=== PATIENT | male | born 1935 | race Caucasian/White ===

== ENCOUNTER 2017-05-26 20:44 | Emergency (ER) | payer MEDICARE, BC ==
[2017-05-26 21:53] VITALS: RESP 18
[2017-05-26 22:40] LABS: Appearance,Urine Clear (Clear); Bacteria,Urine Rare /hpf; Bilirubin,Urine Negative (Negative); Glucose,Urine (UA) 3+ (Negative); Ketones,Urine Negative (Negative); Leukocyte Esterase,Urine Trace (Negative); Nitrite,Urine Negative (Negative); Particle Count 1102; Protein,Urine 1+ (Negative); RBC,Urine >182 /hpf (0-5); Specific Gravity,Urine 1.011 (1.001-1.035); UA Billing (MACRO vs. MICRO) MICRO; Urobilinogen,Urine <2.0 mg/dL (<2.0); WBC,Urine 7 /hpf (0-5)
--- NOTE | 2017-05-26 22:53 | ED ---
General Adult HPI - General Chief complaint: Urogenital Stated complaint: Cant urinate Time Seen by Provider: 05/26/17 22:08 Source: patient Mode of arrival: ambulatory Limitations: no limitations - History of Present Illness Initial comments: Is a 82-year-old male presents emergency department after being transferred here from [facility] to complain of unable to urinate. Patient reports that he follows up with Dr. Cardoza due to hematuria and prostate issues. Patient reports that his urinary retention started at 2 PM today. Patient states that the pain became increasingly worse on the drive from her [place] here. They had multiple times to get a Haq catheter but were unable to. They sent him here to have Dr. Cardoza place a catheter. - Related Data Home Medications Medication Instructions Recorded Confirmed Acetaminophen-Codeine 300-30mg 2 tab PO Q8H PRN 01/29/16 02/05/16 [Tylenol #3] Ammonium Lactate Lotion 1 applic TOPICAL DAILY PRN 01/29/16 02/05/16 [Lac-Hydrin 12%] Aspirin [Adult Low Dose Aspirin EC] 81 mg PO DAILY 01/29/16 01/29/16 Ciclopirox Olamine Cream [Ciclodan] 1 applic TOPICAL BID 01/29/16 02/05/16 Ergocalciferol [Vitamin D2] 50,000 unit PO QMONTH 01/29/16 02/05/16 Fenofibrate [Tricor] 160 mg PO QAM 01/29/16 02/05/16 Ferrous Sulfate [Feosol] 325 mg PO DAILY 01/29/16 02/05/16 Gabapentin [Neurontin] 300 mg PO BID 01/29/16 02/05/16 Losartan Potassium 100 mg PO QAM 01/29/16 02/05/16 Multivitamin [Men's Multi-Vitamin] 1 tab PO DAILY 01/29/16 02/05/16 Mupirocin 2% Nasal Oint [Bactroban 1 applic NASAL BID 01/29/16 02/05/16 Nasal Oint] Niacinamide [Niacin] 500 mg PO QAM 01/29/16 02/05/16 Simvastatin [Zocor] 10 mg PO HS 01/29/16 02/05/16 Tamsulosin [Flomax] 0.4 mg PO DAILY 01/29/16 02/05/16 Triamcinolone 0.1% Cream [Kenalog] 1 applic TOPICAL DAILY PRN 01/29/16 02/05/16 Zolpidem [Ambien] 10 mg PO HS PRN 01/29/16 02/05/16 amLODIPine [Norvasc] 2.5 mg PO QAM 01/29/16 02/05/16 glipiZIDE [Glucotrol] 5 mg PO PC-SUPPER 01/29/16 02/05/16 glipiZIDE [Glucotrol] 10 mg PO QAM 01/29/16 02/05/16 Previous Rx's Medication Instructions Recorded Rivaroxaban [Xarelto] 10 mg PO DAILY #12 tab 02/05/16 HYDROcodone/APAP 7.5-325MG [[place] 1 tab PO Q4H PRN #60 tab 02/08/16 7.5-325] Allergies Allergy/AdvReac Type Severity Reaction Status Date / Time tape Allergy takes the Uncoded 05/26/17 21:53 skin off Review of Systems ROS Statement: Those systems with pertinent positive or pertinent negative responses have been documented in the HPI. ROS Other: All systems not noted in ROS Statement are negative. Past Medical History Past Medical History: Cancer, Diabetes Mellitus, Hyperlipidemia, Hypertension, Osteoarthritis (OA), Prostate Disorder Additional Past Medical History / Comment(s): prostate cancer, STROKE BEHIND RT EYE,GOUT,DDD,RECENTLY TX FOR UTI History of Any Multi-Drug Resistant Organisms: None Reported Past Surgical History: Joint Replacement, Orthopedic Surgery Additional Past Surgical History / Comment(s): 02-05-16 TOTAL LT KNEE REPLACMENT , RT KNEE REPLACMENT, BRIELLE CATARACTS, PROSTE-SEED IMPLANTS,COLONOSCOPY/ POLYPECTOMY(BENIGN), PRECANCEROUS SKIN LESIONS FROZEN OFF. Past Anesthesia/Blood Transfusion Reactions: Motion Sickness Past Psychological History: No Psychological Hx Reported Smoking Status: Never smoker Past Alcohol Use History: None Reported Past Drug Use History: None Reported - Past Family History Mother Family Medical History: Diabetes Mellitus Additional Family Medical History / Comment(s): HEART PROBLEMS Father Family Medical History: Diabetes Mellitus General Exam - General Exam Comments Initial Comments: Well-appearing 82-year-old male. No acute distress. Limitations: no limitations General appearance: alert, in no apparent distress Head exam: Present: atraumatic, normocephalic, normal inspection Eye exam: Present: normal appearance, PERRL, EOMI. Absent: scleral icterus, conjunctival injection, periorbital swelling ENT exam: Present: normal exam, mucous membranes moist Neck exam: Present: normal inspection. Absent: tenderness, meningismus, lymphadenopathy Respiratory exam: Present: normal lung sounds bilaterally. Absent: respiratory distress, wheezes, rales, rhonchi, stridor Cardiovascular Exam: Present: regular rate, normal rhythm, normal heart sounds. Absent: systolic murmur, diastolic murmur, rubs, gallop, clicks GI/Abdominal exam: Present: soft, normal bowel sounds. Absent: distended, tenderness, guarding, rebound, rigid exam: Present: normal inspection, circumcision, other (Upon examining the patient patient are he had a Haq catheter placed.). Absent: testicular tenderness, urethral discharge, scrotal swelling, vertical testicular lie Extremities exam: Present: normal inspection, full ROM, normal capillary refill. Absent: tenderness, pedal edema, joint swelling, calf tenderness Back exam: Present: normal inspection Neurological exam: Present: alert, oriented X3, CN II-XII intact Psychiatric exam: Present: normal affect, normal mood Skin exam: Present: warm, dry, intact, normal color. Absent: rash Course Vital Signs 05/26/17 21:49 Temperature 99.3 F Pulse Rate 116 H Respiratory 18 Rate Blood Pressure 202/91 O2 Sat by Pulse 100 Oximetry Medical Decision Making - Medical Decision Making This is an 82-year-old male presents emergency room chief complaint urinary retention. He did receive a coud catheter by the RN. Isn't successful placement. Due to multiple attempts to getting a Haq catheter he did have some blood noted in the Haq bag. Urinalysis obtained. For blood, but no significant white blood cells noted. Patient did receive a urine culture. The catheter was placed, approximately 1 L of fluid was removed. At this time I discussed that we will discharge the patient with the Haq catheter bag and a . Discussed following up with urology. Discussed to return if there is any possible clogging of clots from the Haq catheter. Patient understands treatment plan will comply. Return parameters were discussed. - Lab Data Lab Results 05/26/17 Range/Units 22:20 Urine Color Light Red Urine Appearance Clear (Clear) Urine pH 7.0 (5.0-8.0) Ur Specific [place] 1.011 (1.001-1.035) Urine Protein 1+ H (Negative) Urine Glucose (UA) 3+ H (Negative) Urine Ketones Negative (Negative) Urine Blood Large H (Negative) Urine Nitrite Negative (Negative) Urine Bilirubin Negative (Negative) Urine Urobilinogen <2.0 (<2.0) mg/dL Ur Leukocyte Esterase Trace H (Negative) Urine RBC >182 H (0-5) /hpf Urine WBC 7 H (0-5) /hpf Urine Bacteria Rare H (None) /hpf Disposition Clinical Impression: Acute urinary retention Disposition: HOME SELF-CARE Condition: Good Instructions: Urinary Retention in Men (ED) Additional Instructions: Patient advised to follow-up with primary care provider and urologist within the next week. Patient needs to keep the catheter in. Return to the emergency department if any alarming signs or symptoms occur. Referrals: Nickolas Reyes MD [Primary Care Provider] - 1-2 days Escobar Schaeffer MD [STAFF PHYSICIAN] - 1-2 days Kodi Overton MD [STAFF PHYSICIAN] - 1-2 days Time of Disposition: 22:52
[2017-05-26 23:05] VITALS: BP 159/71; PULSE 86; TEMP 98.3
== END 2017-05-26 23:14 | disposition home or self-care (01) ==
LOC: EC 20:44
DX: R33.9 Retention of urine, unspecified (principal); M10.9 Gout, unspecified; E11.9 Type 2 diabetes mellitus without complications; E78.5 Hyperlipidemia, unspecified; I10 Essential (primary) hypertension; M19.90 Unspecified osteoarthritis, unspecified site; Z85.46 Personal history of malignant neoplasm of prostate; Z91.048 Other nonmedicinal substance allergy status; Z79.82 Long term (current) use of aspirin; Z79.84 Long term (current) use of oral hypoglycemic drugs; Z79.899 Other long term (current) drug therapy
CPT/HCPCS: 51702; 81001; 87086; 99283

== ENCOUNTER 2020-05-04 07:02 | Inpatient (IN) | payer MEDICARE, BC ==
[2020-05-04] MEDS ORDERED: ACETAMINOPHEN TAB 325 MG TAB PO PRN (08:55)
[2020-05-04] MEDS ORDERED: SODIUM CHLORIDE 0.45% 1,000 ML with POTASSIUM CHLORIDE 20 MEQ IV SCH ×2 (09:00)
[2020-05-04] MEDS ORDERED: FAMOTIDINE 20 MG/2 ML VIAL IV SCH (09:00)
[2020-05-04] MEDS: amLODIPine 5 MG TAB PO SCH (09:56)
[2020-05-04] MEDS: allopurinoL 100 MG TAB PO SCH (09:56)
[2020-05-04] MEDS: TAMSULOSIN 0.4 MG CAP.ER.24H PO SCH (09:56)
[2020-05-04] MEDS: metFORMIN 500 MG TAB PO SCH ×2 (09:56→17:10)
[2020-05-04] MEDS: FUROSEMIDE 20 MG TAB PO SCH ×2 (09:56→17:10)
--- NOTE | 2020-05-04 10:03 | P.GSHP ---
History of Present Illness H&P Date: 05/04/20 Chief Complaint: Sepsis secondary to urinary tract infection The patient is an 85-year-old male transferred from [facility] emergency room this morning for evaluation of sepsis associated with a urinary tract infection. The patient is well known to me. He has a history of prostate cancer which was initially treated with brachii therapy in 2007. He relapsed in 2017 with high-grade cancer which resulted in bilateral hydronephrosis. He has been treated with androgen deprivation therapy and his renal function improved with his creatinine level in the 1.5-1.7 range the recently. He continues to have some bilateral hydronephrosis however. He developed intermittent gross hematuria which resulted in clot urinary retention 2 days ago. I performed cystoscopy with transurethral resection of necrotic-appearing prostate tissue at the [facility] on 05/01. A catheter was left following the surgery and continued drain pink to reddish urine. The patient's hemoglobin was 11.7 approximally 2 weeks ago. Last night the patient apparently got up to go to the bathroom and was too weak to stand. His took him to the [facility] emergency room where he was evaluated and noted to have a fever and a white blood count of 14,300. Hemoglobin was 9.1. Computed tomography scan of the abdomen and pelvis showed bilateral hydronephrosis. His catheter was replaced with a 24-Setswana coud catheter but no further bladder irrigation was necessary. The patient was given a dose of Zosyn and was transferred to this hospital for intravenous antibiotic therapy. At the present time the patient denies any abdominal pain. He says he's not been eating very well over the last several days. He denies any shortness of breath or chest pain. Despite being week the patient has not fallen. - Constitutional Constitutional: Reports fatigue, Reports fever - Cardiovascular Cardiovascular: Reports high blood pressure, Denies chest pain, Denies edema, Denies shortness of breath - Respiratory Respiratory: Denies cough, Denies wheezing - Gastrointestinal Gastrointestinal: Reports constipation, Denies abdominal pain - Genitourinary (Male) Genitourinary: Reports as per HPI Past Medical History Past Medical History: Cancer, Diabetes Mellitus, Hyperlipidemia, Hypertension, Osteoarthritis (OA), Prostate Disorder Additional Past Medical History / Comment(s): prostate cancer, STROKE BEHIND RT EYE,GOUT,DDD,RECENTLY TX FOR UTI History of Any Multi-Drug Resistant Organisms: None Reported Past Surgical History: Joint Replacement, Orthopedic Surgery Additional Past Surgical History / Comment(s): 02-05-16 TOTAL LT KNEE REPLACMENT, RT KNEE REPLACMENT, BRIELLE CATARACTS, PROSTE-SEED IMPLANTS,COLONOSCOPY/POLYPECTOMY(BENIGN), PRECANCEROUS SKIN LESIONS FROZEN OFF. Past Anesthesia/Blood Transfusion Reactions: Motion Sickness Past Psychological History: No Psychological Hx Reported Past Alcohol Use History: None Reported Past Drug Use History: None Reported - Past Family History Mother Family Medical History: Diabetes Mellitus Additional Family Medical History / Comment(s): HEART PROBLEMS Father Family Medical History: Diabetes Mellitus Medications and Allergies Home Medications Medication Instructions Recorded Confirmed Type Aspirin [Adult Low Dose Aspirin EC] 81 mg PO DAILY 01/29/16 09/19/17 History Ergocalciferol [Vitamin D2 50,000 unit PO Q14D 01/29/16 09/19/17 History (DRISDOL)] Ferrous Sulfate [Iron (65 MG 325 mg PO DAILY 01/29/16 09/19/17 History Elemental)] Multivitamin [Men's Multi-Vitamin] 1 tab PO DAILY 01/29/16 09/19/17 History Tamsulosin [Flomax] 0.4 mg PO DAILY 01/29/16 09/19/17 History amLODIPine [Norvasc] 5 mg PO DAILY 09/19/17 09/19/17 History Furosemide [Lasix] 40 mg PO BID #60 tab 10/01/17 Rx Sevelamer [Renvela] 1,600 mg PO TID-W/MEALS #30 tab 10/01/17 Rx Zolpidem [Ambien] 5 mg PO HS PRN #0 10/01/17 09/19/17 Rx Allergies Allergy/AdvReac Type Severity Reaction Status Date / Time tape AdvReac skin tear Uncoded 09/19/17 03:44 Surgical - Exam - General well developed, no distress, chronically ill - ENT no hearing loss - Neck no masses - Respiratory normal respiratory effort - Abdomen Abdomen: soft, non tender, no organomegaly Hernia: none - Genitourinary normal penis with no external lesions, testicles non-tender, other (Haq catheter is present and is draining blood-tinged urine with no clots.) Assessment and Plan (1) Sepsis secondary to UTI Narrative/Plan: The patient's recent fever and weakness are suggestive of sepsis from an underlying urinary tract infection. Blood and urine cultures were obtained at [facility] and the patient has been started on Zosyn which will be continued. Current Visit: Yes Status: Acute Code(s): A41.9 - SEPSIS, UNSPECIFIED ORGANISM; N39.0 - URINARY TRACT INFECTION, SITE NOT SPECIFIED SNOMED Code(s): 970894479 (2) Chronic kidney failure Current Visit: Yes Status: Acute Code(s): N18.9 - CHRONIC KIDNEY DISEASE, UNSPECIFIED SNOMED Code(s): 49858148 (3) Chronic renal failure, stage 3 (moderate) Narrative/Plan: The patient's recent creatinine is consistent with his chronic renal failure which is related to bilateral hydronephrosis. This does not appear to have changed significantly over the last few weeks. Current Visit: Yes Status: Acute Code(s): N18.3 - CHRONIC KIDNEY DISEASE, STAGE 3 (MODERATE) SNOMED Code(s): 08002395 (4) Gross hematuria Narrative/Plan: The patient's gross hematuria is related to bleeding from his underlying prostate cancer. At the present time neither repeat cystoscopy under anesthesia no her blood transfusion would appear to be necessary. His bladder will be irrigated as necessary. Current Visit: No Status: Acute Code(s): R31.0 - GROSS HEMATURIA SNOMED Code(s): 191606679
[2020-05-04 11:12] LABS: Glucose,Whole Blood 363 mg/dL (75-99)
[2020-05-04] MEDS: PIPERACILLIN-TAZOBACTAM 3.375 GM in SODIUM CHLORIDE 0.9% 100 ML IVPB SCH ×3 (11:34→23:46)
[2020-05-04] MEDS: 0.45% NACL WITH KCL 20 MEQ/L 1,000 ML IV SCH ×2 (11:34→19:28)
[2020-05-04] MEDS: INSULIN ASPART (NovoLOG) 100 UNIT/ML VIAL SQ SCH ×3 (12:44→20:17)
[2020-05-04 16:54] LABS: Calcium 8.2 mg/dL (8.4-10.2); Potassium 3.3 mmol/L (3.5-5.1)
[2020-05-04 17:08] LABS: Basophils % (A) 0 %; Eosinophils # (A) 0.3 k/uL (0-0.7); Eosinophils % (A) 3 %; HCT 25.3 % (39.0-53.0); HGB 8.3 gm/dL (13.0-17.5); Lymphocytes # (A) 1.2 k/uL (1.0-4.8); Lymphocytes % (A) 11 %; MCH 32.6 pg (25.0-35.0); MCHC 32.7 g/dL (31.0-37.0); MCV 99.7 fL (80.0-100.0); Macrocytosis Slight; Mean Platelet Volume 8.1; Monocytes % (A) 10 %; Neutrophils # (A) 7.5 k/uL (1.3-7.7); Neutrophils % (A) 74 %; Platelet Count 182 k/uL (150-450); RBC 2.54 m/uL (4.30-5.90); RDW 14.5 % (11.5-15.5); WBC 10.1 k/uL (3.8-10.6)
[2020-05-04 17:25] LABS: Glucose,Whole Blood 115 mg/dL (75-99)
[2020-05-04] MEDS ORDERED: glipiZIDE 5 MG TAB PO SCH (18:00)
[2020-05-04 20:12] LABS: Glucose,Whole Blood 233 mg/dL (75-99)
[2020-05-04] MEDS: GABAPENTIN 300 MG CAP PO SCH (20:17)
[2020-05-04] MEDS: ZOLPIDEM 10 MG TAB PO SCH (20:17)
[2020-05-05] MEDS: 0.45% NACL WITH KCL 20 MEQ/L 1,000 ML IV SCH ×3 (02:57→16:58)
[2020-05-05 07:11] LABS: Glucose,Whole Blood 109 mg/dL (75-99)
[2020-05-05] MEDS: INSULIN ASPART (NovoLOG) 100 UNIT/ML VIAL SQ SCH ×4 (07:26→20:09)
[2020-05-05] MEDS ORDERED: FAMOTIDINE 20 MG/2 ML VIAL IV SCH (09:00)
[2020-05-05] MEDS: glipiZIDE 10 MG TAB PO SCH (09:08)
[2020-05-05] MEDS: amLODIPine 5 MG TAB PO SCH (09:08)
[2020-05-05] MEDS: FUROSEMIDE 20 MG TAB PO SCH ×2 (09:08→16:43)
[2020-05-05] MEDS: metFORMIN 500 MG TAB PO SCH ×2 (09:08→16:43)
[2020-05-05] MEDS: TAMSULOSIN 0.4 MG CAP.ER.24H PO SCH (09:08)
[2020-05-05] MEDS: allopurinoL 100 MG TAB PO SCH (09:09)
[2020-05-05] MEDS: PIPERACILLIN-TAZOBACTAM 3.375 GM in SODIUM CHLORIDE 0.9% 100 ML IVPB SCH ×2 (09:09→16:43)
--- NOTE | 2020-05-05 10:02 | P.PN ---
Progress Note - Text Progress Note Date: 05/05/20 The patient is afebrile and normotensive. He was noted to have a seven beat run of V. tach last night but was not symptomatic and has had no further problems. He is tolerating a regular diet and denies any pain or shortness of breath. His urine is light pink in color. Hemoglobin was 8.3 yesterday afternoon. Lactic acid fell to normal at 1.9. I called [facility] and unfortunately no blood or urine cultures were obtained prior to starting the patient on ceftriaxone yesterday. If his hemoglobin remains stable I will probably discharge him later today on an oral antibiotic.
[2020-05-05 10:24] LABS: Calcium 7.7 mg/dL (8.4-10.2); Potassium 3.8 mmol/L (3.5-5.1)
[2020-05-05 10:33] LABS: Basophils % (A) 0 %; Eosinophils # (A) 0.4 k/uL (0-0.7); Eosinophils % (A) 5 %; HCT 25.6 % (39.0-53.0); HGB 8.3 gm/dL (13.0-17.5); Lymphocytes # (A) 0.8 k/uL (1.0-4.8); Lymphocytes % (A) 10 %; MCH 32.5 pg (25.0-35.0); MCHC 32.2 g/dL (31.0-37.0); MCV 100.9 fL (80.0-100.0); Macrocytosis Slight; Mean Platelet Volume 7.9; Monocytes # (A) 0.5 k/uL (0-1.0); Monocytes % (A) 7 %; Neutrophils # (A) 6.2 k/uL (1.3-7.7); Neutrophils % (A) 77 %; Platelet Count 175 k/uL (150-450); RBC 2.54 m/uL (4.30-5.90); RDW 14.5 % (11.5-15.5); WBC 8.1 k/uL (3.8-10.6)
[2020-05-05 12:22] LABS: Glucose,Whole Blood 209 mg/dL (75-99)
--- NOTE | 2020-05-05 12:52 | P.DS ---
Providers Date of admission: 05/04/20 08:49 Expected date of discharge: 05/05/20 Attending physician: Kodi Overton Primary care physician: Floyd Anne MD - Discharge Diagnosis(es) (1) Sepsis secondary to UTI The patient was admitted as a transfer from [facility] due to hematuria, and a fever which was presumed to be secondary to a urinary tract infection. He was started on ceftriaxone at [facility] and was continued on it. The patient remained afebrile since his admission. He had a urethral catheter which was draining blood-tinged urine however the catheter did not require irrigation and at the time of discharge urine draining from it was light pink in color. Patient's hemoglobin was 8.3 on 05/04 and again on 05/05. BUN/creatinine were improved at 24/1.26. Unfortunately neither blood nor urine cultures were obtained at [facility] prior to starting antibiotics. In view of that fact that the patient was afebrile for over 24 hours it was elected to discharge him on oral levofloxacin 250 milligrams daily for 5 days. His catheter will remain in place for another 2 days and will be removed at that time provided his urine is clear. Current Visit: Yes Status: Acute (2) Chronic kidney failure Current Visit: Yes Status: Acute (3) Chronic renal failure, stage 3 (moderate) Current Visit: Yes Status: Acute (4) Gross hematuria Current Visit: No Status: Acute Plan - Discharge Summary Discharge Rx Participant: No New Discharge Prescriptions: New Levofloxacin [Levaquin] 250 mg PO DAILY 3 Days #5 tab No Action Ergocalciferol [Vitamin D2 (DRISDOL)] 50,000 unit PO Q14D Tamsulosin [Flomax] 0.4 mg PO DAILY Multivitamin [Men's Multi-Vitamin] 1 tab PO DAILY amLODIPine [Norvasc] 5 mg PO DAILY Zolpidem [Ambien] 10 mg PO HS PRN PRN Reason: Insomnia metFORMIN HCL 500 mg PO BID Gabapentin 600 mg PO HS glipiZIDE [Glucotrol] 5 mg PO HS glipiZIDE [Glucotrol] 10 mg PO DAILY Furosemide [Lasix] 20 mg PO HS Furosemide [Lasix] 40 mg PO DAILY Famotidine [Pepcid] 20 mg PO BID Allopurinol [Zyloprim] 200 mg PO DAILY Discharge Medication List Ergocalciferol [Vitamin D2 (DRISDOL)] 50,000 unit PO Q14D 01/29/16 [History] Multivitamin [Men's Multi-Vitamin] 1 tab PO DAILY 01/29/16 [History] Tamsulosin [Flomax] 0.4 mg PO DAILY 01/29/16 [History] amLODIPine [Norvasc] 5 mg PO DAILY 09/19/17 [History] Allopurinol [Zyloprim] 200 mg PO DAILY 05/04/20 [History] Famotidine [Pepcid] 20 mg PO BID 05/04/20 [History] Furosemide [Lasix] 20 mg PO HS 05/04/20 [History] Furosemide [Lasix] 40 mg PO DAILY 05/04/20 [History] Gabapentin 600 mg PO HS 05/04/20 [History] Zolpidem [Ambien] 10 mg PO HS PRN 05/04/20 [History] glipiZIDE [Glucotrol] 5 mg PO HS 05/04/20 [History] glipiZIDE [Glucotrol] 10 mg PO DAILY 05/04/20 [History] metFORMIN HCL 500 mg PO BID 05/04/20 [History] Levofloxacin [Levaquin] 250 mg PO DAILY 3 Days #5 tab 05/05/20 [Rx] Activity/Diet/Wound Care/Special Instructions: Patient is to leave catheter in and contact Dr Overton on Wednesday. Discharge Disposition: HOME SELF-CARE
[2020-05-05 13:05] VITALS: RESP 16
[2020-05-05 17:07] LABS: Glucose,Whole Blood 168 mg/dL (75-99)
[2020-05-05 20:04] LABS: Glucose,Whole Blood 130 mg/dL (75-99)
[2020-05-05] MEDS: ZOLPIDEM 10 MG TAB PO SCH (20:06)
[2020-05-05] MEDS: GABAPENTIN 300 MG CAP PO SCH (20:06)
[2020-05-05] MEDS ORDERED: glipiZIDE 5 MG TAB PO SCH (21:00)
[2020-05-06] MEDS: PIPERACILLIN-TAZOBACTAM 3.375 GM in SODIUM CHLORIDE 0.9% 100 ML IVPB SCH ×2 (00:29→08:34)
[2020-05-06] MEDS: 0.45% NACL WITH KCL 20 MEQ/L 1,000 ML IV SCH ×2 (04:34→11:11)
[2020-05-06 07:39] LABS: Glucose,Whole Blood 108 mg/dL (75-99)
[2020-05-06 08:29] LABS: Basophils % (A) 0 %; Eosinophils # (A) 0.4 k/uL (0-0.7); Eosinophils % (A) 5 %; HCT 27.2 % (39.0-53.0); Lymphocytes # (A) 0.7 k/uL (1.0-4.8); Lymphocytes % (A) 10 %; MCHC 33.1 g/dL (31.0-37.0); MCV 99.7 fL (80.0-100.0); Macrocytosis Slight; Mean Platelet Volume 7.9; Monocytes # (A) 0.6 k/uL (0-1.0); Monocytes % (A) 8 %; Neutrophils # (A) 5.5 k/uL (1.3-7.7); Neutrophils % (A) 74 %; Platelet Count 195 k/uL (150-450); RBC 2.73 m/uL (4.30-5.90); RDW 14.5 % (11.5-15.5); WBC 7.4 k/uL (3.8-10.6)
[2020-05-06] MEDS: metFORMIN 500 MG TAB PO SCH (08:33)
[2020-05-06] MEDS: glipiZIDE 10 MG TAB PO SCH (08:33)
[2020-05-06] MEDS: allopurinoL 100 MG TAB PO SCH (08:33)
[2020-05-06] MEDS: TAMSULOSIN 0.4 MG CAP.ER.24H PO SCH (08:33)
[2020-05-06] MEDS: amLODIPine 5 MG TAB PO SCH (08:34)
[2020-05-06] MEDS: FUROSEMIDE 20 MG TAB PO SCH ×2 (08:34→16:10)
[2020-05-06] MEDS: INSULIN ASPART (NovoLOG) 100 UNIT/ML VIAL SQ SCH ×2 (08:34→12:56)
[2020-05-06] MEDS ORDERED: FAMOTIDINE 20 MG TAB PO SCH (09:00)
[2020-05-06 11:43] LABS: Glucose,Whole Blood 168 mg/dL (75-99)
[2020-05-06 11:56] VITALS: BP 132/77; PULSE 79; TEMP 97.9
[2020-05-06 17:20] LABS: Glucose,Whole Blood 139 mg/dL (75-99)
--- NOTE | 2020-05-08 09:17 | CDI ---
Documentation Clarification Form Date: 05/08/20 From: Kelsie Gil Phone: If you have a question about this query, please contact Hollie Feldman, Pyridine Operator at [phone] between 8am and 5pm. Admit Date: 05/04/20 Discharge Date: 05/06/20 Patient Name: KELLY BERMAN Visit Number: [id number] ATTENTION: The Clinical Documentation Specialists (CDI) and [facility] Coding Staff appreciate your assistance in clarifying documentation. Please respond to the clarification below the line at the bottom and electronically sign. The CDI & [facility] Coding staff will review the response and follow-up if needed. Please note: Queries are made part of the Legal Health Record. If you have any questions, please contact the author of this message via ITS. Dear Dr. Kodi Overton, A diagnosis of sepsis secondary to UTI has been documented in the H&P and DS. History/Risk Factors: prostate ca, VT, DM 2 w CKD stage 3, HTN, gross hematuira, HLD, OA Per documentation in the H&P this patient was admitted with an indwelling Haq catheter. The catheter was placed on 05/01 following cystoscopy and TURP. He presented to [facility] on 05/03 with fever and white count of 14,300. His catheter was replaced, but no further bladder irrigation was necessary. He was transferred to [place] for intravenous antibiotic therapy. Clinical Indicators: The patient's recent fever and weakness are suggestive of sepsis from an underlying urinary tract infection. Urinalysis: None available Urine culture: None done at transferring hospital prior to antibiotic starting. Lab results: Lactic acid-2.1, Lactic Ac Sepsis Rflx-Y Treatment: IV fluids, IV Zosyn In your professional opinion, can you please clarify the etiology of the UTI, if known? Haq catheter UTI not related to catheter Other condition, please specify Unable to determine The patient's presumed urinary tract infection was probably related to the Haq catheter. MTDD
== END 2020-05-06 18:35 | disposition home or self-care (01) | DRG 698 ==
LOC: 6NMEDSUR 08:49 → OBSVTOIN 08:50
PROVIDERS: ADMIT Urology; ATTEND Urology
DX: T83.511A Infection and inflammatory reaction due to indwelling urethral catheter, initial encounter (principal); A41.9 Sepsis, unspecified organism; I47.2 Ventricular tachycardia; N13.6 Pyonephrosis; C61 Malignant neoplasm of prostate; E11.22 Type 2 diabetes mellitus with diabetic chronic kidney disease; N18.3 Chronic kidney disease, stage 3 (moderate); I12.9 Hypertensive chronic kidney disease with stage 1 through stage 4 chronic kidney disease, or unspecified chronic kidney disease; R31.0 Gross hematuria; E78.5 Hyperlipidemia, unspecified; M19.90 Unspecified osteoarthritis, unspecified site; M10.9 Gout, unspecified; Z79.84 Long term (current) use of oral hypoglycemic drugs; Z79.899 Other long term (current) drug therapy; Z86.73 Personal history of transient ischemic attack (TIA), and cerebral infarction without residual deficits; Z92.3 Personal history of irradiation; Z96.652 Presence of left artificial knee joint; Z96.651 Presence of right artificial knee joint; Z98.42 Cataract extraction status, left eye; Z98.41 Cataract extraction status, right eye; Z86.010 Personal history of colon polyps; Z87.2 Personal history of diseases of the skin and subcutaneous tissue; Z98.890 Other specified postprocedural states; Z91.048 Other nonmedicinal substance allergy status; Z83.3 Family history of diabetes mellitus; Y84.6 Urinary catheterization as the cause of abnormal reaction of the patient, or of later complication, without mention of misadventure at the time of the procedure; Z82.49 Family history of ischemic heart disease and other diseases of the circulatory system
CPT/HCPCS: 80048; 83605; 85025; 93005

== ENCOUNTER 2020-05-14 01:05 | Inpatient (IN) | payer MEDICARE, BC ==
[2020-05-14] MEDS ORDERED: NALOXONE 0.4 MG/ML 1 ML VIAL IV PRN (01:08)
--- NOTE | 2020-05-14 01:08 | ED ---
Male Urogenital HPI - General Stated complaint: Urogenital Time Seen by Provider: 05/14/20 01:06 - History of Present Illness Initial comments: Anthony is an 85-year-old gentleman with a history of prostate cancer who over the past month has had frequent hematuria, initially he was admitted to the hospital or hematuria and urinary tract infection with signs of sepsis. He was treated subsequently discharged home. He then developed recurrent hematuria and had procedure with Dr. Overton in which Dr. Overton additional biopsies of his bladder and remove clot from his bladder. Patient reports he been doing well since then but today developed worsening hematuria. He was seen in an outpatient Hospital where his Haq catheter was exchanged and he was discharged home. He returned to the outpatient Hospital with recurrent hematuria and bleeding around his Haq catheter. A three-way catheter was placed and the bladder was irrigated but bleeding continued. Hemoglobin was noted to be only 8.4 decision was made to transfer him to our hospital for admission and evaluation by urology. She denies any fevers chills chest pain palpitations or shortness of breath. He reports he has felt somewhat weak and run down over the past month. - Related Data Home Medications Medication Instructions Recorded Confirmed Ergocalciferol [Vitamin D2 50,000 unit PO Q14D 01/29/16 05/04/20 (DRISDOL)] Multivitamin [Men's Multi-Vitamin] 1 tab PO DAILY 01/29/16 05/04/20 Tamsulosin [Flomax] 0.4 mg PO DAILY 01/29/16 05/04/20 amLODIPine [Norvasc] 5 mg PO DAILY 09/19/17 05/04/20 Allopurinol [Zyloprim] 200 mg PO DAILY 05/04/20 05/04/20 Famotidine [Pepcid] 20 mg PO BID 05/04/20 05/04/20 Furosemide [Lasix] 20 mg PO HS 05/04/20 05/04/20 Furosemide [Lasix] 40 mg PO DAILY 05/04/20 05/04/20 Gabapentin 600 mg PO HS 05/04/20 05/04/20 Zolpidem [Ambien] 10 mg PO HS PRN 05/04/20 05/04/20 glipiZIDE [Glucotrol] 5 mg PO HS 05/04/20 05/04/20 glipiZIDE [Glucotrol] 10 mg PO DAILY 05/04/20 05/04/20 metFORMIN HCL 500 mg PO BID 05/04/20 05/04/20 Previous Rx's Medication Instructions Recorded Levofloxacin [Levaquin] 250 mg PO DAILY 3 Days #5 tab 05/05/20 Allergies Allergy/AdvReac Type Severity Reaction Status Date / Time tape AdvReac skin tear Uncoded 09/19/17 03:44 Review of Systems ROS Statement: Those systems with pertinent positive or pertinent negative responses have been documented in the HPI. ROS Other: All systems not noted in ROS Statement are negative. Past Medical History Past Medical History: Cancer, Diabetes Mellitus, Hyperlipidemia, Hypertension, Osteoarthritis (OA), Prostate Disorder Additional Past Medical History / Comment(s): prostate cancer, STROKE BEHIND RT EYE,GOUT,DDD,RECENTLY TX FOR UTI History of Any Multi-Drug Resistant Organisms: None Reported Past Surgical History: Joint Replacement, Orthopedic Surgery Additional Past Surgical History / Comment(s): 02-05-16 TOTAL LT KNEE REPLACMENT, RT KNEE REPLACMENT, BRIELLE CATARACTS, PROSTE-SEED IMPLANTS,COLONOSCOPY/POLYPECTOMY(BENIGN), PRECANCEROUS SKIN LESIONS FROZEN OFF. Past Anesthesia/Blood Transfusion Reactions: Motion Sickness Past Psychological History: No Psychological Hx Reported Past Alcohol Use History: None Reported Past Drug Use History: None Reported - Past Family History Mother Family Medical History: Diabetes Mellitus Additional Family Medical History / Comment(s): HEART PROBLEMS Father Family Medical History: Diabetes Mellitus General Exam - General Exam Comments Initial Comments: Physical Exam GENERAL: Patient is well-developed and well-nourished. Patient is nontoxic and well-hydrated and is in no distress. HENT: Normocephalic, Atraumatic. EYES: PERRL, EOMI Conjunctival pallor PULMONARY: Unlabored respirations. CARDIOVASCULAR: RRR Warm and well perfused extremities ABDOMEN: Non-distended SKIN: No rashes or bruising Pale : Haq catheter in place, draining fruit punch colored urine NEUROLOGIC: Alert and oriented Normal speech Normal gait MUSCULOSKELETAL: Moving all extremities with no apparent injury PSYCHIATRIC: No SI/HI Course Vital Signs 05/14/20 05/14/20 01:14 02:01 Temperature 98.2 F Pulse Rate 91 77 Respiratory 18 16 Rate Blood Pressure 145/89 122/58 O2 Sat by Pulse 99 96 Oximetry Medical Decision Making - Medical Decision Making Patient care was discussed with transferring physician 85-year-old gentleman with persistent hematuria and anemia transferred here for evaluation by urology Repeat labs were obtained Single dose of [place] A was given Patient care was discussed with Dr. John of the urology group who agrees with plan for admission - Lab Data Result diagrams: 05/14/20 01:21 05/14/20 01:21 Disposition Clinical Impression: Hematuria, Anemia, Gross hematuria, Prostate cancer Disposition: ADMITTED IP TO THIS HOSP Condition: Serious Is patient prescribed a controlled substance at d/c from ED?: No
[2020-05-14 01:45] LABS: Basophils # (A) 0.1 k/uL (0-0.2); Basophils % (A) 1 %; Eosinophils # (A) 0.2 k/uL (0-0.7); Eosinophils % (A) 2 %; HCT 25.7 % (39.0-53.0); HGB 8.4 gm/dL (13.0-17.5); Lymphocytes # (A) 0.7 k/uL (1.0-4.8); Lymphocytes % (A) 7 %; MCH 32.2 pg (25.0-35.0); MCHC 32.5 g/dL (31.0-37.0); MCV 98.9 fL (80.0-100.0); Mean Platelet Volume 7.3; Monocytes # (A) 0.5 k/uL (0-1.0); Monocytes % (A) 5 %; Neutrophils # (A) 8.5 k/uL (1.3-7.7); Neutrophils % (A) 84 %; Platelet Count 358 k/uL (150-450); RDW 14.4 % (11.5-15.5)
[2020-05-14] MEDS ORDERED: TRANEXAMIC ACID 1,000 MG in SODIUM CHLORIDE 0.9% 100 ML IVPB ONE (01:45)
[2020-05-14 01:53] LABS: INR 1.1 (<1.2)
[2020-05-14 02:02] LABS: Albumin 3.1 g/dL (3.5-5.0); Calcium 8.4 mg/dL (8.4-10.2); Total Bilirubin 0.3 mg/dL (0.2-1.3); Total Protein 5.5 g/dL (6.3-8.2)
[2020-05-14 06:39] LABS: Glucose,Whole Blood 122 mg/dL (75-99)
[2020-05-14] MEDS ORDERED: ZOLPIDEM 10 MG TAB PO PRN (09:25)
[2020-05-14 11:55] LABS: Glucose,Whole Blood 230 mg/dL (75-99)
[2020-05-14] MEDS: INSULIN ASPART (NovoLOG) 100 UNIT/ML VIAL SQ SCH ×3 (12:30→21:27)
[2020-05-14] MEDS: SODIUM CHLORIDE 0.9% 1,000 ML IV SCH ×2 (12:31→22:13)
--- NOTE | 2020-05-14 12:48 | P.HPIM ---
History of Present Illness is a [id number] gentleman with a history of prostate cancer who over the past month has had frequent hematuria, initially he was admitted to the hospital or hematuria and urinary tract infection with signs of sepsis. He was treated subsequently discharged home. He then developed recurrent hematuria and had procedure with Dr. Overton in which Dr. Overton additional biopsies of his bladder and remove clot from his bladder. Patient reports he been doing well since then but yesterday developed worsening hematuria. He was seen in an outpatient Hospital where his Haq catheter was exchanged and he was discharged home. He returned to the outpatient Hospital with recurrent hematuria and bleeding around his Haq catheter. A three-way catheter was placed and the bladder was irrigated but bleeding continued. Hemoglobin was noted to be only 8.4 decision was made to transfer him to our hospital for admission and evaluation by urology. he denies any fevers chills chest pain palpitations or shortness of breath. He reports he has felt somewhat weak and run down over the past month.patient has this hematuria going on and off for about any or. 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 HEENT: No recent visual problems or hearing problems. Denied any sore throat. CARDIOVASCULAR: No chest pain, orthopnea, PND, no palpitations, no syncope. PULMONARY: No shortness of breath, no cough, no hemoptysis. GASTROINTESTINAL: No diarrhea, no nausea, no vomiting, no abdominal pain. NEUROLOGICAL: No headaches, no weakness, no numbness. HEMATOLOGICAL: Denies any bleeding or petechiae. GENITOURINARY: mentioned in HPI MUSCULOSKELETAL/RHEUMATOLOGICAL: Denies any joint pain, swelling, or any muscle pain. ENDOCRINE: Denies any polyuria or polydipsia. The rest of the 14-point review of systems is negative. Past Medical History Past Medical History: Cancer, Diabetes Mellitus, Hyperlipidemia, Hypertension, Osteoarthritis (OA), Prostate Disorder Additional Past Medical History / Comment(s): prostate cancer, STROKE BEHIND RT EYE,GOUT,DDD,RECENTLY TX FOR UTI History of Any Multi-Drug Resistant Organisms: None Reported Past Surgical History: Joint Replacement, Orthopedic Surgery Additional Past Surgical History / Comment(s): 02-05-16 TOTAL LT KNEE REPLACMENT, RT KNEE REPLACMENT, BRIELLE CATARACTS, PROSTE-SEED IMPLANTS,COLONOSC OPY/POLYPECTOMY(BENIGN), PRECANCEROUS SKIN LESIONS FROZEN OFF. Past Anesthesia/Blood Transfusion Reactions: Motion Sickness Past Psychological History: No Psychological Hx Reported Past Alcohol Use History: None Reported Past Drug Use History: None Reported - Past Family History Mother Family Medical History: Diabetes Mellitus Additional Family Medical History / Comment(s): HEART PROBLEMS Father Family Medical History: Diabetes Mellitus Medications and Allergies Home Medications Medication Instructions Recorded Confirmed Type Ergocalciferol [Vitamin D2 50,000 unit PO Q14D 01/29/16 05/14/20 History (DRISDOL)] Multivitamin [Men's Multi-Vitamin] 1 tab PO DAILY 01/29/16 05/14/20 History Tamsulosin [Flomax] 0.4 mg PO DAILY 01/29/16 05/14/20 History amLODIPine [Norvasc] 5 mg PO DAILY 09/19/17 05/14/20 History Allopurinol [Zyloprim] 200 mg PO DAILY 05/04/20 05/14/20 History Famotidine [Pepcid] 20 mg PO BID 05/04/20 05/14/20 History Furosemide [Lasix] 20 mg PO DAILY@1600 05/04/20 05/14/20 History Furosemide [Lasix] 40 mg PO DAILY 05/04/20 05/14/20 History Gabapentin 600 mg PO HS 05/04/20 05/14/20 History Zolpidem [Ambien] 10 mg PO HS PRN 05/04/20 05/14/20 History glipiZIDE [Glucotrol] 5 mg PO HS 05/04/20 05/14/20 History glipiZIDE [Glucotrol] 10 mg PO DAILY 05/04/20 05/14/20 History metFORMIN HCL 500 mg PO BID 05/04/20 05/14/20 History Allergies Allergy/AdvReac Type Severity Reaction Status Date / Time adhesive tape AdvReac skin tear Verified 05/14/20 07:24 Physical Exam Vitals: Vital Signs Temp Pulse Pulse Resp BP BP Pulse Ox 05/14/20 07:52 98.2 F 92 16 139/64 97 05/14/20 02:42 98.4 F 89 16 150/69 98 05/14/20 02:01 77 16 122/58 96 05/14/20 01:14 98.2 F 91 18 145/89 99 Intake and Output 05/13/20 05/14/20 05/14/20 22:59 06:59 14:59 Intake Total 120 Output Total 325 Balance -325 120 Intake: Oral 120 Output: Urine 325 Other: Voiding Method Indwelling Catheter Indwelling Catheter Weight 72.575 kg PHYSICAL EXAMINATION: GENERAL: The patient is alert and oriented x3, not in any acute distress. thin built HEENT: Pupils are round and equally reacting to light. EOMI. No scleral icterus. No conjunctival pallor. Normocephalic, atraumatic. No pharyngeal erythema. No thyromegaly. CARDIOVASCULAR: S1 and S2 present. No murmurs, rubs, or gallops. PULMONARY: Chest is clear to auscultation, no wheezing or crackles. ABDOMEN: Soft, nontender, nondistended, normoactive bowel sounds. No palpable organomegaly. MUSCULOSKELETAL: No joint swelling or deformity. EXTREMITIES: No cyanosis, clubbing, or pedal edema. NEUROLOGICAL: Gross neurological examination did not reveal any focal deficits. SKIN: No rashes. Results CBC & Chem 7: 05/14/20 01:21 05/14/20 01:21 Labs: Abnormal Lab Results - Last 24 Hours (Table) 05/14/20 05/14/20 05/14/20 Range/Units 01:21 01:21 06:37 RBC 2.60 L (4.30-5.90) m/uL Hgb 8.4 L (13.0-17.5) gm/dL Hct 25.7 L (39.0-53.0) % Neutrophils # 8.5 H (1.3-7.7) k/uL Lymphocytes # 0.7 L (1.0-4.8) k/uL Sodium 134 L (137-145) mmol/L BUN 28 H (9-20) mg/dL Glucose 303 H (74-99) mg/dL POC Glucose (mg/dL) 122 H (75-99) mg/dL Total Protein 5.5 L (6.3-8.2) g/dL Albumin 3.1 L (3.5-5.0) g/dL 05/14/20 Range/Units 11:53 RBC (4.30-5.90) m/uL Hgb (13.0-17.5) gm/dL Hct (39.0-53.0) % Neutrophils # (1.3-7.7) k/uL Lymphocytes # (1.0-4.8) k/uL Sodium (137-145) mmol/L BUN (9-20) mg/dL Glucose (74-99) mg/dL POC Glucose (mg/dL) 230 H (75-99) mg/dL Total Protein (6.3-8.2) g/dL Albumin (3.5-5.0) g/dL Thrombosis Risk Factor Assmnt - Choose All That Apply Any of the Below Risk Factors Present?: No Other Risk Factors: No Thrombosis Risk Factor Assessment Level: Very Low Risk Assessment and Plan Plan: -hematuria: Continue bladder irrigation possibility of radiation cystitis or bladder cancer pathology is pending. we'll obtain a urine analysis and service told patient was diagnosed with UTI at [facility] -acute renal failure: pre renal azotemia continue with IV fluids -Hypovolemic hyponatremia IV fluids as mentioned above -type 2 diabetes mellitus -Hyperlipidemia -Hypertension -History of prostate cancer
[2020-05-14 15:07] VITALS: BMI 24.3
[2020-05-14 16:35] LABS: Appearance,Urine Cloudy (Clear); Bilirubin,Urine Negative (Negative); Blood,Urine Large (Negative); Color,Urine Red; Glucose,Urine (UA) 1+ (Negative); Ketones,Urine Negative (Negative); Leukocyte Esterase,Urine Large (Negative); Nitrite,Urine Negative (Negative); PH, Urine 6.5 (5.0-8.0); Protein,Urine 2+ (Negative); RBC,Urine >182 /hpf (0-5); Specific Gravity,Urine 1.018 (1.001-1.035); Urobilinogen,Urine <2.0 mg/dL (<2.0); WBC,Urine >182 /hpf (0-5)
[2020-05-14 16:38] LABS: Glucose,Whole Blood 192 mg/dL (75-99)
--- NOTE | 2020-05-14 16:46 | P.GSCN ---
History of Present Illness Consult date: 05/14/20 Reason for Consult: Hematuria Requesting physician: Kelsi Calvin History of present illness: The freida is an 85-year-old gentleman with a history of prostate cancer initially treated with brachytherapy in 2007. His PSA level began rising in 2014 and he was treated with androgen deprivation therapy. He developed bilateral hydronephrosis, which has persisted despite improvement in his serum creatinine level. He developed gross hematuria with urinary clot retention earlier this month. He underwent cystoscopy with transurethral resection of necrotic appearing tissue, and the preliminary diagnosis is urothelial carcinoma. The tumor was predominantly located on the posterior bladder neck, and the resection was incomplete. He was subsequently hospitalized but did not require further intervention. The Haq catheter remains in place. Irrigation of the Haq catheter yielded clots earlier today, but most recently no clots were seen when the catheter was irrigated. Review of Systems - Constitutional Denies chills, Denies fever - Cardiovascular Denies chest pain - Respiratory Denies dyspnea - Gastrointestinal Denies nausea, Denies vomiting - Genitourinary Reports hematuria Past Medical History Past Medical History: Cancer, Diabetes Mellitus, Hyperlipidemia, Hypertension, Osteoarthritis (OA), Prostate Disorder Additional Past Medical History / Comment(s): prostate cancer, STROKE BEHIND RT EYE,GOUT,DDD,RECENTLY TX FOR UTI History of Any Multi-Drug Resistant Organisms: None Reported Past Surgical History: Joint Replacement, Orthopedic Surgery Additional Past Surgical History / Comment(s): 02-05-16 TOTAL LT KNEE REPLACMENT, RT KNEE REPLACMENT, BRIELLE CATARACTS, PROSTE-SEED IMPLANTS,COLONOSCOPY/P OLYPECTOMY(BENIGN), PRECANCEROUS SKIN LESIONS FROZEN OFF. Past Anesthesia/Blood Transfusion Reactions: Motion Sickness Past Psychological History: No Psychological Hx Reported Past Alcohol Use History: None Reported Past Drug Use History: None Reported - Past Family History Mother Family Medical History: Diabetes Mellitus Additional Family Medical History / Comment(s): HEART PROBLEMS Father Family Medical History: Diabetes Mellitus Medications and Allergies Home Medications Medication Instructions Recorded Confirmed Type Ergocalciferol [Vitamin D2 50,000 unit PO Q14D 01/29/16 05/14/20 History (DRISDOL)] Multivitamin [Men's Multi-Vitamin] 1 tab PO DAILY 01/29/16 05/14/20 History Tamsulosin [Flomax] 0.4 mg PO DAILY 01/29/16 05/14/20 History amLODIPine [Norvasc] 5 mg PO DAILY 09/19/17 05/14/20 History Allopurinol [Zyloprim] 200 mg PO DAILY 05/04/20 05/14/20 History Famotidine [Pepcid] 20 mg PO BID 05/04/20 05/14/20 History Furosemide [Lasix] 20 mg PO DAILY@1600 05/04/20 05/14/20 History Furosemide [Lasix] 40 mg PO DAILY 05/04/20 05/14/20 History Gabapentin 600 mg PO HS 05/04/20 05/14/20 History Zolpidem [Ambien] 10 mg PO HS PRN 05/04/20 05/14/20 History glipiZIDE [Glucotrol] 5 mg PO HS 05/04/20 05/14/20 History glipiZIDE [Glucotrol] 10 mg PO DAILY 05/04/20 05/14/20 History metFORMIN HCL 500 mg PO BID 05/04/20 05/14/20 History Allergies Allergy/AdvReac Type Severity Reaction Status Date / Time adhesive tape AdvReac skin tear Verified 05/14/20 07:24 Surgical - Exam Vital Signs Temp Pulse Resp BP Pulse Ox 98.2 F 91 18 145/89 99 05/14/20 01:14 05/14/20 01:14 05/14/20 01:14 05/14/20 01:14 05/14/20 01:14 - General well developed, well nourished, no distress - Respiratory normal respiratory effort - Abdomen Abdomen: soft, non tender, no guarding, no rigid, no rebound - Genitourinary normal penis with no external lesions - Psychiatric oriented to time, oriented to person, oriented to place, speech is normal, memory intact Results - Labs 05/14/20 01:21 05/14/20 01:21 Abnormal Lab Results - Last 24 Hours (Table) 05/14/20 05/14/20 05/14/20 Range/Units 01:21 01:21 06:37 RBC 2.60 L (4.30-5.90) m/uL Hgb 8.4 L (13.0-17.5) gm/dL Hct 25.7 L (39.0-53.0) % Neutrophils # 8.5 H (1.3-7.7) k/uL Lymphocytes # 0.7 L (1.0-4.8) k/uL Sodium 134 L (137-145) mmol/L BUN 28 H (9-20) mg/dL Glucose 303 H (74-99) mg/dL POC Glucose (mg/dL) 122 H (75-99) mg/dL Total Protein 5.5 L (6.3-8.2) g/dL Albumin 3.1 L (3.5-5.0) g/dL 05/14/20 Range/Units 11:53 RBC (4.30-5.90) m/uL Hgb (13.0-17.5) gm/dL Hct (39.0-53.0) % Neutrophils # (1.3-7.7) k/uL Lymphocytes # (1.0-4.8) k/uL Sodium (137-145) mmol/L BUN (9-20) mg/dL Glucose (74-99) mg/dL POC Glucose (mg/dL) 230 H (75-99) mg/dL Total Protein (6.3-8.2) g/dL Albumin (3.5-5.0) g/dL Diabetes panel 05/14/20 Range/Units 01:21 Sodium 134 L (137-145) mmol/L Potassium 4.0 (3.5-5.1) mmol/L Chloride 102 (98-107) mmol/L Carbon Dioxide 23 (22-30) mmol/L BUN 28 H (9-20) mg/dL Creatinine 1.13 (0.66-1.25) mg/dL Glucose 303 H (74-99) mg/dL Calcium 8.4 (8.4-10.2) mg/dL AST 22 (17-59) U/L ALT 10 (4-49) U/L Alkaline Phosphatase 102 (38-126) U/L Total Protein 5.5 L (6.3-8.2) g/dL Albumin 3.1 L (3.5-5.0) g/dL Calcium panel 05/14/20 Range/Units 01:21 Calcium 8.4 (8.4-10.2) mg/dL Albumin 3.1 L (3.5-5.0) g/dL Pituitary panel 05/14/20 Range/Units 01:21 Sodium 134 L (137-145) mmol/L Potassium 4.0 (3.5-5.1) mmol/L Chloride 102 (98-107) mmol/L Carbon Dioxide 23 (22-30) mmol/L BUN 28 H (9-20) mg/dL Creatinine 1.13 (0.66-1.25) mg/dL Glucose 303 H (74-99) mg/dL Calcium 8.4 (8.4-10.2) mg/dL Adrenal panel 05/14/20 Range/Units 01:21 Sodium 134 L (137-145) mmol/L Potassium 4.0 (3.5-5.1) mmol/L Chloride 102 (98-107) mmol/L Carbon Dioxide 23 (22-30) mmol/L BUN 28 H (9-20) mg/dL Creatinine 1.13 (0.66-1.25) mg/dL Glucose 303 H (74-99) mg/dL Calcium 8.4 (8.4-10.2) mg/dL Total Bilirubin 0.3 (0.2-1.3) mg/dL AST 22 (17-59) U/L ALT 10 (4-49) U/L Alkaline Phosphatase 102 (38-126) U/L Total Protein 5.5 L (6.3-8.2) g/dL Albumin 3.1 L (3.5-5.0) g/dL Assessment and Plan (1) Malignant neoplasm of bladder, unspecified Current Visit: Yes Status: Acute Code(s): C67.9 - MALIGNANT NEOPLASM OF BLADDER, UNSPECIFIED SNOMED Code(s): 521119393 Plan: Continue Haq catheter drainage. Irrigate Haq when necessary. Monitor hemoglobin. If the hemoglobin level drops he may require re-resection.
[2020-05-14] MEDS ORDERED: FAMOTIDINE 20 MG TAB PO SCH (21:00)
[2020-05-14 21:12] LABS: Glucose,Whole Blood 204 mg/dL (75-99)
[2020-05-14] MEDS: ZOLPIDEM 5 MG TAB PO PRN (21:26)
[2020-05-14] MEDS: glipiZIDE 5 MG TAB PO SCH (21:26)
[2020-05-14] MEDS: GABAPENTIN 300 MG CAP PO SCH (21:26)
[2020-05-15 05:25] LABS: HCT 24.8 % (39.0-53.0); HGB 7.7 gm/dL (13.0-17.5); Hypochromasia Slight; MCH 31.2 pg (25.0-35.0); MCV 100.4 fL (80.0-100.0); Macrocytosis Slight; Mean Platelet Volume 8.7; Platelet Count 341 k/uL (150-450); RBC 2.47 m/uL (4.30-5.90); RDW 14.6 % (11.5-15.5); WBC 7.6 k/uL (3.8-10.6)
[2020-05-15 05:34] LABS: Calcium 8.4 mg/dL (8.4-10.2); Potassium 3.7 mmol/L (3.5-5.1)
[2020-05-15 06:13] LABS: Glucose,Whole Blood 116 mg/dL (75-99)
[2020-05-15] MEDS: INSULIN ASPART (NovoLOG) 100 UNIT/ML VIAL SQ SCH ×4 (07:29→21:22)
[2020-05-15] MEDS: glipiZIDE 10 MG TAB PO SCH (08:28)
[2020-05-15] MEDS: FAMOTIDINE 20 MG TAB PO SCH (08:28)
[2020-05-15] MEDS: TAMSULOSIN 0.4 MG CAP.ER.24H PO SCH (08:28)
[2020-05-15] MEDS: allopurinoL 100 MG TAB PO SCH (08:28)
[2020-05-15] MEDS: amLODIPine 5 MG TAB PO SCH (08:28)
--- NOTE | 2020-05-15 09:47 | P.PN ---
Progress Note - Text Progress Note Date: 05/15/20 The patient is afebrile and normotensive. His catheter remains in place and is draining blood-tinged urine. He did not require irrigation through the night. The patient denies any abdominal pain other than irritation from the catheter. He says his bowels have been moving normally. Hemoglobin this morning is 7.7. BUN/creatinine are 16/0.98 and are significantly improved compared with his baseline levels. His pathology report from transurethral resection of the tumor at the bladder neck earlier in the month is still not finalized. The patient's catheter will be irrigated periodically to ensure that there are no retained clots in the posterior bladder. It remains unclear whether the patient will require a transfusion or repeat cystoscopy to control the bleeding. He should remain in observation yet today.
[2020-05-15 12:03] LABS: Glucose,Whole Blood 173 mg/dL (75-99)
[2020-05-15] MEDS: SODIUM CHLORIDE 0.9% 1,000 ML IV SCH (12:49)
--- NOTE | 2020-05-15 13:43 | CDI ---
Documentation Clarification Form Date: 05/15/2020 CDS: Chrissy Schaefer RN, CCDS Admit Date: 05/15/2020 Patient Name: Anthony Irwin ATTENTION: The Clinical Documentation Specialists (CDI) and [facility] Coding Staff appreciate your assistance in clarifying documentation. Please respond to the clarification below the line at the bottom and electronically sign. The CDI & [facility] Coding staff will review the response and follow-up if needed. Please note: Queries are made part of the Legal Health Record. If you have any questions, please contact the author of this message via ITS. Dr. Kelsi Calvin Anemia is documented in the ED clinical impression on 05/14/20. Please provide further specificity of anemia. History/Risk Factors: Prostate cancer, Hematuria, Diabetes mellitus, hypertension Clinical indicators: 85-year-old male with present to ED on 05/14 with complaints of frequent hematuria over the past month. He has present with recurrent hematuria procedure (prior to admission) with Dr. Overton additionally biopsies of his bladder (pathology pending), and removal of clot from his bladder and a three-way catheter placed and the bladder was irrigated but bleeding continue. He reports he has felt somewhat weak and run down over the past month with hematuria on and off per H/P. 05/14 Vital signs: 145/89 91 18 99 % RA 05/13 Hemoglobin: 8.4, Hematocrit 25.7 05/15 hemoglobin 7.7, Hematocrit 24.8 Treatment: Monitor CBC daily Monitor Haq catheter drainage. Irrigate Haq when necessary .9 NS @ 75 mls/hr Flomax 0.4 mg po daily In order to capture the severity of condition, please clarify the type of anemia and etiology if known:. Acute on chronic blood loss anemia Chronic blood loss anemia Unable to determine Other, please specify (Last Form Revision: October 2019) Acute blood loss anemia MTDD
--- NOTE | 2020-05-15 17:02 | P.PN ---
Subjective From records: is a [id number] gentleman with a history of prostate cancer who over the past month has had frequent hematuria, initially he was admitted to the hospital or hematuria and urinary tract infection with signs of sepsis. He was treated subsequently discharged home. He then developed recurrent hematuria and had procedure with Dr. Overton in which Dr. Overton additional biopsies of his bladder and remove clot from his bladder. Patient reports he been doing well since then but yesterday developed worsening hematuria. He was seen in an outpatient Hospital where his Haq catheter was exchanged and he was discharged home. He returned to the outpatient Hospital with recurrent hematuria and bleeding around his Haq catheter. A three-way catheter was placed and the bladder was irrigated but bleeding continued. Hemoglobin was noted to be only 8.4 decision was made to transfer him to our hospital for admission and evalua tion by urology. he denies any fevers chills chest pain palpitations or shortness of breath. He reports he has felt somewhat weak and run down over the past month.patient has this hematuria going on and off for about any or. 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 Patient with no chest pain or dyspnea or abdominal pain. He still has Haq catheter with blood in urine which is the reason he came to the hospital. Patient has history of prostate cancer about 6 years ago, treated at that time with radiotherapy with Dr. Tavares. He was having hematuria for about a year slowly progressive. Last 2 weeks his More urgent and he underwent cystoscopy with Dr. Overton with no evidence of cancer as per patient, transurethral biopsies is still pending. Neurology team on the case and following patient closely. Haq catheter irrigation was done. Vitals are stable. Hemoglobin is down to 7.7, we'll keep monitoring. Estimated to the patient the risks of blood transfusion and he agrees to get blood transfuse once it is indicated by medical team stated he had blood transfusion befor . Objective - Vital Signs Vital signs: Vital Signs Temp 98.2 F 05/15/20 14:40 Pulse 80 05/15/20 14:40 Resp 16 05/15/20 14:40 BP 135/61 05/15/20 14:40 Pulse Ox 98 05/15/20 14:40 Intake & Output 05/14/20 05/15/20 05/15/20 18:59 06:59 18:59 Intake Total 540 950 240 Output Total 102 300 1039 Balance 40 100 -1160 Weight 72.575 kg Intake: Intake, IV Titration 950 Amount Sodium Chloride 0.9% 1, 900 000 ml @ 75 mls/hr IV . [id number] [facility] Rx#:[id number] [id number] 1 gm In 50 Sodium Chloride 0.9% 50 ml @ 100 mls/hr IVPB Q24H [facility] Rx#:[id number] Oral 540 240 Output: Urine 341 358 [id number] Other: Voiding Method Indwelling Catheter Indwelling Catheter Indwelling Catheter - Exam -GENERAL: The patient is alert and oriented x3, not in any acute distress. Pale, generally weak HEENT: Pupils are round and equally reacting to light. EOMI. No scleral icterus. No conjunctival pallor. Normocephalic, atraumatic. No pharyngeal erythema. No thyromegaly. CARDIOVASCULAR: S1 and S2 present. No murmurs, rubs, or gallops. PULMONARY: Chest is clear to auscultation, no wheezing or crackles. ABDOMEN: Soft, nontender, nondistended, normoactive bowel sounds. No palpable organomegaly. Haq catheter is in place MUSCULOSKELETAL: No joint swelling or deformity. EXTREMITIES: No cyanosis, clubbing, or pedal edema. NEUROLOGICAL: Gross neurological examination did not reveal any focal deficits. SKIN: No rashes. no petechiae. - Labs CBC & Chem 7: 05/15/20 05:13 05/15/20 05:13 Labs: Abnormal Lab Results - Last 24 Hours (Table) 05/14/20 05/14/20 05/14/20 Range/Units 16:08 16:36 21:11 RBC (4.30-5.90) m/uL Hgb (13.0-17.5) gm/dL Hct (39.0-53.0) % MCV (80.0-100.0) fL Chloride (98-107) mmol/L POC Glucose (mg/dL) 192 H 204 H (75-99) mg/dL Urine Protein 2+ H (Negative) Urine Glucose (UA) 1+ H (Negative) Urine Blood Large H (Negative) Ur Leukocyte Esterase Large H (Negative) Urine RBC >182 H (0-5) /hpf Urine WBC >182 H (0-5) /hpf Urine WBC Clumps Occasional H (None) /hpf 05/15/20 05/15/20 05/15/20 Range/Units 05:13 05:13 06:11 RBC 2.47 L (4.30-5.90) m/uL Hgb 7.7 L (13.0-17.5) gm/dL Hct 24.8 L (39.0-53.0) % MCV 100.4 H (80.0-100.0) fL Chloride 111 H (98-107) mmol/L POC Glucose (mg/dL) 116 H (75-99) mg/dL Urine Protein (Negative) Urine Glucose (UA) (Negative) Urine Blood (Negative) Ur Leukocyte Esterase (Negative) Urine RBC (0-5) /hpf Urine WBC (0-5) /hpf Urine WBC Clumps (None) /hpf 05/15/20 Range/Units 11:59 RBC (4.30-5.90) m/uL Hgb (13.0-17.5) gm/dL Hct (39.0-53.0) % MCV (80.0-100.0) fL Chloride (98-107) mmol/L POC Glucose (mg/dL) 173 H (75-99) mg/dL Urine Protein (Negative) Urine Glucose (UA) (Negative) Urine Blood (Negative) Ur Leukocyte Esterase (Negative) Urine RBC (0-5) /hpf Urine WBC (0-5) /hpf Urine WBC Clumps (None) /hpf Microbiology - Last 24 Hours (Table) 05/14/20 16:08 Urine Culture - Preliminary Urine,Voided Assessment and Plan Assessment: -hematuria: Continue bladder irrigation, possibility of radiation cystitis or bladder cancer pathology is pending. Neurology following the case. -Acute blood loss anemia, keep monitoring hemoglobin and transfuse if his hemoglobin is less than 7 - acute renal failure: pre renal azotemia continue with IV fluids -Hypovolemic hyponatremia IV fluids as mentioned above -type 2 diabetes mellitus -Hyperlipidemia -Hypertension -History of prostate cancer DVT prophylaxis: Not heparin in view of significant hematuria GI prophylaxis: Pepcid Prognosis is guarded, Discuss with social work nurse/rehabilitation case coordinator, patient is qualified for palliative consult as an outpatient
[2020-05-15 17:05] LABS: Glucose,Whole Blood 325 mg/dL (75-99)
[2020-05-15 17:38] LABS: HCT 27.9 % (39.0-53.0); HGB 8.9 gm/dL (13.0-17.5); Hypochromasia Slight; MCH 32.5 pg (25.0-35.0); MCHC 31.9 g/dL (31.0-37.0); MCV 101.9 fL (80.0-100.0); Macrocytosis Slight; Mean Platelet Volume 6.9; Platelet Count 417 k/uL (150-450); RBC 2.74 m/uL (4.30-5.90); RDW 14.7 % (11.5-15.5); WBC 7.7 k/uL (3.8-10.6)
[2020-05-15] MEDS ORDERED: SODIUM CHLORIDE 0.9% IRRIGATIO 3,000 ML IRRIGATION ONE (17:42)
[2020-05-15 20:21] LABS: Glucose,Whole Blood 235 mg/dL (75-99)
[2020-05-15] MEDS: ZOLPIDEM 5 MG TAB PO PRN (21:23)
[2020-05-15] MEDS: GABAPENTIN 300 MG CAP PO SCH (21:23)
[2020-05-15] MEDS: glipiZIDE 5 MG TAB PO SCH (21:23)
[2020-05-16 06:12] LABS: Basophils # (A) 0.1 k/uL (0-0.2); Basophils % (A) 1 %; Eosinophils # (A) 0.4 k/uL (0-0.7); Eosinophils % (A) 5 %; HCT 25.1 % (39.0-53.0); HGB 7.9 gm/dL (13.0-17.5); Hypochromasia Moderate; Lymphocytes # (A) 1.2 k/uL (1.0-4.8); Lymphocytes % (A) 13 %; MCH 32.6 pg (25.0-35.0); MCHC 31.7 g/dL (31.0-37.0); Macrocytosis Slight; Mean Platelet Volume 7.2; Monocytes # (A) 0.9 k/uL (0-1.0); Monocytes % (A) 9 %; Neutrophils # (A) 6.6 k/uL (1.3-7.7); Neutrophils % (A) 70 %; Platelet Count 382 k/uL (150-450); RBC 2.43 m/uL (4.30-5.90); RDW 14.7 % (11.5-15.5); WBC 9.3 k/uL (3.8-10.6)
[2020-05-16 06:42] LABS: Glucose,Whole Blood 115 mg/dL (75-99)
[2020-05-16] MEDS: SODIUM CHLORIDE 0.9% 1,000 ML IV SCH ×2 (06:59→11:47)
[2020-05-16] MEDS: INSULIN ASPART (NovoLOG) 100 UNIT/ML VIAL SQ SCH ×4 (07:45→21:39)
[2020-05-16] MEDS: SODIUM CHLORIDE 0.9% IRRIGATIO 3,000 ML IRRIGATION PRN (07:53)
[2020-05-16] MEDS: FAMOTIDINE 20 MG TAB PO SCH (08:03)
[2020-05-16] MEDS: TAMSULOSIN 0.4 MG CAP.ER.24H PO SCH (08:03)
[2020-05-16] MEDS: allopurinoL 100 MG TAB PO SCH (08:03)
[2020-05-16] MEDS: amLODIPine 5 MG TAB PO SCH (08:03)
[2020-05-16] MEDS: glipiZIDE 10 MG TAB PO SCH (08:03)
[2020-05-16 09:18] LABS: African American GFR (CKD) 79.7 (60.0-200.0); Anion Gap 5.4 mmol/L (4.00-12.00); Calcium 8.1 mg/dL (8.7-10.3); Carbon Dioxide 24.6 mmol/L (21.6-31.8); Non-African American GFR(CKD) 68.8 (60.0-200.0); Potassium 3.8 mmol/L (3.5-5.5)
[2020-05-16 11:39] LABS: Glucose,Whole Blood 148 mg/dL (75-99)
--- NOTE | 2020-05-16 12:19 | P.PN ---
Subjective From records: is a [id number] gentleman with a history of prostate cancer who over the past month has had frequent hematuria, initially he was admitted to the hospital or hematuria and urinary tract infection with signs of sepsis. He was treated subsequently discharged home. He then developed recurrent hematuria and had procedure with Dr. Overton in which Dr. Overton additional biopsies of his bladder and remove clot from his bladder. Patient reports he been doing well since then but yesterday developed worsening hematuria. He was seen in an outpatient Hospital where his Haq catheter was exchanged and he was discharged home. He returned to the outpatient Hospital with recurrent hematuria and bleeding around his Haq catheter. A three-way catheter was placed and the bladder was irrigated but bleeding continued. Hemoglobin was noted to be only 8.4 decision was made to transfer him to our hospital for admission and evalua tion by urology. he denies any fevers chills chest pain palpitations or shortness of breath. He reports he has felt somewhat weak and run down over the past month.patient has this hematuria going on and off for about any or. 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 Patient with no chest pain or dyspnea or abdominal pain. He still has Haq catheter with blood in urine which is the reason he came to the hospital. Patient has history of prostate cancer about 6 years ago, treated at that time with radiotherapy with Dr. Tavares. He was having hematuria for about a year slowly progressive. Last 2 weeks his More urgent and he underwent cystoscopy with Dr. Overton with no evidence of cancer as per patient, transurethral biopsies is still pending. Neurology team on the case and following patient closely. Haq catheter irrigation was done. Vitals are stable. Hemoglobin is down to 7.7, we'll keep monitoring. Estimated to the patient the risks of blood transfusion and he agrees to get blood transfuse once it is indicated by medical team stated he had blood transfusion befor . 05/16/2020 Patient is awake and alert, his Haq catheter is in place and he has pink color urine. Hemoglobin 8.9, came down to 7.9 Urology team on the case and patient may need cystoscopy if hematuria persists Objective - Vital Signs Vital signs: Vital Signs Temp 98.4 F 05/16/20 06:48 Pulse 83 05/16/20 06:48 Resp 16 05/16/20 06:48 BP 139/71 05/16/20 06:48 Pulse Ox 96 05/16/20 06:48 Intake & Output 05/15/20 05/16/20 05/16/20 18:59 06:59 18:59 Intake Total 240 600 Output Total 1400 4000 2300 Balance -1160 -3400 -2300 Intake: Intake, IV Titration 600 Amount Sodium Chloride 0.9% 1, 600 000 ml @ 75 mls/hr IV . [id number] [facility] Rx#:[id number] Oral 240 Output: Urine 1400 4000 2300 Coude 1300 Other: Voiding Method Indwelling Catheter Indwelling Catheter Indwelling Catheter - Exam -GENERAL: The patient is alert and oriented x3, not in any acute distress. Pale, generally weak HEENT: Pupils are round and equally reacting to light. EOMI. No scleral icterus. No conjunctival pallor. Normocephalic, atraumatic. No pharyngeal erythema. No thyromegaly. CARDIOVASCULAR: S1 and S2 present. No murmurs, rubs, or gallops. PULMONARY: Chest is clear to auscultation, no wheezing or crackles. ABDOMEN: Soft, nontender, nondistended, normoactive bowel sounds. No palpable organomegaly. Haq catheter is in place MUSCULOSKELETAL: No joint swelling or deformity. EXTREMITIES: No cyanosis, clubbing, or pedal edema. NEUROLOGICAL: Gross neurological examination did not reveal any focal deficits. SKIN: No rashes. no petechiae. - Labs CBC & Chem 7: 05/16/20 05:33 05/16/20 05:33 Labs: Abnormal Lab Results - Last 24 Hours (Table) 05/15/20 05/15/20 05/15/20 Range/Units 17:04 17:25 20:20 RBC 2.74 L (4.30-5.90) m/uL Hgb 8.9 L (13.0-17.5) gm/dL Hct 27.9 L (39.0-53.0) % MCV 101.9 H (80.0-100.0) fL Chloride (96-109) mmol/L POC Glucose (mg/dL) 325 H 235 H (75-99) mg/dL Calcium (8.7-10.3) mg/dL 05/16/20 05/16/20 05/16/20 Range/Units 05:33 05:33 06:41 RBC 2.43 L (4.30-5.90) m/uL Hgb 7.9 L (13.0-17.5) gm/dL Hct 25.1 L (39.0-53.0) % MCV 103.0 H (80.0-100.0) fL Chloride 111 H (96-109) mmol/L POC Glucose (mg/dL) 115 H (75-99) mg/dL Calcium 8.1 L (8.7-10.3) mg/dL 05/16/20 Range/Units 11:37 RBC (4.30-5.90) m/uL Hgb (13.0-17.5) gm/dL Hct (39.0-53.0) % MCV (80.0-100.0) fL Chloride (96-109) mmol/L POC Glucose (mg/dL) 148 H (75-99) mg/dL Calcium (8.7-10.3) mg/dL Microbiology - Last 24 Hours (Table) 05/14/20 16:08 Urine Culture - Final Urine,Voided Assessment and Plan Assessment: -hematuria: Continue bladder irrigation, possibility of radiation cystitis or bladder cancer pathology is pending. Neurology following the case. -Acute blood loss anemia, keep monitoring hemoglobin and transfuse if his hemoglobin is less than 7 - acute renal failure: pre renal azotemia continue with IV fluids -Hypovolemic hyponatremia IV fluids as mentioned above -type 2 diabetes mellitus -Hyperlipidemia -Hypertension -History of prostate cancer DVT prophylaxis: Not heparin in view of significant hematuria GI prophylaxis: Pepcid Prognosis is guarded, Discuss with long term care social worker/heel caser, patient is qualified for palliative c onsult as an outpatient
--- NOTE | 2020-05-16 12:54 | P.PN ---
Progress Note - Text Progress Note Date: 05/16/20 The final pathology report shows that the patient has Fredi 10 prostate cancer, with no evidence of bladder cancer. He was transfused yesterday. He is comfortable this morning. Continuous bladder irrigation ran overnight, and he developed no clots. With the irrigant running slowly, the urine is essentially clear. The hemoglobin level dropped from 8.9 yesterday to 7.9 this morning. Continuous bladder irrigation will be discontinued, and he will continue to be monitored. If the bleeding persists, options include repeat resection or transfer to a tertiary care center for a prostate embolization.
--- NOTE | 2020-05-16 12:58 | CDI ---
Documentation Clarification Form Date: 05/16/2020 12:37:24 PM From: Chrissy Schaefer RN, CCDS Admit Date: 05/15/2020 08:58:00 AM Patient Name: Anthony Irwin Visit Number: [id number] Discharge Date: ATTENTION: The Clinical Documentation Specialists (CDI) and [facility] Coding Staff appreciate your assistance in clarifying documentation. Please respond to the clarification below the line at the bottom and electronically sign. The CDI & [facility] Coding staff will review the response and follow-up if needed. Please note: Queries are made part of the Legal Health Record. If you have any questions, please contact the author of this message via ITS. Dr. Montiel E Sheet Past medical history has documented the patient had recent treatment for UTI, he has a Haq catheter on arrival to ED on 05/14. Please render your professional opinion on what we are currently treating. History/Risk Factors: Prostate Ca, Diabetes Mellitus, Hypertension, UTI, Sepsis, Cystoscopy with TUR of necrotic appearing tissue Clinical Indicators: 85-year-old male present to ED on 05/14 with persistent hematuria and bleeding around his Haq catheter. 05/14 Vital Signs: 145/89 91 18 98.2 99 % RA 05/14 Labs: WBC:10.0, HGB 8.4, HCT 25.7, 05/14UA: Large blood, Ur leukocyte Esterase- Large, Ur wbc >182 05/14 Urine Culture-final: No Growth after 18 hours Treatment Rocephin 1 gm ivpb q 24 hrs .9 NS @ 75 mls/hr .9 NS bladder irrigation q1 prn Please document the condition that these clinical indicators signify, whether Present on Admission, and cause if known: UTI POA secondary to Haq catheter UTI ruled out Other, please specify Unable to determine ](Last Revision: May 2017) UTI felt less likely with negative urine culture MTDD
[2020-05-16 16:41] LABS: Glucose,Whole Blood 348 mg/dL (75-99)
[2020-05-16 20:26] LABS: Glucose,Whole Blood 197 mg/dL (75-99)
[2020-05-16] MEDS: glipiZIDE 5 MG TAB PO SCH (20:29)
[2020-05-16] MEDS: ZOLPIDEM 5 MG TAB PO PRN (20:29)
[2020-05-16] MEDS: GABAPENTIN 300 MG CAP PO SCH (20:29)
[2020-05-17] MEDS: SODIUM CHLORIDE 0.9% 1,000 ML IV SCH (05:17)
[2020-05-17 06:41] LABS: Glucose,Whole Blood 117 mg/dL (75-99)
[2020-05-17 07:06] LABS: Basophils # (A) 0.1 k/uL (0-0.2); Basophils % (A) 1 %; Eosinophils # (A) 0.4 k/uL (0-0.7); Eosinophils % (A) 4 %; HCT 23.9 % (39.0-53.0); HGB 7.9 gm/dL (13.0-17.5); Hypochromasia Slight; Lymphocytes # (A) 0.9 k/uL (1.0-4.8); Lymphocytes % (A) 10 %; MCH 32.8 pg (25.0-35.0); MCHC 32.9 g/dL (31.0-37.0); MCV 99.5 fL (80.0-100.0); Macrocytosis Slight; Mean Platelet Volume 6.9; Monocytes % (A) 10 %; Neutrophils # (A) 7.5 k/uL (1.3-7.7); Neutrophils % (A) 75 %; Platelet Count 384 k/uL (150-450); RDW 14.9 % (11.5-15.5); WBC 9.9 k/uL (3.8-10.6)
[2020-05-17] MEDS: INSULIN ASPART (NovoLOG) 100 UNIT/ML VIAL SQ SCH ×4 (07:30→20:45)
[2020-05-17] MEDS: glipiZIDE 10 MG TAB PO SCH (08:39)
[2020-05-17] MEDS: TAMSULOSIN 0.4 MG CAP.ER.24H PO SCH (08:50)
[2020-05-17] MEDS: amLODIPine 5 MG TAB PO SCH (08:51)
[2020-05-17] MEDS: allopurinoL 100 MG TAB PO SCH (08:51)
[2020-05-17] MEDS: FAMOTIDINE 20 MG TAB PO SCH ×2 (08:52→20:46)
[2020-05-17 11:27] LABS: Glucose,Whole Blood 157 mg/dL (75-99)
[2020-05-17 16:46] LABS: Glucose,Whole Blood 282 mg/dL (75-99)
--- NOTE | 2020-05-17 17:47 | P.PN ---
Progress Note - Text Progress Note Date: 05/17/20 The patient was seen earlier today. His urine was essentially clear. His hemoglobin level this morning was stable at 7.9. It was decided that he would be discharged home, but the catheter was then irrigated and some clots were removed from the bladder. It was thus decided to observe him overnight. It is my hope that his hemoglobin remained stable and that he can be discharged home tomorrow with the Haq catheter.
[2020-05-17] MEDS: SODIUM CHLORIDE 0.9% IRRIGATIO 3,000 ML IRRIGATION PRN ×2 (18:07→22:40)
[2020-05-17] MEDS: glipiZIDE 5 MG TAB PO SCH (20:46)
[2020-05-17] MEDS: GABAPENTIN 300 MG CAP PO SCH (20:46)
[2020-05-17 20:49] LABS: Glucose,Whole Blood 141 mg/dL (75-99)
[2020-05-17] MEDS: ZOLPIDEM 5 MG TAB PO PRN (21:24)
--- NOTE | 2020-05-17 22:43 | P.PN ---
Subjective From records: is a [id number] gentleman with a history of prostate cancer who over the past month has had frequent hematuria, initially he was admitted to the hospital or hematuria and urinary tract infection with signs of sepsis. He was treated subsequently discharged home. He then developed recurrent hematuria and had procedure with Dr. Overton in which Dr. Overton additional biopsies of his bladder and remove clot from his bladder. Patient reports he been doing well since then but yesterday developed worsening hematuria. He was seen in an outpatient Hospital where his Haq catheter was exchanged and he was discharged home. He returned to the outpatient Hospital with recurrent hematuria and bleeding around his Haq catheter. A three-way catheter was placed and the bladder was irrigated but bleeding continued. Hemoglobin was noted to be only 8.4 decision was made to transfer him to our hospital for admission and evalua tion by urology. he denies any fevers chills chest pain palpitations or shortness of breath. He reports he has felt somewhat weak and run down over the past month.patient has this hematuria going on and off for about any or. 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 Patient with no chest pain or dyspnea or abdominal pain. He still has Haq catheter with blood in urine which is the reason he came to the hospital. Patient has history of prostate cancer about 6 years ago, treated at that time with radiotherapy with Dr. Tavares. He was having hematuria for about a year slowly progressive. Last 2 weeks his More urgent and he underwent cystoscopy with Dr. Overton with no evidence of cancer as per patient, transurethral biopsies is still pending. Neurology team on the case and following patient closely. Haq catheter irrigation was done. Vitals are stable. Hemoglobin is down to 7.7, we'll keep monitoring. Estimated to the patient the risks of blood transfusion and he agrees to get blood transfuse once it is indicated by medical team stated he had blood transfusion befor . 05/16/2020 Patient is awake and alert, his Haq catheter is in place and he has pink color urine. Hemoglobin 8.9, came down to 7.9 Urology team on the case and patient may need cystoscopy if hematuria persists 05/17/2020 Patient hematuria is improving as per evaluation by urologist no need to transfer the patient to report Hospital and he can be discharged however he wants some clots in his bladder during irrigation and neurology team recommended to keep monitor the patient for now. Patient hemoglobin is stable at 7.9 Objective - Vital Signs Vital signs: Vital Signs Temp 97.6 F 05/17/20 19:05 Pulse 80 05/17/20 19:05 Resp 20 05/17/20 19:05 BP 136/69 05/17/20 19:05 Pulse Ox 96 05/17/20 19:05 Intake & Output 05/17/20 05/17/20 05/18/20 06:59 18:59 06:59 Intake Total 175 1030 200 Output Total 1100 820 500 Balance -925 210 -300 Intake: Intake, IV Titration 175 450 Amount Sodium Chloride 0.9% 1, 175 450 000 ml @ 50 mls/hr IV . Q20H [facility] Rx#:[id number] Oral 0 580 200 Output: Urine 1100 500 500 Coude 500 Other 320 Other: Voiding Method Indwelling Catheter Indwelling Catheter - Exam -GENERAL: The patient is alert and oriented x3, not in any acute distress. Pale, generally weak HEENT: Pupils are round and equally reacting to light. EOMI. No scleral icterus. No conjunctival pallor. Normocephalic, atraumatic. No pharyngeal erythema. No thyromegaly. CARDIOVASCULAR: S1 and S2 present. No murmurs, rubs, or gallops. PULMONARY: Chest is clear to auscultation, no wheezing or crackles. ABDOMEN: Soft, nontender, nondistended, normoactive bowel sounds. No palpable organomegaly. Haq catheter is in place MUSCULOSKELETAL: No joint swelling or deformity. EXTREMITIES: No cyanosis, clubbing, or pedal edema. NEUROLOGICAL: Gross neurological examination did not reveal any focal deficits. SKIN: No rashes. no petechiae. - Labs CBC & Chem 7: 05/17/20 06:27 05/16/20 05:33 Labs: Abnormal Lab Results - Last 24 Hours (Table) 05/17/20 05/17/20 05/17/20 Range/Units 06:27 06:40 11:26 RBC 2.40 L (4.30-5.90) m/uL Hgb 7.9 L (13.0-17.5) gm/dL Hct 23.9 L (39.0-53.0) % Lymphocytes # 0.9 L (1.0-4.8) k/uL POC Glucose (mg/dL) 117 H 157 H (75-99) mg/dL 05/17/20 05/17/20 Range/Units 16:44 20:32 RBC (4.30-5.90) m/uL Hgb (13.0-17.5) gm/dL Hct (39.0-53.0) % Lymphocytes # (1.0-4.8) k/uL POC Glucose (mg/dL) 282 H 141 H (75-99) mg/dL Assessment and Plan Assessment: -hematuria: Continue bladder irrigation, possibility of radiation cystitis or bladder cancer pathology is pending. Neurology following the case. -Acute blood loss anemia, keep monitoring hemoglobin and transfuse if his hemoglobin is less than 7 - acute renal failure: pre renal azotemia continue with IV fluids -Hypovolemic hyponatremia IV fluids as mentioned above -type 2 diabetes mellitus -Hyperlipidemia -Hypertension -History of prostate cancer DVT prophylaxis: Not heparin in view of significant hematuria GI prophylaxis: Pepcid Prognosis is guarded, Discuss with professor of social work/assistant case manager, patient is qualified for palliative consult as an outpatient
[2020-05-18] MEDS: SODIUM CHLORIDE 0.9% IRRIGATIO 3,000 ML IRRIGATION PRN ×4 (00:39→21:46)
[2020-05-18] MEDS: SODIUM CHLORIDE 0.9% 1,000 ML IV SCH (00:42)
[2020-05-18 06:54] LABS: Glucose,Whole Blood 124 mg/dL (75-99)
[2020-05-18 06:58] LABS: Basophils % (A) 0 %; Eosinophils # (A) 0.4 k/uL (0-0.7); Eosinophils % (A) 4 %; HCT 24.4 % (39.0-53.0); Hypochromasia Slight; Lymphocytes % (A) 11 %; MCH 32.7 pg (25.0-35.0); MCHC 32.9 g/dL (31.0-37.0); MCV 99.6 fL (80.0-100.0); Macrocytosis Slight; Mean Platelet Volume 7.2; Monocytes # (A) 0.9 k/uL (0-1.0); Monocytes % (A) 9 %; Neutrophils # (A) 6.6 k/uL (1.3-7.7); Neutrophils % (A) 74 %; Platelet Count 363 k/uL (150-450); RBC 2.45 m/uL (4.30-5.90); RDW 14.9 % (11.5-15.5)
[2020-05-18] MEDS: INSULIN ASPART (NovoLOG) 100 UNIT/ML VIAL SQ SCH ×4 (07:07→20:40)
[2020-05-18] MEDS: allopurinoL 100 MG TAB PO SCH (08:53)
[2020-05-18] MEDS: amLODIPine 5 MG TAB PO SCH (08:53)
[2020-05-18] MEDS: FAMOTIDINE 20 MG TAB PO SCH ×2 (08:53→20:40)
[2020-05-18] MEDS: TAMSULOSIN 0.4 MG CAP.ER.24H PO SCH (08:53)
[2020-05-18] MEDS: glipiZIDE 10 MG TAB PO SCH (08:54)
--- NOTE | 2020-05-18 09:25 | P.PN ---
Subjective From records: is a [id number] gentleman with a history of prostate cancer who over the past month has had frequent hematuria, initially he was admitted to the hospital or hematuria and urinary tract infection with signs of sepsis. He was treated subsequently discharged home. He then developed recurrent hematuria and had procedure with Dr. Overton in which Dr. Overton additional biopsies of his bladder and remove clot from his bladder. Patient reports he been doing well since then but yesterday developed worsening hematuria. He was seen in an outpatient Hospital where his Haq catheter was exchanged and he was discharged home. He returned to the outpatient Hospital with recurrent hematuria and bleeding around his Haq catheter. A three-way catheter was placed and the bladder was irrigated but bleeding continued. Hemoglobin was noted to be only 8.4 decision was made to transfer him to our hospital for admission and evalua tion by urology. he denies any fevers chills chest pain palpitations or shortness of breath. He reports he has felt somewhat weak and run down over the past month.patient has this hematuria going on and off for about any or. 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 Patient with no chest pain or dyspnea or abdominal pain. He still has Haq catheter with blood in urine which is the reason he came to the hospital. Patient has history of prostate cancer about 6 years ago, treated at that time with radiotherapy with Dr. Tavares. He was having hematuria for about a year slowly progressive. Last 2 weeks his More urgent and he underwent cystoscopy with Dr. Overton with no evidence of cancer as per patient, transurethral biopsies is still pending. Neurology team on the case and following patient closely. Haq catheter irrigation was done. Vitals are stable. Hemoglobin is down to 7.7, we'll keep monitoring. Estimated to the patient the risks of blood transfusion and he agrees to get blood transfuse once it is indicated by medical team stated he had blood transfusion befor . 05/16/2020 Patient is awake and alert, his Haq catheter is in place and he has pink color urine. Hemoglobin 8.9, came down to 7.9 Urology team on the case and patient may need cystoscopy if hematuria persists 05/17/2020 Patient hematuria is improving as per evaluation by urologist no need to transfer the patient to report Hospital and he can be discharged however he wants some clots in his bladder during irrigation and neurology team recommended to keep monitor the patient for now. Patient hemoglobin is stable at 7.9 05/18/2020 Patient is clinically awake with no new symptoms. His Haq catheter still needs irrigation frequently because of getting clots blockage. We will keep the patient in the hospital for 2 days to make sure his bladder is functioning well and Haq catheter is draining well. Hemoglobin stable at 8.0. urology input is appreciated Objective - Vital Signs Vital signs: Vital Signs Temp 98.8 F 05/18/20 07:00 Pulse 75 05/18/20 07:00 Resp 17 05/18/20 07:00 BP 133/66 05/18/20 07:00 Pulse Ox 96 05/18/20 07:00 Intake & Output 05/17/20 05/18/20 05/18/20 18:59 06:59 18:59 Intake Total 1030 300 Output Total 820 9750 2500 Balance 210 -9450 -2500 Intake: Intake, IV Titration 450 Amount Sodium Chloride 0.9% 1, 450 000 ml @ 50 mls/hr IV . Q20H [facility] Rx#:[id number] Oral 580 300 Output: Urine 500 9750 2500 Coude 500 2500 Other 320 Other: Voiding Method Indwelling Catheter Indwelling Catheter Indwelling Catheter - Exam -GENERAL: The patient is alert and oriented x3, not in any acute distress. Pale, generally weak HEENT: Pupils are round and equally reacting to light. EOMI. No scleral icterus. No conjunctival pallor. Normocephalic, atraumatic. No pharyngeal erythema. No thyromegaly. CARDIOVASCULAR: S1 and S2 present. No murmurs, rubs, or gallops. PULMONARY: Chest is clear to auscultation, no wheezing or crackles. ABDOMEN: Soft, nontender, nondistended, normoactive bowel sounds. No palpable organomegaly. Haq catheter is in place MUSCULOSKELETAL: No joint swelling or deformity. EXTREMITIES: No cyanosis, clubbing, or pedal edema. NEUROLOGICAL: Gross neurological examination did not reveal any focal deficits. SKIN: No rashes. no petechiae. - Labs CBC & Chem 7: 05/18/20 06:18 05/16/20 05:33 Labs: Abnormal Lab Results - Last 24 Hours (Table) 05/17/20 05/17/20 05/17/20 Range/Units 11:26 16:44 20:32 RBC (4.30-5.90) m/uL Hgb (13.0-17.5) gm/dL Hct (39.0-53.0) % POC Glucose (mg/dL) 157 H 282 H 141 H (75-99) mg/dL 05/18/20 05/18/20 Range/Units 06:18 06:52 RBC 2.45 L (4.30-5.90) m/uL Hgb 8.0 L (13.0-17.5) gm/dL Hct 24.4 L (39.0-53.0) % POC Glucose (mg/dL) 124 H (75-99) mg/dL Assessment and Plan Assessment: -hematuria: Continue bladder irrigation, possibility of radiation cystitis or bladder cancer pathology is pending. Neurology following the case. -Acute blood loss anemia, keep monitoring hemoglobin and transfuse if his hemoglobin is less than 7 - acute renal failure: pre renal azotemia continue with IV fluids -Hypovolemic hyponatremia IV fluids as mentioned above -type 2 diabetes mellitus -Hyperlipidemia -Hypertension -History of prostate cancer DVT prophylaxis: Not heparin in view of significant hematuria GI prophylaxis: Pepcid Prognosis is guarded, Discuss with manager social services/correctional counselor/case manager, patient is qualified for palliative consult as an outpatient
--- NOTE | 2020-05-18 10:19 | P.PN ---
Progress Note - Text Progress Note Date: 05/18/20 The patient is comfortable. Continuous bladder irrigation is running slowly. Urine output is essentially clear. I manually irrigated the Haq catheter, removing only one very small clot from the bladder. His hemoglobin level has been stable for the past 48 hours. In view of this, I believe it would be reasonable for him to be discharged home with the Haq catheter, and follow up with Dr. Overton in the upcoming week.
[2020-05-18 11:30] LABS: Glucose,Whole Blood 250 mg/dL (75-99)
[2020-05-18 16:34] LABS: Glucose,Whole Blood 225 mg/dL (75-99)
[2020-05-18 20:28] LABS: Glucose,Whole Blood 289 mg/dL (75-99)
[2020-05-18] MEDS: GABAPENTIN 300 MG CAP PO SCH (20:40)
[2020-05-18] MEDS: glipiZIDE 5 MG TAB PO SCH (20:40)
[2020-05-18] MEDS: ZOLPIDEM 5 MG TAB PO PRN (20:40)
[2020-05-19 01:21] VITALS: TEMP 99.2
[2020-05-19 06:47] LABS: Basophils % (A) 0 %; Eosinophils # (A) 0.3 k/uL (0-0.7); Eosinophils % (A) 5 %; HCT 22.8 % (39.0-53.0); HGB 7.6 gm/dL (13.0-17.5); Hypochromasia Slight; Lymphocytes # (A) 0.9 k/uL (1.0-4.8); Lymphocytes % (A) 13 %; MCH 33.6 pg (25.0-35.0); MCHC 33.4 g/dL (31.0-37.0); MCV 100.5 fL (80.0-100.0); Macrocytosis Slight; Mean Platelet Volume 7.2; Monocytes # (A) 0.7 k/uL (0-1.0); Monocytes % (A) 10 %; Neutrophils # (A) 4.9 k/uL (1.3-7.7); Neutrophils % (A) 70 %; Platelet Count 347 k/uL (150-450); RBC 2.27 m/uL (4.30-5.90); RDW 14.9 % (11.5-15.5); WBC 7.1 k/uL (3.8-10.6)
[2020-05-19 07:25] LABS: Glucose,Whole Blood 140 mg/dL (75-99)
[2020-05-19] MEDS: TAMSULOSIN 0.4 MG CAP.ER.24H PO SCH (08:19)
[2020-05-19] MEDS: FAMOTIDINE 20 MG TAB PO SCH (08:19)
[2020-05-19] MEDS: glipiZIDE 10 MG TAB PO SCH (08:20)
[2020-05-19] MEDS: amLODIPine 5 MG TAB PO SCH (08:20)
[2020-05-19] MEDS: allopurinoL 100 MG TAB PO SCH (08:20)
[2020-05-19] MEDS: INSULIN ASPART (NovoLOG) 100 UNIT/ML VIAL SQ SCH (08:20)
[2020-05-19] MEDS ORDERED: FERROUS SULFATE 325 MG TAB PO SCH (08:30)
[2020-05-19 09:46] VITALS: BP 123/63; PULSE 97; RESP 18
--- NOTE | 2020-05-19 10:19 | P.PN ---
Progress Note - Text Progress Note Date: 05/19/20 The patient is comfortable this morning. He has stable vital signs. The Haq catheter is draining clear yellow urine. The hemoglobin level dropped slightly to 7.6. He is being discharged home today. We discussed removal of the Haq catheter today, but he wishes to keep it in place for the time being. He was instructed to contact Dr. Overton by phone on 05/21/2020 to arrange follow-up. In the meantime, he was encouraged to avoid strenuous activity, and to drink plenty of fluids.
[2020-05-19 11:47] LABS: Glucose,Whole Blood 271 mg/dL (75-99)
[2020-05-19 20:00] LABS: Hemoglobin A1C 6.4 % (4.0-6.0)
--- NOTE | 2020-05-19 23:07 | P.DS ---
Providers Date of admission: 05/15/20 08:58 Attending physician: Pushpa Flores Consults: 05/14/20 01:09 Consult Physician Urgent Consulting Provider: Kodi Overton Consult Reason/Comments: established patient, indwelling mcfarland, hematuria Do you want consulting provider notified?: Yes Primary care physician: Floyd Anne MD Hospital Course: Diagnoses: -hematuria: Secondary to prostate cancer per pathology report. Urology followed the patient closely. -Acute blood loss anemia, status post blood transfusion -acute renal failure: Back to normal -type 2 diabetes mellitus -Hyperlipidemia -Hypertension -History of prostate cancer Discuss with executive secretary social welfare/case work aide, patient is qualified for palliative consult as an outpatient Hospital course: is a [id number] gentleman with a history of prostate cancer who over the past month has had frequent hematuria, initially he was admitted to the hospital or hematuria and urinary tract infection, He was treated subsequently discharged home. He then developed recurrent hematuria and had procedure with Dr. Overton in which Dr. Overton did biopsies of his bladder which came back later on positive for prostate cancer with no urinary bladder cancer. Patient admitted this time with hematuria, Mcfarland catheter was in place. Urologist follow the case closely. Patient needed bladder irrigation several times. Eventually patient hematuria improved. Hemoglobin remained stable over several days at 7.9-8.0 with a slightly dropped upon discharge at 7.6. Vitals stable. Patient has no new symptoms. Patient agrees to go home today. He states he will call and follow-up with Dr. Overton within one week. Also confirmed to me by his . Mrs. Serna at [phone] and I discussed the case of her with her and she told me she will make sure he will call and make appointment with Dr. Overton within one week. Patient will be discharged on Mcfarland catheter. The above plan discussed with urologist and he agrees with it. Also urologist cleared the patient for discharge to home today. Patient will be discharged on iron pills increased from 1 tablet daily to twice a day. Problems and management plan were discussed with the patient and he verbalized understanding and acceptance Patient was found stable and can be discharged home however he needs follow-up as an outpatient. Patient was instructed to follow up with PCP Dr. Anne within one week and patient agrees. Also patient was instructed to follow up with his urologist Dr. Overton in one week and he and his agree to call and make appointment within 1 week. Discuss with executive secretary social welfare/case work aide, patient is qualified for palliative consult as an outpatient , Patient informed and he agrees Gen: patient is a AAOx3, no distress CVS: S1-S2, RRR, no murmur Lungs: B/L CTA, no wheezing Abdomen: soft, no distention, no tenderness, positive bowel sounds Extremity: no leg edema or induration Time spent more than 35 minutes Patient Condition at Discharge: Serious Plan - Discharge Summary Discharge Rx Participant: No New Discharge Prescriptions: New Ferrous Sulfate [Iron (65 MG Elemental)] 325 mg PO BID-W/MEALS #60 tab Continue Ergocalciferol [Vitamin D2 (DRISDOL)] 50,000 unit PO Q14D Tamsulosin [Flomax] 0.4 mg PO DAILY Multivitamin [Men's Multi-Vitamin] 1 tab PO DAILY amLODIPine [Norvasc] 5 mg PO DAILY Zolpidem [Ambien] 10 mg PO HS PRN PRN Reason: Insomnia metFORMIN HCL 500 mg PO BID Gabapentin 600 mg PO HS glipiZIDE [Glucotrol] 5 mg PO HS glipiZIDE [Glucotrol] 10 mg PO DAILY Furosemide [Lasix] 20 mg PO DAILY@1600 Famotidine [Pepcid] 20 mg PO BID Allopurinol [Zyloprim] 200 mg PO DAILY Discontinued Furosemide [Lasix] 40 mg PO DAILY Discharge Medication List Ergocalciferol [Vitamin D2 (DRISDOL)] 50,000 unit PO Q14D 01/29/16 [History] Multivitamin [Men's Multi-Vitamin] 1 tab PO DAILY 01/29/16 [History] Tamsulosin [Flomax] 0.4 mg PO DAILY 01/29/16 [History] amLODIPine [Norvasc] 5 mg PO DAILY 09/19/17 [History] Allopurinol [Zyloprim] 200 mg PO DAILY 05/04/20 [History] Famotidine [Pepcid] 20 mg PO BID 05/04/20 [History] Furosemide [Lasix] 20 mg PO DAILY@1600 05/04/20 [History] Gabapentin 600 mg PO HS 05/04/20 [History] Zolpidem [Ambien] 10 mg PO HS PRN 05/04/20 [History] glipiZIDE [Glucotrol] 5 mg PO HS 05/04/20 [History] glipiZIDE [Glucotrol] 10 mg PO DAILY 05/04/20 [History] metFORMIN HCL 500 mg PO BID 05/04/20 [History] Ferrous Sulfate [Iron (65 MG Elemental)] 325 mg PO BID-W/MEALS #60 tab 05/19/20 [Rx] Follow up Appointment(s)/Referral(s): Floyd Anne MD [Primary Care Provider] - 1-2 days [facility] [NON-STAFF] - 1-2 Days [facility], [NON-STAFF] - (Palliative Care ) Kodi Overton MD [STAFF PHYSICIAN] - 1 Week [facility] [NON-STAFF] - As Needed (Can be contacted regarding a toilet seat riser) Patient Instructions/Handouts: Mcfarland Catheter Placement and Care (DC), Mcfarland Catheter Placement and Care (GEN) Activity/Diet/Wound Care/Special Instructions: heart healthy diet activity is limited till you see your doctor Discharge Disposition: HOME WITH HOME HEALTH SERVICES
== END 2020-05-19 11:54 | disposition home health service (06) | DRG 723 ==
LOC: EC 01:05 → 1SOBS 01:09 → OBSVTOIN 05-15 08:58 → 4SSUR 05-15 18:29
PROVIDERS: ADMIT Hospitalist; ATTEND Hospitalist
DX: C61 Malignant neoplasm of prostate (principal); D62 Acute posthemorrhagic anemia; E87.1 Hypo-osmolality and hyponatremia; N02.9 Recurrent and persistent hematuria with unspecified morphologic changes; N17.9 Acute kidney failure, unspecified; E86.1 Hypovolemia; E11.9 Type 2 diabetes mellitus without complications; E78.5 Hyperlipidemia, unspecified; I10 Essential (primary) hypertension; Z92.3 Personal history of irradiation; Z79.84 Long term (current) use of oral hypoglycemic drugs; Z79.899 Other long term (current) drug therapy; Z83.3 Family history of diabetes mellitus; Z82.49 Family history of ischemic heart disease and other diseases of the circulatory system; Z86.73 Personal history of transient ischemic attack (TIA), and cerebral infarction without residual deficits; Z86.010 Personal history of colon polyps; Z98.42 Cataract extraction status, left eye; Z98.41 Cataract extraction status, right eye; Z96.653 Presence of artificial knee joint, bilateral; M10.9 Gout, unspecified
CPT/HCPCS: 80048; 80053; 81001; 83036; 84145; 85025; 85027; 85610; 85730; 86850; 86900; 86901; 87086; 99284

== ENCOUNTER 2020-09-07 12:04 | Inpatient (IN) | payer MEDICARE, BC ==
[2020-09-07] MEDS ORDERED: SODIUM CHLORIDE 0.9% 1,000 ML IV STA (12:37)
--- NOTE | 2020-09-07 12:39 | ED ---
Weakness HPI - General Chief complaint: Weakness Stated complaint: not eating, nausea, SOB Time Seen by Provider: 09/07/20 12:25 Source: patient, family, RN notes reviewed Mode of arrival: ambulatory Limitations: no limitations - History of Present Illness Initial comments: This is a 85-year-old male with a history of prostate cancer who currently is on experimental drug which he has one side effect of nausea who presents today with complaints of generalized weakness some hematuria decreased oral intake with respective food and fluids. Some blood in his urine. He denies any overt fevers chills or sweats he does have some shortness of breath he states. Some suprapubic discomfort. He's been having dry heaves since yesterday. No other complaints or modifying factors MD Complaint: generalized weakness - Related Data Home Medications Medication Instructions Recorded Confirmed Ergocalciferol [Vitamin D2 50,000 unit PO Q14D 01/29/16 09/07/20 (DRISDOL)] Multivitamin [Men's Multi-Vitamin] 1 tab PO DAILY 01/29/16 09/07/20 Tamsulosin [Flomax] 0.4 mg PO DAILY 01/29/16 09/07/20 amLODIPine [Norvasc] 5 mg PO DAILY 09/19/17 09/07/20 Allopurinol [Zyloprim] 200 mg PO DAILY 05/04/20 09/07/20 Famotidine [Pepcid] 20 mg PO BID 05/04/20 09/07/20 Furosemide [Lasix] 40 mg PO DAILY 05/04/20 09/07/20 Gabapentin 900 mg PO HS PRN 05/04/20 09/07/20 Zolpidem [Ambien] 10 mg PO HS PRN 05/04/20 09/07/20 glipiZIDE [Glucotrol] 5 mg PO HS 05/04/20 09/07/20 glipiZIDE [Glucotrol] 10 mg PO DAILY 05/04/20 09/07/20 metFORMIN HCL 500 mg PO BID 05/04/20 09/07/20 Ascorbic Acid [Vitamin C] 1,000 mg PO BID 09/07/20 09/07/20 Enzalutamide [Xtandi] 160 mg PO DAILY 09/07/20 09/07/20 Furosemide [Lasix] 20 mg PO HS 09/07/20 09/07/20 Lactulose 15 - 30 ml PO DAILY 09/07/20 09/07/20 Previous Rx's Medication Instructions Recorded Ferrous Sulfate [Iron (65 MG 325 mg PO BID-W/MEALS #60 tab 05/19/20 Elemental)] Allergies Allergy/AdvReac Type Severity Reaction Status Date / Time adhesive tape AdvReac skin tear Verified 09/07/20 14:48 Review of Systems ROS Statement: Those systems with pertinent positive or pertinent negative responses have been documented in the HPI. ROS Other: All systems not noted in ROS Statement are negative. Past Medical History Past Medical History: Cancer, Diabetes Mellitus, Hyperlipidemia, Hypertension, Osteoarthritis (OA), Prostate Disorder Additional Past Medical History / Comment(s): prostate cancer, STROKE BEHIND RT EYE,GOUT,DDD,RECENTLY TX FOR UTI History of Any Multi-Drug Resistant Organisms: None Reported Past Surgical History: Joint Replacement, Orthopedic Surgery Additional Past Surgical History / Comment(s): 02-05-16 TOTAL LT KNEE REPLACMENT, RT KNEE REPLACMENT, BRIELLE CATARACTS, PROSTE-SEED IMPLANTS,COLONOSCOPY/POLYPECTOMY(BENIGN), PRECANCEROUS SKIN LESIONS FROZEN OFF. Past Anesthesia/Blood Transfusion Reactions: Motion Sickness Past Psychological History: No Psychological Hx Reported Smoking Status: Never smoker Past Alcohol Use History: None Reported Past Drug Use History: None Reported - Past Family History Mother Family Medical History: Diabetes Mellitus Additional Family Medical History / Comment(s): HEART PROBLEMS Father Family Medical History: Diabetes Mellitus General Exam - General Exam Comments Initial Comments: This is a well-developed sec appearing male who is awake alert oriented 3 Limitations: no limitations General appearance: alert, in no apparent distress Head exam: Present: atraumatic, normocephalic, normal inspection Eye exam: Present: normal appearance, PERRL, EOMI. Absent: scleral icterus, conjunctival injection, periorbital swelling ENT exam: Present: mucous membranes dry Neck exam: Present: normal inspection. Absent: tenderness, meningismus, lymphadenopathy Respiratory exam: Present: normal lung sounds bilaterally. Absent: respiratory distress, wheezes, rales, rhonchi, stridor Cardiovascular Exam: Present: regular rate, normal rhythm, normal heart sounds. Absent: systolic murmur, diastolic murmur, rubs, gallop, clicks GI/Abdominal exam: Present: soft, normal bowel sounds. Absent: distended, guarding, rebound, rigid Rectal exam: Present: deferred (suprapubic discomfort to palpation) Extremities exam: Present: normal inspection, full ROM, normal capillary refill. Absent: tenderness, pedal edema, joint swelling, calf tenderness Back exam: Present: normal inspection Neurological exam: Present: alert, oriented X3, CN II-XII intact Psychiatric exam: Present: normal affect, normal mood Skin exam: Present: warm, dry, intact, normal color. Absent: rash Course Vital Signs 09/07/20 09/07/20 09/07/20 12:09 13:14 14:00 Temperature 98.4 F Pulse Rate 58 L 86 Respiratory 20 18 18 Rate Blood Pressure 155/82 169/84 O2 Sat by Pulse 100 100 Oximetry 09/07/20 15:00 Temperature Pulse Rate 8 L Respiratory 18 Rate Blood Pressure 157/84 O2 Sat by Pulse 100 Oximetry Medical Decision Making - Medical Decision Making The patient still nauseated he does not feel any better after IV fluids. He will be admitted the case discussed with Dr. Lopez. - Lab Data Result diagrams: 09/07/20 12:48 09/07/20 12:48 Lab Results 09/07/20 09/07/20 09/07/20 Range/Units 12:48 12:48 12:48 WBC 6.0 (3.8-10.6) k/uL RBC 4.01 L (4.30-5.90) m/uL Hgb 13.5 (13.0-17.5) gm/dL Hct 39.3 (39.0-53.0) % MCV 97.9 (80.0-100.0) fL MCH 33.6 (25.0-35.0) pg MCHC 34.3 (31.0-37.0) g/dL RDW 16.1 H (11.5-15.5) % Plt Count 262 (150-450) k/uL MPV 7.2 Neutrophils % 72 % Lymphocytes % 14 % Monocytes % 9 % Eosinophils % 1 % Basophils % 1 % Neutrophils # 4.3 (1.3-7.7) k/uL Lymphocytes # 0.8 L (1.0-4.8) k/uL Monocytes # 0.6 (0-1.0) k/uL Eosinophils # 0.1 (0-0.7) k/uL Basophils # 0.1 (0-0.2) k/uL Anisocytosis Slight Sodium 135 L (137-145) mmol/L Potassium 4.0 (3.5-5.1) mmol/L Chloride 102 (98-107) mmol/L Carbon Dioxide 21 L (22-30) mmol/L Anion Gap 12 mmol/L BUN 21 H (9-20) mg/dL Creatinine 0.89 (0.66-1.25) mg/dL Est GFR (CKD-EPI)AfAm >90 (>60 ml/min/1.73 sqM) Est GFR (CKD-EPI)NonAf 79 (>60 ml/min/1.73 sqM) Glucose 264 H (74-99) mg/dL Plasma Lactic Acid [place] (0.7-2.0) mmol/L Calcium 9.8 (8.4-10.2) mg/dL Magnesium 1.7 (1.6-2.3) mg/dL Total Bilirubin 1.6 H (0.2-1.3) mg/dL AST 25 (17-59) U/L ALT 14 (4-49) U/L Alkaline Phosphatase 104 (38-126) U/L Creatine Kinase 27 L (55-170) U/L Total Protein 7.4 (6.3-8.2) g/dL Albumin 4.3 (3.5-5.0) g/dL Lipase 82 (23-300) U/L Urine Color Yellow Urine Appearance Cloudy (Clear) Urine pH 7.5 (5.0-8.0) Ur Specific [place] 1.011 (1.001-1.035) Urine Protein 1+ H (Negative) Urine Glucose (UA) 3+ H (Negative) Urine Ketones 1+ H (Negative) Urine Blood Large H (Negative) Urine Nitrite Negative (Negative) Urine Bilirubin Negative (Negative) Urine Urobilinogen <2.0 (<2.0) mg/dL Ur Leukocyte Esterase Moderate H (Negative) Urine RBC >182 H (0-5) /hpf Urine WBC 88 H (0-5) /hpf Urine Mucus Rare H (None) /hpf 09/07/20 Range/Units 12:48 WBC (3.8-10.6) k/uL RBC (4.30-5.90) m/uL Hgb (13.0-17.5) gm/dL Hct (39.0-53.0) % MCV (80.0-100.0) fL MCH (25.0-35.0) pg MCHC (31.0-37.0) g/dL RDW (11.5-15.5) % Plt Count (150-450) k/uL MPV Neutrophils % % Lymphocytes % % Monocytes % % Eosinophils % % Basophils % % Neutrophils # (1.3-7.7) k/uL Lymphocytes # (1.0-4.8) k/uL Monocytes # (0-1.0) k/uL Eosinophils # (0-0.7) k/uL Basophils # (0-0.2) k/uL Anisocytosis Sodium (137-145) mmol/L Potassium (3.5-5.1) mmol/L Chloride (98-107) mmol/L Carbon Dioxide (22-30) mmol/L Anion Gap mmol/L BUN (9-20) mg/dL Creatinine (0.66-1.25) mg/dL Est GFR (CKD-EPI)AfAm (>60 ml/min/1.73 sqM) Est GFR (CKD-EPI)NonAf (>60 ml/min/1.73 sqM) Glucose (74-99) mg/dL Plasma Lactic Acid [place] 2.0 (0.7-2.0) mmol/L Calcium (8.4-10.2) mg/dL Magnesium (1.6-2.3) mg/dL Total Bilirubin (0.2-1.3) mg/dL AST (17-59) U/L ALT (4-49) U/L Alkaline Phosphatase (38-126) U/L Creatine Kinase (55-170) U/L Total Protein (6.3-8.2) g/dL Albumin (3.5-5.0) g/dL Lipase (23-300) U/L Urine Color Urine Appearance (Clear) Urine pH (5.0-8.0) Ur Specific [place] (1.001-1.035) Urine Protein (Negative) Urine Glucose (UA) (Negative) Urine Ketones (Negative) Urine Blood (Negative) Urine Nitrite (Negative) Urine Bilirubin (Negative) Urine Urobilinogen (<2.0) mg/dL Ur Leukocyte Esterase (Negative) Urine RBC (0-5) /hpf Urine WBC (0-5) /hpf Urine Mucus (None) /hpf - EKG Data -: EKG Interpreted by Me EKG Comments: Sinus rhythm frequent PVCs. Rate 82. Interval 162 QRS 90 QT since QTC 46/474 left anterior fascicular block - Radiology Data Radiology results: report reviewed (Imaging reviewed no definite acute findings.), image reviewed Disposition Clinical Impression: Intractable nausea and vomiting, Dehydration, Prostate cancer, Hematuria Disposition: ADMITTED IP TO THIS HOSP Condition: Fair Referrals: Floyd Anne MD [Primary Care Provider] - 1-2 days
[2020-09-07] MEDS: SODIUM CHLORIDE 0.9% 1,000 ML IV STA (12:45)
[2020-09-07 12:58] LABS: Anisocytosis Slight; Basophils # (A) 0.1 k/uL (0-0.2); Basophils % (A) 1 %; Eosinophils # (A) 0.1 k/uL (0-0.7); Eosinophils % (A) 1 %; HCT 39.3 % (39.0-53.0); HGB 13.5 gm/dL (13.0-17.5); Lymphocytes # (A) 0.8 k/uL (1.0-4.8); Lymphocytes % (A) 14 %; MCH 33.6 pg (25.0-35.0); MCHC 34.3 g/dL (31.0-37.0); MCV 97.9 fL (80.0-100.0); Mean Platelet Volume 7.2; Monocytes # (A) 0.6 k/uL (0-1.0); Monocytes % (A) 9 %; Neutrophils # (A) 4.3 k/uL (1.3-7.7); Neutrophils % (A) 72 %; Platelet Count 262 k/uL (150-450); RBC 4.01 m/uL (4.30-5.90); RDW 16.1 % (11.5-15.5)
--- NOTE | 2020-09-07 13:11 | XR ---
KUB HISTORY: Lower abdominal pain and hematuria Frontal KUB submitted on 2 images There are prostate seeds in place. There is a button superimposed over the right superior pubic ramus . Patient is rotated. Degenerative disc changes are present in the visualized spine. There are dense atherosclerotic vascular calcifications. There is a spinal curvature. No evident bowel obstruction or pneumoperitoneum. Lung bases are clear. There is overlying cardiac leads. impression: Postprocedural changes. Degenerative disc disease and spinal curvature. Additional findin gs above.
--- NOTE | 2020-09-07 13:12 | XR ---
EXAMINATION TYPE: XR chest 2V DATE OF EXAM: 09/07/2020 COMPARISON: Prior chest x-ray 09/23/2017 HISTORY: Lower abdominal pain, hematuria TECHNIQUE: Frontal and lateral views of the chest are obtained. FINDINGS: A shunt is rotated. There is no focal air space opacity, pleural effusion, or pneumothorax seen. The cardiac silhouette size is within normal limits. There are dense coronary artery, aortic a therosclerotic calcifications wasn't. There are overlying leads. The osseous structures are intact. IMPRESSION: No acute cardiopulmonary process.
[2020-09-07 13:14] LABS: ALT 14 U/L (4-49); AST 25 U/L (17-59); African American GFR (CKD) >90 (>60 ml/min/1.73 sqM); Albumin 4.3 g/dL (3.5-5.0); Alkaline Phosphatase 104 U/L (38-126); Anion Gap 12 mmol/L; Blood Urea Nitrogen 21 mg/dL (9-20); Calcium 9.8 mg/dL (8.4-10.2); Carbon Dioxide 21 mmol/L (22-30); Chloride 102 mmol/L (98-107); Creatine Kinase 27 U/L (55-170); Glucose 264 mg/dL (74-99); Lipase 82 U/L (23-300); Magnesium 1.7 mg/dL (1.6-2.3); Non-African American GFR(CKD) 79 (>60 ml/min/1.73 sqM); Sodium 135 mmol/L (137-145); Total Bilirubin 1.6 mg/dL (0.2-1.3); Total Protein 7.4 g/dL (6.3-8.2)
[2020-09-07 14:20] LABS: Appearance,Urine Cloudy (Clear); Bilirubin,Urine Negative (Negative); Blood,Urine Large (Negative); Color,Urine Yellow; Glucose,Urine (UA) 3+ (Negative); Ketones,Urine 1+ (Negative); Leukocyte Esterase,Urine Moderate (Negative); Mucus,Urine Rare /hpf; Nitrite,Urine Negative (Negative); PH, Urine 7.5 (5.0-8.0); Protein,Urine 1+ (Negative); RBC,Urine >182 /hpf (0-5); Specific Gravity,Urine 1.011 (1.001-1.035); Urobilinogen,Urine <2.0 mg/dL (<2.0); WBC,Urine 88 /hpf (0-5)
[2020-09-07] MEDS ORDERED: ONDANSETRON 4 MG/2 ML VIAL IVP STA (15:41)
[2020-09-07] MEDS ORDERED: ACETAMINOPHEN TAB 325 MG TAB PO PRN (15:47)
[2020-09-07] MEDS ORDERED: NALOXONE 0.4 MG/ML 1 ML VIAL IV PRN (15:47)
[2020-09-07] MEDS ORDERED: ZOLPIDEM 10 MG TAB PO PRN (15:49)
[2020-09-07] MEDS ORDERED: GABAPENTIN 300 MG CAP PO PRN (15:49)
--- NOTE | 2020-09-07 15:51 | ED ---
Medical Decision Making - Lab Data Result diagrams: 09/07/20 12:48 09/07/20 12:48 Lab Results 09/07/20 09/07/20 09/07/20 Range/Units 12:48 12:48 12:48 WBC 6.0 (3.8-10.6) k/uL RBC 4.01 L (4.30-5.90) m/uL Hgb 13.5 (13.0-17.5) gm/dL Hct 39.3 (39.0-53.0) % MCV 97.9 (80.0-100.0) fL MCH 33.6 (25.0-35.0) pg MCHC 34.3 (31.0-37.0) g/dL RDW 16.1 H (11.5-15.5) % Plt Count 262 (150-450) k/uL MPV 7.2 Neutrophils % 72 % Lymphocytes % 14 % Monocytes % 9 % Eosinophils % 1 % Basophils % 1 % Neutrophils # 4.3 (1.3-7.7) k/uL Lymphocytes # 0.8 L (1.0-4.8) k/uL Monocytes # 0.6 (0-1.0) k/uL Eosinophils # 0.1 (0-0.7) k/uL Basophils # 0.1 (0-0.2) k/uL Anisocytosis Slight Sodium 135 L (137-145) mmol/L Potassium 4.0 (3.5-5.1) mmol/L Chloride 102 (98-107) mmol/L Carbon Dioxide 21 L (22-30) mmol/L Anion Gap 12 mmol/L BUN 21 H (9-20) mg/dL Creatinine 0.89 (0.66-1.25) mg/dL Est GFR (CKD-EPI)AfAm >90 (>60 ml/min/1.73 sqM) Est GFR (CKD-EPI)NonAf 79 (>60 ml/min/1.73 sqM) Glucose 264 H (74-99) mg/dL Plasma Lactic Acid [place] (0.7-2.0) mmol/L Calcium 9.8 (8.4-10.2) mg/dL Magnesium 1.7 (1.6-2.3) mg/dL Total Bilirubin 1.6 H (0.2-1.3) mg/dL AST 25 (17-59) U/L ALT 14 (4-49) U/L Alkaline Phosphatase 104 (38-126) U/L Creatine Kinase 27 L (55-170) U/L Total Protein 7.4 (6.3-8.2) g/dL Albumin 4.3 (3.5-5.0) g/dL Lipase 82 (23-300) U/L Urine Color Yellow Urine Appearance Cloudy (Clear) Urine pH 7.5 (5.0-8.0) Ur Specific [place] 1.011 (1.001-1.035) Urine Protein 1+ H (Negative) Urine Glucose (UA) 3+ H (Negative) Urine Ketones 1+ H (Negative) Urine Blood Large H (Negative) Urine Nitrite Negative (Negative) Urine Bilirubin Negative (Negative) Urine Urobilinogen <2.0 (<2.0) mg/dL Ur Leukocyte Esterase Moderate H (Negative) Urine RBC >182 H (0-5) /hpf Urine WBC 88 H (0-5) /hpf Urine Mucus Rare H (None) /hpf 09/07/20 Range/Units 12:48 WBC (3.8-10.6) k/uL RBC (4.30-5.90) m/uL Hgb (13.0-17.5) gm/dL Hct (39.0-53.0) % MCV (80.0-100.0) fL MCH (25.0-35.0) pg MCHC (31.0-37.0) g/dL RDW (11.5-15.5) % Plt Count (150-450) k/uL MPV Neutrophils % % Lymphocytes % % Monocytes % % Eosinophils % % Basophils % % Neutrophils # (1.3-7.7) k/uL Lymphocytes # (1.0-4.8) k/uL Monocytes # (0-1.0) k/uL Eosinophils # (0-0.7) k/uL Basophils # (0-0.2) k/uL Anisocytosis Sodium (137-145) mmol/L Potassium (3.5-5.1) mmol/L Chloride (98-107) mmol/L Carbon Dioxide (22-30) mmol/L Anion Gap mmol/L BUN (9-20) mg/dL Creatinine (0.66-1.25) mg/dL Est GFR (CKD-EPI)AfAm (>60 ml/min/1.73 sqM) Est GFR (CKD-EPI)NonAf (>60 ml/min/1.73 sqM) Glucose (74-99) mg/dL Plasma Lactic Acid [place] 2.0 (0.7-2.0) mmol/L Calcium (8.4-10.2) mg/dL Magnesium (1.6-2.3) mg/dL Total Bilirubin (0.2-1.3) mg/dL AST (17-59) U/L ALT (4-49) U/L Alkaline Phosphatase (38-126) U/L Creatine Kinase (55-170) U/L Total Protein (6.3-8.2) g/dL Albumin (3.5-5.0) g/dL Lipase (23-300) U/L Urine Color Urine Appearance (Clear) Urine pH (5.0-8.0) Ur Specific [place] (1.001-1.035) Urine Protein (Negative) Urine Glucose (UA) (Negative) Urine Ketones (Negative) Urine Blood (Negative) Urine Nitrite (Negative) Urine Bilirubin (Negative) Urine Urobilinogen (<2.0) mg/dL Ur Leukocyte Esterase (Negative) Urine RBC (0-5) /hpf Urine WBC (0-5) /hpf Urine Mucus (None) /hpf Disposition Clinical Impression: Intractable nausea and vomiting, Dehydration, Prostate cancer, Hematuria, Failure to thrive Disposition: ADMITTED IP TO THIS [facility] Condition: Fair Referrals: Floyd Anne MD [Primary Care Provider] - 1-2 days
[2020-09-07 17:28] LABS: Glucose,Whole Blood 184 mg/dL (75-99)
[2020-09-07] MEDS: INSULIN ASPART (NovoLOG) 100 UNIT/ML VIAL SQ SCH ×2 (17:52→22:11)
[2020-09-07] MEDS: FERROUS SULFATE 325 MG TAB PO SCH (17:52)
[2020-09-07] MEDS: ONDANSETRON 4 MG/2 ML VIAL IVP PRN (17:55)
[2020-09-07] MEDS: ASCORBIC ACID 500 MG TAB PO SCH (21:50)
[2020-09-07] MEDS: metFORMIN 500 MG TAB PO SCH (21:50)
[2020-09-07] MEDS: FUROSEMIDE 20 MG TAB PO SCH (21:50)
[2020-09-07] MEDS: ZOLPIDEM 5 MG TAB PO PRN (21:51)
[2020-09-07] MEDS: FAMOTIDINE 20 MG TAB PO SCH (21:51)
[2020-09-07 22:06] LABS: Glucose,Whole Blood 171 mg/dL (75-99)
[2020-09-07] MEDS: glipiZIDE 5 MG TAB PO SCH (22:18)
[2020-09-08] MEDS: ONDANSETRON 4 MG/2 ML VIAL IVP PRN ×2 (00:20→09:00)
[2020-09-08] MEDS: SODIUM CHLORIDE 0.9% 1,000 ML IV STA (01:00)
[2020-09-08 07:42] LABS: Glucose,Whole Blood 165 mg/dL (75-99)
[2020-09-08] MEDS: INSULIN ASPART (NovoLOG) 100 UNIT/ML VIAL SQ SCH ×4 (08:49→21:12)
[2020-09-08] MEDS: FUROSEMIDE 40 MG TAB PO SCH (08:50)
[2020-09-08] MEDS: metFORMIN 500 MG TAB PO SCH ×2 (08:50→21:07)
[2020-09-08] MEDS: TAMSULOSIN 0.4 MG CAP.ER.24H PO SCH (08:50)
[2020-09-08] MEDS: amLODIPine 5 MG TAB PO SCH (08:50)
[2020-09-08] MEDS: FERROUS SULFATE 325 MG TAB PO SCH ×2 (08:52→16:18)
[2020-09-08] MEDS: MULTIVITAMINS, THERA 1 EACH TAB PO SCH (08:52)
[2020-09-08] MEDS: LACTULOSE 20 GM/30 ML CUP PO SCH (08:52)
[2020-09-08] MEDS: FAMOTIDINE 20 MG TAB PO SCH ×2 (08:52→21:06)
[2020-09-08] MEDS: allopurinoL 100 MG TAB PO SCH (08:52)
[2020-09-08] MEDS: glipiZIDE 10 MG TAB PO SCH (08:52)
[2020-09-08] MEDS: ASCORBIC ACID 500 MG TAB PO SCH ×2 (08:52→21:06)
[2020-09-08] MEDS ORDERED: ERGOCALCIFEROL 50,000 UNIT CAP PO SCH (09:00)
[2020-09-08] MEDS: NON FORMULARY DRUG (Enzalutamide [Xtandi] 40 MG Capsule) PO SCH (09:17)
[2020-09-08 11:46] LABS: Glucose,Whole Blood 157 mg/dL (75-99)
[2020-09-08] MEDS ORDERED: METOCLOPRAMIDE 5 MG/ML 2 ML VIAL IVP PRN (12:33)
[2020-09-08] MEDS: SODIUM CHLORIDE 0.9% 1,000 ML IV SCH (13:44)
[2020-09-08] MEDS: ONDANSETRON 4 MG/2 ML VIAL IVP SCH (16:18)
[2020-09-08 16:49] LABS: Glucose,Whole Blood 132 mg/dL (75-99)
[2020-09-08 20:50] LABS: Glucose,Whole Blood 226 mg/dL (75-99)
[2020-09-08] MEDS: FUROSEMIDE 20 MG TAB PO SCH (21:06)
[2020-09-08] MEDS: glipiZIDE 5 MG TAB PO SCH (21:07)
[2020-09-08] MEDS: ZOLPIDEM 5 MG TAB PO PRN (21:12)
--- NOTE | 2020-09-08 22:45 | P.HPIM ---
History of Present Illness H&P Date: 09/08/20 Chief Complaint: Intractable nausea and vomiting. Patient is a 85-year-old male with a known history of metastatic prostate cancer, hypertension, diabetes type 2 [id number]-udpqhrrbx, osteoarthritis and other medical problems including failure to thrive was admitted to hospital due to intractable nausea vomiting and not tolerating oral diet very well. Patient denied any chest pain or shortness of breath. Laboratory test showed BUN 21 creatinine 0.89 sodium 135 potassium 4.0 and magnesium 1.7 urinalysis showed cloudy with 3+ glucose, 1+ ketones and moderate leukocyte esterase. Elevated RBCs and WBCs. KUB x-ray showed postprocedural changes. Degenerative disc disease and spinal curvature. Chest x-ray showed no acute cardiopulmonary process EKG showed sinus rhythm with frequent PVCs. Review of Systems Complete review of systems could not be obtained from the patient except as per HPI. Past Medical History Past Medical History: Cancer, Diabetes Mellitus, Hyperlipidemia, Hypertension, Osteoarthritis (OA), Prostate Disorder Additional Past Medical History / Comment(s): prostate cancer, STROKE BEHIND RT EYE,GOUT,DDD,RECENTLY TX FOR UTI History of Any Multi-Drug Resistant Organisms: None Reported Past Surgical History: Joint Replacement, Orthopedic Surgery Additional Past Surgical History / Comment(s): 02-05-16 TOTAL LT KNEE REPLACMENT, RT KNEE REPLACMENT, BRIELLE CATARACTS, PROSTE-SEED IMPLAN TS,COLONOSCOPY/POLYPECTOMY(BENIGN), PRECANCEROUS SKIN LESIONS FROZEN OFF. Past Anesthesia/Blood Transfusion Reactions: Motion Sickness Past Psychological History: No Psychological Hx Reported Smoking Status: Never smoker Past Alcohol Use History: None Reported Past Drug Use History: None Reported - Past Family History Mother Family Medical History: Diabetes Mellitus Additional Family Medical History / Comment(s): HEART PROBLEMS Father Family Medical History: Diabetes Mellitus Medications and Allergies Home Medications Medication Instructions Recorded Confirmed Type Ergocalciferol [Vitamin D2 50,000 unit PO Q14D 01/29/16 09/07/20 History (DRISDOL)] Multivitamin [Men's Multi-Vitamin] 1 tab PO DAILY 01/29/16 09/07/20 History Tamsulosin [Flomax] 0.4 mg PO DAILY 01/29/16 09/07/20 History amLODIPine [Norvasc] 5 mg PO DAILY 09/19/17 09/07/20 History Allopurinol [Zyloprim] 200 mg PO DAILY 05/04/20 09/07/20 History Famotidine [Pepcid] 20 mg PO BID 05/04/20 09/07/20 History Furosemide [Lasix] 40 mg PO DAILY 05/04/20 09/07/20 History Gabapentin 900 mg PO HS PRN 05/04/20 09/07/20 History Zolpidem [Ambien] 10 mg PO HS PRN 05/04/20 09/07/20 History glipiZIDE [Glucotrol] 5 mg PO HS 05/04/20 09/07/20 History glipiZIDE [Glucotrol] 10 mg PO DAILY 05/04/20 09/07/20 History metFORMIN HCL 500 mg PO BID 05/04/20 09/07/20 History Ferrous Sulfate [Iron (65 MG 325 mg PO BID-W/MEALS #60 tab 05/19/20 09/07/20 Rx Elemental)] Ascorbic Acid [Vitamin C] 1,000 mg PO BID 09/07/20 09/07/20 History Enzalutamide [Xtandi] 160 mg PO DAILY 09/07/20 09/07/20 History Furosemide [Lasix] 20 mg PO HS 09/07/20 09/07/20 History Lactulose 15 - 30 ml PO DAILY 09/07/20 09/07/20 History Allergies Allergy/AdvReac Type Severity Reaction Status Date / Time adhesive tape AdvReac skin tear Verified 09/07/20 14:48 Physical Exam Vitals: Vital Signs Temp Pulse Pulse Resp BP BP BP 09/08/20 14:00 98.3 F 84 18 166/72 09/08/20 08:00 97.3 F L 80 16 151/70 09/08/20 01:20 98.6 F 93 16 155/70 09/07/20 20:30 98.2 F 88 20 180/84 09/07/20 17:43 97.7 F 72 18 171/73 09/07/20 16:35 98.4 F 18 L 18 155/83 09/07/20 16:00 18 L 18 155/83 Pulse Ox 09/08/20 14:00 99 09/08/20 08:00 99 09/08/20 01:20 96 09/07/20 20:30 97 09/07/20 17:43 99 09/07/20 16:35 100 09/07/20 16:00 100 Intake and Output 09/08/20 09/08/20 09/08/20 06:59 14:59 22:59 Intake Total 770 150 Output Total 1000 450 Balance -230 -300 Intake: Intake, IV Titration 770 Amount Sodium Chloride 0.9% 1, 650 000 ml @ 130 mls/hr IV . Q7H42M STA Rx#:[id number] Sodium Chloride 0.9% 1, 120 000 ml @ 20 mls/hr IV . Q24H STA Rx#:[id number] Oral 150 Output: Urine 1000 450 PHYSICAL EXAMINATION: Patient is lying in the bed comfortably, no acute distress, awake alert and oriented.Lethargic and weak.. HEENT: Normocephalic. Neck is supple. Pupils reactive. Nostrils clear. Oral cavity is moist. Ears reveal no drainage. Neck reveals no JVD, carotid bruits, or thyromegaly. CHEST EXAMINATION: Trachea is central. Symmetrical expansion. Lung castano clear to auscultation and percussion. CARDIAC: Normal S1, S2 with no gallops. No murmurs ABDOMEN: Soft. Bowel sounds normal. No organomegaly. No abdominal bruits. Extremities: reveal no edema. No clubbing or cyanosis Neurologically awake, alert, oriented x2-3 with well-coordinated movements. No focal deficits noted Skin: No rash or skin lesions. Psychiatric: Coperative. Nonsuicidal Musculoskeletal: No joint swelling or deformity. Normal range of motion. Results CBC & Chem 7: 09/07/20 12:48 09/07/20 12:48 Labs: Abnormal Lab Results - Last 24 Hours (Table) 09/07/20 09/07/20 09/08/20 Range/Units 17:26 21:54 07:41 POC Glucose (mg/dL) 184 H 171 H 165 H (75-99) mg/dL 09/08/20 Range/Units 11:44 POC Glucose (mg/dL) 157 H (75-99) mg/dL Microbiology - Last 24 Hours (Table) 09/07/20 12:48 Urine Culture - Preliminary Urine,Voided Thrombosis Risk Factor Assmnt - DVT/VTE Prophylaxis DVT/VTE Prophylaxis: Pharmacologic Prophylaxis ordered - Choose All That Apply Each Risk Factor Represents 3 Points: Age 75 years or older Thrombosis Risk Factor Assessment Total Risk Factor Score: 3 Thrombosis Risk Factor Assessment Level: Moderate Risk Assessment and Plan Assessment: Intractable nausea vomiting and decreased oral intake. Metastatic prostate cancer currently on e experimental l treatment. Dehydration volume depletion Diabetes type 2 ygb-zxjxnit-zrtbcvvak Possible urinary tract infection Hypertension Hyperlipidemia DVT prophylaxis heparin subcu Plan: Patient will be continued on IV hydration and Lasix dose will be reduced. Replace electrolytes. Continue with Zofran and had metoclopramide as needed. Current home medications and pain management. Follow-up closely. Prognosis guarded at this time. Further recommendations based on clinical course.
[2020-09-09] MEDS: ONDANSETRON 4 MG/2 ML VIAL IVP SCH ×3 (00:01→17:56)
[2020-09-09] MEDS: SODIUM CHLORIDE 0.9% 1,000 ML IV SCH ×2 (03:31→17:56)
[2020-09-09 06:48] LABS: Anisocytosis Slight; Basophils % (A) 1 %; Eosinophils # (A) 0.2 k/uL (0-0.7); Eosinophils % (A) 3 %; HCT 34.9 % (39.0-53.0); HGB 11.6 gm/dL (13.0-17.5); Lymphocytes # (A) 0.8 k/uL (1.0-4.8); Lymphocytes % (A) 14 %; MCH 33.4 pg (25.0-35.0); MCHC 33.2 g/dL (31.0-37.0); MCV 100.6 fL (80.0-100.0); Macrocytosis Slight; Mean Platelet Volume 8.2; Monocytes # (A) 0.5 k/uL (0-1.0); Monocytes % (A) 9 %; Neutrophils # (A) 3.9 k/uL (1.3-7.7); Neutrophils % (A) 70 %; Platelet Count 262 k/uL (150-450); RBC 3.47 m/uL (4.30-5.90); RDW 16.7 % (11.5-15.5); WBC 5.5 k/uL (3.8-10.6)
[2020-09-09 07:12] LABS: Glucose,Whole Blood 142 mg/dL (75-99)
[2020-09-09] MEDS: FAMOTIDINE 20 MG TAB PO SCH ×2 (08:38→20:58)
[2020-09-09] MEDS: MULTIVITAMINS, THERA 1 EACH TAB PO SCH ×2 (08:38→08:39)
[2020-09-09] MEDS: LACTULOSE 20 GM/30 ML CUP PO SCH (08:38)
[2020-09-09] MEDS: TAMSULOSIN 0.4 MG CAP.ER.24H PO SCH (08:39)
[2020-09-09] MEDS: ASCORBIC ACID 500 MG TAB PO SCH ×2 (08:39→20:59)
[2020-09-09] MEDS: metFORMIN 500 MG TAB PO SCH ×2 (08:39→20:58)
[2020-09-09] MEDS: glipiZIDE 10 MG TAB PO SCH (08:39)
[2020-09-09] MEDS: amLODIPine 5 MG TAB PO SCH (08:39)
[2020-09-09] MEDS: FERROUS SULFATE 325 MG TAB PO SCH ×2 (08:40→17:56)
[2020-09-09] MEDS: allopurinoL 100 MG TAB PO SCH (08:40)
[2020-09-09] MEDS: FUROSEMIDE 40 MG TAB PO SCH (08:41)
[2020-09-09] MEDS: INSULIN ASPART (NovoLOG) 100 UNIT/ML VIAL SQ SCH ×4 (08:45→20:59)
[2020-09-09] MEDS: NON FORMULARY DRUG (Enzalutamide [Xtandi] 40 MG Capsule) PO SCH (08:51)
[2020-09-09 09:29] LABS: African American GFR (CKD) 71.1 (60.0-200.0); BUN/Creat Ratio 24.55 Ratio (12.00-20.00); Calcium 8.8 mg/dL (8.7-10.3); Non-African American GFR(CKD) 61.3 (60.0-200.0); Potassium 3.2 mmol/L (3.5-5.5)
[2020-09-09] MEDS ORDERED: POTASSIUM CHLORIDE ER 20 MEQ TAB.ER PO STA (13:12)
[2020-09-09 16:38] LABS: Glucose,Whole Blood 101 mg/dL (75-99)
[2020-09-09 20:00] LABS: Glucose,Whole Blood 198 mg/dL (75-99)
[2020-09-09 20:00] LABS: Glucose,Whole Blood 247 mg/dL (75-99)
[2020-09-09] MEDS: glipiZIDE 5 MG TAB PO SCH (20:58)
[2020-09-09] MEDS: ZOLPIDEM 5 MG TAB PO PRN (20:58)
[2020-09-10] MEDS: ONDANSETRON 4 MG/2 ML VIAL IVP SCH ×3 (00:05→17:26)
[2020-09-10] MEDS: SODIUM CHLORIDE 0.9% 1,000 ML IV SCH ×2 (05:23→17:27)
[2020-09-10 06:55] LABS: Glucose,Whole Blood 120 mg/dL (75-99)
[2020-09-10] MEDS: LACTULOSE 20 GM/30 ML CUP PO SCH (07:51)
[2020-09-10] MEDS: TAMSULOSIN 0.4 MG CAP.ER.24H PO SCH (07:53)
[2020-09-10] MEDS: amLODIPine 5 MG TAB PO SCH (07:53)
[2020-09-10] MEDS: FUROSEMIDE 40 MG TAB PO SCH (07:53)
[2020-09-10] MEDS: FAMOTIDINE 20 MG TAB PO SCH ×2 (07:53→20:35)
[2020-09-10] MEDS: glipiZIDE 10 MG TAB PO SCH (07:53)
[2020-09-10] MEDS: MULTIVITAMINS, THERA 1 EACH TAB PO SCH (07:54)
[2020-09-10] MEDS: metFORMIN 500 MG TAB PO SCH ×2 (07:54→20:35)
[2020-09-10] MEDS: allopurinoL 100 MG TAB PO SCH (07:54)
[2020-09-10] MEDS: ASCORBIC ACID 500 MG TAB PO SCH ×2 (07:54→20:34)
[2020-09-10] MEDS: FERROUS SULFATE 325 MG TAB PO SCH ×2 (07:55→17:27)
[2020-09-10] MEDS: INSULIN ASPART (NovoLOG) 100 UNIT/ML VIAL SQ SCH ×4 (07:56→20:34)
[2020-09-10] MEDS: NON FORMULARY DRUG (Enzalutamide [Xtandi] 40 MG Capsule) PO SCH (08:03)
[2020-09-10 11:56] LABS: Glucose,Whole Blood 271 mg/dL (75-99)
--- NOTE | 2020-09-10 15:26 | P.PN ---
Subjective Progress Note Date: 09/09/20 Principal diagnosis: Intractable nausea vomiting and unable to tolerate oral diet. Patient is a 85-year-old male with a known history of metastatic prostate cancer, hypertension, diabetes type 2 sbr-itdfsck-umsdptvub, osteoarthritis and other medical problems including failure to thrive was admitted to hospital due to intractable nausea vomiting and not tolerating oral diet very well. Patient denied any chest pain or shortness of breath. Patient says that she was tired on new chemotherapeutic pill for his metastatic prostate cancer about a week ago. Patient says that he started having the symptoms since he was initiated on this medication. Laboratory test showed BUN 21 creatinine 0.89 sodium 135 potassium 4.0 and magnesium 1.7 urinalysis showed cloudy with 3+ glucose, 1+ ketones and moderate leukocyte esterase. Elevated RBCs and WBCs. KUB x-ray showed postprocedural changes. Degenerative disc disease and spinal curvature. Chest x-ray showed no acute cardiopulmonary process EKG showed sinus rhythm with frequent PVCs. 09/09/2019 Patient is currently sitting in the chair. Awake alert and oriented and still feels very weak. Complains of nausea. No episodes of vomiting. Patient was started on diet. No complaints of chest pain or shortness of breath. No fever no chills.. No headache or dizziness or lightheadedness. Laboratory data showed hemoglobin 11.6 and potassium 3.2 which will be replaced. Current medications reviewed. Objective - Vital Signs Vital signs: Vital Signs Temp 97.9 F 09/09/20 07:35 Pulse 60 09/09/20 08:00 Resp 15 09/09/20 08:00 BP 153/73 09/09/20 07:35 Pulse Ox 99 09/09/20 07:35 Intake & Output 09/08/20 09/09/20 09/09/20 18:59 06:59 18:59 Intake Total 586 236 Output Total 725 300 Balance -139 -64 Intake: Oral 386 236 Other 200 Output: Urine 725 300 Other: Voiding Method Urinal Urinal # Voids 1 1 - Exam PHYSICAL EXAMINATION: Patient is lying in the bed comfortably, no acute distress, awake alert and oriented. Weak and tired.. HEENT: Normocephalic. Neck is supple. Pupils reactive. Nostrils clear. Oral cavity is moist. Ears reveal no drainage. Neck reveals no JVD, carotid bruits, or thyromegaly. CHEST EXAMINATION: Trachea is central. Symmetrical expansion. Lung castano clear to auscultation and percussion. CARDIAC: Normal S1, S2 with no gallops. No murmurs ABDOMEN: Soft. Bowel sounds normal. No organomegaly. No abdominal bruits. Extremities: reveal no edema. No clubbing or cyanosis Neurologically awake, alert, oriented x3 with well-coordinated movements. No focal deficits noted Skin: No rash or skin lesions. Psychiatric: Coperative. Nonsuicidal Musculoskeletal: No joint swelling or deformity. Normal range of motion. - Labs CBC & Chem 7: 09/09/20 06:26 09/09/20 06:26 Labs: Abnormal Lab Results - Last 24 Hours (Table) 09/08/20 09/08/20 09/09/20 Range/Units 16:47 20:48 06:26 RBC 3.47 L (4.30-5.90) m/uL Hgb 11.6 L (13.0-17.5) gm/dL Hct 34.9 L (39.0-53.0) % MCV 100.6 H (80.0-100.0) fL RDW 16.7 H (11.5-15.5) % Lymphocytes # 0.8 L (1.0-4.8) k/uL Potassium (3.5-5.5) mmol/L BUN/Creatinine Ratio (12.00-20.00) Ratio Glucose (70-110) mg/dL POC Glucose (mg/dL) 132 H 226 H (75-99) mg/dL 09/09/20 09/09/20 Range/Units 06:26 07:10 RBC (4.30-5.90) m/uL Hgb (13.0-17.5) gm/dL Hct (39.0-53.0) % MCV (80.0-100.0) fL RDW (11.5-15.5) % Lymphocytes # (1.0-4.8) k/uL Potassium 3.2 L (3.5-5.5) mmol/L BUN/Creatinine Ratio 24.55 H (12.00-20.00) Ratio Glucose 141 H (70-110) mg/dL POC Glucose (mg/dL) 142 H (75-99) mg/dL Microbiology - Last 24 Hours (Table) 09/07/20 12:48 Urine Culture - Final Urine,Voided 09/07/20 13:02 Blood Culture - Preliminary Blood No Growth after 24 hours Assessment and Plan Assessment: Intractable nausea vomiting and decreased oral intake. Likely due to recent initiation of new chemotherapeutic medication. Metastatic prostate cancer currently on e experimental l treatment. Dehydration volume depletion Diabetes type 2 okf-hfzollz-jqxattvhv Possible urinary tract infection Hypertension Hyperlipidemia DVT prophylaxis heparin subcu Plan: Patient will be continued on IV hydration and Lasix dose will be discontinued. Replace electrolytes. Continue with Zofran and had metoclopramide as needed. Current home medications and pain management. Follow-up closely. Prognosis guarded at this time. PT OT consult. Further recommendations based on clinical course. Time with Patient: Greater than 30
[2020-09-10 16:55] LABS: Glucose,Whole Blood 87 mg/dL (75-99)
[2020-09-10 20:24] LABS: Glucose,Whole Blood 255 mg/dL (75-99)
[2020-09-10] MEDS: ZOLPIDEM 5 MG TAB PO PRN (20:48)
[2020-09-10] MEDS: glipiZIDE 5 MG TAB PO SCH (20:48)
[2020-09-11] MEDS: ONDANSETRON 4 MG/2 ML VIAL IVP SCH ×2 (00:10→08:37)
[2020-09-11 07:11] LABS: Anisocytosis Slight; Basophils % (A) 1 %; Eosinophils # (A) 0.4 k/uL (0-0.7); Eosinophils % (A) 6 %; HCT 31.8 % (39.0-53.0); HGB 10.9 gm/dL (13.0-17.5); Lymphocytes % (A) 15 %; MCH 34.5 pg (25.0-35.0); MCHC 34.2 g/dL (31.0-37.0); MCV 100.7 fL (80.0-100.0); Macrocytosis Slight; Mean Platelet Volume 7.9; Monocytes # (A) 0.5 k/uL (0-1.0); Monocytes % (A) 8 %; Neutrophils # (A) 4.4 k/uL (1.3-7.7); Neutrophils % (A) 68 %; Platelet Count 234 k/uL (150-450); RBC 3.16 m/uL (4.30-5.90); RDW 16.1 % (11.5-15.5); WBC 6.4 k/uL (3.8-10.6)
[2020-09-11 07:57] LABS: Glucose,Whole Blood 151 mg/dL (75-99)
[2020-09-11] MEDS: MULTIVITAMINS, THERA 1 EACH TAB PO SCH (08:34)
[2020-09-11] MEDS: glipiZIDE 10 MG TAB PO SCH (08:34)
[2020-09-11] MEDS: FUROSEMIDE 40 MG TAB PO SCH (08:34)
[2020-09-11] MEDS: amLODIPine 5 MG TAB PO SCH (08:35)
[2020-09-11] MEDS: allopurinoL 100 MG TAB PO SCH (08:35)
[2020-09-11] MEDS: ASCORBIC ACID 500 MG TAB PO SCH (08:35)
[2020-09-11] MEDS: metFORMIN 500 MG TAB PO SCH (08:35)
[2020-09-11] MEDS: FERROUS SULFATE 325 MG TAB PO SCH (08:35)
[2020-09-11] MEDS: FAMOTIDINE 20 MG TAB PO SCH (08:36)
[2020-09-11] MEDS: LACTULOSE 20 GM/30 ML CUP PO SCH (08:36)
[2020-09-11] MEDS: INSULIN ASPART (NovoLOG) 100 UNIT/ML VIAL SQ SCH ×2 (08:37→12:40)
[2020-09-11] MEDS: TAMSULOSIN 0.4 MG CAP.ER.24H PO SCH (08:37)
[2020-09-11] MEDS: NON FORMULARY DRUG (Enzalutamide [Xtandi] 40 MG Capsule) PO SCH (08:37)
[2020-09-11] MEDS: SODIUM CHLORIDE 0.9% 1,000 ML IV SCH (10:41)
[2020-09-11 11:38] LABS: Glucose,Whole Blood 203 mg/dL (75-99)
[2020-09-11 12:19] VITALS: BP 168/68; PULSE 76; RESP 16; TEMP 97.6
[2020-09-11 12:30] LABS: African American GFR (CKD) 71.1 (60.0-200.0); Anion Gap 10.3 mmol/L (4.00-12.00); BUN/Creat Ratio 28.18 Ratio (12.00-20.00); Calcium 8.6 mg/dL (8.7-10.3); Carbon Dioxide 22.7 mmol/L (21.6-31.8); Non-African American GFR(CKD) 61.3 (60.0-200.0); Potassium 3.8 mmol/L (3.5-5.5)
--- NOTE | 2020-09-11 13:33 | P.PN ---
Subjective Progress Note Date: 09/10/20 Principal diagnosis: Intractable nausea vomiting and unable to tolerate oral diet. Patient is a 85-year-old male with a known history of metastatic prostate cancer, hypertension, diabetes type 2 jpv-fngzidv-kxcdhiifr, osteoarthritis and other medical problems including failure to thrive was admitted to hospital due to intractable nausea vomiting and not tolerating oral diet very well. Patient denied any chest pain or shortness of breath. Patient says that she was tired on new chemotherapeutic pill for his metastatic prostate cancer about a week ago. Patient says that he started having the symptoms since he was initiated on this medication. Laboratory test showed BUN 21 creatinine 0.89 sodium 135 potassium 4.0 and magnesium 1.7 urinalysis showed cloudy with 3+ glucose, 1+ ketones and moderate leukocyte esterase. Elevated RBCs and WBCs. KUB x-ray showed postprocedural changes. Degenerative disc disease and spinal curvature. Chest x-ray showed no acute cardiopulmonary process EKG showed sinus rhythm with frequent PVCs. 09/09/2019 Patient is currently sitting in the chair. Awake alert and oriented and still feels very weak. Complains of nausea. No episodes of vomiting. Patient was started on diet. No complaints of chest pain or shortness of breath. No fever no chills.. No headache or dizziness or lightheadedness. Laboratory data showed hemoglobin 11.6 and potassium 3.2 which will be replaced. 09/10/2020 Patient is currently resting in the bed comfortably. Able to tolerate oral diet better today. No complaints of chest pain or shortness of breath. Pain is controlled. Still having nausea but no source of vomiting. No fever no chills. No commerce from production. Patient does not want to be discharged to rehab. Will discussed with his with possible discharge home with family support. Patient will need follow with his urologist regarding metastatic prostate cancer treatment. Current medications reviewed. Objective - Vital Signs Vital signs: Vital Signs Temp 98.3 F 09/10/20 14:00 Pulse 75 09/10/20 14:00 Resp 18 09/10/20 14:00 BP 128/71 09/10/20 14:00 Pulse Ox 97 09/10/20 14:00 Intake & Output 09/09/20 09/10/20 09/10/20 18:59 06:59 18:59 Intake Total 1036 Output Total 300 300 100 Balance 736 -300 -100 Intake: Oral 1036 Output: Urine 300 300 100 Other: Voiding Method Urinal Urinal Urinal # Voids 2 1 - Exam PHYSICAL EXAMINATION: Patient is lying in the bed comfortably, no acute distress, awake alert and oriented. Weak and tired.. HEENT: Normocephalic. Neck is supple. Pupils reactive. Nostrils clear. Oral cavity is moist. Ears reveal no drainage. Neck reveals no JVD, carotid bruits, or thyromegaly. CHEST EXAMINATION: Trachea is central. Symmetrical expansion. Lung castano clear to auscultation and percussion. CARDIAC: Normal S1, S2 with no gallops. No murmurs ABDOMEN: Soft. Bowel sounds normal. No organomegaly. No abdominal bruits. Extremities: reveal no edema. No clubbing or cyanosis Neurologically awake, alert, oriented x3 with well-coordinated movements. No focal deficits noted Skin: No rash or skin lesions. Psychiatric: Coperative. Nonsuicidal Musculoskeletal: No joint swelling or deformity. Normal range of motion. - Labs CBC & Chem 7: 09/11/20 06:51 09/11/20 06:51 Labs: Abnormal Lab Results - Last 24 Hours (Table) 09/09/20 09/09/20 09/09/20 Range/Units 11:42 16:34 19:59 POC Glucose (mg/dL) 198 H 101 H 247 H (75-99) mg/dL 09/10/20 09/10/20 Range/Units 06:53 11:55 POC Glucose (mg/dL) 120 H 271 H (75-99) mg/dL Microbiology - Last 24 Hours (Table) 09/07/20 13:02 Blood Culture - Preliminary Blood No Growth after 72 hours Assessment and Plan Assessment: Intractable nausea vomiting and decreased oral intake. Likely due to recent initiation of new chemotherapeutic medication. Metastatic prostate cancer currently on e experimental l treatment. Dehydration volume depletion Diabetes type 2 iow-nvlzknu-lplxivjyb Possible urinary tract infection Hypertension Hyperlipidemia DVT prophylaxis heparin subcu Plan: Patient will be continued on IV hydration and Lasix dose will be discontinued. Replaced electrolytes. Continue with Zofran and had metoclopramide as needed. Current home medications and pain management. Follow-up closely. Prognosis guarded at this time. PT OT is following. Advance diet as tolerated. Further recommendations based on clinical course. Time with Patient: Greater than 30
--- NOTE | 2020-09-11 16:09 | P.DS ---
Providers Date of admission: 09/10/20 18:24 Expected date of discharge: 09/11/20 Attending physician: Yeny Lopez Primary care physician: Floyd Anne MD Hospital Course: Final diagnosis Intractable nausea vomiting and decreased oral intake. Likely due to recent initiation of new chemotherapeutic medication. Metastatic prostate cancer currently on experimental treatment. Dehydration volume depletion Diabetes type 2 kqz-myyzpmx-myfulaehm Possible urinary tract infection Hypertension Hyperlipidemia DVT prophylaxis Discharge disposition Patient is being discharged in a stable condition with guarded prognosis to home. Patient will follow-up with Dr. Anne in the outpatient setting upon discharge. Patient is to continue with oral antibiotics in the form of Ceftin 500 mg twice daily for the next 3 days to complete the course. Patient will also follow-up with urology outpatient as scheduled. Total time taken is greater than 35 minutes. Hospital course This is a 85-year-old male who was recently admitted with intractable nausea and vomiting and unable to tolerate diet and was being closely monitored. Patient follows closely with urology in the outpatient setting and was started on a recent chemotherapeutic pill for metastatic prostate cancer and then started having worsening nausea and inability to tolerate foods. Per patient sits most of the day and is not up and being active at all. Patient was initiated on IV antibiotics in the form of ceftriaxone and will continue with oral Ceftin 500 mg twice daily to complete a course. Patient continues to be weak although is refusing rehab that was recommended by PT/OT therapy. Patient is agreeable to home care and discuss this with and she will discuss with primary care provider along with urology about the possibility of rehab in the home. Potassium was replaced during hospitalization and is improved. Patient continues to need encouragement with meals and a prescription was provided for Reglan as needed as he continues to have nausea. Patient instructed to take medication with food. Currently no reports of chest pain, shortness of breath, or palpitations. Patient is afebrile. No reports of vomiting and patient is tolerating diet. Patient will be discharged home today. Patient will have home care in the outpatient setting. Prognosis is guarded On exam vital signs are stable. Temp is 97.6F, pulse is 76, respirations are 16, blood pressure is 168/68, oxygen saturation is 98% on room air. Cardio S1, S2 are muffled. Respiratory system shows diminished breath sounds at the bases with no wheezing or rhonchi noted. Abdomen is soft and nontender. Nervous system shows diffuse weakness. Please refer to medication reconciliation sheet for a list of medications. Patient Condition at Discharge: Fair Plan - Discharge Summary Discharge Rx Participant: No New Discharge Prescriptions: New Cefuroxime Axetil [Ceftin] 500 mg PO BID 3 Days #6 tab Metoclopramide [Reglan] 5 mg PO TID PRN #30 tab PRN Reason: Nausea Continue Ergocalciferol [Vitamin D2 (DRISDOL)] 50,000 unit PO Q14D Tamsulosin [Flomax] 0.4 mg PO DAILY Multivitamin [Men's Multi-Vitamin] 1 tab PO DAILY amLODIPine [Norvasc] 5 mg PO DAILY Zolpidem [Ambien] 10 mg PO HS PRN PRN Reason: Insomnia metFORMIN HCL 500 mg PO BID Gabapentin 900 mg PO HS PRN PRN Reason: Spasms glipiZIDE [Glucotrol] 5 mg PO HS glipiZIDE [Glucotrol] 10 mg PO DAILY Furosemide [Lasix] 40 mg PO DAILY Famotidine [Pepcid] 20 mg PO BID Allopurinol [Zyloprim] 200 mg PO DAILY Ferrous Sulfate [Iron (65 MG Elemental)] 325 mg PO BID-W/MEALS #60 tab Ascorbic Acid [Vitamin C] 1,000 mg PO BID Furosemide [Lasix] 20 mg PO HS Lactulose 15 - 30 ml PO DAILY Enzalutamide [Xtandi] 160 mg PO DAILY Discharge Medication List Ergocalciferol [Vitamin D2 (DRISDOL)] 50,000 unit PO Q14D 01/29/16 [History] Multivitamin [Men's Multi-Vitamin] 1 tab PO DAILY 01/29/16 [History] Tamsulosin [Flomax] 0.4 mg PO DAILY 01/29/16 [History] amLODIPine [Norvasc] 5 mg PO DAILY 09/19/17 [History] Allopurinol [Zyloprim] 200 mg PO DAILY 05/04/20 [History] Famotidine [Pepcid] 20 mg PO BID 05/04/20 [History] Furosemide [Lasix] 40 mg PO DAILY 05/04/20 [History] Gabapentin 900 mg PO HS PRN 05/04/20 [History] Zolpidem [Ambien] 10 mg PO HS PRN 05/04/20 [History] glipiZIDE [Glucotrol] 5 mg PO HS 05/04/20 [History] glipiZIDE [Glucotrol] 10 mg PO DAILY 05/04/20 [History] metFORMIN HCL 500 mg PO BID 05/04/20 [History] Ferrous Sulfate [Iron (65 MG Elemental)] 325 mg PO BID-W/MEALS #60 tab 05/19/20 [Rx] Ascorbic Acid [Vitamin C] 1,000 mg PO BID 09/07/20 [History] Enzalutamide [Xtandi] 160 mg PO DAILY 09/07/20 [History] Furosemide [Lasix] 20 mg PO HS 09/07/20 [History] Lactulose 15 - 30 ml PO DAILY 09/07/20 [History] Cefuroxime Axetil [Ceftin] 500 mg PO BID 3 Days #6 tab 09/11/20 [Rx] Metoclopramide [Reglan] 5 mg PO TID PRN #30 tab 09/11/20 [Rx] Follow up Appointment(s)/Referral(s): Floyd Anne MD [Primary Care Provider] - 1-2 days (The office will call you with appointment time and date.) [facility] [NON-STAFF] - 1-2 Days Patient Instructions/Handouts: Cefuroxime (By mouth), Metoclopramide (By mouth), Acute Nausea and Vomiting (DC) Activity/Diet/Wound Care/Special Instructions: Activity Limited until follow-up Follow-up with primary care provider upon discharge Follow-up with urology as previously scheduled next month Continue with antibiotics for the next 3 days to complete the course Continue with Reglan as needed for nausea Take medications with food Continue with home care and discuss possibility of rehab in the home after urology follow-up Discharge Disposition: HOME WITH HOME HEALTH SERVICES
[2020-09-22] MEDS ORDERED: ERGOCALCIFEROL 1,250 MCG (50,000 IU) CAPSULE PO SCH (09:00)
== END 2020-09-11 15:46 | disposition home health service (06) | DRG 392 ==
LOC: EC 12:04 → 5NMEDONC 15:55 → OBSVTOIN 09-10 18:24
PROVIDERS: ADMIT Internal Medicine; ATTEND Internal Medicine
DX: R11.2 Nausea with vomiting, unspecified (principal); N39.0 Urinary tract infection, site not specified; C61 Malignant neoplasm of prostate; E78.5 Hyperlipidemia, unspecified; E11.9 Type 2 diabetes mellitus without complications; E86.0 Dehydration; I10 Essential (primary) hypertension; R62.7 Adult failure to thrive; T45.1X5A Adverse effect of antineoplastic and immunosuppressive drugs, initial encounter; Z79.84 Long term (current) use of oral hypoglycemic drugs; Z79.899 Other long term (current) drug therapy; Z83.3 Family history of diabetes mellitus; Z85.46 Personal history of malignant neoplasm of prostate; Z86.73 Personal history of transient ischemic attack (TIA), and cerebral infarction without residual deficits
CPT/HCPCS: 36415; 71046; 74018; 80048; 80053; 81001; 82550; 83605; 83690; 83735; 85025; 87040; 87086; 93005; 96361; 96374; 99285

== ENCOUNTER 2020-11-26 12:26 | Emergency (ER) | payer MEDICARE, BC ==
[2020-11-26 13:16] VITALS: BP 139/74; PULSE 91; RESP 20; TEMP 98
[2020-11-26 16:03] LABS: Amorphous Sediment,Urine Rare /hpf; Appearance,Urine Turbid (Clear); Bilirubin,Urine Negative (Negative); Blood,Urine Large (Negative); Color,Urine Red; Glucose,Urine (UA) Negative (Negative); Ketones,Urine Negative (Negative); Leukocyte Esterase,Urine Large (Negative); Nitrite,Urine Negative (Negative); Protein,Urine 2+ (Negative); RBC,Urine >182 /hpf (0-5); Specific Gravity,Urine 1.009 (1.001-1.035); Urobilinogen,Urine <2.0 mg/dL (<2.0); WBC,Urine >182 /hpf (0-5)
--- NOTE | 2020-11-26 16:41 | ED ---
Male Urogenital HPI - General Chief complaint: Urogenital Stated complaint: blood in urine/cancer patient Time Seen by Provider: 11/26/20 16:26 Source: patient, family Mode of arrival: wheelchair Limitations: no limitations - History of Present Illness Initial comments: Is an 85-year-old male with a history of prostate cancer presents emergency department for hematuria. The patient states it started a couple of days ago and gradually worsened. He states that today he was having difficulty with urination and passing clots so he called his urologist who advised him to come emergency department. Prior to my evaluation the patient had been seen in triage and a Haq catheter was placed. The patient did have grossly bloody urine. Urinalysis was showing blood. I asked the patient about any dysuria, abdominal pain, flank pain. The patient states that he did not have any new symptoms however does have frequent right-sided flank pain that is intermittent in nature but states it is not any worse. No fevers or chills. Patient denies any lightheadedness. No blood thinners. The patient was anxious to leave the emergency department upon my evaluation. Apparently this happens to him frequently has is very knowledgeable unable to flush the catheter home. - Related Data Home Medications Medication Instructions Recorded Confirmed Ergocalciferol [Vitamin D2 50,000 unit PO Q14D 01/29/16 09/07/20 (DRISDOL)] Multivitamin [Men's Multi-Vitamin] 1 tab PO DAILY 01/29/16 09/07/20 Tamsulosin [Flomax] 0.4 mg PO DAILY 01/29/16 09/07/20 amLODIPine [Norvasc] 5 mg PO DAILY 09/19/17 09/07/20 Allopurinol [Zyloprim] 200 mg PO DAILY 05/04/20 09/07/20 Famotidine [Pepcid] 20 mg PO BID 05/04/20 09/07/20 Furosemide [Lasix] 40 mg PO DAILY 05/04/20 09/07/20 Gabapentin 900 mg PO HS PRN 05/04/20 09/07/20 Zolpidem [Ambien] 10 mg PO HS PRN 05/04/20 09/07/20 glipiZIDE [Glucotrol] 5 mg PO HS 05/04/20 09/07/20 glipiZIDE [Glucotrol] 10 mg PO DAILY 05/04/20 09/07/20 metFORMIN HCL 500 mg PO BID 05/04/20 09/07/20 Ascorbic Acid [Vitamin C] 1,000 mg PO BID 09/07/20 09/07/20 Enzalutamide [Xtandi] 160 mg PO DAILY 09/07/20 09/07/20 Furosemide [Lasix] 20 mg PO HS 09/07/20 09/07/20 Lactulose 15 - 30 ml PO DAILY 09/07/20 09/07/20 Previous Rx's Medication Instructions Recorded Ferrous Sulfate [Iron (65 MG 325 mg PO BID-W/MEALS #60 tab 05/19/20 Elemental)] Cefuroxime Axetil [Ceftin] 500 mg PO BID 3 Days #6 tab 09/11/20 Metoclopramide [Reglan] 5 mg PO TID PRN #30 tab 09/11/20 Allergies Allergy/AdvReac Type Severity Reaction Status Date / Time adhesive tape AdvReac skin tear Verified 11/26/20 13:16 Review of Systems ROS Statement: Those systems with pertinent positive or pertinent negative responses have been documented in the HPI. ROS Other: All systems not noted in ROS Statement are negative. Past Medical History Past Medical History: Cancer, Diabetes Mellitus, Hyperlipidemia, Hypertension, Osteoarthritis (OA), Prostate Disorder Additional Past Medical History / Comment(s): prostate cancer, STROKE BEHIND RT EYE,GOUT,DDD,RECENTLY TX FOR UTI History of Any Multi-Drug Resistant Organisms: None Reported Past Surgical History: Joint Replacement, Orthopedic Surgery Additional Past Surgical History / Comment(s): 02-05-16 TOTAL LT KNEE REPLACMENT, RT KNEE REPLACMENT, BRIELLE CATARACTS, PROSTE-SEED IMPLANTS,COLONOSCOPY/POLYPECTOMY(BENIGN), PRECANCEROUS SKIN LESIONS FROZEN OFF. Past Anesthesia/Blood Transfusion Reactions: Motion Sickness Past Psychological History: No Psychological Hx Reported Smoking Status: Never smoker Past Alcohol Use History: None Reported Past Drug Use History: None Reported - Past Family History Mother Family Medical History: Diabetes Mellitus Additional Family Medical History / Comment(s): HEART PROBLEMS Father Family Medical History: Diabetes Mellitus General Exam - General Exam Comments Initial Comments: Constitutional: Awake alert Appears comfortable Head: Normocephalic atraumatic Eyes: no conjunctival injection No scleral icterus EOMI Neck: No JVD Supple Heart: Regular rate rhythm normal S1-S2 no murmurs Lungs: Clear to auscultation bilaterally No wheezing No rales Abdomen: Soft nondistended nontender Extremities: Non edematous DP pulses intact Radial pulses intact Neuro: A&Ox3 No focal neurologic deficits Psych: Appropriate mood and affect Limitations: no limitations Course Vital Signs 11/26/20 13:13 Temperature 98.0 F Pulse Rate 91 Respiratory 20 Rate Blood Pressure 139/74 O2 Sat by Pulse 100 Oximetry Medical Decision Making - Medical Decision Making Is an 85-year-old male who presented for hematuria. Patient had no other symptoms. Stated that he felt improved after Haq catheter was placed. The nurse's able to flush and irrigate the catheter so that no further clots were passing. She states that the patient did have some persistent amount of bleeding however the patient stated that he would prefer to go home and have his continue to flush the catheter. Told to return if any worsening or changing symptoms including lightheadedness, dizziness, fever, chills. Otherwise follow-up closely with his urologist. All questions answered. - Lab Data Lab Results 11/26/20 Range/Units 15:19 Urine Color Red Urine Appearance Turbid (Clear) Urine pH 6.0 (5.0-8.0) Ur Specific [place] 1.009 (1.001-1.035) Urine Protein 2+ H (Negative) Urine Glucose (UA) Negative (Negative) Urine Ketones Negative (Negative) Urine Blood Large H (Negative) Urine Nitrite Negative (Negative) Urine Bilirubin Negative (Negative) Urine Urobilinogen <2.0 (<2.0) mg/dL Ur Leukocyte Esterase Large H (Negative) Urine RBC >182 H (0-5) /hpf Urine WBC >182 H (0-5) /hpf Amorphous Sediment Rare H (None) /hpf Disposition Clinical Impression: Hematuria, Urinary retention Disposition: HOME SELF-CARE Condition: Stable Instructions (If sedation given, give patient instructions): Hematuria (ED) Is patient prescribed a controlled substance at d/c from ED?: No Referrals: Floyd Anne MD [Primary Care Provider] - 1-2 days
== END 2020-11-26 17:44 | disposition home or self-care (01) ==
LOC: EC 12:26
DX: R33.9 Retention of urine, unspecified (principal); R31.9 Hematuria, unspecified; C61 Malignant neoplasm of prostate; I10 Essential (primary) hypertension; E11.9 Type 2 diabetes mellitus without complications; M10.9 Gout, unspecified; Z79.84 Long term (current) use of oral hypoglycemic drugs; Z79.899 Other long term (current) drug therapy; Z91.048 Other nonmedicinal substance allergy status; Z96.653 Presence of artificial knee joint, bilateral
CPT/HCPCS: 51702; 81001; 87086; 99283

== ENCOUNTER 2021-04-22 15:47 | Inpatient (IN) | payer MEDICARE, BC ==
[2021-04-22] MEDS ORDERED: RX INFO: IV CONTRAST WAS GIVEN 1 EACH MISC MISCELLANE PRN (16:41)
[2021-04-22 17:11] LABS: Anisocytosis Slight; Basophils # (A) 0.1 k/uL (0-0.2); Basophils % (A) 1 %; Eosinophils # (A) 0.4 k/uL (0-0.7); Eosinophils % (A) 6 %; HCT 27.3 % (39.0-53.0); HGB 9.2 gm/dL (13.0-17.5); Lymphocytes # (A) 0.9 k/uL (1.0-4.8); Lymphocytes % (A) 16 %; MCHC 33.8 g/dL (31.0-37.0); MCV 103.3 fL (80.0-100.0); Macrocytosis Moderate; Monocytes # (A) 0.4 k/uL (0-1.0); Monocytes % (A) 7 %; Neutrophils # (A) 3.9 k/uL (1.3-7.7); Neutrophils % (A) 67 %; Platelet Count 459 k/uL (150-450); RBC 2.64 m/uL (4.30-5.90); RDW 18.4 % (11.5-15.5); WBC 5.9 k/uL (3.8-10.6)
[2021-04-22 17:13] LABS: ALT 12 U/L (4-49); AST 30 U/L (17-59); African American GFR (CKD) >90 (>60 ml/min/1.73 sqM); Alkaline Phosphatase 137 U/L (38-126); Anion Gap 10 mmol/L; Blood Urea Nitrogen 21 mg/dL (9-20); Calcium 8.7 mg/dL (8.4-10.2); Carbon Dioxide 18 mmol/L (22-30); Chloride 108 mmol/L (98-107); Glucose 64 mg/dL (74-99); Non-African American GFR(CKD) 88 (>60 ml/min/1.73 sqM); Potassium 4.5 mmol/L (3.5-5.1); Sodium 136 mmol/L (137-145); Total Bilirubin 0.3 mg/dL (0.2-1.3); Total Protein 5.6 g/dL (6.3-8.2)
[2021-04-22] MEDS ORDERED: NALOXONE 0.4 MG/ML 1 ML VIAL IV PRN (17:37)
--- NOTE | 2021-04-22 17:37 | ED ---
Male Urogenital HPI - General Chief complaint: Urogenital Stated complaint: Blood in Urine Time Seen by Provider: 04/22/21 15:55 Source: patient, EMS Mode of arrival: EMS Limitations: no limitations - History of Present Illness Initial comments: 86-year-old male past medical history of diabetes, hypertension, prostate cancer presents emergency room and is transferred from [facility]. Patient is a history of prostate cancer treated with radiation beads. He is currently under the care of Dr. Abernathy. She woke this morning and had a sign ificant amount of hematuria all over the bathroom per his . This has happened to the patient before. was told by his previous urologist that due to his history of radiation prostatitis at the patient will occasionally have bleeding. He is not on any blood thinners. They did make contact with Dr. abernathy this morning and he was instructed to go into the hospital. At [facility] laboratory studies were performed. They did place a 3-way catheter in place the patient on continuous bladder irrigation. They recommended admission with urology consultation and recommended that the patient be transferred to our facility. The patient does arrive as a transfer with the continued bladder irrigation running. His requests that we obtain a CT of the patient's chest. She states that he follows with Tameka Story who has requested a CT of his chest which is pending for April 30. She is requesting that we do a today. There was some concern that the patient has fluid on his chest. He denies any complaints of shortness of breath or chest pain. The patient denies any abdominal pain, fevers or chills. No nausea or vomiting. No alleviating, precipitating or modifying factors - Related Data Home Medications Medication Instructions Recorded Confirmed Ergocalciferol [Vitamin D2 1,250 mcg PO Q14D 01/29/16 04/26/21 (DRISDOL)] Tamsulosin [Flomax] 0.4 mg PO DAILY 01/29/16 04/26/21 amLODIPine [Norvasc] 5 mg PO DAILY 09/19/17 04/26/21 Allopurinol [Zyloprim] 100 mg PO BID 05/04/20 04/26/21 Famotidine [Pepcid] 20 mg PO BID 05/04/20 04/26/21 Gabapentin 900 mg PO HS 05/04/20 04/26/21 Zolpidem [Ambien] 10 mg PO HS 05/04/20 04/26/21 metFORMIN HCL 500 mg PO DAILY 05/04/20 04/26/21 Ascorbic Acid [Vitamin C] 1,000 mg PO DAILY 09/07/20 04/26/21 Enzalutamide [Xtandi] 160 mg PO DAILY@1400 04/22/21 04/26/21 Ferrous Sulfate [Iron (65 MG 325 mg PO DAILY 04/22/21 04/26/21 Elemental)] Losartan [Cozaar] 50 mg PO DAILY 04/22/21 04/26/21 Multivitamins, Thera [Multivitamin 1 tab PO DAILY 04/22/21 04/26/21 (formulary)] Mupirocin 2% Oint [Bactroban 2% 1 applic TOPICAL BID PRN 04/22/21 04/26/21 Oint] Triamcinolone 0.1% Cream [Kenalog 1 applic TOPICAL BID PRN 04/22/21 04/26/21 0.1% Cream] metFORMIN HCL [Glucophage] 1,000 mg PO HS 04/22/21 04/26/21 Previous Rx's Medication Instructions Recorded glipiZIDE [Glucotrol] 5 mg PO DAILY #0 04/25/21 Allergies Allergy/AdvReac Type Severity Reaction Status Date / Time adhesive tape AdvReac skin tear Verified 04/26/21 07:46 Review of Systems ROS Statement: Those systems with pertinent positive or pertinent negative responses have been documented in the HPI. ROS Other: All systems not noted in ROS Statement are negative. Past Medical History Past Medical History: Cancer, Diabetes Mellitus, Hyperlipidemia, Hypertension, Osteoarthritis (OA), Prostate Disorder Additional Past Medical History / Comment(s): prostate cancer, STROKE BEHIND RT EYE,GOUT,DDD,RECENTLY TX FOR UTI History of Any Multi-Drug Resistant Organisms: None Reported Past Surgical History: Joint Replacement, Orthopedic Surgery Additional Past Surgical History / Comment(s): 02-05-16 TOTAL LT KNEE REPLACMENT, RT KNEE REPLACMENT, BRIELLE CATARACTS, PROSTE-SEED IMPLANTS,COLONOSCOPY/POLYPECTOMY(BENIGN), PRECANCEROUS SKIN LESIONS FROZEN OFF. Past Anesthesia/Blood Transfusion Reactions: Motion Sickness Past Psychological History: No Psychological Hx Reported Smoking Status: Never smoker Past Alcohol Use History: None Reported Past Drug Use History: None Reported - Past Family History Mother Family Medical History: Diabetes Mellitus Additional Family Medical History / Comment(s): HEART PROBLEMS Father Family Medical History: Diabetes Mellitus General Exam Limitations: no limitations General appearance: alert, in no apparent distress Head exam: Present: atraumatic, normocephalic, normal inspection Eye exam: Present: normal appearance, PERRL, EOMI. Absent: scleral icterus, conjunctival injection, periorbital swelling ENT exam: Present: normal exam, mucous membranes moist Neck exam: Present: normal inspection. Absent: tenderness, meningismus, lymphadenopathy Respiratory exam: Present: normal lung sounds bilaterally. Absent: respiratory distress, wheezes, rales, rhonchi, stridor Cardiovascular Exam: Present: regular rate, normal rhythm, normal heart sounds. Absent: systolic murmur, diastolic murmur, rubs, gallop, clicks GI/Abdominal exam: Present: soft, normal bowel sounds. Absent: distended, tenderness, guarding, rebound, rigid exam: Present: other (3 way [place] in place, actively draining) Extremities exam: Present: normal inspection, full ROM, normal capillary refill. Absent: tenderness, pedal edema, joint swelling, calf tenderness Back exam: Present: normal inspection Neurological exam: Present: alert, oriented X3, CN II-XII intact Psychiatric exam: Present: normal affect, normal mood Skin exam: Present: warm, dry, intact, normal color. Absent: rash Course Vital Signs 04/22/21 15:50 Temperature 98.2 F Pulse Rate 90 Respiratory 17 Rate Blood Pressure 132/90 O2 Sat by Pulse 97 Oximetry Medical Decision Making - Medical Decision Making Upon arrival the patient is placed into room 10. A thorough history and physic al exam was performed. I did review the patient's packet from [facility]. Hemoglobin was found to be 9.2 there. I did continue the patient on continuous bladder irrigation. I called and spoke with Claribel who recommended a CT of the chest with contrast. I repeated laboratory studies. Hemoglobin stable at 9.2. Glucose is 64 and therefore the patient is given something to eat. CT of the patient's chest was performed which demonstrates destruction of left fifth and eighth ribs with soft tissue masses which could relate to metastatic disease. These results are discussed with the patient. The patient is admitted to Dr. Robbins who accepts admission. I did call and speak with Dr. Abernathy who agrees to the current treatment plan. I will place oncology on consult. Patient remained in stable condition awaiting a bed on the floor - Lab Data Result diagrams: 04/25/21 06:25 04/25/21 06:25 Lab Results 04/22/21 04/22/21 Range/Units 16:51 16:51 WBC 5.9 (3.8-10.6) k/uL RBC 2.64 L (4.30-5.90) m/uL Hgb 9.2 L (13.0-17.5) gm/dL Hct 27.3 L (39.0-53.0) % MCV 103.3 H (80.0-100.0) fL MCH 35.0 (25.0-35.0) pg MCHC 33.8 (31.0-37.0) g/dL RDW 18.4 H (11.5-15.5) % Plt Count 459 H (150-450) k/uL MPV 7.0 Neutrophils % 67 % Lymphocytes % 16 % Monocytes % 7 % Eosinophils % 6 % Basophils % 1 % Neutrophils # 3.9 (1.3-7.7) k/uL Lymphocytes # 0.9 L (1.0-4.8) k/uL Monocytes # 0.4 (0-1.0) k/uL Eosinophils # 0.4 (0-0.7) k/uL Basophils # 0.1 (0-0.2) k/uL Anisocytosis Slight Macrocytosis Moderate Sodium 136 L (137-145) mmol/L Potassium 4.5 (3.5-5.1) mmol/L Chloride 108 H (98-107) mmol/L Carbon Dioxide 18 L (22-30) mmol/L Anion Gap 10 mmol/L BUN 21 H (9-20) mg/dL Creatinine 0.67 (0.66-1.25) mg/dL Est GFR (CKD-EPI)AfAm >90 (>60 ml/min/1.73 sqM) Est GFR (CKD-EPI)NonAf 88 (>60 ml/min/1.73 sqM) Glucose 64 L (74-99) mg/dL Calcium 8.7 (8.4-10.2) mg/dL Total Bilirubin 0.3 (0.2-1.3) mg/dL AST 30 (17-59) U/L ALT 12 (4-49) U/L Alkaline Phosphatase 137 H (38-126) U/L Total Protein 5.6 L (6.3-8.2) g/dL Albumin 3.0 L (3.5-5.0) g/dL Disposition Clinical Impression: Hematuria, Prostate cancer Disposition: ADMITTED IP TO THIS HOSP Is patient prescribed a controlled substance at d/c from ED?: No Decision to Admit Reason: Admit from EC Decision Date: 04/22/21 Decision Time: 17:36
[2021-04-22] MEDS ORDERED: SODIUM CHLORIDE 0.9% IRRIGATIO 3,000 ML IRRIGATION ONE (18:12)
--- NOTE | 2021-04-22 18:35 | CT ---
EXAMINATION TYPE: CT chest w con DATE OF EXAM: 04/22/2021 COMPARISON: None HISTORY: lung mass, prostate CA, hematuria CT DLP: 380.3 mGycm Automated exposure control for dose reduction was used. CONTRAST: Performed with IV Contrast, patient injected with 100 mL of Isovue 300. There is left pleural effusion. There is left lower lobe airspace infiltrate and atelectasis. There i s rounded 6.5 cm mass involving the left lateral rib with rib destruction. Mass has mostly soft tissu e density. This involves the left lateral eighth rib. There is a similar smaller mass lesion involvin g the left fifth rib measuring 3 cm. There is a rib fracture. There is narrowing of the shoulder join t space was used with spur formation. Sternum is intact. The manubrium is intact. Clavicles appear intact. Thoracic vertebra have mild dext roscoliosis. There is no compression fracture. There is spurring anteriorly in the mid thoracic spine . Thoracic aorta is atheromatous. 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 There are calcified gallstones. Visualized kidneys show bilateral hydronephrosis and hydroureter. The liver and spleen appear intact. There is no evidence of pancreatic mass. IMPRESSION: There are fractures of the left fifth and eighth ribs with soft tissue masses that could relate to me tastatic disease. Bilateral hydronephrosis. Cholelithiasis. Pleural effusions more on the left side with left lower lob e infiltrate and atelectasis. Thoracic aortic aneurysm. Left eighth rib lesion is new compared to CT scan of September 20, 2017.
[2021-04-22] MEDS ORDERED: TRIAMCINOLONE 0.1% CREAM 80 GM TUBE TOPICAL PRN (20:18)
[2021-04-22] MEDS ORDERED: MUPIROCIN 2% OINT 22 GM TUBE TOPICAL PRN (20:18)
[2021-04-22] MEDS ORDERED: glipiZIDE 5 MG TAB PO SCH (21:00)
--- NOTE | 2021-04-22 22:28 | P.HPIM ---
History of Present Illness H&P Date: 04/22/21 Chief Complaint: Hematuria History of presenting complaint: This is a pleasant 86-year-old patient with follows with Dr. Floyd Anne. Chronic stable medical conditions include diabetes, hypertension, hyperlipidemia, osteoarthritis, gout. Patient was first diagnosed with prostate cancer about 8-10 years ago. And radiation seeds. Planted by Dr Degroot Patient did well. Patient would have intermittent bleeding every 3-4 months and about a year ago Dr. Overton from urology did scrape the bladder. Patient for last 1 week is having increasing amount of blood clots patient today. No dizziness no lightheadedness. Patient been having weight loss. Patient sometimes get diarrhea based on his diet. Appetite has not been good. Patient's was supposed of the computed tomography scan of the chest as an outpatient based on some x- ray findings and this was done in the ER today. Patient did have a fall 2 months ago and decided not to come to the ER. Patient's is present at the bedside to help with the history. There is no fever no chills. Patient does bruise easily. Not any blood tenderness. Review of systems: GEN.: Retired EYES: None HEENT: Hard of hearing NECK: None RESPIRATORY: None CARDIOVASCULAR: None GASTROINTESTINAL: Intermittent diarrhea GENITOURINARY: As above MUSCULOSKELETAL: Joint pains LYMPHATICS: None HEMATOLOGICAL: None PSYCHIATRY: None NEUROLOGICAL: None Past medical history to include: Diabetes mellitus, hypertension, hyperlipidemia, osteoarthritis, prostate cancer, stroke and the right eye, gout Social history: . No history of smoking or alcohol. Retired Family history: Of diabetes, heart problems Physical examination: VITAL SIGNS: 98.1, 89, 18, 146/65, 97% room air GENERAL: BMI 22.8, laying in bed, awake, tired. EYES: Pupils equal. Conjunctiva palel. HEENT: External appearance of nose and ears normal, oral cavity grossly normal. NECK: JVD not raised; masses not palpable. HEART: First and second heart sounds are normal; no edema. LUNGS: Respiratory rate normal; clear to auscultation. ABDOMEN: Soft, nontender, liver spleen not palpable, no masses palpable. Haq catheter placed in the ER. PSYCH: Alert and oriented x3; mood and affect normal. MUSCULAR skeletal: Evidence of OA multiple joints NEUROLOGICAL: Cranial nerves grossly intact; no facial asymmetry, power and sensation grossly intact. LYMPHATICS: No lymph nodes palpable in the axilla and neck INVESTIGATIONS, reviewed in the clinical context: WBC 5.9 hemoglobin 9.2 platelets 459 potassium 4.5 creatinine -0.67 albumin 3 Computed tomography scan of the chest with contrast: Left pleural effusion. Left lower lobe infiltrate and atelectasis. Rounded 6.5 cm mass involving the left lateral drip with rib destruction. Similar smaller mass lesion involving the left fifth rib injury and 3 cm. With a fracture. 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 Calcified gallstones. Bilateral hydronephrosis and hydroureter. Assessment and plan: -Acute on chronic recurrent hematuria in a patient with known history of prostate cancer. Patient had radiation seeds placed in a 10 years ago. Also had bladder scraping done about a year ago. Now presenting with an acute severe episode. Haq catheter was placed in the ER. Continues bladder washing has been ordered. Urology consulted -Acute blood loss anemia from hematuria Follow H&H -Bilateral hydronephrosis and hydroureter likely chronic from prostate cancer Urology consulted -Fracture of the left fifth and eighth rib with soft tissue mass at that could relate to metastatic disease. -Suspected metastatic disease in the lung. Normally the prostate cancer does not go to the lung. This could be an additional malignancy. Consultation to pulmonary with a view to biopsy. Rather superficial has interventional radiology, could do the biopsy. -Diabetes mellitus type 2 on oral hypoglycemic We'll hold off the morning dose of Glucophage. 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 Cutback on oral hypoglycemic. Follow Accu-Cheks. Patient be made nothing by mouth after midnight for interventional radiology to the lung biopsy. Care was discussed with the patient and at the bedside. Questions answered. Continuous irrigation to the bladder. Urology consulted. Pulmonary consulted. Given the complexity and severity of patient's condition expect the patient to be in the hospital at least for 2 overnights Past Medical History Past Medical History: Cancer, Diabetes Mellitus, Hyperlipidemia, Hypertension, Osteoarthritis (OA), Prostate Disorder Additional Past Medical History / Comment(s): prostate cancer, STROKE BEHIND RT EYE,GOUT,DDD,RECENTLY TX FOR UTI History of Any Multi-Drug Resistant Organisms: None Reported Past Surgical History: Joint Replacement, Orthopedic Surgery Additional Past Surgical History / Comment(s): 02-05-16 TOTAL LT KNEE REPLACMENT, RT KNEE REPLACMENT, BRIELLE CATARACTS, PROSTE-SEED IMPLANTS,COLONOSCOPY/POLYPECT LULA(BENIGN), PRECANCEROUS SKIN LESIONS FROZEN OFF. Past Anesthesia/Blood Transfusion Reactions: Motion Sickness Past Psychological History: No Psychological Hx Reported Smoking Status: Never smoker Past Alcohol Use History: None Reported Past Drug Use History: None Reported - Past Family History Mother Family Medical History: Diabetes Mellitus Additional Family Medical History / Comment(s): HEART PROBLEMS Father Family Medical History: Diabetes Mellitus Medications and Allergies Home Medications Medication Instructions Recorded Confirmed Type Ergocalciferol [Vitamin D2 1,250 mcg PO Q14D 01/29/16 04/22/21 History (DRISDOL)] Tamsulosin [Flomax] 0.4 mg PO DAILY 01/29/16 04/22/21 History amLODIPine [Norvasc] 5 mg PO DAILY 09/19/17 04/22/21 History Allopurinol [Zyloprim] 100 mg PO BID 05/04/20 04/22/21 History Famotidine [Pepcid] 20 mg PO BID 05/04/20 04/22/21 History Gabapentin 900 mg PO HS 05/04/20 04/22/21 History Zolpidem [Ambien] 10 mg PO HS 05/04/20 04/22/21 History glipiZIDE [Glucotrol] 5 mg PO HS 05/04/20 04/22/21 History glipiZIDE [Glucotrol] 10 mg PO DAILY 05/04/20 04/22/21 History metFORMIN HCL 500 mg PO DAILY 05/04/20 04/22/21 History Ascorbic Acid [Vitamin C] 1,000 mg PO DAILY 09/07/20 04/22/21 History Amoxicillin 2,000 mg PO ONCE PRN 04/22/21 04/22/21 History Enzalutamide [Xtandi] 160 mg PO DAILY@1400 04/22/21 04/22/21 History Ferrous Sulfate [Iron (65 MG 325 mg PO DAILY 04/22/21 04/22/21 History Elemental)] Losartan [Cozaar] 50 mg PO DAILY 04/22/21 04/22/21 History Multivitamins, Thera [Multivitamin 1 tab PO DAILY 04/22/21 04/22/21 History (formulary)] Mupirocin 2% Oint [Bactroban 2% 1 applic TOPICAL BID PRN 04/22/21 04/22/21 H istory Oint] Triamcinolone 0.1% Cream [Kenalog 1 applic TOPICAL BID PRN 04/22/21 04/22/21 His tory 0.1% Cream] metFORMIN HCL [Glucophage] 1,000 mg PO HS 04/22/21 04/22/21 History Allergies Allergy/AdvReac Type Severity Reaction Status Date / Time adhesive tape AdvReac skin tear Verified 04/22/21 18:08 Physical Exam Vitals: Vital Signs Temp Pulse Pulse Resp BP BP Pulse Ox 04/22/21 20:00 98.1 F 89 18 146/65 97 04/22/21 15:50 98.2 F 90 17 132/90 97 Intake and Output 04/22/21 04/22/21 04/22/21 06:59 14:59 22:59 Output Total 1400 Balance -1400 Output: Urine 1400 Coude 1400 Other: Voiding Method Indwelling Catheter Weight 68.039 kg Results CBC & Chem 7: 04/22/21 16:51 04/22/21 16:51 Labs: Abnormal Lab Results - Last 24 Hours (Table) 04/22/21 04/22/21 Range/Units 16:51 16:51 RBC 2.64 L (4.30-5.90) m/uL Hgb 9.2 L (13.0-17.5) gm/dL Hct 27.3 L (39.0-53.0) % MCV 103.3 H (80.0-100.0) fL RDW 18.4 H (11.5-15.5) % Plt Count 459 H (150-450) k/uL Lymphocytes # 0.9 L (1.0-4.8) k/uL Sodium 136 L (137-145) mmol/L Chloride 108 H (98-107) mmol/L Carbon Dioxide 18 L (22-30) mmol/L BUN 21 H (9-20) mg/dL Glucose 64 L (74-99) mg/dL Alkaline Phosphatase 137 H (38-126) U/L Total Protein 5.6 L (6.3-8.2) g/dL Albumin 3.0 L (3.5-5.0) g/dL
[2021-04-22 23:47] LABS: Glucose,Whole Blood 162 mg/dL (75-99)
[2021-04-23] MEDS ORDERED: SODIUM CHLORIDE 0.9% IRRIGATIO 3,000 ML IRRIGATION ONE
[2021-04-23] MEDS: GABAPENTIN 300 MG CAP PO SCH ×2 (01:08→21:06)
[2021-04-23] MEDS: metFORMIN 500 MG TAB PO SCH ×2 (01:09→21:07)
[2021-04-23] MEDS: FAMOTIDINE 20 MG TAB PO SCH ×3 (01:09→21:07)
[2021-04-23] MEDS: ZOLPIDEM 5 MG TAB PO SCH ×2 (01:09→21:07)
[2021-04-23] MEDS: allopurinoL 100 MG TAB PO SCH ×3 (01:09→21:06)
[2021-04-23] MEDS: SODIUM CHLORIDE 0.9% IRRIGATIO 3,000 ML IRRIGATION SCH ×2 (05:39→18:37)
[2021-04-23 07:52] LABS: Glucose,Whole Blood 117 mg/dL (75-99)
[2021-04-23] MEDS: MULTIVITAMINS, THERA 1 EACH TAB PO SCH (08:28)
[2021-04-23] MEDS: INSULIN ASPART (NovoLOG) 100 UNIT/ML VIAL SQ SCH ×4 (08:28→21:17)
[2021-04-23] MEDS: amLODIPine 5 MG TAB PO SCH (08:29)
[2021-04-23] MEDS: ASCORBIC ACID 500 MG TAB PO SCH (08:29)
[2021-04-23] MEDS: FERROUS SULFATE 325 MG TAB PO SCH (08:29)
[2021-04-23] MEDS: TAMSULOSIN 0.4 MG CAP.ER.24H PO SCH (08:29)
[2021-04-23] MEDS: LOSARTAN 50 MG TAB PO SCH (08:30)
[2021-04-23] MEDS: glipiZIDE 10 MG TAB PO SCH ×2 (08:30→08:46)
--- NOTE | 2021-04-23 08:55 | P.GSCN ---
History of Present Illness Consult date: 04/23/21 Reason for Consult: Gross hematuria Requesting physician: Jose Daniel Robbins History of present illness: The freida is an 86-year-old white male with a history of prostate cancer initially treated with brachytherapy in 2007. His PSA level began rising in 2014 and he is being treated with androgen deprivation therapy and Xtandi. He developed bilateral hydronephrosis, which has persisted despite improvement in his serum creatinine level. He developed gross hematuria with urinary clot retention in 2019. He underwent cystoscopy with transurethral resection of necrotic appearing tissue. The tumor was predominantly located on the posterior bladder neck, and the resection was incomplete. He was subsequently [facility] but did not require further intervention. He was transferred to [facility] yesterday from [facility] for management of recurrent gross hematuria with clots. His most recent PSA level was 0.1. Review of Systems - Constitutional Denies chills, Denies fever - Genitourinary Reports as per HPI Past Medical History Past Medical History: Cancer, Diabetes Mellitus, Hyperlipidemia, Hypertension, Osteoarthritis (OA), Prostate Disorder Additional Past Medical History / Comment(s): prostate cancer, STROKE BEHIND RT EYE,GOUT,DDD,RECENTLY TX FOR UTI History of Any Multi-Drug Resistant Organisms: None Reported Past Surgical History: Joint Replacement, Orthopedic Surgery Additional Past Surgical History / Comment(s): 02-05-16 TOTAL LT KNEE REPLACMENT, RT KNEE REPLACMENT, BRIELLE CATARACTS, PROSTE-SEED IMPLANTS,COLONOSCOPY/POLYPECTOMY(BENIGN), PRECANCEROUS SKIN LESIONS FROZEN OFF. Past Anesthesia/Blood Transfusion Reactions: Motion Sickness Past Psychological History: No Psychological Hx Reported Smoking Status: Never smoker Past Alcohol Use History: None Reported Past Drug Use History: None Reported - Past Family History Mother Family Medical History: Diabetes Mellitus Additional Family Medical History / Comment(s): HEART PROBLEMS Father Family Medical History: Diabetes Mellitus Medications and Allergies Home Medications Medication Instructions Recorded Confirmed Type Ergocalciferol [Vitamin D2 1,250 mcg PO Q14D 01/29/16 04/22/21 History (DRISDOL)] Tamsulosin [Flomax] 0.4 mg PO DAILY 01/29/16 04/22/21 History amLODIPine [Norvasc] 5 mg PO DAILY 09/19/17 04/22/21 History Allopurinol [Zyloprim] 100 mg PO BID 05/04/20 04/22/21 History Famotidine [Pepcid] 20 mg PO BID 05/04/20 04/22/21 History Gabapentin 900 mg PO HS 05/04/20 04/22/21 History Zolpidem [Ambien] 10 mg PO HS 05/04/20 04/22/21 History glipiZIDE [Glucotrol] 5 mg PO HS 05/04/20 04/22/21 History glipiZIDE [Glucotrol] 10 mg PO DAILY 05/04/20 04/22/21 History metFORMIN HCL 500 mg PO DAILY 05/04/20 04/22/21 History Ascorbic Acid [Vitamin C] 1,000 mg PO DAILY 09/07/20 04/22/21 History Amoxicillin 2,000 mg PO ONCE PRN 04/22/21 04/22/21 History Enzalutamide [Xtandi] 160 mg PO DAILY@1400 04/22/21 04/22/21 History Ferrous Sulfate [Iron (65 MG 325 mg PO DAILY 04/22/21 04/22/21 History Elemental)] Losartan [Cozaar] 50 mg PO DAILY 04/22/21 04/22/21 History Multivitamins, Thera [Multivitamin 1 tab PO DAILY 04/22/21 04/22/21 History (formulary)] Mupirocin 2% Oint [Bactroban 2% 1 applic TOPICAL BID PRN 04/22/21 04/22/21 History Oint] Triamcinolone 0.1% Cream [Kenalog 1 applic TOPICAL BID PRN 04/22/21 04/22/21 History 0.1% Cream] metFORMIN HCL [Glucophage] 1,000 mg PO HS 04/22/21 04/22/21 History Allergies Allergy/AdvReac Type Severity Reaction Status Date / Time adhesive tape AdvReac skin tear Verified 04/22/21 18:08 Surgical - Exam Vital Signs Temp Pulse Resp BP Pulse Ox 98.2 F 90 17 132/90 97 04/22/21 15:50 04/22/21 15:50 04/22/21 15:50 04/22/21 15:50 04/22/21 15:50 - General well developed, well nourished, no distress - Respiratory normal respiratory effort - Abdomen Abdomen: soft, non tender, no guarding, no rigid, no rebound - Genitourinary normal penis with no external lesions, testicles non-tender - Psychiatric oriented to time, oriented to person, oriented to place, speech is normal, memory intact Results - Labs 04/22/21 16:51 04/22/21 16:51 Abnormal Lab Results - Last 24 Hours (Table) 04/22/21 04/22/21 04/22/21 Range/Units 16:51 16:51 23:46 RBC 2.64 L (4.30-5.90) m/uL Hgb 9.2 L (13.0-17.5) gm/dL Hct 27.3 L (39.0-53.0) % MCV 103.3 H (80.0-100.0) fL RDW 18.4 H (11.5-15.5) % Plt Count 459 H (150-450) k/uL Lymphocytes # 0.9 L (1.0-4.8) k/uL Sodium 136 L (137-145) mmol/L Chloride 108 H (98-107) mmol/L Carbon Dioxide 18 L (22-30) mmol/L BUN 21 H (9-20) mg/dL Glucose 64 L (74-99) mg/dL POC Glucose (mg/dL) 162 H (75-99) mg/dL Alkaline Phosphatase 137 H (38-126) U/L Total Protein 5.6 L (6.3-8.2) g/dL Albumin 3.0 L (3.5-5.0) g/dL Diabetes panel 04/22/21 Range/Units 16:51 Sodium 136 L (137-145) mmol/L Potassium 4.5 (3.5-5.1) mmol/L Chloride 108 H (98-107) mmol/L Carbon Dioxide 18 L (22-30) mmol/L BUN 21 H (9-20) mg/dL Creatinine 0.67 (0.66-1.25) mg/dL Glucose 64 L (74-99) mg/dL Calcium 8.7 (8.4-10.2) mg/dL AST 30 (17-59) U/L ALT 12 (4-49) U/L Alkaline Phosphatase 137 H (38-126) U/L Total Protein 5.6 L (6.3-8.2) g/dL Albumin 3.0 L (3.5-5.0) g/dL Calcium panel 04/22/21 Range/Units 16:51 Calcium 8.7 (8.4-10.2) mg/dL Albumin 3.0 L (3.5-5.0) g/dL Pituitary panel 04/22/21 Range/Units 16:51 Sodium 136 L (137-145) mmol/L Potassium 4.5 (3.5-5.1) mmol/L Chloride 108 H (98-107) mmol/L Carbon Dioxide 18 L (22-30) mmol/L BUN 21 H (9-20) mg/dL Creatinine 0.67 (0.66-1.25) mg/dL Glucose 64 L (74-99) mg/dL Calcium 8.7 (8.4-10.2) mg/dL Adrenal panel 04/22/21 Range/Units 16:51 Sodium 136 L (137-145) mmol/L Potassium 4.5 (3.5-5.1) mmol/L Chloride 108 H (98-107) mmol/L Carbon Dioxide 18 L (22-30) mmol/L BUN 21 H (9-20) mg/dL Creatinine 0.67 (0.66-1.25) mg/dL Glucose 64 L (74-99) mg/dL Calcium 8.7 (8.4-10.2) mg/dL Total Bilirubin 0.3 (0.2-1.3) mg/dL AST 30 (17-59) U/L ALT 12 (4-49) U/L Alkaline Phosphatase 137 H (38-126) U/L Total Protein 5.6 L (6.3-8.2) g/dL Albumin 3.0 L (3.5-5.0) g/dL Assessment and Plan (1) Prostate cancer Current Visit: Yes Status: Acute Code(s): C61 - MALIGNANT NEOPLASM OF PROSTATE SNOMED Code(s): 028843445 (2) Gross hematuria Current Visit: No Status: Acute Code(s): R31.0 - GROSS HEMATURIA SNOMED Code(s): 497594515 Plan: The patient currently has a 3-way Haq catheter, and continuous bladder irrigation is running. The return is pink tinged with the irrigant running slowly, and no clots are seen. Continuous bladder irrigation will be continued, with the hope that the bleeding will resolve without the need for surgical intervention.
[2021-04-23] MEDS ORDERED: metFORMIN 500 MG TAB PO SCH (09:00)
[2021-04-23 09:10] LABS: Basophils # (A) 0.07 X 10*3/uL (0.00-0.10); Basophils % (A) 0.7 %; Eosinophils # (A) 0.47 X 10*3/uL (0.04-0.35); Eosinophils % (A) 4.5 %; HCT 25.1 % (39.6-50.0); HGB 8.3 g/dL (13.0-17.0); Lymphocytes % (A) 9.5 %; MCH 34.6 pg (27.0-32.0); MCHC 33.1 g/dL (32.0-37.0); MCV 104.6 fL (80.0-97.0); Monocytes # (A) 1.06 X 10*3/uL (0.20-1.00); Neutrophils # (A) 7.68 X 10*3/uL (1.80-7.70); Neutrophils % (A) 72.7 %; Platelet Count 309 X 10*3/uL (140-440); RDW 16.4 % (11.5-14.5); WBC 10.55 X 10*3/uL (4.50-10.00)
[2021-04-23 09:18] LABS: Prothrombin Time 10.3 sec (9.0-12.0)
[2021-04-23 10:40] LABS: African American GFR (CKD) 94.4 (60.0-200.0); BUN/Creat Ratio 23.75 Ratio (12.00-20.00); Calcium 8.4 mg/dL (8.7-10.3); Non-African American GFR(CKD) 81.5 (60.0-200.0); Potassium 4.1 mmol/L (3.5-5.5)
[2021-04-23 12:14] LABS: Glucose,Whole Blood 84 mg/dL (75-99)
[2021-04-23] MEDS ORDERED: NON FORMULARY DRUG (Enzalutamide [Xtandi] 40 MG Tablet) PO SCH (14:00)
--- NOTE | 2021-04-23 15:18 | P.CONS ---
History of Present Illness - Reason for Consult Consult date: 04/23/21 Prostate cancer, metastatic disease Requesting physician: Jose Daniel Robbins - Chief Complaint hematuria - History of Present Illness Mr. Monroe is a very pleasant 86-year-old male patient who has a history of prostate cancer, treated with injectable androgen deprivation therapy and oral anti-androgen depravation medication by Urology for prostate cancer. Patient has a long history of hematuria, he has had cystoscopy with Urology in the past and removal of necrotic tissue, no pathology available in this medical record. He was transferred here from [facility] where he presented with severe hematuria. On imaging he was found to have a soft tissue lesion in the left chest invading several ribs. Patient is denying any chest pain, he is no history of smoking, he is positive for weight loss of about 50 pounds in just a few months. Patient lives with his , he is not currently driving. He is noticed a decrease in his ability to manage his own ADLs and the last week, he is real tired. He denies any other history of malignancy. No current nausea or vomiting but, has no appetite. No chest pain, palpitations, indigestion, heartburn, acute changes in bowel habits. He is currently on bladder irrigation. Review of Systems 10 point review of systems is negative except as stated in HPI Past Medical History Past Medical History: Cancer, Diabetes Mellitus, Hyperlipidemia, Hypertension, Osteoarthritis (OA), Prostate Disorder Additional Past Medical History / Comment(s): prostate cancer, STROKE BEHIND RT EYE,GOUT,DDD,RECENTLY TX FOR UTI History of Any Multi-Drug Resistant Organisms: None Reported Past Surgical History: Joint Replacement, Orthopedic Surgery Additional Past Surgical History / Comment(s): 02-05-16 TOTAL LT KNEE REPLACMENT, RT KNEE REPLACMENT, BRIELLE CATARACTS, PROSTE-SEED IMPLANTS,COLONOSCOPY/POLYPECTOMY(BENIGN), PRECANCEROUS SKIN LESIONS FROZEN OFF. Past Anesthesia/Blood Transfusion Reactions: Motion Sickness Past Psychological History: No Psychological Hx Reported Smoking Status: Never smoker Past Alcohol Use History: None Reported Past Drug Use History: None Reported - Past Family History Mother Family Medical History: Diabetes Mellitus Additional Family Medical History / Comment(s): HEART PROBLEMS Father Family Medical History: Diabetes Mellitus Medications and Allergies Home Medications Medication Instructions Recorded Confirmed Type Ergocalciferol [Vitamin D2 1,250 mcg PO Q14D 01/29/16 04/22/21 History (DRISDOL)] Tamsulosin [Flomax] 0.4 mg PO DAILY 01/29/16 04/22/21 History amLODIPine [Norvasc] 5 mg PO DAILY 09/19/17 04/22/21 History Allopurinol [Zyloprim] 100 mg PO BID 05/04/20 04/22/21 History Famotidine [Pepcid] 20 mg PO BID 05/04/20 04/22/21 History Gabapentin 900 mg PO HS 05/04/20 04/22/21 History Zolpidem [Ambien] 10 mg PO HS 05/04/20 04/22/21 History glipiZIDE [Glucotrol] 5 mg PO HS 05/04/20 04/22/21 History glipiZIDE [Glucotrol] 10 mg PO DAILY 05/04/20 04/22/21 History metFORMIN HCL 500 mg PO DAILY 05/04/20 04/22/21 History Ascorbic Acid [Vitamin C] 1,000 mg PO DAILY 09/07/20 04/22/21 History Amoxicillin 2,000 mg PO ONCE PRN 04/22/21 04/22/21 History Enzalutamide [Xtandi] 160 mg PO DAILY@1400 04/22/21 04/22/21 History Ferrous Sulfate [Iron (65 MG 325 mg PO DAILY 04/22/21 04/22/21 History Elemental)] Losartan [Cozaar] 50 mg PO DAILY 04/22/21 04/22/21 History Multivitamins, Thera [Multivitamin 1 tab PO DAILY 04/22/21 04/22/21 History (formulary)] Mupirocin 2% Oint [Bactroban 2% 1 applic TOPICAL BID PRN 04/22/21 04/22/21 History Oint] Triamcinolone 0.1% Cream [Kenalog 1 applic TOPICAL BID PRN 04/22/21 04/22/21 History 0.1% Cream] metFORMIN HCL [Glucophage] 1,000 mg PO HS 04/22/21 04/22/21 History Allergies Allergy/AdvReac Type Severity Reaction Status Date / Time adhesive tape AdvReac skin tear Verified 04/22/21 18:08 Physical Exam Vitals: Vital Signs Temp Pulse Pulse Resp BP BP Pulse Ox 04/23/21 08:35 98.1 F 76 18 151/83 97 04/23/21 02:00 98.1 F 92 16 124/81 97 04/22/21 20:00 98.1 F 89 18 146/65 97 04/22/21 15:50 98.2 F 90 17 132/90 97 Intake and Output 04/22/21 04/23/21 04/23/21 22:59 06:59 14:59 Output Total 1400 3275 1895 Balance -1400 -3275 -1895 Output: Urine 1400 3275 1895 Coude 1400 3275 Other: Voiding Method Indwelling Catheter Weight 68.039 kg - Constitutional General appearance: average body habitus, cooperative, no acute distress - EENT Eyes: anicteric sclerae, EOMI ENT: hearing grossly normal, normal oropharynx - Neck Neck: no lymphadenopathy - Respiratory With palpation of the left chest wall no deformity is found, no pain Respiratory: bilateral: CTA - Cardiovascular Rhythm: regular Heart sounds: normal: S1, S2 Abnormal Heart Sounds: no systolic murmur, no diastolic murmur, no rub, no S3 Gallop, no S4 Gallop, no click, no other leg Peripheral Edema: bilateral: None - Gastrointestinal General gastrointestinal: no absent bowel sounds, no decreased bowel sounds, no distended, no hepatomegaly, no hyperactive bowel sounds, normal bowel sounds, no organomegaly, no rigid, no scaphoid, soft, no splenomegaly, no tenderness, no umbilical hernia, no ventral hernia - Integumentary Integumentary: pale - Neurologic Neurologic: CNII-XII intact - Musculoskeletal Musculoskeletal: generalized weakness, strength equal bilaterally - Psychiatric Psychiatric: A&O x's 3, appropriate affect, intact judgment & insight Results CBC & Chem 7: 04/23/21 04:39 04/23/21 04:39 Labs: Abnormal Lab Results - Last 24 Hours (Table) 04/22/21 04/22/21 04/22/21 Range/Units 16:51 16:51 23:46 WBC (4.50-10.00) X 10*3/uL RBC 2.64 L (4.30-5.90) m/uL Hgb 9.2 L (13.0-17.5) gm/dL Hct 27.3 L (39.0-53.0) % MCV 103.3 H (80.0-100.0) fL MCH (27.0-32.0) pg RDW 18.4 H (11.5-15.5) % Plt Count 459 H (150-450) k/uL Immature Gran # (0.00-0.04) X 10*3/uL Lymphocytes # 0.9 L (1.0-4.8) k/uL Monocytes # (0.20-1.00) X 10*3/uL Eosinophils # (0.04-0.35) X 10*3/uL Sodium 136 L (137-145) mmol/L Chloride 108 H (98-107) mmol/L Carbon Dioxide 18 L (22-30) mmol/L BUN 21 H (9-20) mg/dL BUN/Creatinine Ratio (12.00-20.00) Ratio Glucose 64 L (74-99) mg/dL POC Glucose (mg/dL) 162 H (75-99) mg/dL Calcium (8.7-10.3) mg/dL Alkaline Phosphatase 137 H (38-126) U/L Total Protein 5.6 L (6.3-8.2) g/dL Albumin 3.0 L (3.5-5.0) g/dL 04/23/21 04/23/21 04/23/21 Range/Units 04:39 04:39 07:50 WBC 10.55 H (4.50-10.00) X 10*3/uL RBC 2.40 L (4.30-5.90) m/uL Hgb 8.3 L (13.0-17.5) gm/dL Hct 25.1 L (39.0-53.0) % MCV 104.6 H (80.0-100.0) fL MCH 34.6 H (27.0-32.0) pg RDW 16.4 H (11.5-15.5) % Plt Count (150-450) k/uL Immature Gran # 0.27 H (0.00-0.04) X 10*3/uL Lymphocytes # (1.0-4.8) k/uL Monocytes # 1.06 H (0.20-1.00) X 10*3/uL Eosinophils # 0.47 H (0.04-0.35) X 10*3/uL Sodium (137-145) mmol/L Chloride (98-107) mmol/L Carbon Dioxide 20.0 L (22-30) mmol/L BUN (9-20) mg/dL BUN/Creatinine Ratio 23.75 H (12.00-20.00) Ratio Glucose (74-99) mg/dL POC Glucose (mg/dL) 117 H (75-99) mg/dL Calcium 8.4 L (8.7-10.3) mg/dL Alkaline Phosphatase (38-126) U/L Total Protein (6.3-8.2) g/dL Albumin (3.5-5.0) g/dL CT scan - chest: report reviewed Assessment and Plan (1) Hematuria Narrative/Plan: Managed by Urology Current Visit: Yes Status: Acute Priority: High Code(s): R31.9 - HEMATURIA, UNSPECIFIED SNOMED Code(s): 49977266 (2) Prostate cancer Narrative/Plan: Managed by Urology. Patient is on treatment Current Visit: Yes Status: Chronic Priority: High Code(s): C61 - MALIGNANT NEOPLASM OF PROSTATE SNOMED Code(s): 649499288 Plan: Soft tissue rib lesion: I was contacted by cinder block maker in regards to this biopsy. I believe the cases is going to be reviewed by Pulmonary. Interventional Radiology is available to do biopsy of soft tissue mass that appears to be arising from bone if needed. Pending biopsy results Doctor attests: I performed a history and physical examination of this patient, developed impression and plan of care. Discussed with dictator. I agree with dictators note, documented as a scribe.
--- NOTE | 2021-04-23 16:54 | US ---
EXAMINATION TYPE: US biopsy soft tissue/muscle DATE OF EXAM: 04/23/2021 HISTORY: Left rib lytic mass. FINDINGS: Maximal barrier technique was utilized. Hand hygiene achieved with soap and water and alco hol-based hand rub. The skin overlying a suitable path to the patient's mass in the left eighth rib w as localized with ultrasound and the overlying skin prepped and draped. Ultrasound was utilized with sterile technique. Lidocaine was used for local anesthesia. A skin maria luisa was made with a scalpel. An 18-gauge needle was advanced under direct ultrasound guidance and core specimen obtained of the ma ss. 2 passes were made. Specimen submitted in formalin to Pathology. Following the procedure, hemos tasis achieved and the patient is discharged in stable condition without complication. IMPRESSION:STATUS POST ULTRASOUND GUIDED CORE BIOPSY OF left eighth rib MASS, PATHOLOGY IS PENDING. THIS PROCEDURE IS PERFORMED BY THE UNDERSIGNED.
[2021-04-23 17:07] LABS: Glucose,Whole Blood 101 mg/dL (75-99)
--- NOTE | 2021-04-23 17:38 | P.PN ---
Progress Note - Text Progress Note Date: 04/23/21 Chief Complaint: Hematuria History of presenting complaint: This is a pleasant 86-year-old patient with follows with Dr. Floyd Anne. Chronic stable medical conditions include diabetes, hypertension, hyperlipidemia, osteoarthritis, gout. Patient was first diagnosed with prostate cancer about 8-10 years ago. And radiation seeds. Planted by Dr Degroot Patient did well. Patient would have intermittent bleeding every 3-4 months and about a year ago Dr. Overton from urology did scrape the bladder. Patient for last 1 week is having increasing amount of blood clots patient today. No dizziness no lightheadedness. Patient been having weight loss. Patient sometimes get diarrhea based on his diet. Appetite has not been good. Patient's was supposed of the computed tomography scan of the chest as an outpatient based on some x- ray findings and this was done in the ER today. Patient did have a fall 2 months ago and decided not to come to the ER. Patient's is present at the bedside to help with the history. There is no fever no chills. Patient does br uise easily. Not any blood tenderness. 04/23/2021: at the bedside. Patient's had continuous bladder irrigation. Urine is significantly tender. Earlier Dr. Najera from radiology and communicat ed that patient lesions should to be primarily around the rib. Dr. Dc Ortega from pulmonary is currently not rounding. Discussed with him. He'll follow the patient as outpatient. Patient later this afternoon is supposed to go down for biopsy. Discussed with the . Review of systems: Was done for constitutional, cardiovascular, GI, pulmonary. relevant finding as above Active Medications Allopurinol (Allopurinol 100 Mg Tab) 100 mg PO BID [facility] Last Admin: 04/23/21 08:29 Dose: 100 mg Documented by: Amlodipine Besylate (Amlodipine 5 Mg Tab) 5 mg PO DAILY [facility] Last Admin: 04/23/21 08:29 Dose: 5 mg Documented by: Ascorbic Acid (Ascorbic Acid 500 Mg Tab) 1,000 mg PO DAILY [facility] Last Admin: 04/23/21 08:29 Dose: 1,000 mg Documented by: Famotidine (Famotidine 20 Mg Tab) 20 mg PO BID [facility] Last Admin: 04/23/21 08:29 Dose: 20 mg Documented by: Ferrous Sulfate (Ferrous Sulfate 325 Mg Tab) 325 mg PO DAILY [facility] Last Admin: 04/23/21 08:29 Dose: 325 mg Documented by: Gabapentin (Gabapentin 300 Mg Cap) 900 mg PO HS [facility] Last Admin: 04/23/21 01:08 Dose: 900 mg Documented by: Glipizide (Glipizide 10 Mg Tab) 10 mg PO DAILY [facility] Last Admin: 04/23/21 08:46 Dose: 10 mg Documented by: Sodium Chloride (Saline 0.9% Irrigation) 3,000 mls @ 375 mls/hr IRRIGATION Q8HR [facility] Last Admin: 04/23/21 05:39 Dose: 375 mls/hr Documented by: Insulin Aspart (Insulin Aspart (Novolog) 100 Unit/Ml Vial) 0 unit SQ ACHS [facility]; Protocol Last Admin: 04/23/21 17:23 Dose: Not Given Documented by: Losartan Potassium (Losartan 50 Mg Tab) 50 mg PO DAILY [facility] Last Admin: 04/23/21 08:30 Dose: 50 mg Documented by: Metformin HCl (Metformin 500 Mg Tab) 1,000 mg PO [facility] Last Admin: 04/23/21 01:09 Dose: 1,000 mg Documented by: Miscellaneous Information (Rx Info: Iv Contrast Was Given 1 Each Misc) 1 each MISCELLANE DAILY PRN PRN Reason: Per Protocol Stop: 04/24/21 16:42 Multivitamins (Multivitamins, Thera 1 Each Tab) 1 each PO DAILY [facility] Last Admin: 04/23/21 08:28 Dose: 1 each Documented by: Mupirocin (Mupirocin 2% Oint 22 Gm Tube) 1 applic TOPICAL BID PRN; Protocol PRN Reason: ULCERS Naloxone HCl (Naloxone 0.4 Mg/Ml 1 Ml Vial) 0.2 mg IV Q2M PRN PRN Reason: Opioid Reversal Non-Formulary Medication (Enzalutamide [Xtandi]) 160 mg PO DAILY@1400 [facility] Last Admin: 04/23/21 17:21 Dose: Not Given Documented by: Tamsulosin HCl (Tamsulosin 0.4 Mg Cap.Er.24h) 0.4 mg PO DAILY [facility] Last Admin: 04/23/21 08:29 Dose: 0.4 mg Documented by: Triamcinolone Acetonide (Triamcinolone 0.1% Cream 80 Gm Tube) 1 applic TOPICAL BID PRN; Protocol PRN Reason: Rash Zolpidem Tartrate (Zolpidem 5 Mg Tab) 5 mg PO HS [facility] Last Admin: 04/23/21 01:09 Dose: 5 mg Documented by: Past medical history to include: Diabetes mellitus, hypertension, hyperlipidemia, osteoarthritis, prostate cancer, stroke and the right eye, gout Social history: . No history of smoking or alcohol. Retired Family history: Of diabetes, heart problems Physical examination: VITAL SIGNS: 98.1, 76, 18, 151/83, 97% room air GENERAL: laying in bed, awake, tired. EYES: Pupils equal. Conjunctiva pale. NECK: JVD not raised; masses not palpable. HEART: First and second heart sounds are normal; no edema. LUNGS: Respiratory rate normal; clear to auscultation. ABDOMEN: Soft, nontender, liver spleen not palpable, no masses palpable. Haq catheter placed in the ER. PSYCH: Alert and oriented x3; mood and affect normal. MUSCULAR skeletal: Evidence of OA multiple joints INVESTIGATIONS, reviewed in the clinical context: April 23: White count 10.5 hemoglobin 8.3 potassium 4.1 creatinine 0.8 WBC 5.9 hemoglobin 9.2 platelets 459 potassium 4.5 creatinine -0.67 albumin 3 Computed tomography scan of the chest with contrast: Left pleural effusion. Left lower lobe infiltrate and atelectasis. Rounded 6.5 cm mass involving the left lateral drip with rib destruction. Similar smaller mass lesion involving the left fifth rib injury and 3 cm. With a fracture. 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 Calcified gallstones. Bilateral hydronephrosis and hydroureter. Assessment and plan: -Acute on chronic recurrent hematuria in a patient with known history of prostate cancer. Patient had radiation seeds placed in a 10 years ago. Also had bladder scraping done about a year ago. Now presenting with an acute severe episode. Haq catheter was placed in the ER. Continues bladder irrigation. Urine is clearing up. -Acute blood loss anemia from hematuria Follow H&H -Bilateral hydronephrosis and hydroureter likely chronic from prostate cancer Urology consulted -Fracture of the left fifth and eighth rib with soft tissue mass at that could relate to metastatic disease. -Suspected metastatic disease in the lung. Normally the prostate cancer does not go to the lung. This could be an additional malignancy. Consultation to pulmonary with a view to biopsy. Rather superficial has interventional radiology, could do the biopsy. -Diabetes mellitus type 2 on oral hypoglycemic We'll hold off the morning dose of Glucophage. Follow Accu-Cheks -Peripheral neuropathy Neurontin 900 mg daily at bedtime -Essential hypertension Cozaar 50 mg daily -Chronic insomnia from medical conditions Ambien 5 mg daily at bedtime Patient be going down for a biopsy later today. Continue continuous bladder irrigation. Patient may resume his diet after the biopsy. Other medications to continue.
[2021-04-23 21:18] LABS: Glucose,Whole Blood 313 mg/dL (75-99)
[2021-04-23 21:18] LABS: Glucose,Whole Blood 274 mg/dL (75-99)
[2021-04-24] MEDS: SODIUM CHLORIDE 0.9% IRRIGATIO 3,000 ML IRRIGATION SCH ×3 (00:15→21:13)
[2021-04-24 06:25] LABS: Anisocytosis Slight; Basophils # (A) 0.1 k/uL (0-0.2); Basophils % (A) 1 %; Eosinophils # (A) 0.4 k/uL (0-0.7); Eosinophils % (A) 4 %; Hypochromasia Slight; Lymphocytes # (A) 1.1 k/uL (1.0-4.8); Lymphocytes % (A) 11 %; MCH 33.2 pg (25.0-35.0); MCV 103.8 fL (80.0-100.0); Macrocytosis Moderate; Mean Platelet Volume 7.4; Monocytes # (A) 0.8 k/uL (0-1.0); Monocytes % (A) 8 %; Neutrophils # (A) 7.7 k/uL (1.3-7.7); Neutrophils % (A) 76 %; Platelet Count 389 k/uL (150-450); RDW 17.8 % (11.5-15.5)
[2021-04-24 07:34] LABS: Glucose,Whole Blood 131 mg/dL (75-99)
[2021-04-24] MEDS: INSULIN ASPART (NovoLOG) 100 UNIT/ML VIAL SQ SCH ×4 (08:30→21:04)
[2021-04-24] MEDS: glipiZIDE 10 MG TAB PO SCH (08:54)
[2021-04-24] MEDS: ASCORBIC ACID 500 MG TAB PO SCH (08:54)
[2021-04-24] MEDS: TAMSULOSIN 0.4 MG CAP.ER.24H PO SCH (08:54)
[2021-04-24] MEDS: allopurinoL 100 MG TAB PO SCH ×2 (08:54→21:14)
[2021-04-24] MEDS: FERROUS SULFATE 325 MG TAB PO SCH (08:54)
[2021-04-24] MEDS: MULTIVITAMINS, THERA 1 EACH TAB PO SCH (08:55)
[2021-04-24] MEDS: FAMOTIDINE 20 MG TAB PO SCH ×2 (08:55→21:14)
[2021-04-24] MEDS: amLODIPine 5 MG TAB PO SCH (08:55)
[2021-04-24] MEDS: LOSARTAN 50 MG TAB PO SCH (08:55)
--- NOTE | 2021-04-24 10:31 | P.PN ---
Progress Note - Text Progress Note Date: 04/24/21 The patient denies pain. He required manual irrigation of the Haq catheter to remove clots overnight. The urine is now essentially clear with continuous bladder irrigation running slowly. The hemoglobin level is stable at 9.0. I do not intend to make any changes in his management at this time.
[2021-04-24 11:54] LABS: Glucose,Whole Blood 91 mg/dL (75-99)
--- NOTE | 2021-04-24 13:12 | P.PN ---
Subjective Progress Note Date: 04/24/21 Principal diagnosis: hematuria In f/u pt at bedside. She states he fell a few mo ago and was bruised on the whole left side, pt was never seen by a Doctor, she had concerns he had broken ribs. I explained that the way the left ribs look on imaging it is more like a mass that is eting away at the ribs vs a rib fracture. Pt tolerated the biopsy, no bleeding, cough, SOB or pain. His hematuria is significantly improved. No c/o today. Objective - Vital Signs Vital signs: Vital Signs Temp 97.9 F 04/24/21 08:19 Pulse 67 04/24/21 08:19 Resp 18 04/24/21 08:19 BP 126/71 04/24/21 08:19 Pulse Ox 99 04/24/21 08:19 Intake & Output 04/23/21 04/24/21 04/24/21 18:59 06:59 18:59 Intake Total 3000 Output Total 2795 3525 3020 Balance -2795 -525 -3020 Intake: Oral 3000 Output: Urine 2795 3525 3020 Other: Voiding Method Indwelling Catheter Indwelling Catheter Indwelling Catheter - Constitutional General appearance: Present: average body habitus, cooperative, no acute distress - EENT Eyes: Present: anicteric sclerae, EOMI ENT: Present: hearing grossly normal - Respiratory Respiratory: bilateral: CTA - Cardiovascular Rhythm: regular Heart sounds: normal: S1, S2 Abnormal Heart Sounds: Absent: systolic murmur, diastolic murmur, rub, S3 Gallop, S4 Gallop, click, other - Peripheral edema leg Peripheral Edema: bilateral: None - Gastrointestinal General gastrointestinal: Present: normal bowel sounds, soft - Integumentary Integumentary: Present: pale - Neurologic Neurologic: Present: CNII-XII intact - Musculoskeletal Musculoskeletal Comment(s): There is a palpable deformity left lateral rib cage, around ribs 7-8, not painful to touch Musculoskeletal: Present: generalized weakness, strength equal bilaterally - Psychiatric Psychiatric: Present: A&O x's 3, appropriate affect, intact judgment & insight - Labs CBC & Chem 7: 04/24/21 05:13 04/23/21 04:39 Labs: Abnormal Lab Results - Last 24 Hours (Table) 04/23/21 04/23/21 04/23/21 Range/Units 17:06 21:08 21:10 RBC (4.30-5.90) m/uL Hgb (13.0-17.5) gm/dL Hct (39.0-53.0) % MCV (80.0-100.0) fL RDW (11.5-15.5) % POC Glucose (mg/dL) 101 H 313 H 274 H (75-99) mg/dL 04/24/21 04/24/21 Range/Units 05:13 07:33 RBC 2.70 L (4.30-5.90) m/uL Hgb 9.0 L (13.0-17.5) gm/dL Hct 28.0 L (39.0-53.0) % MCV 103.8 H (80.0-100.0) fL RDW 17.8 H (11.5-15.5) % POC Glucose (mg/dL) 131 H (75-99) mg/dL Assessment and Plan (1) Hematuria Narrative/Plan: Managed by Urology, much improved today Current Visit: Yes Status: Acute Priority: High Code(s): R31.9 - HEMAT URIA, UNSPECIFIED SNOMED Code(s): 13996286 (2) Prostate cancer Narrative/Plan: Managed by Urology. Patient is on treatment currently Current Visit: Yes Status: Chronic Priority: High Code(s): C61 - MALIGNANT NEOPLASM OF PROSTATE SNOMED Code(s): 339347512 Plan: Soft tissue rib lesion: IR completed soft tissue biopsy, path pending. Pt ok from Hem/Onc for DC once cleared by Attending and other Consulting MDs. Will await biopsy results and then schedule a follow up appt with Medical Oncology. Iron studies for anemia. Will f/u on results and plan for appropriate supplementation outpt
[2021-04-24] MEDS: XTANDI 40 MG PO SCH (14:44)
[2021-04-24 17:37] LABS: Glucose,Whole Blood 112 mg/dL (75-99)
--- NOTE | 2021-04-24 17:44 | P.PN ---
Progress Note - Text Progress Note Date: 04/24/21 Chief Complaint: Hematuria History of presenting complaint: This is a pleasant 86-year-old patient with follows with Dr. Floyd Anne. Chronic stable medical conditions include diabetes, hypertension, hyperlipidemia, osteoarthritis, gout. Patient was first diagnosed with prostate cancer about 8-10 years ago. And radiation seeds. Planted by Dr Degroot Patient did well. Patient would have intermittent bleeding every 3-4 months and about a year ago Dr. Overton from urology did scrape the bladder. Patient for last 1 week is having increasing amount of blood clots patient today. No dizziness no lightheadedness. Patient been having weight loss. Patient sometimes get diarrhea based on his diet. Appetite has not been good. Patient's was supposed of the computed tomography scan of the chest as an outpatient based on some x- ray findings and this was done in the ER today. Patient did have a fall 2 months ago and decided not to come to the ER. Patient's is present at the bedside to help with the history. There is no fever no chills. Patient does br uise easily. Not any blood tenderness. 04/23/2021: at the bedside. Patient's had continuous bladder irrigation. Urine is significantly tender. Earlier Dr. Najera from radiology and communicat ed that patient lesions should to be primarily around the rib. Dr. Dc Ortega from pulmonary is currently not rounding. Discussed with him. He'll follow the patient as outpatient. Patient later this afternoon is supposed to go down for biopsy. Discussed with the . 04/24/2021: Patient is urine is cleared up this morning. Does some blood) remote last night. Patient had a biopsy done yesterday. No pain. Oral intake fair. is at the bedside. Communicated with Dr. goddard. Hold off another 24 hours to make sure does not more hematuria. Per oncology team patient may be follow-up as outpatient. Discussed with the right that the results will take some time to come back. Review of systems: Was done for constitutional, cardiovascular, GI, pulmonary. relevant finding as above Active Medications Allopurinol (Allopurinol 100 Mg Tab) 100 mg PO BID [facility] Last Admin: 04/24/21 08:54 Dose: 100 mg Documented by: Amlodipine Besylate (Amlodipine 5 Mg Tab) 5 mg PO DAILY [facility] Last Admin: 04/24/21 08:55 Dose: 5 mg Documented by: Ascorbic Acid (Ascorbic Acid 500 Mg Tab) 1,000 mg PO DAILY [facility] Last Admin: 04/24/21 08:54 Dose: 1,000 mg Documented by: Famotidine (Famotidine 20 Mg Tab) 20 mg PO BID [facility] Last Admin: 04/24/21 08:55 Dose: 20 mg Documented by: Ferrous Sulfate (Ferrous Sulfate 325 Mg Tab) 325 mg PO DAILY [facility] Last Admin: 04/24/21 08:54 Dose: 325 mg Documented by: Gabapentin (Gabapentin 300 Mg Cap) 900 mg PO [facility] Last Admin: 04/23/21 21:06 Dose: 900 mg Documented by: Glipizide (Glipizide 10 Mg Tab) 10 mg PO DAILY [facility] Last Admin: 04/24/21 08:54 Dose: 10 mg Documented by: Sodium Chloride (Saline 0.9% Irrigation) 3,000 mls @ 375 mls/hr IRRIGATION Q8HR [facility] Last Admin: 04/24/21 10:00 Dose: 375 mls/hr Documented by: Insulin Aspart (Insulin Aspart (Novolog) 100 Unit/Ml Vial) 0 unit SQ ACHS [facility]; Protocol Last Admin: 04/24/21 12:34 Dose: Not Given Documented by: Losartan Potassium (Losartan 50 Mg Tab) 50 mg PO DAILY [facility] Last Admin: 04/24/21 08:55 Dose: 50 mg Documented by: Metformin HCl (Metformin 500 Mg Tab) 1,000 mg PO [facility] Last Admin: 04/23/21 21:07 Dose: 1,000 mg Documented by: Multivitamins (Multivitamins, Thera 1 Each Tab) 1 each PO DAILY [facility] Last Admin: 04/24/21 08:55 Dose: 1 each Documented by: Mupirocin (Mupirocin 2% Oint 22 Gm Tube) 1 applic TOPICAL BID PRN; Protocol PRN Reason: ULCERS Naloxone HCl (Naloxone 0.4 Mg/Ml 1 Ml Vial) 0.2 mg IV Q2M PRN PRN Reason: Opioid Reversal Xtandi (Enzalutamide () 40 Mg Tablet) 160 mg PO DAILY@1400 [facility] Last Admin: 04/24/21 14:44 Dose: 160 mg Documented by: Tamsulosin HCl (Tamsulosin 0.4 Mg Cap.Er.24h) 0.4 mg PO DAILY [facility] Last Admin: 04/24/21 08:54 Dose: 0.4 mg Documented by: Triamcinolone Acetonide (Triamcinolone 0.1% Cream 80 Gm Tube) 1 applic TOPICAL BID PRN; Protocol PRN Reason: Rash Zolpidem Tartrate (Zolpidem 5 Mg Tab) 5 mg PO HS [facility] Last Admin: 04/23/21 21:07 Dose: 5 mg Documented by: Past medical history to include: Diabetes mellitus, hypertension, hyperlipidemia, osteoarthritis, prostate cancer, stroke and the right eye, gout Social history: . No history of smoking or alcohol. Retired Family history: Of diabetes, heart problems Physical examination: VITAL SIGNS: 97.9, 67, 18, 126/71, 99% room air GENERAL: laying in bed, awake, comfortable EYES: Pupils equal. Conjunctiva pale. NECK: JVD not raised; masses not palpable. HEART: First and second heart sounds are normal; no edema. LUNGS: Respiratory rate normal; clear to auscultation. ABDOMEN: Soft, nontender, liver spleen not palpable, no masses palpable. Haq catheter -urine much clear PSYCH: Alert and oriented x3; mood and affect normal. MUSCULAR skeletal: Evidence of OA multiple joints INVESTIGATIONS, reviewed in the clinical context: April 24: Hemoglobin 9 April 23: White count 10.5 hemoglobin 8.3 potassium 4.1 creatinine 0.8 WBC 5.9 hemoglobin 9.2 platelets 459 potassium 4.5 creatinine -0.67 albumin 3 Computed tomography scan of the chest with contrast: Left pleural effusion. Left lower lobe infiltrate and atelectasis. Rounded 6.5 cm mass involving the left lateral drip with rib destruction. Similar smaller mass lesion involving the left fifth rib injury and 3 cm. With a fracture. 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 Calcified gallstones. Bilateral hydronephrosis and hydrour eter. Assessment and plan: -Acute on chronic recurrent hematuria in a patient with known history of prostate cancer. Patient had radiation seeds placed in a 10 years ago. Also had bladder scraping done about a year ago. Now presenting with an acute severe episode. Haq catheter was placed in the ER. Continues bladder irrigation. Urine much improved -Acute blood loss anemia from hematuria . Hemoglobin 9 Follow H&H -Bilateral hydronephrosis and hydroureter likely chronic from prostate cancer Urology consulted -Fracture of the left fifth and eighth rib with soft tissue mass at that could relate to metastatic disease. Rib biopsy done. Follow-up with oncology outpatient pending results -Suspected metastatic disease in the lung. Normally the prostate cancer does not go to the lung. This could be an additional malignancy. Consultation to pulmonary with a view to biopsy. Rather superficial has interventional radiology, could do the biopsy. -Diabetes mellitus type 2 on oral hypoglycemic We'll hold off the morning dose of Glucophage. Follow Accu-Cheks -Peripheral neuropathy Neurontin 900 mg daily at bedtime -Essential hypertension Cozaar 50 mg daily -Chronic insomnia from medical conditions Ambien 5 mg daily at bedtime Continue with Haq catheter. Continue irrigation. Repeat hemoglobin in the morning. Discussed with hematology, urology, and the . Questions answered. Repeat H&H. Total time spent today about 40 minutes with over 20 minutes of communication.
[2021-04-24 20:53] LABS: Glucose,Whole Blood 98 mg/dL (75-99)
[2021-04-24] MEDS: GABAPENTIN 300 MG CAP PO SCH (21:14)
[2021-04-24] MEDS: metFORMIN 500 MG TAB PO SCH (21:14)
[2021-04-24] MEDS: ZOLPIDEM 5 MG TAB PO SCH (21:14)
[2021-04-25] MEDS: SODIUM CHLORIDE 0.9% IRRIGATIO 3,000 ML IRRIGATION SCH ×2 (02:03→14:27)
[2021-04-25 05:51] VITALS: TEMP 97.5
[2021-04-25 07:12] LABS: African American GFR (CKD) 90 (>60 ml/min/1.73 sqM); Anion Gap 6 mmol/L; Blood Urea Nitrogen 19 mg/dL (9-20); Calcium 8.7 mg/dL (8.4-10.2); Carbon Dioxide 24 mmol/L (22-30); Chloride 106 mmol/L (98-107); Glucose 111 mg/dL (74-99); Non-African American GFR(CKD) 78 (>60 ml/min/1.73 sqM); Potassium 4.3 mmol/L (3.5-5.1); Sodium 136 mmol/L (137-145)
[2021-04-25 07:28] LABS: Glucose,Whole Blood 125 mg/dL (75-99)
[2021-04-25] MEDS: INSULIN ASPART (NovoLOG) 100 UNIT/ML VIAL SQ SCH ×2 (08:09→12:48)
--- NOTE | 2021-04-25 08:09 | P.PN ---
Progress Note - Text Progress Note Date: 04/25/21 The Haq catheter is draining clear yellow urine, with no sign of hematuria. I have stopped the continuous bladder irrigation, and the patient may be discharged home today with the Haq catheter. The catheters to be removed on April 28, either by the patient's or in our office. All of this was discussed in detail with the patient.
[2021-04-25] MEDS: ASCORBIC ACID 500 MG TAB PO SCH (08:11)
[2021-04-25] MEDS: MULTIVITAMINS, THERA 1 EACH TAB PO SCH (08:11)
[2021-04-25] MEDS: allopurinoL 100 MG TAB PO SCH (08:12)
[2021-04-25] MEDS: glipiZIDE 10 MG TAB PO SCH (08:12)
[2021-04-25] MEDS: TAMSULOSIN 0.4 MG CAP.ER.24H PO SCH (08:12)
[2021-04-25] MEDS: FAMOTIDINE 20 MG TAB PO SCH (08:12)
[2021-04-25] MEDS: LOSARTAN 50 MG TAB PO SCH (08:12)
[2021-04-25] MEDS: amLODIPine 5 MG TAB PO SCH (08:12)
[2021-04-25] MEDS: FERROUS SULFATE 325 MG TAB PO SCH (08:12)
[2021-04-25 09:38] LABS: Basophils # (A) 0.04 X 10*3/uL (0.00-0.10); Basophils % (A) 0.5 %; Eosinophils # (A) 0.57 X 10*3/uL (0.04-0.35); Eosinophils % (A) 7.5 %; HGB 7.9 g/dL (13.0-17.0); Lymphocytes % (A) 13.1 %; MCH 34.1 pg (27.0-32.0); MCHC 32.9 g/dL (32.0-37.0); MCV 103.4 fL (80.0-97.0); Mean Platelet Volume 9.8 fL (9.5-12.2); Monocytes # (A) 0.98 X 10*3/uL (0.20-1.00); Monocytes % (A) 12.8 %; Neutrophils # (A) 4.75 X 10*3/uL (1.80-7.70); Platelet Count 330 X 10*3/uL (140-440); RBC 2.32 X 10*6/uL (4.40-5.60); RDW 16.6 % (11.5-14.5); WBC 7.65 X 10*3/uL (4.50-10.00)
[2021-04-25 10:26] VITALS: BP 153/73; PULSE 71; RESP 15
[2021-04-25 12:14] LABS: Glucose,Whole Blood 130 mg/dL (75-99)
[2021-04-25] MEDS: XTANDI 40 MG PO SCH (14:13)
--- NOTE | 2021-04-25 18:16 | P.DS ---
Providers Date of admission: 04/22/21 22:28 Expected date of discharge: 04/25/21 Attending physician: Jose Daniel Robbins Consults: 04/22/21 17:37 Consult Physician Urgent Consulting Provider: Fredy John Consult Reason/Comments: acute hematuria, hx prostate cancer Do you want consulting provider notified?: Yes 04/22/21 19:07 Consult Physician Urgent Consulting Provider: Michael Catherine Consult Reason/Comments: prostate cancer with possible metastatic disease Do you want consulting provider notified?: Yes Primary care physician: Floyd Anne MD Hospital Course: Chief Complaint: Hematuria History of presenting complaint: This is a pleasant 86-year-old patient with follows with Dr. Floyd Anne. Chronic stable medical conditions include diabetes, hypertension, hyperlipidemia, osteoarthritis, gout. Patient was first diagnosed with prostate cancer about 8-10 years ago. And radiation seeds. Planted by Dr Degroot Patient did well. Patient would have intermittent bleeding every 3-4 months and about a year ago Dr. Overton from urology did scrape the bladder. Patient for last 1 week is having increasing amount of blood clots patient today. No dizziness no lightheadedness. Patient been having weight loss. Patient sometimes get diarrhea based on his diet. Appetite has not been good. Patient's was supposed of the computed tomography scan of the chest as an outpatient based on some x- ray findings and this was done in the ER today. Patient did have a fall 2 months ago and decided not to come to the ER. Patient's is present at the bedside to help with the history. There is no fever no chills. Patient does bruise easily. Not any blood tenderness. 04/23/2021: at the bedside. Patient's had continuous bladder irrigation. Urine is significantly tender. Earlier Dr. Najera from radiology and communicated that patient lesions should to be primarily around the rib. Dr. Dc Ortega from pulmonary is currently not rounding. Discussed with him. He'll follow the patient as outpatient. Patient later this afternoon is supposed to go down for biopsy. Discussed with the . 04/24/2021: Patient is urine is cleared up this morning. Does some blood) remote last night. Patient had a biopsy done yesterday. No pain. Oral intake fair. is at the bedside. Communicated with Dr. john. Hold off another 24 hours to make sure does not more hematuria. Per oncology team patient may be follow-up as outpatient. Discussed with the right that the results will take some time to come back. 04/25/2021. Continuous education discontinued by urology. Patient will be discharged home with the Haq catheter. We'll follow-up in urology in the office in April 28. Hemoglobin stable. Care was discussed with the patient and . Biopsy results will be followed by oncology. Patient also follow-up with Dr. Ortega from pulmonary as outpatient. Biopsy results: Adenocarcinoma Consultation: Dr. Catherine from oncology Dr. john from urology Interventional radiology for rebiopsy Past medical history to include: Diabetes mellitus, hypertension, hyperlipidemia, osteoarthritis, prostate cancer, stroke and the right eye, gout Social history: . No history of smoking or alcohol. Retired Family history: Of diabetes, heart problems Physical examination: VITAL SIGNS: 7.5, 71, 15, 153.73, 97% room air GENERAL: laying in bed, awake, comfortable EYES: Pupils equal. Conjunctiva pale. NECK: JVD not raised; masses not palpable. HEART: First and second heart sounds are normal; no edema. LUNGS: Respiratory rate normal; clear to auscultation. ABDOMEN: Soft, nontender, liver spleen not palpable, no masses palpable. Haq catheter -urine much clear PSYCH: Alert and oriented x3; mood and affect normal. MUSCULAR skeletal: Evidence of OA multiple joints INVESTIGATIONS, reviewed in the clinical context: April 25: Hemoglobin 7.9 History of biopsy results: Adenocarcinoma April 24: Hemoglobin 9 April 23: White count 10.5 hemoglobin 8.3 potassium 4.1 creatinine 0.8 WBC 5.9 hemoglobin 9.2 platelets 459 potassium 4.5 creatinine -0.67 albumin 3 Computed tomography scan of the chest with contrast: Left pleural effusion. Left lower lobe infiltrate and atelectasis. Rounded 6.5 cm mass involving the left lateral drip with rib destruction. Similar smaller mass lesion involving the left fifth rib injury and 3 cm. With a fracture. 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 Calcified gallstones. Bilateral hydronephrosis and hydroureter. Assessment and plan: -Acute on chronic recurrent hematuria in a patient with known history of prostate cancer. Patient had radiation seeds placed in a 10 years ago. Also had bladder scraping done about a year ago. Now presenting with an acute severe episode. Haq catheter was placed in the ER. Continues bladder irrigation. Urine much improved. DC home with Haq -Acute blood loss anemia from hematuria . Hemoglobin 9 Follow H&H -Bilateral hydronephrosis and hydroureter likely chronic from prostate cancer Urology consulted -Fracture of the left fifth and eighth rib with soft tissue mass at that could relate to metastatic disease. Rib biopsy done. Follow-up with oncology outpatient with biopsy showing adenocarcinoma -Suspected metastatic disease in the lung. Normally the prostate cancer does not go to the lung. This could be an additional malignancy. Consultation to pulmonary with a view to biopsy. Rather superficial has interventional radiology, could do the biopsy. -Diabetes mellitus type 2 on oral hypoglycemic Continue home dose of metformin. Cutback Glucotrol to 5 mg daily -Peripheral neuropathy Neurontin 900 mg daily at bedtime -Essential hypertension Cozaar 50 mg daily -Chronic insomnia from medical conditions Ambien 10 mg daily at bedtime Disposition: Home Plan - Discharge Summary Discharge Rx Participant: No New Discharge Prescriptions: Continue Ergocalciferol [Vitamin D2 (DRISDOL)] 1,250 mcg PO Q14D Tamsulosin [Flomax] 0.4 mg PO DAILY amLODIPine [Norvasc] 5 mg PO DAILY Zolpidem [Ambien] 10 mg PO HS metFORMIN HCL 500 mg PO DAILY Gabapentin 900 mg PO HS Famotidine [Pepcid] 20 mg PO BID Allopurinol [Zyloprim] 100 mg PO BID Ascorbic Acid [Vitamin C] 1,000 mg PO DAILY Losartan [Cozaar] 50 mg PO DAILY Multivitamins, Thera [Multivitamin (formulary)] 1 tab PO DAILY Enzalutamide [Xtandi] 160 mg PO DAILY@1400 metFORMIN HCL [Glucophage] 1,000 mg PO HS Ferrous Sulfate [Iron (65 MG Elemental)] 325 mg PO DAILY Mupirocin 2% Oint [Bactroban 2% Oint] 1 applic TOPICAL BID PRN PRN Reason: ULCERS Triamcinolone 0.1% Cream [Kenalog 0.1% Cream] 1 applic TOPICAL BID PRN PRN Reason: Rash Changed glipiZIDE [Glucotrol] 5 mg PO DAILY #0 Discontinued glipiZIDE [Glucotrol] 5 mg PO HS Amoxicillin 2,000 mg PO ONCE PRN PRN Reason: DENTAL APPT. Discharge Medication List Ergocalciferol [Vitamin D2 (DRISDOL)] 1,250 mcg PO Q14D 01/29/16 [History] Tamsulosin [Flomax] 0.4 mg PO DAILY 01/29/16 [History] amLODIPine [Norvasc] 5 mg PO DAILY 09/19/17 [History] Allopurinol [Zyloprim] 100 mg PO BID 05/04/20 [History] Famotidine [Pepcid] 20 mg PO BID 05/04/20 [History] Gabapentin 900 mg PO HS 05/04/20 [History] Zolpidem [Ambien] 10 mg PO HS 05/04/20 [History] metFORMIN HCL 500 mg PO DAILY 05/04/20 [History] Ascorbic Acid [Vitamin C] 1,000 mg PO DAILY 09/07/20 [History] Enzalutamide [Xtandi] 160 mg PO DAILY@1400 04/22/21 [History] Ferrous Sulfate [Iron (65 MG Elemental)] 325 mg PO DAILY 04/22/21 [History] Losartan [Cozaar] 50 mg PO DAILY 04/22/21 [History] Multivitamins, Thera [Multivitamin (formulary)] 1 tab PO DAILY 04/22/21 [History] Mupirocin 2% Oint [Bactroban 2% Oint] 1 applic TOPICAL BID PRN 04/22/21 [History] Triamcinolone 0.1% Cream [Kenalog 0.1% Cream] 1 applic TOPICAL BID PRN 04/22/21 [History] metFORMIN HCL [Glucophage] 1,000 mg PO HS 04/22/21 [History] glipiZIDE [Glucotrol] 5 mg PO DAILY #0 04/25/21 [Rx] Follow up Appointment(s)/Referral(s): Michael Catherine MD [STAFF PHYSICIAN] - 3 Weeks (ofc will contact pt for f/u appt) Floyd Anne MD [Primary Care Provider] - 1-2 days Dc Ortega MD [STAFF PHYSICIAN] - 1 Week Patient Instructions/Handouts: Haq Catheter Placement and Care (GEN) Activity/Diet/Wound Care/Special Instructions: Discharge home with Haq catheter. Instruct patient's to remove catheter in April 28, or follow-up with Dr. Abernathy for Haq catheter removal. PET scan being scheduled by Oncology. Will contact pt with appt date and time. F/U with Medical Oncology after scan, path-ofc will contact pt with appt date and time. no new prescriptions daily am accuchek Discharge Disposition: HOME SELF-CARE
[2021-04-25 19:04] LABS: Ferritin 80.5 ng/mL (22.0-322.0)
[2021-04-25 20:31] LABS: % Iron Saturation 9.38 (15.00-50.00)
== END 2021-04-25 16:08 | disposition home or self-care (01) | DRG 674 ==
LOC: EC 15:47 → 6NMEDSUR 17:37 → OBSVTOIN 22:28
PROVIDERS: ADMIT Hospitalist; ATTEND Hospitalist
PROC: 0PB13ZX Excision of 1 to 2 Ribs, Percutaneous Approach, Diagnostic (ICD-10-PCS; principal; 2021-04-23)
DX: N02.9 Recurrent and persistent hematuria with unspecified morphologic changes (principal); D62 Acute posthemorrhagic anemia; C78.00 Secondary malignant neoplasm of unspecified lung; C79.51 Secondary malignant neoplasm of bone; C61 Malignant neoplasm of prostate; N13.30 Unspecified hydronephrosis; E11.9 Type 2 diabetes mellitus without complications; E78.5 Hyperlipidemia, unspecified; F51.04 Psychophysiologic insomnia; G62.9 Polyneuropathy, unspecified; I10 Essential (primary) hypertension; M10.9 Gout, unspecified; M19.90 Unspecified osteoarthritis, unspecified site; Z79.84 Long term (current) use of oral hypoglycemic drugs; Z79.899 Other long term (current) drug therapy; Z83.3 Family history of diabetes mellitus; Z85.46 Personal history of malignant neoplasm of prostate; Z86.73 Personal history of transient ischemic attack (TIA), and cerebral infarction without residual deficits; Z92.3 Personal history of irradiation; H26.9 Unspecified cataract; L98.9 Disorder of the skin and subcutaneous tissue, unspecified
CPT/HCPCS: 20206; 36415; 71260; 76942; 80048; 80053; 82607; 82728; 82747; 83540; 83550; 83921; 85025; 85610; 88305; 88341; 88342; 99285

== ENCOUNTER 2021-04-26 02:47 | Inpatient (IN) | payer MEDICARE, BC ==
[2021-04-26 07:37] LABS: Anisocytosis Slight; HCT 27.8 % (39.0-53.0); HGB 9.5 gm/dL (13.0-17.5); MCH 35.8 pg (25.0-35.0); MCV 105.3 fL (80.0-100.0); Macrocytosis Marked; Platelet Count 448 k/uL (150-450); RBC 2.64 m/uL (4.30-5.90); RDW 18.7 % (11.5-15.5); WBC 7.7 k/uL (3.8-10.6)
[2021-04-26 07:38] LABS: Glucose,Whole Blood 179 mg/dL (75-99)
[2021-04-26] MEDS: amLODIPine 5 MG TAB PO SCH (07:42)
[2021-04-26] MEDS: TAMSULOSIN 0.4 MG CAP.ER.24H PO SCH (07:42)
[2021-04-26] MEDS: FERROUS SULFATE 325 MG TAB PO SCH (07:42)
[2021-04-26] MEDS: LOSARTAN 50 MG TAB PO SCH (07:42)
--- NOTE | 2021-04-26 08:35 | P.GSCN ---
History of Present Illness Consult date: 04/26/21 Reason for Consult: Urinary clot retention Requesting physician: Kelsi Calvin History of present illness: The freida is an 86-year-old white male with a history of prostate cancer initially treated with brachytherapy in 2007. His PSA level began rising in 2014 and he is being treated with androgen deprivation therapy and Xtandi. He developed bilateral hydronephrosis, which has persisted despite improvement in his serum creatinine level. He developed gross hematuria with urinary clot retention in 2019. He underwent cystoscopy with transurethral resection of necrotic appearing tissue. The tumor was predominantly located on the posterior bladder neck, and the resection was incomplete. He was subsequently hospitalized but did not require further intervention. He was recently hospitalized with recurrent gross hematuria with clots. He was managed with continuous bladder irrigation, and his urine was clear yesterday morning. He was discharged home with a Haq catheter, but the catheter became occluded with clots and he presented to [facility]. He was transferred to [facility] for further management. The catheter is currently in place, draining blood-tinged urine. His most recent PSA level was 0.1. 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 Review of Systems - Constitutional Denies chills, Denies fever - Genitourinary Reports as per HPI Past Medical History Past Medical History: Cancer, Diabetes Mellitus, Hyperlipidemia, Hypertension, Osteoarthritis (OA), Prostate Disorder Additional Past Medical History / Comment(s): prostate cancer, STROKE BEHIND RT EYE,GOUT,DDD,RECENTLY TX FOR UTI History of Any Multi-Drug Resistant Organisms: None Reported Past Surgical History: Joint Replacement, Orthopedic Surgery Additional Past Surgical History / Comment(s): 02-05-16 TOTAL LT KNEE REPLACMENT, RT KNEE REPLACMENT, BRIELLE CATARACTS, PROSTE-SEED IMPLANTS,COLONOSCOPY/POLYPECTOMY(BENIGN), PRECANCEROUS SKIN LESIONS FROZEN OFF. Past Anesthesia/Blood Transfusion Reactions: Motion Sickness Past Psychological History: No Psychological Hx Reported Smoking Status: Never smoker Past Alcohol Use History: None Reported Past Drug Use History: None Reported - Past Family History Mother Family Medical History: Diabetes Mellitus Additional Family Medical History / Comment(s): HEART PROBLEMS Father Family Medical History: Diabetes Mellitus Medications and Allergies Home Medications Medication Instructions Recorded Confirmed Type Ergocalciferol [Vitamin D2 1,250 mcg PO Q14D 01/29/16 04/26/21 History (DRISDOL)] Tamsulosin [Flomax] 0.4 mg PO DAILY 01/29/16 04/26/21 History amLODIPine [Norvasc] 5 mg PO DAILY 09/19/17 04/26/21 History Allopurinol [Zyloprim] 100 mg PO BID 05/04/20 04/26/21 History Famotidine [Pepcid] 20 mg PO BID 05/04/20 04/26/21 History Gabapentin 900 mg PO HS 05/04/20 04/26/21 History Zolpidem [Ambien] 10 mg PO HS 05/04/20 04/26/21 History metFORMIN HCL 500 mg PO DAILY 05/04/20 04/26/21 History Ascorbic Acid [Vitamin C] 1,000 mg PO DAILY 09/07/20 04/26/21 History Enzalutamide [Xtandi] 160 mg PO DAILY@1400 04/22/21 04/26/21 History Ferrous Sulfate [Iron (65 MG 325 mg PO DAILY 04/22/21 04/26/21 History Elemental)] Losartan [Cozaar] 50 mg PO DAILY 04/22/21 04/26/21 History Multivitamins, Thera [Multivitamin 1 tab PO DAILY 04/22/21 04/26/21 History (formulary)] Mupirocin 2% Oint [Bactroban 2% 1 applic TOPICAL BID PRN 04/22/21 04/26/21 History Oint] Triamcinolone 0.1% Cream [Kenalog 1 applic TOPICAL BID PRN 04/22/21 04/26/21 History 0.1% Cream] metFORMIN HCL [Glucophage] 1,000 mg PO HS 04/22/21 04/26/21 History glipiZIDE [Glucotrol] 5 mg PO DAILY #0 04/25/21 04/26/21 Rx Allergies Allergy/AdvReac Type Severity Reaction Status Date / Time adhesive tape AdvReac skin tear Verified 04/26/21 07:46 Surgical - Exam Vital Signs Temp Pulse Resp BP Pulse Ox 97.8 F 109 H 20 170/88 98 04/26/21 04:05 04/26/21 04:05 04/26/21 04:05 04/26/21 04:05 04/26/21 04:05 - General well developed, well nourished, no distress - Respiratory normal respiratory effort - Abdomen Abdomen: soft, non tender, no guarding, no rigid, no rebound - Genitourinary normal penis with no external lesions, testicles non-tender - Psychiatric oriented to time, oriented to person, oriented to place, speech is normal, memory intact Results - Labs Abnormal Lab Results - Last 24 Hours (Table) 04/26/21 Range/Units 07:31 POC Glucose (mg/dL) 179 H (75-99) mg/dL Assessment and Plan (1) Gross hematuria Current Visit: No Status: Acute Code(s): R31.0 - GROSS HEMATURIA SNOMED Code(s): 666202757 Plan: Continuous bladder irrigation will be resumed. The patient will be nothing by mouth after midnight in the event that cystoscopy with fulguration of bleeders is felt to be necessary tomorrow.
[2021-04-26] MEDS: SODIUM CHLORIDE 0.9% IRRIG 3,000 ML BAG IRRIGATION SCH ×2 (09:36→19:42)
[2021-04-26 10:16] LABS: Eosinophils # (M) 0.46 k/uL (0-0.7); Lymphocytes # (M) 0.92 k/uL (1.0-4.8); Metamyelocytes # (M) 0.08 k/uL (0); Metamyelocytes % 1 %; Monocytes # (M) 0.62 k/uL (0-1.0); Myelocytes # (M) 0.08 k/uL (0); Myelocytes % 1 %; Neutrophils % (M) 74 %; Nucleated Red Blood Cells 0 /100 WBC (0-0); Total Cells Counted 200
[2021-04-26 11:52] LABS: Glucose,Whole Blood 172 mg/dL (75-99)
[2021-04-26 17:13] LABS: Glucose,Whole Blood 164 mg/dL (75-99)
[2021-04-26] MEDS: INSULIN ASPART (NovoLOG) 100 UNIT/ML VIAL SQ SCH ×2 (17:34→20:55)
[2021-04-26] MEDS: glipiZIDE 5 MG TAB PO SCH (17:34)
[2021-04-26 18:39] LABS: ALT 11 U/L (4-49); AST 23 U/L (17-59); African American GFR (CKD) >90 (>60 ml/min/1.73 sqM); Albumin 3.1 g/dL (3.5-5.0); Albumin/Globulin Ratio 1.1; Alkaline Phosphatase 179 U/L (38-126); Anion Gap 7 mmol/L; Blood Urea Nitrogen 17 mg/dL (9-20); Calcium 8.7 mg/dL (8.4-10.2); Carbon Dioxide 23 mmol/L (22-30); Chloride 104 mmol/L (98-107); Globulin 2.7 g/dL; Glucose 184 mg/dL (74-99); Non-African American GFR(CKD) 83 (>60 ml/min/1.73 sqM); Potassium 4.1 mmol/L (3.5-5.1); Sodium 134 mmol/L (137-145); Total Bilirubin 0.4 mg/dL (0.2-1.3); Total Protein 5.8 g/dL (6.3-8.2)
--- NOTE | 2021-04-26 19:13 | HP ---
HISTORY AND PHYSICAL DATE OF SERVICE: 04/26/2021. CHIEF COMPLAINTS: Hematuria. HISTORY OF PRESENT ILLNESS: 86-year-old gentleman with a past medical history of multiple medical problems including diabetes, hypertension, hyperlipidemia, history of DJD, history of prostate disorder, being followed by Dr. Floyd Anne in the outpatient setting was recently admitted with acute on chronic recurrent hematuria. The patient has history of prostate cancer. The patient was discharged, but subsequently patient had hematuria. The patient was evaluated in [facility] and the patient was subsequently referred to [facility] and was admitted for further evaluation and treatment. Neurology has seen the patient and the patient has received bladder irrigation. Hematuria is persisting. Urology is planning further evaluation including cystoscopy. There is no history of fever, rigors. The patient is confused, unable to give a coherent history. Most of the history is taken from my discussion with staff and review of chart. PAST MEDICAL HISTORY: Diabetes, hypertension, DJD, history of prostate cancer. MEDICATIONS: Home medications are metformin, glipizide, Norvasc, Kenalog, Flomax, multivitamin, losartan, gabapentin, vitamin D2, vitamin C and Zyloprim. ALLERGIES: ADHESIVE TAPE. FAMILY HISTORY: History of diabetes mellitus and heart problems in the family. SOCIAL HISTORY: No history of smoking. No history of alcohol intake. REVIEW OF SYSTEMS: Could not be taken. PHYSICAL EXAMINATION: Patient is conscious, confused. Pulse 78, blood pressure 150/57, respirations 16, temperature 97.4, pulse ox 97% on room air. HEENT: Conjunctivae normal. NECK: No JVD. CARDIOVASCULAR: S1, S2 muffled. RESPIRATORY: Breath sounds diminished in the bases. A few scattered rhonchi. No crackles. ABDOMEN: Soft, nontender. No mass palpable. Indwelling Haq catheter. LEGS are no edema. No swelling. NERVOUS SYSTEM: Diffusely weak. SKIN: No ulcer, no rashes and no bleeding. JOINTS: No active deforming arthropathy. LABS: WBC 7.2, hemoglobin 10.5, glucose 179. ASSESSMENT: 1. Hematuria, for evaluation. 2. History of recent acute on chronic recurrent hematuria. 3. History of prostate cancer. 4. Acute blood loss anemia. 5. History of recent bilateral hydronephrosis and hydroureter. 6. Diabetes type 2. 7. Hypertension. 8. Hyperlipidemia. 9. History of degenerative joint disease. 10.History of stroke. 11.History of gout. 12.History of degenerative joint disease. RECOMMENDATIONS AND DISCUSSION: This 86-year-old gentleman who presented with multiple complex medical issues, we will monitor the patient closely. Continue the current medications, symptomatic treatment. Hold antiplatelet agents. Otherwise closely with Urology. Home medication will be continued and reconciled. Prognosis guarded. Further recommendations to follow. MMODL / IJN: [id number] /
[2021-04-26 20:40] LABS: Glucose,Whole Blood 116 mg/dL (75-99)
[2021-04-26] MEDS: GABAPENTIN 300 MG CAP PO SCH (20:54)
[2021-04-26] MEDS: metFORMIN 500 MG TAB PO SCH (20:54)
[2021-04-26] MEDS: allopurinoL 100 MG TAB PO SCH (20:54)
[2021-04-26] MEDS: FAMOTIDINE 20 MG TAB PO SCH (20:54)
[2021-04-26] MEDS ORDERED: ZOLPIDEM 10 MG TAB PO SCH (21:00)
[2021-04-26] MEDS: ZOLPIDEM 5 MG TAB PO SCH (21:15)
[2021-04-27 06:30] LABS: Anisocytosis Slight; Basophils % (A) 1 %; Eosinophils # (A) 0.6 k/uL (0-0.7); Eosinophils % (A) 9 %; HCT 26.1 % (39.0-53.0); HGB 8.7 gm/dL (13.0-17.5); Lymphocytes # (A) 0.9 k/uL (1.0-4.8); Lymphocytes % (A) 14 %; MCH 34.9 pg (25.0-35.0); MCHC 33.4 g/dL (31.0-37.0); MCV 104.3 fL (80.0-100.0); Macrocytosis Moderate; Mean Platelet Volume 7.3; Monocytes # (A) 0.5 k/uL (0-1.0); Monocytes % (A) 7 %; Neutrophils # (A) 4.6 k/uL (1.3-7.7); Neutrophils % (A) 67 %; Platelet Count 426 k/uL (150-450); RDW 18.5 % (11.5-15.5); WBC 6.8 k/uL (3.8-10.6)
[2021-04-27] MEDS: metFORMIN 500 MG TAB PO SCH ×2 (07:01→20:31)
[2021-04-27] MEDS: INSULIN ASPART (NovoLOG) 100 UNIT/ML VIAL SQ SCH ×4 (07:01→20:39)
[2021-04-27] MEDS: SODIUM CHLORIDE 0.9% IRRIG 3,000 ML BAG IRRIGATION SCH (07:01)
[2021-04-27] MEDS: glipiZIDE 5 MG TAB PO SCH (07:02)
[2021-04-27 07:26] LABS: Glucose,Whole Blood 138 mg/dL (75-99)
[2021-04-27] MEDS: allopurinoL 100 MG TAB PO SCH ×2 (08:22→20:24)
[2021-04-27] MEDS: ASCORBIC ACID 500 MG TAB PO SCH (08:22)
[2021-04-27] MEDS: TAMSULOSIN 0.4 MG CAP.ER.24H PO SCH (08:23)
[2021-04-27] MEDS: FAMOTIDINE 20 MG TAB PO SCH ×2 (08:23→20:23)
[2021-04-27] MEDS: LOSARTAN 50 MG TAB PO SCH (08:23)
[2021-04-27] MEDS: MULTIVITAMINS, THERA 1 EACH TAB PO SCH (08:23)
[2021-04-27] MEDS: amLODIPine 5 MG TAB PO SCH (08:23)
[2021-04-27] MEDS: FERROUS SULFATE 325 MG TAB PO SCH (08:23)
[2021-04-27 09:42] LABS: African American GFR (CKD) 94.4 (60.0-200.0); Albumin 3.4 g/dL (3.80-4.90); Albumin/Globulin Ratio 1.89 (1.60-3.17); Calcium 8.7 mg/dL (8.7-10.3); Globulin 1.8 g/dL (1.6-3.3); Non-African American GFR(CKD) 81.5 (60.0-200.0); Potassium 4.2 mmol/L (3.5-5.5); Total Bilirubin 0.5 mg/dL (0.3-1.2); Total Protein 5.2 g/dL (6.2-8.2)
--- NOTE | 2021-04-27 10:56 | P.PN ---
Progress Note - Text Progress Note Date: 04/27/21 Continuous bladder irrigation has been running. The rate was reduced overnight and clots formed, requiring manual irrigation. Continuous bladder irrigation is currently running slowly, with clear return. The hemoglobin level today was 8.7, down from 9.5 yesterday. I am not recommending cystoscopy at this time, given the clear return, but the hemoglobin level will be checked tomorrow and it may be necessary to do so in the next 1-2 days.
[2021-04-27 11:43] LABS: Glucose,Whole Blood 164 mg/dL (75-99)
[2021-04-27 17:57] LABS: Glucose,Whole Blood 166 mg/dL (75-99)
[2021-04-27] MEDS: GABAPENTIN 300 MG CAP PO SCH (20:24)
[2021-04-27] MEDS: ZOLPIDEM 5 MG TAB PO SCH (20:26)
[2021-04-27 20:40] LABS: Glucose,Whole Blood 157 mg/dL (75-99)
[2021-04-28] MEDS: SODIUM CHLORIDE 0.9% IRRIG 3,000 ML BAG IRRIGATION SCH ×3 (03:34→22:06)
[2021-04-28 06:11] LABS: Anisocytosis Slight; Basophils % (A) 1 %; Eosinophils # (A) 0.5 k/uL (0-0.7); Eosinophils % (A) 7 %; HCT 25.7 % (39.0-53.0); HGB 8.4 gm/dL (13.0-17.5); Lymphocytes # (A) 0.9 k/uL (1.0-4.8); Lymphocytes % (A) 13 %; MCH 34.3 pg (25.0-35.0); MCHC 32.6 g/dL (31.0-37.0); Macrocytosis Moderate; Mean Platelet Volume 7.5; Monocytes # (A) 0.7 k/uL (0-1.0); Monocytes % (A) 10 %; Neutrophils # (A) 4.6 k/uL (1.3-7.7); Neutrophils % (A) 66 %; Platelet Count 385 k/uL (150-450); RBC 2.44 m/uL (4.30-5.90); RDW 18.7 % (11.5-15.5)
[2021-04-28 07:22] LABS: Glucose,Whole Blood 146 mg/dL (75-99)
[2021-04-28] MEDS: metFORMIN 500 MG TAB PO SCH ×2 (07:26→20:19)
[2021-04-28] MEDS: INSULIN ASPART (NovoLOG) 100 UNIT/ML VIAL SQ SCH ×4 (07:26→21:35)
[2021-04-28] MEDS ORDERED: fentaNYL (PF) 50 MCG/ML 2 ML AMP ONE (08:43)
[2021-04-28] MEDS ORDERED: LACTATED RINGERS 1,000 ML IV ONE ×3 (08:43→11:30)
[2021-04-28] MEDS ORDERED: ONDANSETRON 4 MG/2 ML VIAL ONE (08:43)
[2021-04-28] MEDS ORDERED: PROPOFOL 10 MG/ML 20 ML VIAL IV ONE (08:43)
[2021-04-28] MEDS ORDERED: PHENYLEPHRINE-0.9% NACL SYG 1,000 MCG/10 ML SYRINGE ONE (08:43)
[2021-04-28] MEDS ORDERED: LIDOCAINE 1% INJ 10MG/ML (20 ML MDV) ONE (08:43)
[2021-04-28 12:03] LABS: Glucose,Whole Blood 133 mg/dL (75-99)
[2021-04-28] MEDS: MULTIVITAMINS, THERA 1 EACH TAB PO SCH (13:11)
[2021-04-28] MEDS: glipiZIDE 5 MG TAB PO SCH (13:11)
[2021-04-28] MEDS: TAMSULOSIN 0.4 MG CAP.ER.24H PO SCH (13:11)
[2021-04-28] MEDS: FERROUS SULFATE 325 MG TAB PO SCH (13:11)
[2021-04-28] MEDS: ASCORBIC ACID 500 MG TAB PO SCH (13:11)
[2021-04-28] MEDS: FAMOTIDINE 20 MG TAB PO SCH ×2 (13:11→20:19)
[2021-04-28] MEDS: allopurinoL 100 MG TAB PO SCH ×2 (13:11→20:19)
[2021-04-28] MEDS: LOSARTAN 50 MG TAB PO SCH (13:11)
[2021-04-28] MEDS: amLODIPine 5 MG TAB PO SCH (13:11)
[2021-04-28 17:38] LABS: Glucose,Whole Blood 134 mg/dL (75-99)
[2021-04-28] MEDS: ACETAMINOPHEN TAB 325 MG TAB PO PRN (19:30)
[2021-04-28] MEDS: GABAPENTIN 300 MG CAP PO SCH (20:19)
[2021-04-28] MEDS: ZOLPIDEM 5 MG TAB PO SCH (20:19)
[2021-04-28 21:28] LABS: Glucose,Whole Blood 153 mg/dL (75-99)
--- NOTE | 2021-04-28 22:30 | P.PN ---
Subjective Progress Note Date: 04/27/21 Patient is a 85-year-old male with a known history of hypertension, diabetes type 2, hyperlipidemia, degenerative joint disease, history of prostate disorder r and is being followed by Dr. Floyd Anne in the outpatient setting was admitted to the hospital due to acute on chronic recurrent tumor hematuria. Patient does have history of prostate cancer. Patient was recently discharged and subsequently patient had hematuria and he was evaluated evaluated hospital and was referred to [address] [place] [address] for evaluation by urology. 04/27/2021 Patient is still having blood-tinged urine. No complaints of pain. Urology is planning for cystoscopy. Laboratory data showed WBC 6.8 hemoglobin 8.7 and platelets 426. Continued on bladder irrigation. Discussed with the patient and his at bedside in detail. Current medications reviewed.. Objective - Vital Signs Vital signs: Vital Signs Temp 97.9 F 04/27/21 13:00 Pulse 73 04/27/21 13:00 Resp 16 04/27/21 13:00 BP 120/52 04/27/21 13:00 Pulse Ox 98 04/27/21 13:00 Intake & Output 04/26/21 04/27/21 04/27/21 18:59 06:59 18:59 Intake Total 100 Output Total 7825 8200 8150 Balance -7825 -8100 -8150 Intake: Oral 100 Output: Urine 7825 8200 8150 Other: Voiding Method Indwelling Catheter Indwelling Catheter Indwelling Catheter - Exam PHYSICAL EXAMINATION: Patient is lying in the bed comfortably, no acute distress, awake alert and oriented.. HEENT: Normocephalic. Neck is supple. Pupils reactive. Nostrils clear. Oral cavity is moist. Neck reveals no JVD, carotid bruits, or thyromegaly. CHEST EXAMINATION: Trachea is central. Symmetrical expansion. Lung castano clear to auscultation and percussion. CARDIAC: Normal S1, S2 with no gallops. No murmurs ABDOMEN: Soft. Bowel sounds normal. No organomegaly. No abdominal bruits. Extremities: reveal no edema. No clubbing or cyanosis Neurologically awake, alert, oriented x3 with well-coordinated movements. No focal deficits noted Skin: No rash or skin lesions. Psychiatric: Coperative. Nonsuicidal Musculoskeletal: No joint swelling or deformity. Normal range of motion. - Labs CBC & Chem 7: 04/28/21 05:40 04/27/21 05:50 Labs: Abnormal Lab Results - Last 24 Hours (Table) 04/26/21 04/26/21 04/27/21 Range/Units 18:07 20:34 05:50 RBC 2.50 L (4.30-5.90) m/uL Hgb 8.7 L (13.0-17.5) gm/dL Hct 26.1 L (39.0-53.0) % MCV 104.3 H (80.0-100.0) fL RDW 18.5 H (11.5-15.5) % Lymphocytes # 0.9 L (1.0-4.8) k/uL Sodium 134 L (137-145) mmol/L Glucose 184 H (74-99) mg/dL POC Glucose (mg/dL) 116 H (75-99) mg/dL Alkaline Phosphatase 179 H (38-126) U/L Total Protein 5.8 L (6.3-8.2) g/dL Albumin 3.1 L (3.5-5.0) g/dL 04/27/21 04/27/21 04/27/21 Range/Units 05:50 07:21 11:32 RBC (4.30-5.90) m/uL Hgb (13.0-17.5) gm/dL Hct (39.0-53.0) % MCV (80.0-100.0) fL RDW (11.5-15.5) % Lymphocytes # (1.0-4.8) k/uL Sodium (137-145) mmol/L Glucose (74-99) mg/dL POC Glucose (mg/dL) 138 H 164 H (75-99) mg/dL Alkaline Phosphatase 174 H (38-126) U/L Total Protein 5.2 L (6.3-8.2) g/dL Albumin 3.40 L (3.5-5.0) g/dL 04/27/21 Range/Units 17:55 RBC (4.30-5.90) m/uL Hgb (13.0-17.5) gm/dL Hct (39.0-53.0) % MCV (80.0-100.0) fL RDW (11.5-15.5) % Lymphocytes # (1.0-4.8) k/uL Sodium (137-145) mmol/L Glucose (74-99) mg/dL POC Glucose (mg/dL) 166 H (75-99) mg/dL Alkaline Phosphatase (38-126) U/L Total Protein (6.3-8.2) g/dL Albumin (3.5-5.0) g/dL Assessment and Plan Assessment: Recurrent hematuria. Recent admission with hematuria History of prostate cancer Acute blood loss anemia Bilateral hydronephrosis and hydroureter patient history Hypertension Hyperlipidemia Diabetes type 2 Degenerative joint disease History of CVA Gout DVT prophylaxis SCDs Plan: Patient will require evaluation. Monitor H&H and transfuse as needed. Continue pain management. Continue with insulin sliding scale and better blood sugar control. Continue to follow closely. Urology on board planning for cystoscopy tomorrow..
--- NOTE | 2021-04-28 22:38 | P.PN ---
Subjective Progress Note Date: 04/28/21 Patient is a 85-year-old male with a known history of hypertension, diabetes type 2, hyperlipidemia, degenerative joint disease, history of prostate disorder r and is being followed by Dr. Floyd Anne in the outpatient setting was admitted to the hospital due to acute on chronic recurrent tumor hematuria. Patient does have history of prostate cancer. Patient was recently discharged and subsequently patient had hematuria and he was evaluated evaluated hospital and was referred to [address] [place] [address] for evaluation by urology. 04/27/2021 Patient is still having blood-tinged urine. No complaints of pain. Urology is planning for cystoscopy. Laboratory data showed WBC 6.8 hemoglobin 8.7 and platelets 426. Continued on bladder irrigation. Discussed with the patient and his at bedside in detail. 04/28/2021 Patient is currently lying in the bed comfortably. Status post cystoscopy, evacuation of clot and transurethral resection of prostate. Currently urine is lightly tinged and hematuria is improving. Denies any complaints of pain. Patient is tolerating oral diet. Urology is on board.Hemoglobin is stable. Current medications reviewed.. Objective - Vital Signs Vital signs: Vital Signs Temp 97.7 F 04/28/21 13:02 Pulse 68 04/28/21 13:02 Resp 18 04/28/21 13:02 BP 186/80 04/28/21 13:02 Pulse Ox 98 04/28/21 13:02 Intake & Output 04/28/21 04/28/21 04/29/21 06:59 18:59 06:59 Intake Total 540 1480 Output Total 5900 8150 Balance -1919 -6736 Intake: IV 1000 Oral 540 480 Output: Urine 5900 8100 3-way Urethral 5400 Estimated Blood Loss 50 Other: Voiding Method Indwelling Catheter Indwelling Catheter - Exam PHYSICAL EXAMINATION: Patient is lying in the bed comfortably, no acute distress, awake alert and oriented.. HEENT: Normocephalic. Neck is supple. Pupils reactive. Nostrils clear. Oral cavity is moist. Neck reveals no JVD, carotid bruits, or thyromegaly. CHEST EXAMINATION: Trachea is central. Symmetrical expansion. Lung castano clear to auscultation and percussion. CARDIAC: Normal S1, S2 with no gallops. No murmurs ABDOMEN: Soft. Bowel sounds normal. No organomegaly. No abdominal bruits. Extremities: reveal no edema. No clubbing or cyanosis Neurologically awake, alert, oriented x3 with well-coordinated movements. No focal deficits noted Skin: No rash or skin lesions. Psychiatric: Coperative. Nonsuicidal Musculoskeletal: No joint swelling or deformity. Normal range of motion. - Labs CBC & Chem 7: 04/28/21 05:40 04/27/21 05:50 Labs: Abnormal Lab Results - Last 24 Hours (Table) 04/28/21 04/28/21 04/28/21 Range/Units 05:40 07:20 12:01 RBC 2.44 L (4.30-5.90) m/uL Hgb 8.4 L (13.0-17.5) gm/dL Hct 25.7 L (39.0-53.0) % MCV 105.0 H (80.0-100.0) fL RDW 18.7 H (11.5-15.5) % Lymphocytes # 0.9 L (1.0-4.8) k/uL POC Glucose (mg/dL) 146 H 133 H (75-99) mg/dL 04/28/21 04/28/21 Range/Units 17:33 21:23 RBC (4.30-5.90) m/uL Hgb (13.0-17.5) gm/dL Hct (39.0-53.0) % MCV (80.0-100.0) fL RDW (11.5-15.5) % Lymphocytes # (1.0-4.8) k/uL POC Glucose (mg/dL) 134 H 153 H (75-99) mg/dL Assessment and Plan Assessment: Recurrent hematuria. Recent admission with hematuria History of prostate cancer Acute blood loss anemia Bilateral hydronephrosis and hydroureter patient history Hypertension Hyperlipidemia Diabetes type 2 Degenerative joint disease History of CVA Gout DVT prophylaxis SCDs Plan: Patient will require evaluation. Monitor H&H and transfuse as needed. Continue pain management. Continue with insulin sliding scale and better blood sugar control. Continue to follow closely. Patient is status post cystoscopy, clot evacuation and TURP...
[2021-04-29 06:47] LABS: Anisocytosis Slight; Basophils % (A) 0 %; Eosinophils # (A) 0.2 k/uL (0-0.7); Eosinophils % (A) 2 %; HCT 26.8 % (39.0-53.0); HGB 8.8 gm/dL (13.0-17.5); Lymphocytes # (A) 0.6 k/uL (1.0-4.8); Lymphocytes % (A) 5 %; MCH 34.9 pg (25.0-35.0); MCHC 32.8 g/dL (31.0-37.0); MCV 106.2 fL (80.0-100.0); Macrocytosis Marked; Mean Platelet Volume 7.6; Monocytes # (A) 0.9 k/uL (0-1.0); Monocytes % (A) 8 %; Neutrophils # (A) 10.1 k/uL (1.3-7.7); Neutrophils % (A) 84 %; Platelet Count 409 k/uL (150-450); RBC 2.53 m/uL (4.30-5.90); RDW 18.5 % (11.5-15.5); WBC 12.1 k/uL (3.8-10.6)
[2021-04-29 07:10] LABS: Glucose,Whole Blood 187 mg/dL (75-99)
[2021-04-29] MEDS: TAMSULOSIN 0.4 MG CAP.ER.24H PO SCH (08:35)
[2021-04-29] MEDS: allopurinoL 100 MG TAB PO SCH ×2 (08:36→20:20)
[2021-04-29] MEDS: INSULIN ASPART (NovoLOG) 100 UNIT/ML VIAL SQ SCH ×4 (08:36→20:21)
[2021-04-29] MEDS: ACETAMINOPHEN TAB 325 MG TAB PO PRN ×2 (08:36→20:21)
[2021-04-29] MEDS: MULTIVITAMINS, THERA 1 EACH TAB PO SCH (08:36)
[2021-04-29] MEDS: metFORMIN 500 MG TAB PO SCH ×2 (08:36→20:20)
[2021-04-29] MEDS: ASCORBIC ACID 500 MG TAB PO SCH (08:36)
[2021-04-29] MEDS: FERROUS SULFATE 325 MG TAB PO SCH (08:36)
[2021-04-29] MEDS: LOSARTAN 50 MG TAB PO SCH (08:36)
[2021-04-29] MEDS: amLODIPine 5 MG TAB PO SCH (08:36)
[2021-04-29] MEDS: FAMOTIDINE 20 MG TAB PO SCH (08:36)
[2021-04-29] MEDS: glipiZIDE 5 MG TAB PO SCH (08:37)
[2021-04-29 11:50] LABS: African American GFR (CKD) 38.9 (60.0-200.0); Anion Gap 11.7 mmol/L (4.00-12.00); BUN/Creat Ratio 20.56 Ratio (12.00-20.00); Calcium 8.3 mg/dL (8.7-10.3); Carbon Dioxide 20.3 mmol/L (21.6-31.8); Non-African American GFR(CKD) 33.6 (60.0-200.0); Potassium 5.5 mmol/L (3.5-5.5)
[2021-04-29 12:12] LABS: Glucose,Whole Blood 120 mg/dL (75-99)
--- NOTE | 2021-04-29 16:19 | P.PN ---
Subjective Progress Note Date: 04/29/21 No acute overnight events, underwent a TURP and clot evacuation by Dr. John yesterday. Urine is clear on CBI Objective - Vital Signs Vital signs: Vital Signs Temp 98.4 F 04/29/21 11:24 Pulse 83 04/29/21 11:24 Resp 18 04/29/21 11:24 BP 116/66 04/29/21 11:24 Pulse Ox 96 04/29/21 11:24 Intake & Output 04/28/21 04/29/21 04/29/21 18:59 06:59 18:59 Intake Total 1480 100 Output Total 8150 1800 1750 Balance -5070 -1700 -1750 Intake: IV 1000 Oral 480 100 Output: Urine 8100 1800 1750 Estimated Blood Loss 50 Other: Voiding Method Indwelling Catheter Indwelling Catheter Indwelling Catheter - Constitutional General appearance: Present: no acute distress - Gastrointestinal General gastrointestinal: Present: soft. Absent: distended, tenderness - Genitourinary Genitourinary Comment(s): Urine is clear on CBI - Psychiatric Psychiatric: Present: A&O x's 3 - Labs CBC & Chem 7: 04/29/21 06:20 04/29/21 06:20 Labs: Abnormal Lab Results - Last 24 Hours (Table) 04/28/21 04/28/21 04/29/21 Range/Units 17:33 21:23 06:20 WBC 12.1 H (3.8-10.6) k/uL RBC 2.53 L (4.30-5.90) m/uL Hgb 8.8 L (13.0-17.5) gm/dL Hct 26.8 L (39.0-53.0) % MCV 106.2 H (80.0-100.0) fL RDW 18.5 H (11.5-15.5) % Neutrophils # 10.1 H (1.3-7.7) k/uL Lymphocytes # 0.6 L (1.0-4.8) k/uL Macrocytosis Marked A Sodium (135-145) mmol/L Carbon Dioxide (21.6-31.8) mmol/L BUN (9.0-27.0) mg/dL Creatinine (0.6-1.5) mg/dL Est GFR (CKD-EPI)AfAm (60.0-200.0) Est GFR (CKD-EPI)NonAf (60.0-200.0) BUN/Creatinine Ratio (12.00-20.00) Ratio Glucose (70-110) mg/dL POC Glucose (mg/dL) 134 H 153 H (75-99) mg/dL Calcium (8.7-10.3) mg/dL 04/29/21 04/29/21 04/29/21 Range/Units 06:20 07:08 12:01 WBC (3.8-10.6) k/uL RBC (4.30-5.90) m/uL Hgb (13.0-17.5) gm/dL Hct (39.0-53.0) % MCV (80.0-100.0) fL RDW (11.5-15.5) % Neutrophils # (1.3-7.7) k/uL Lymphocytes # (1.0-4.8) k/uL Macrocytosis Sodium 134 L (135-145) mmol/L Carbon Dioxide 20.3 L (21.6-31.8) mmol/L BUN 37.0 H (9.0-27.0) mg/dL Creatinine 1.8 H (0.6-1.5) mg/dL Est GFR (CKD-EPI)AfAm 38.9 L (60.0-200.0) Est GFR (CKD-EPI)NonAf 33.6 L (60.0-200.0) BUN/Creatinine Ratio 20.56 H (12.00-20.00) Ratio Glucose 137 H (70-110) mg/dL POC Glucose (mg/dL) 187 H 120 H (75-99) mg/dL Calcium 8.3 L (8.7-10.3) mg/dL Assessment and Plan Assessment: Continue to trend down the CBI, with the goal of discontinuing the CBI today if urine remains clear. If urine remains clear off CBI and he can be discharged home tomorrow
[2021-04-29 17:00] LABS: Glucose,Whole Blood 230 mg/dL (75-99)
[2021-04-29 20:04] LABS: Glucose,Whole Blood 160 mg/dL (75-99)
[2021-04-29] MEDS: ZOLPIDEM 5 MG TAB PO SCH (20:21)
[2021-04-29] MEDS: GABAPENTIN 300 MG CAP PO SCH (20:21)
--- NOTE | 2021-04-29 21:09 | P.PN ---
Progress Note - Text Progress Note Date: 04/29/21 Chief Complaint: Hematuria History of presenting complaint: This is a pleasant 86-year-old patient with follows with Dr. Floyd Anne. Chronic stable medical conditions include diabetes, hypertension, hyperlipidemia, osteoarthritis, gout. Patient was first diagnosed with prostate cancer about 8-10 years ago. And radiation seeds. Planted by Dr Degroot Patient did well. Patient would have intermittent bleeding every 3-4 months and about a year ago Dr. Overton from urology did scrape the bladder. Patient was admitted to the hospital from April 22 through April 25: With significant hematuria. Continuous bladder irrigation was carried out. Hematuria stopped. Patient seen by Dr. goddard. 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 Patient yet again as presented with hematuria. Continuous bladder irrigation has been started. April 28: Cystoscopy was done and prostate cancer has infiltrated into the bladder. Some scraping was carried out 04/29/2021: Having bladder irrigation. Some improvement. Hematuria still present. Tired. Being followed by urology. Oncology consulted. Care was discussed with the patient and . Active Medications Acetaminophen (Acetaminophen Tab 325 Mg Tab) 650 mg PO Q4HR PRN PRN Reason: Fever and/ or Pain Last Admin: 04/29/21 20:21 Dose: 650 mg Documented by: Allopurinol (Allopurinol 100 Mg Tab) 100 mg PO BID [facility] Last Admin: 04/29/21 20:20 Dose: 100 mg Documented by: Amlodipine Besylate (Amlodipine 5 Mg Tab) 5 mg PO DAILY [facility] Last Admin: 04/29/21 08:36 Dose: 5 mg Documented by: Ascorbic Acid (Ascorbic Acid 500 Mg Tab) 1,000 mg PO DAILY [facility] Last Admin: 04/29/21 08:36 Dose: 1,000 mg Documented by: Ergocalciferol (Ergocalciferol 1,250 Mcg (50,000 Iu) Capsule) 1,250 mcg PO Q14D [facility] Famotidine (Famotidine 20 Mg Tab) 20 mg PO DAILY [facility] Ferrous Sulfate (Ferrous Sulfate 325 Mg Tab) 325 mg PO DAILY [facility] Last Admin: 04/29/21 08:36 Dose: 325 mg Documented by: Gabapentin (Gabapentin 300 Mg Cap) 900 mg PO HS [facility] Last Admin: 04/29/21 20:21 Dose: 900 mg Documented by: Glipizide (Glipizide 5 Mg Tab) 5 mg PO DAILY [facility] Last Admin: 04/29/21 08:37 Dose: 5 mg Documented by: Insulin Aspart (Insulin Aspart (Novolog) 100 Unit/Ml Vial) 0 unit SQ [facility]; Protocol Last Admin: 04/29/21 20:21 Dose: 1 unit Documented by: Losartan Potassium (Losartan 50 Mg Tab) 50 mg PO DAILY [facility] Last Admin: 04/29/21 08:36 Dose: 50 mg Documented by: Metformin HCl (Metformin 500 Mg Tab) 500 mg PO AC-BRKFST [facility] Last Admin: 04/29/21 08:36 Dose: 500 mg Documented by: Metformin HCl (Metformin 500 Mg Tab) 1,000 mg PO [facility] Last Admin: 04/29/21 20:20 Dose: 1,000 mg Documented by: Multivitamins (Multivitamins, Thera 1 Each Tab) 1 each PO DAILY [facility] Last Admin: 04/29/21 08:36 Dose: 1 each Documented by: Patient's Own Enzalutamide [Xtandi ] 40 Mg Tablet 160 mg PO DAILY@1400 [facility] Last Admin: 04/29/21 14:27 Dose: 160 mg Documented by: Sodium Chloride (Sodium Chloride 0.9% Irrig 3,000 Ml Bag) 3,000 ml IRRIGATION CONTINUOUS [facility] Last Admin: 04/28/21 22:06 Dose: 3,000 ml Documented by: Tamsulosin HCl (Tamsulosin 0.4 Mg Cap.Er.24h) 0.4 mg PO DAILY [facility] Last Admin: 04/29/21 08:35 Dose: 0.4 mg Documented by: Zolpidem Tartrate (Zolpidem 5 Mg Tab) 10 mg PO [facility] Last Admin: 04/29/21 20:21 Dose: 10 mg Documented by: Past medical history to include: Diabetes mellitus, hypertension, hyperlipidemia, osteoarthritis, prostate cancer, stroke and the right eye, gout Social history: . No history of smoking or alcohol. Retired Family history: Of diabetes, heart problems Physical examination: VITAL SIGNS: 98.4, 83, 18, 116/66, 96% room air GENERAL: laying in bed, awake, comfortable EYES: Pupils equal. Conjunctiva pale. NECK: JVD not raised; masses not palpable. HEART: First and second heart sounds are normal; no edema. LUNGS: Respiratory rate normal; clear to auscultation. ABDOMEN: Soft, nontender, liver spleen not palpable, no masses palpable. Haq catheter -somewhat bloody urine PSYCH: Alert and oriented x3; mood and affect normal. MUSCULAR skeletal: Evidence of OA multiple joints INVESTIGATIONS, reviewed in the clinical context: 04/29/2021: White count 12.1 hemoglobin 8.8 platelets 409 potassium 5.5 BUN 37 creatinine 1.8 Previous testing Rib biopsy results: Adenocarcinoma Computed tomography scan of the chest with contrast: Left pleural effusion. Left lower lobe infiltrate and atelectasis. Rounded 6.5 cm mass involving the left lateral drip with rib destruction. Similar smaller mass lesion involving the left fifth rib injury and 3 cm. With a fracture. 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 Calcified gallstones. Bilateral hydronephrosis and hydroureter. Assessment and plan: -Acute on chronic recurrent hematuria in a patient with known history of p rostate cancer. Patient had radiation seeds placed in a 10 years ago. Also had bladder scraping done about a year ago. Biopsy has shown adenocarcinoma. Now presenting with an acute severe episode. Continues bladder irrigation. April 28: Cystoscopy was done with some scraping of the bladder tumor. -Acute blood loss anemia from hematuria: Slow to respond . Hemoglobin 8.8 Follow H&H -Acute kidney injury, obstructive uropathy. Creatinine is bumped up from 0.8- 1.8: Diagnosis DC Cozaar. IV fluids -Bilateral hydronephrosis and hydroureter likely chronic from prostate cancer Follow with urology -Fracture of the left fifth and eighth rib with soft tissue mass, with biopsy positive for adenocarcinoma, metastatic Follow-up with oncology -Diabetes mellitus type 2 on oral hypoglycemic DC metformin. Glucotrol 5 mg daily -Peripheral neuropathy Neurontin 900 mg daily at bedtime -Essential hypertension Hold Cozaar because the renal function. -Chronic insomnia from medical conditions Ambien 5mg daily at bedtime Follow-up with urology. Continuous bladder irrigation. Follow H&H. Start IV fluids. Repeat BMP. Oncology consulted. Care was discussed with the patient and . Prognosis guarded.
[2021-04-29] MEDS: SODIUM CHLORIDE 0.9% 1,000 ML IV SCH (21:15)
--- NOTE | 2021-04-29 21:23 | P.OP ---
Date of Procedure: 04/28/21 Preoperative Diagnosis: Prostate cancer, urinary clot retention Postoperative Diagnosis: Same Procedure(s) Performed: Cystoscopy, evacuation of clot, transurethral resection of prostate (TURP) Anesthesia: PATI Surgeon: Fredy Jhon Estimated Blood Loss (ml): 50 IV fluids (ml): 850 Pathology: other (Resected tissue from posterior bladder wall and prostatic urethra.) Condition: stable Disposition: PACU Indications for Procedure: The patilexy is an 86-year-old white male with a history of prostate cancer initially treated with brachytherapy in 2007. His PSA level began rising in 2014 and he is being treated with androgen deprivation therapy and Xtandi. He developed bilateral hydronephrosis, which has persisted despite improvement in his serum creatinine level. He developed gross hematuria with urinary clot retention in 2019. He underwent cystoscopy with transurethral resection of necrotic appearing tissue. The tumor was predominantly located on the posterior bladder neck, and the resection was incomplete. He was subsequently hospitalized but did not require further intervention. He was recently hospitalized with recurrent gross hematuria with clots. He has been managed with continuous bladder irrigation, but the hematuria has persisted. He thus comes for cystoscopy, evacuation of clot, and fulguration/resection. Operative Findings: Nodular prostatic tissue extending to the vesical neck and trigone. Description of Procedure: The patient was taken in the operating room and placed in the dorsolithotomy position. The external genitalia was prepped and draped sterilely. The 30 lens was used to introduce the 22-Marshallese Stortz cystoscopic sheath through the urethra and into the bladder under direct vision. The anterior urethra appeared normal. The prostatic urethra was nodular, particularly proximally. Upon entering the bladder, multiple clots were encountered. The Shipu evacuator was used to remove these from the bladder. Cystoscopy then revealed nodularity of the trigone, extending to the posterior bladder wall. This appeared to be the source of hematuria. The ureteral orifices were not seen. No tumors or foreign bodies were seen elsewhere in the bladder. The 25-Marshallese ACMI resectoscope sheath was introduced into the bladder under direct vision. The bladder was inspected. Using the bipolar cutting loop, the nodular tissue within the proximal prostatic urethra was resected. Nodular and friable tissue within the trigone and posterior bladder wall was then resected, with the goal of achieving a smooth surface which could be cauterized. This was largely accomplished. The resection was incomplete. The Shipu evacuator was used to remove the resected tissue from the bladder. This tissue was saved and sent for pathologic examination. The resectoscope was removed, and a 22 Marshallese, 3-Way Haq catheter was placed. The return was essentially clear. Continuous bladder irrigation was started using 0.9 normal saline. The patient tolerated the procedure well was taken to the recovery room in stable condition.
[2021-04-30] MEDS: SODIUM CHLORIDE 0.9% 1,000 ML IV SCH ×2 (06:15→15:06)
[2021-04-30 06:54] LABS: Glucose,Whole Blood 130 mg/dL (75-99)
[2021-04-30] MEDS: INSULIN ASPART (NovoLOG) 100 UNIT/ML VIAL SQ SCH ×4 (06:57→20:03)
[2021-04-30 07:48] LABS: African American GFR (CKD) 31 (>60 ml/min/1.73 sqM); Anion Gap 7 mmol/L; Blood Urea Nitrogen 47 mg/dL (9-20); Calcium 8.4 mg/dL (8.4-10.2); Carbon Dioxide 20 mmol/L (22-30); Chloride 106 mmol/L (98-107); Glucose 118 mg/dL (74-99); Non-African American GFR(CKD) 27 (>60 ml/min/1.73 sqM); Potassium 5.4 mmol/L (3.5-5.1); Sodium 133 mmol/L (137-145)
[2021-04-30] MEDS: LOSARTAN 50 MG TAB PO SCH (08:35)
[2021-04-30] MEDS: amLODIPine 5 MG TAB PO SCH (08:35)
[2021-04-30] MEDS: ASCORBIC ACID 500 MG TAB PO SCH (08:35)
[2021-04-30] MEDS: MULTIVITAMINS, THERA 1 EACH TAB PO SCH (08:35)
[2021-04-30] MEDS: FAMOTIDINE 20 MG TAB PO SCH (08:35)
[2021-04-30] MEDS: FERROUS SULFATE 325 MG TAB PO SCH (08:35)
[2021-04-30] MEDS: allopurinoL 100 MG TAB PO SCH ×2 (08:35→20:03)
[2021-04-30] MEDS: TAMSULOSIN 0.4 MG CAP.ER.24H PO SCH (08:35)
[2021-04-30] MEDS: glipiZIDE 5 MG TAB PO SCH ×2 (08:35→22:29)
[2021-04-30 12:05] LABS: Glucose,Whole Blood 380 mg/dL (75-99)
[2021-04-30 16:55] LABS: Glucose,Whole Blood 300 mg/dL (75-99)
--- NOTE | 2021-04-30 17:21 | P.CONS ---
History of Present Illness - Reason for Consult Consult date: 04/29/21 History of Prostate Cancer, New Rib Lesion - History of Present Illness Mr. Monroe is a very pleasant 86-year-old male patient who has a history of prostate cancer, treated with injectable androgen deprivation therapy and oral anti-androgen depravation medication by Urology for prostate cancer. Patient has a long history of hematuria, he has had cystoscopy with Urology in the past and removal of necrotic tissue, no pathology available in this medical record. He was recently hospitalized a few weeks ago after initially being seen and transferred from [facility] where he presented with severe rosana turia. On imaging he was found to have a soft tissue lesion in the left chest invading several ribs. During that hospital stay he underwent right eith rib biopsy which resulted positive for metastatic prostate cancer. We have asked for further molecular testing on this specimen as patients performance will limit treatment options, chemotherapy risks likely too great. We have also consulted radiation oncology for palliative radiation. Review of Systems All systems: negative Constitutional: Reports as per HPI Past Medical History Past Medical History: Cancer, Diabetes Mellitus, Hyperlipidemia, Hypertension, Osteoarthritis (OA), Prostate Disorder Additional Past Medical History / Comment(s): prostate cancer, STROKE BEHIND RT EYE,GOUT,DDD,RECENTLY TX FOR UTI History of Any Multi-Drug Resistant Organisms: None Reported Past Surgical History: Joint Replacement, Orthopedic Surgery Additional Past Surgical History / Comment(s): 02-05-16 TOTAL LT KNEE REPLACMENT, RT KNEE REPLACMENT, BRIELLE CATARACTS, PROSTE-SEED IMPLANTS,COLONOSCOPY/POLYPECTOMY(BENIGN), PRECANCEROUS SKIN LESIONS FROZEN OFF. Past Anesthesia/Blood Transfusion Reactions: Motion Sickness Past Psychological History: No Psychological Hx Reported Smoking Status: Never smoker Past Alcohol Use History: None Reported Past Drug Use History: None Reported - Past Family History Mother Family Medical History: Diabetes Mellitus Additional Family Medical History / Comment(s): HEART PROBLEMS Father Family Medical History: Diabetes Mellitus Medications and Allergies Home Medications Medication Instructions Recorded Confirmed Type Ergocalciferol [Vitamin D2 1,250 mcg PO Q14D 01/29/16 04/26/21 History (DRISDOL)] Tamsulosin [Flomax] 0.4 mg PO DAILY 01/29/16 04/26/21 History amLODIPine [Norvasc] 5 mg PO DAILY 09/19/17 04/26/21 History Allopurinol [Zyloprim] 100 mg PO BID 05/04/20 04/26/21 History Famotidine [Pepcid] 20 mg PO BID 05/04/20 04/26/21 History Gabapentin 900 mg PO HS 05/04/20 04/26/21 History Zolpidem [Ambien] 10 mg PO HS 05/04/20 04/26/21 History metFORMIN HCL 500 mg PO DAILY 05/04/20 04/26/21 History Ascorbic Acid [Vitamin C] 1,000 mg PO DAILY 09/07/20 04/26/21 History Enzalutamide [Xtandi] 160 mg PO DAILY@1400 04/22/21 04/26/21 History Ferrous Sulfate [Iron (65 MG 325 mg PO DAILY 04/22/21 04/26/21 History Elemental)] Losartan [Cozaar] 50 mg PO DAILY 04/22/21 04/26/21 History Multivitamins, Thera [Multivitamin 1 tab PO DAILY 04/22/21 04/26/21 History (formulary)] Mupirocin 2% Oint [Bactroban 2% 1 applic TOPICAL BID PRN 04/22/21 04/26/21 History Oint] Triamcinolone 0.1% Cream [Kenalog 1 applic TOPICAL BID PRN 04/22/21 04/26/21 History 0.1% Cream] metFORMIN HCL [Glucophage] 1,000 mg PO HS 04/22/21 04/26/21 History glipiZIDE [Glucotrol] 5 mg PO DAILY #0 04/25/21 04/26/21 Rx Allergies Allergy/AdvReac Type Severity Reaction Status Date / Time adhesive tape AdvReac skin tear Verified 04/26/21 07:46 Physical Exam Vitals: Vital Signs Temp Pulse Resp BP Pulse Ox 04/29/21 20:20 97.5 F L 89 18 135/60 95 04/29/21 11:24 98.4 F 83 18 116/66 96 04/29/21 10:52 85 04/29/21 07:02 97.3 F L 85 22 130/65 97 04/29/21 04:17 97.5 F L 101 H 16 148/79 97 04/28/21 20:35 97.6 F 73 20 147/67 93 L Intake and Output 09/03/1204/29/21 04/29/21 06:59 14:59 22:59 Output Total 1800 1750 450 Balance -1800 -1750 -450 Output: Urine 1800 1750 450 Other: Voiding Method Indwelling Catheter - Constitutional General appearance: average body habitus, cooperative, no acute distress - EENT Eyes: anicteric sclerae, EOMI ENT: hearing grossly normal, normal oropharynx - Neck Neck: no lymphadenopathy - Respiratory With palpation of the left chest wall no deformity is found, no pain Respiratory: bilateral: CTA - Cardiovascular Rhythm: regular Heart sounds: normal: S1, S2 Abnormal Heart Sounds: no systolic murmur, no diastolic murmur, no rub, no S3 Gallop, no S4 Gallop, no click, no other leg Peripheral Edema: bilateral: None - Gastrointestinal General gastrointestinal: no absent bowel sounds, no decreased bowel sounds, no distended, no hepatomegaly, no hyperactive bowel sounds, normal bowel sounds, no organomegaly, no rigid, no scaphoid, soft, no splenomegaly, no tenderness, no umbilical hernia, no ventral hernia - Integumentary Integumentary: pale - Neurologic Neurologic: CNII-XII intact - Musculoskeletal Musculoskeletal: generalized weakness, strength equal bilaterally - Psychiatric Psychiatric: A&O x's 3, appropriate affect, intact judgment & insight Results CBC & Chem 7: 04/29/21 06:20 04/30/21 07:00 Labs: Abnormal Lab Results - Last 24 Hours (Table) 04/28/21 04/29/21 04/29/21 Range/Units 21:23 06:20 06:20 WBC 12.1 H (3.8-10.6) k/uL RBC 2.53 L (4.30-5.90) m/uL Hgb 8.8 L (13.0-17.5) gm/dL Hct 26.8 L (39.0-53.0) % MCV 106.2 H (80.0-100.0) fL RDW 18.5 H (11.5-15.5) % Neutrophils # 10.1 H (1.3-7.7) k/uL Lymphocytes # 0.6 L (1.0-4.8) k/uL Macrocytosis Marked A Sodium 134 L (135-145) mmol/L Carbon Dioxide 20.3 L (21.6-31.8) mmol/L BUN 37.0 H (9.0-27.0) mg/dL Creatinine 1.8 H (0.6-1.5) mg/dL Est GFR (CKD-EPI)AfAm 38.9 L (60.0-200.0) Est GFR (CKD-EPI)NonAf 33.6 L (60.0-200.0) BUN/Creatinine Ratio 20.56 H (12.00-20.00) Ratio Glucose 137 H (70-110) mg/dL POC Glucose (mg/dL) 153 H (75-99) mg/dL Calcium 8.3 L (8.7-10.3) mg/dL 04/29/21 04/29/21 04/29/21 Range/Units 07:08 12:01 16:56 WBC (3.8-10.6) k/uL RBC (4.30-5.90) m/uL Hgb (13.0-17.5) gm/dL Hct (39.0-53.0) % MCV (80.0-100.0) fL RDW (11.5-15.5) % Neutrophils # (1.3-7.7) k/uL Lymphocytes # (1.0-4.8) k/uL Macrocytosis Sodium (135-145) mmol/L Carbon Dioxide (21.6-31.8) mmol/L BUN (9.0-27.0) mg/dL Creatinine (0.6-1.5) mg/dL Est GFR (CKD-EPI)AfAm (60.0-200.0) Est GFR (CKD-EPI)NonAf (60.0-200.0) BUN/Creatinine Ratio (12.00-20.00) Ratio Glucose (70-110) mg/dL POC Glucose (mg/dL) 187 H 120 H 230 H (75-99) mg/dL Calcium (8.7-10.3) mg/dL 04/29/21 Range/Units 20:03 WBC (3.8-10.6) k/uL RBC (4.30-5.90) m/uL Hgb (13.0-17.5) gm/dL Hct (39.0-53.0) % MCV (80.0-100.0) fL RDW (11.5-15.5) % Neutrophils # (1.3-7.7) k/uL Lymphocytes # (1.0-4.8) k/uL Macrocytosis Sodium (135-145) mmol/L Carbon Dioxide (21.6-31.8) mmol/L BUN (9.0-27.0) mg/dL Creatinine (0.6-1.5) mg/dL Est GFR (CKD-EPI)AfAm (60.0-200.0) Est GFR (CKD-EPI)NonAf (60.0-200.0) BUN/Creatinine Ratio (12.00-20.00) Ratio Glucose (70-110) mg/dL POC Glucose (mg/dL) 160 H (75-99) mg/dL Calcium (8.7-10.3) mg/dL Assessment and Plan Plan: CT scan - chest: report reviewed Assessment and Plan (1) Hematuria Narrative/Plan: Managed by Urology Current Visit: Yes Status: Acute Priority: High Code(s): R31.9 - HEMATURIA, UNSPECIFIED SNOMED Code(s): 84778561 (2) Prostate cancer Narrative/Plan: Managed by Urology. Patient is on treatment Current Visit: Yes Status: Chronic Priority: High Code(s): C61 - MALIGNANT NEOPLASM OF PROSTATE SNOMED Code(s): 441240476 Plan: Soft tissue rib lesion: Right eith rib Positive for metastatic prostate cancer - Order sent to Our office for further testing NGS, not likely candidate for chemotherapy - Radiation oncology consulted regarding palliative radiation to rib.
[2021-04-30 19:48] LABS: Glucose,Whole Blood 206 mg/dL (75-99)
[2021-04-30] MEDS: ZOLPIDEM 5 MG TAB PO SCH (20:03)
[2021-04-30] MEDS: GABAPENTIN 300 MG CAP PO SCH (20:03)
[2021-04-30] MEDS ORDERED: SODIUM POLYSTYRENE SULFONATE 15 GM/60 ML BOTTLE PO STA (21:09)
--- NOTE | 2021-04-30 21:11 | P.PN ---
Progress Note - Text Progress Note Date: 04/30/21 Chief Complaint: Hematuria History of presenting complaint: This is a pleasant 86-year-old patient with follows with Dr. Floyd Anne. Chronic stable medical conditions include diabetes, hypertension, hyperlipidemia, osteoarthritis, gout. Patient was first diagnosed with prostate cancer about 8-10 years ago. And radiation seeds. Planted by Dr Degroot Patient did well. Patient would have intermittent bleeding every 3-4 months and about a year ago Dr. Overton from urology did scrape the bladder. Patient was admitted to the hospital from April 22 through April 25: With significant hematuria. Continuous bladder irrigation was carried out. Hematuria stopped. Patient seen by Dr. goddard. 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 Patient yet again as presented with hematuria. Continuous bladder irrigation has been started. April 28: Cystoscopy was done and prostate cancer has infiltrated into the bladder. Some scraping was carried out 04/29/2021: Having bladder irrigation. Some improvement. Hematuria still present. Tired. Being followed by urology. Oncology consulted. Care was discussed with the patient and . 04/30/2021: Urine has been clearing up. Continuous bladder irrigation is being scheduled back. Patient was seen by oncology. Not for systemic chemotherapy. They're considering palliative radiation. Patient does not have any pain. Oral intake about 50% Review of systems: Was done for constitutional, cardiovascular, GI, pulmonary. relevant finding as above Active Medications Acetaminophen (Acetaminophen Tab 325 Mg Tab) 650 mg PO Q4HR PRN PRN Reason: Fever and/ or Pain Last Admin: 04/29/21 20:21 Dose: 650 mg Documented by: Allopurinol (Allopurinol 100 Mg Tab) 100 mg PO BID [facility] Last Admin: 04/30/21 20:03 Dose: 100 mg Documented by: Amlodipine Besylate (Amlodipine 5 Mg Tab) 5 mg PO DAILY [facility] Last Admin: 04/30/21 08:35 Dose: 5 mg Documented by: Ascorbic Acid (Ascorbic Acid 500 Mg Tab) 1,000 mg PO DAILY [facility] Last Admin: 04/30/21 08:35 Dose: 1,000 mg Documented by: Ergocalciferol (Ergocalciferol 1,250 Mcg (50,000 Iu) Capsule) 1,250 mcg PO Q14D [facility] Famotidine (Famotidine 20 Mg Tab) 20 mg PO DAILY [facility] Last Admin: 04/30/21 08:35 Dose: 20 mg Documented by: Ferrous Sulfate (Ferrous Sulfate 325 Mg Tab) 325 mg PO DAILY [facility] Last Admin: 04/30/21 08:35 Dose: 325 mg Documented by: Gabapentin (Gabapentin 300 Mg Cap) 900 mg PO HS [facility] Last Admin: 04/30/21 20:03 Dose: 900 mg Documented by: Glipizide (Glipizide 5 Mg Tab) 5 mg PO DAILY [facility] Last Admin: 04/30/21 08:35 Dose: 5 mg Documented by: Sodium Chloride (Saline 0.9%) 1,000 mls @ 100 mls/hr IV .Q10H [facility] Last Admin: 04/30/21 15:06 Dose: 100 mls/hr Documented by: Insulin Aspart (Insulin Aspart (Novolog) 100 Unit/Ml Vial) 0 unit SQ ACHS [facility]; Protocol Last Admin: 04/30/21 20:03 Dose: 3 unit Documented by: Losartan Potassium (Losartan 50 Mg Tab) 50 mg PO DAILY [facility] Last Admin: 04/30/21 08:35 Dose: 50 mg Documented by: Multivitamins (Multivitamins, Thera 1 Each Tab) 1 each PO DAILY [facility] Last Admin: 04/30/21 08:35 Dose: 1 each Documented by: Patient's Own Enzalutamide [Xtandi ] 40 Mg Tablet 160 mg PO DAILY@1400 [facility] Last Admin: 04/30/21 15:04 Dose: 160 mg Documented by: Sodium Chloride (Sodium Chloride 0.9% Irrig 3,000 Ml Bag) 3,000 ml IRRIGATION CONTINUOUS [facility] Last Admin: 04/28/21 22:06 Dose: 3,000 ml Documented by: Tamsulosin HCl (Tamsulosin 0.4 Mg Cap.Er.24h) 0.4 mg PO DAILY [facility] Last Admin: 04/30/21 08:35 Dose: 0.4 mg Documented by: Zolpidem Tartrate (Zolpidem 5 Mg Tab) 5 mg PO HS [facility] Last Admin: 04/30/21 20:03 Dose: 5 mg Documented by: Past medical history to include: Diabetes mellitus, hypertension, hyperlipidemia, osteoarthritis, prostate cancer, stroke and the right eye, gout Social history: . No history of smoking or alcohol. Retired Family history: Of diabetes, heart problems Physical examination: VITAL SIGNS: 99.2, 58, 18, 118/54, 94% room air GENERAL: laying in bed, awake, comfortable EYES: Pupils equal. Conjunctiva pale. NECK: JVD not raised; masses not palpable. HEART: First and second heart sounds are normal; no edema. LUNGS: Respiratory rate normal; clear to auscultation. ABDOMEN: Soft, nontender, liver spleen not palpable, no masses palpable. Haq catheter -less bloody urine PSYCH: Alert and oriented x3; mood and affect normal. MUSCULAR skeletal: Evidence of OA multiple joints INVESTIGATIONS, reviewed in the clinical context: 04/30/2021: Potassium 5.4 BUN 47 creatinine 2.19 04/29/2021: White count 12.1 hemoglobin 8.8 platelets 409 potassium 5.5 BUN 37 creatinine 1.8 Previous testing Rib biopsy results: Adenocarcinoma Computed tomography scan of the chest with contrast: Left pleural effusion. Left lower lobe infiltrate and atelectasis. Rounded 6.5 cm mass involving the left lateral drip with rib destruction. Similar smaller mass lesion involving the left fifth rib injury and 3 cm. With a fracture. 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 Calcified gallstones. Bilateral hydronephrosis and hydroureter. Assessment and plan: -Acute on chronic recurrent hematuria in a patient with known history of prostate cancer. Patient had radiation seeds placed in a 10 years ago. Also had bladder scraping done about a year ago. Biopsy has shown adenocarcinoma. Now presenting with an acute severe episode. Continues bladder irrigation. April 28: TURP was done by Dr. Chapman with some scraping of the bladder tumor. -Acute blood loss anemia from hematuria: Slow to respond . Hemoglobin 8.8 Follow H&H -Acute kidney injury, obstructive uropathy. Creatinine is bumped up from 0.8- 1.8: Diagnosis DC Cozaar. IV fluids -Bilateral hydronephrosis and hydroureter likely chronic from prostate cancer Follow with urology -Fracture of the left fifth and eighth rib with soft tissue mass, with biopsy positive for adenocarcinoma, metastatic Follow-up with oncology -Diabetes mellitus type 2 on oral hypoglycemic DC metformin. Glucotrol 5 mg daily -Peripheral neuropathy Neurontin 900 mg daily at bedtime -Essential hypertension Stop Cozaar because the renal function. -Hyperkalemia from renal failure and Cozaar Cozaar discontinued. Kayexalate -Chronic insomnia from medical conditions Ambien 5mg daily at bedtime Changed to renal diet. Add sodium bicarbonate. We'll discuss if any benefit from radiation treatment given the patient has no symptoms. Follow labs. Kayexalate 30 g.
--- NOTE | 2021-04-30 21:46 | P.PN ---
Progress Note - Text Progress Note Date: 04/30/21 Urine blood tinged of CBI, hgb remain stable. Abdomen is soft non-tender. Creat 2.19, from 1.8. his baseline is 0.8. He has hx of chronic bilateral hydronephrosis, the ureteral orfices could not be visulaized during his TURP. -CBI can remain off, keep mcfarland in place -recommend to continue IVF and bladder decompression with mcfarland catheter for his KARINA, repeat BMP in am. If no improvement in creat with that then he might require nephrostomy tube placement.
[2021-04-30] MEDS: SODIUM BICARBONATE TAB 650 MG TAB PO SCH (22:29)
[2021-05-01] MEDS: SODIUM CHLORIDE 0.9% 1,000 ML IV SCH ×2 (01:59→14:58)
[2021-05-01 06:10] LABS: Anisocytosis Slight; Basophils % (A) 0 %; Eosinophils # (A) 0.1 k/uL (0-0.7); Eosinophils % (A) 1 %; HCT 22.7 % (39.0-53.0); HGB 7.7 gm/dL (13.0-17.5); Lymphocytes # (A) 0.7 k/uL (1.0-4.8); Lymphocytes % (A) 6 %; MCH 35.7 pg (25.0-35.0); MCHC 33.7 g/dL (31.0-37.0); MCV 105.9 fL (80.0-100.0); Macrocytosis Moderate; Mean Platelet Volume 8.5; Monocytes # (A) 1.3 k/uL (0-1.0); Monocytes % (A) 11 %; Neutrophils # (A) 9.2 k/uL (1.3-7.7); Neutrophils % (A) 80 %; Platelet Count 315 k/uL (150-450); RBC 2.14 m/uL (4.30-5.90); RDW 17.6 % (11.5-15.5); WBC 11.5 k/uL (3.8-10.6)
[2021-05-01 06:19] LABS: African American GFR (CKD) 46 (>60 ml/min/1.73 sqM); Anion Gap 6 mmol/L; Blood Urea Nitrogen 45 mg/dL (9-20); Calcium 8.4 mg/dL (8.4-10.2); Carbon Dioxide 22 mmol/L (22-30); Chloride 109 mmol/L (98-107); Glucose 71 mg/dL (74-99); Non-African American GFR(CKD) 40 (>60 ml/min/1.73 sqM); Potassium 4.4 mmol/L (3.5-5.1); Sodium 137 mmol/L (137-145)
[2021-05-01 07:19] LABS: Glucose,Whole Blood 97 mg/dL (75-99)
--- NOTE | 2021-05-01 08:01 | P.PN ---
Subjective Progress Note Date: 05/01/21 86 yo male with known metastatic prostate ca on lhrh and xtandi. HAs bilateral hydro and prostate bleeding. He underwent a surgical procedure to control the bleeding by Dr John. The patients ureteral orifices were obscured by the prostate cancer. His cr has elevated to 2.1[0.8] WHethere he will need n ephrostomy tubes will be decided based on kidney function progression be it up or down. Objective - Vital Signs Vital signs: Vital Signs Temp 99.0 F 05/01/21 04:37 Pulse 93 05/01/21 04:37 Resp 18 05/01/21 04:37 BP 113/68 05/01/21 04:37 Pulse Ox 93 L 05/01/21 04:37 Intake & Output 04/30/21 05/01/21 05/01/21 18:59 06:59 18:59 Intake Total 1200 Output Total 700 500 Balance 500 -500 Intake: Intake, IV Titration 1200 Amount Sodium Chloride 0.9% 1, 1200 000 ml @ 100 mls/hr IV . Q10H [facility] Rx#:[id number] Output: Urine 700 500 Other: Voiding Method Indwelling Catheter Indwelling Catheter - Labs CBC & Chem 7: 05/01/21 05:45 05/01/21 05:45 Labs: Abnormal Lab Results - Last 24 Hours (Table) 04/30/21 04/30/21 04/30/21 Range/Units 12:02 16:52 19:47 WBC (3.8-10.6) k/uL RBC (4.30-5.90) m/uL Hgb (13.0-17.5) gm/dL Hct (39.0-53.0) % MCV (80.0-100.0) fL MCH (25.0-35.0) pg RDW (11.5-15.5) % Neutrophils # (1.3-7.7) k/uL Lymphocytes # (1.0-4.8) k/uL Monocytes # (0-1.0) k/uL Chloride (98-107) mmol/L BUN (9-20) mg/dL Creatinine (0.66-1.25) mg/dL Glucose (74-99) mg/dL POC Glucose (mg/dL) 380 H 300 H 206 H (75-99) mg/dL 05/01/21 05/01/21 Range/Units 05:45 05:45 WBC 11.5 H (3.8-10.6) k/uL RBC 2.14 L (4.30-5.90) m/uL Hgb 7.7 L (13.0-17.5) gm/dL Hct 22.7 L (39.0-53.0) % MCV 105.9 H (80.0-100.0) fL MCH 35.7 H (25.0-35.0) pg RDW 17.6 H (11.5-15.5) % Neutrophils # 9.2 H (1.3-7.7) k/uL Lymphocytes # 0.7 L (1.0-4.8) k/uL Monocytes # 1.3 H (0-1.0) k/uL Chloride 109 H (98-107) mmol/L BUN 45 H (9-20) mg/dL Creatinine 1.57 H (0.66-1.25) mg/dL Glucose 71 L (74-99) mg/dL POC Glucose (mg/dL) (75-99) mg/dL
[2021-05-01] MEDS: SODIUM BICARBONATE TAB 650 MG TAB PO SCH ×3 (08:30→21:11)
[2021-05-01] MEDS: glipiZIDE 5 MG TAB PO SCH ×2 (08:30→21:14)
[2021-05-01] MEDS: MULTIVITAMINS, THERA 1 EACH TAB PO SCH (08:30)
[2021-05-01] MEDS: TAMSULOSIN 0.4 MG CAP.ER.24H PO SCH (08:30)
[2021-05-01] MEDS: FERROUS SULFATE 325 MG TAB PO SCH (08:30)
[2021-05-01] MEDS: amLODIPine 5 MG TAB PO SCH (08:30)
[2021-05-01] MEDS: FAMOTIDINE 20 MG TAB PO SCH (08:30)
[2021-05-01] MEDS: ASCORBIC ACID 500 MG TAB PO SCH (08:31)
[2021-05-01] MEDS: allopurinoL 100 MG TAB PO SCH ×2 (08:31→21:11)
[2021-05-01] MEDS: INSULIN ASPART (NovoLOG) 100 UNIT/ML VIAL SQ SCH ×5 (08:31→21:14)
[2021-05-01] MEDS: SODIUM CHLORIDE 0.9% IRRIG 3,000 ML BAG IRRIGATION SCH (08:33)
[2021-05-01] MEDS: ACETAMINOPHEN TAB 325 MG TAB PO PRN (11:57)
[2021-05-01 13:39] LABS: Glucose,Whole Blood 332 mg/dL (75-99)
--- NOTE | 2021-05-01 13:40 | P.CONS ---
History of Present Illness - Reason for Consult Consult date: 05/01/21 - Chief Complaint pain and weakness - History of Present Illness Mr Irwin is an 86 years old gentleman with a history of prostate cancer, the patient was admitted to the hospital for urinary tract infection with obstructive bilateral hydronephrosis due to the mass of the prostate, the patie nt had intermittent hematuria. CT of the chest abdomen and pelvis revealed 6.5 cm mass involving the left lateral ribs with rib destruction, the mass is a soft tissue involving the left lateral eighth rib, there is a smaller mass involving the left fifth rib measuring 3 cm with the rib fracture. The patient underwent fine-needle biopsy of the mass from of the left rib , pathology came back metastatic adenocarcinoma from his primary prostate cancer. The patient complaining of pain in the left side of his posterior chest wall, this pain is manageable with medication at this time . Review of Systems Constitutional: Reports as per HPI Ears, nose, mouth and throat: Reports as per HPI Cardiovascular: Reports as per HPI Respiratory: Reports as per HPI Gastrointestinal: Reports as per HPI Genitourinary: Reports as per HPI Musculoskeletal: Reports as per HPI Integumentary: Reports as per HPI Neurological: Reports as per HPI Psychiatric: Reports as per HPI Endocrine: Reports as per HPI Hematologic/Lymphatic: Reports as per HPI Allergic/Immunologic: Reports as per HPI Past Medical History Past Medical History: Cancer, Diabetes Mellitus, Hyperlipidemia, Hypertension, Osteoarthritis (OA), Prostate Disorder Additional Past Medical History / Comment(s): prostate cancer, STROKE BEHIND RT EYE,GOUT,DDD,RECENTLY TX FOR UTI History of Any Multi-Drug Resistant Organisms: None Reported Past Surgical History: Joint Replacement, Orthopedic Surgery Additional Past Surgical History / Comment(s): 02-05-16 TOTAL LT KNEE REPLACMENT, RT KNEE REPLACMENT, BRIELLE CATARACTS, PROSTE-SEED IMPLANTS,COLONOSCOPY/POLYP ECTOMY(BENIGN), PRECANCEROUS SKIN LESIONS FROZEN OFF. Past Anesthesia/Blood Transfusion Reactions: Motion Sickness Past Psychological History: No Psychological Hx Reported Smoking Status: Never smoker Past Alcohol Use History: None Reported Past Drug Use History: None Reported - Past Family History Mother Family Medical History: Diabetes Mellitus Additional Family Medical History / Comment(s): HEART PROBLEMS Father Family Medical History: Diabetes Mellitus Medications and Allergies Home Medications Medication Instructions Recorded Confirmed Type Ergocalciferol [Vitamin D2 1,250 mcg PO Q14D 01/29/16 04/26/21 History (DRISDOL)] Tamsulosin [Flomax] 0.4 mg PO DAILY 01/29/16 04/26/21 History amLODIPine [Norvasc] 5 mg PO DAILY 09/19/17 04/26/21 History Allopurinol [Zyloprim] 100 mg PO BID 05/04/20 04/26/21 History Famotidine [Pepcid] 20 mg PO BID 05/04/20 04/26/21 History Gabapentin 900 mg PO HS 05/04/20 04/26/21 History Ascorbic Acid [Vitamin C] 1,000 mg PO DAILY 09/07/20 04/26/21 History Enzalutamide [Xtandi] 160 mg PO DAILY@1400 04/22/21 04/26/21 History Ferrous Sulfate [Iron (65 MG 325 mg PO DAILY 04/22/21 04/26/21 History Elemental)] Multivitamins, Thera [Multivitamin 1 tab PO DAILY 04/22/21 04/26/21 History (formulary)] Mupirocin 2% Oint [Bactroban 2% 1 applic TOPICAL BID PRN 04/22/21 04/26/21 History Oint] Triamcinolone 0.1% Cream [Kenalog 1 applic TOPICAL BID PRN 04/22/21 04/26/21 History 0.1% Cream] Sodium Bicarbonate Tab 650 mg PO TID #90 tab 05/01/21 Rx Zolpidem [Ambien] 5 mg PO HS #0 05/01/21 04/26/21 Rx glipiZIDE [Glucotrol] 5 mg PO BID #0 05/01/21 04/26/21 Rx Allergies Allergy/AdvReac Type Severity Reaction Status Date / Time adhesive tape AdvReac skin tear Verified 04/26/21 07:46 Physical Exam Vitals: Vital Signs Temp Pulse Resp BP Pulse Ox 05/01/21 13:00 114 H 125/78 05/01/21 04:37 99.0 F 93 18 113/68 93 L 04/30/21 20:15 99.2 F 58 L 18 118/54 94 L 04/30/21 19:50 18 04/30/21 18:01 122 H 18 136/79 94 L Intake and Output 04/30/21 05/01/21 05/01/21 22:59 06:59 14:59 Intake Total 1200 Output Total 700 500 60 Balance 500 -500 -60 Intake: Intake, IV Titration 1200 Amount Sodium Chloride 0.9% 1, 1200 000 ml @ 100 mls/hr IV . Q10H [facility] Rx#:[id number] Output: Urine 700 500 60 3-way Urethral 60 Other: Voiding Method Indwelling Catheter Indwelling Catheter - Constitutional General appearance: no acute distress - EENT Eyes: PERRLA Ears: bilateral: normal - Neck Neck: normal ROM - Respiratory Respiratory: bilateral: diminished - Cardiovascular Rhythm: regular - Gastrointestinal General gastrointestinal: normal bowel sounds - Integumentary Integumentary: normal turgor - Neurologic Neurologic: CNII-XII intact - Musculoskeletal Musculoskeletal: generalized weakness - Psychiatric Psychiatric: A&O x's 3 Results CBC & Chem 7: 05/01/21 05:45 05/01/21 05:45 Labs: Abnormal Lab Results - Last 24 Hours (Table) 04/30/21 04/30/21 05/01/21 Range/Units 16:52 19:47 05:45 WBC 11.5 H (3.8-10.6) k/uL RBC 2.14 L (4.30-5.90) m/uL Hgb 7.7 L (13.0-17.5) gm/dL Hct 22.7 L (39.0-53.0) % MCV 105.9 H (80.0-100.0) fL MCH 35.7 H (25.0-35.0) pg RDW 17.6 H (11.5-15.5) % Neutrophils # 9.2 H (1.3-7.7) k/uL Lymphocytes # 0.7 L (1.0-4.8) k/uL Monocytes # 1.3 H (0-1.0) k/uL Chloride (98-107) mmol/L BUN (9-20) mg/dL Creatinine (0.66-1.25) mg/dL Glucose (74-99) mg/dL POC Glucose (mg/dL) 300 H 206 H (75-99) mg/dL 05/01/21 Range/Units 05:45 WBC (3.8-10.6) k/uL RBC (4.30-5.90) m/uL Hgb (13.0-17.5) gm/dL Hct (39.0-53.0) % MCV (80.0-100.0) fL MCH (25.0-35.0) pg RDW (11.5-15.5) % Neutrophils # (1.3-7.7) k/uL Lymphocytes # (1.0-4.8) k/uL Monocytes # (0-1.0) k/uL Chloride 109 H (98-107) mmol/L BUN 45 H (9-20) mg/dL Creatinine 1.57 H (0.66-1.25) mg/dL Glucose 71 L (74-99) mg/dL POC Glucose (mg/dL) (75-99) mg/dL Assessment and Plan Assessment: Metastatic prostate cancer presented with 2 soft tissue masses involving the left lateral eighth and fifth rib with rib destruction causing pain. (1) Bone metastasis Current Visit: Yes Status: Acute Code(s): C79.51 - SECONDARY MALIGNANT NEOPLASM OF BONE SNOMED Code(s): 26270728 (2) Anemia Current Visit: No Status: Acute Code(s): D64.9 - ANEMIA, UNSPECIFIED SNOMED Code(s): 264629617 (3) Hematuria Current Visit: No Status: Acute Priority: High Code(s): R31.9 - HEMATURIA, UNSPECIFIED SNOMED Code(s): 54277164 (4) Prostate cancer Current Visit: No Status: Chronic Priority: High Code(s): C61 - MALIGNANT NEOPLASM OF PROSTATE SNOMED Code(s): 419865829 Plan: Images reviewed and discussed with the patient , he will be a candidate for palliative external beam radiation therapy to the left posterior lateral ribs , I talked to the patient about the rational ,the technique, and the potential acute and late side effects, the patient agreed with the treatment, we are planning to do simulation today to start the treatments tomorrow for 10 t reatments. Time with Patient: Greater than 30
[2021-05-01 17:40] LABS: Glucose,Whole Blood 236 mg/dL (75-99)
[2021-05-01] MEDS: METOPROLOL TARTRATE 50 MG TAB PO SCH (19:29)
[2021-05-01 20:23] LABS: Glucose,Whole Blood 328 mg/dL (75-99)
[2021-05-01] MEDS: ZOLPIDEM 5 MG TAB PO SCH (21:11)
[2021-05-01] MEDS: GABAPENTIN 300 MG CAP PO SCH (21:11)
--- NOTE | 2021-05-01 23:53 | P.PN ---
Progress Note - Text Progress Note Date: 05/01/21 Chief Complaint: Hematuria History of presenting complaint: This is a pleasant 86-year-old patient with follows with Dr. Floyd Anne. Chronic stable medical conditions include diabetes, hypertension, hyperlipidemia, osteoarthritis, gout. Patient was first diagnosed with prostate cancer about 8-10 years ago. And radiation seeds. Planted by Dr Degroot Patient did well. Patient would have intermittent bleeding every 3-4 months and about a year ago Dr. Overton from urology did scrape the bladder. Patient was admitted to the hospital from April 22 through April 25: With significant hematuria. Continuous bladder irrigation was carried out. Hematuria stopped. Patient seen by Dr. goddard. 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 Patient yet again as presented with hematuria. Continuous bladder irrigation has been started. April 28: Cystoscopy was done and prostate cancer has infiltrated into the bladder. Some scraping was carried out 04/29/2021: Having bladder irrigation. Some improvement. Hematuria still present. Tired. Being followed by urology. Oncology consulted. Care was discussed with the patient and . 04/30/2021: Urine has been clearing up. Continuous bladder irrigation is being scheduled back. Patient was seen by oncology. Not for systemic chemotherapy. They're considering palliative radiation. Patient does not have any pain. Oral intake about 50% 05/01/2021: Urine still got some blood in the same. Couple of blood clots were removed by the nurse only this morning. No chest pain. I spoke at length with Dr. pickens from urology. Possibility of diverting urostomy/nephrostomy was dis cussed. He will address this with the family. Patient was seen by radiation oncology and Dr. Catherine. Decision has been made to proceed with radiation treatment. Because of patient's weakness needing assistance patient will go to the rehab with first treatment done tomorrow. Patient's was informed. Discussed with Dr. Catherine case packer Dr. pickens. Review of systems: Was done for constitutional, cardiovascular, GI, pulmonary. relevant finding as above Active Medications Acetaminophen (Acetaminophen Tab 325 Mg Tab) 650 mg PO Q4HR PRN PRN Reason: Fever and/ or Pain Last Admin: 05/01/21 11:57 Dose: 650 mg Documented by: Allopurinol (Allopurinol 100 Mg Tab) 100 mg PO BID [facility] Last Admin: 05/01/21 21:11 Dose: 100 mg Documented by: Amlodipine Besylate (Amlodipine 5 Mg Tab) 5 mg PO DAILY [facility] Last Admin: 05/01/21 08:30 Dose: 5 mg Documented by: Ascorbic Acid (Ascorbic Acid 500 Mg Tab) 1,000 mg PO DAILY [facility] Last Admin: 05/01/21 08:31 Dose: 1,000 mg Documented by: Ergocalciferol (Ergocalciferol 1,250 Mcg (50,000 Iu) Capsule) 1,250 mcg PO Q14D [facility] Famotidine (Famotidine 20 Mg Tab) 20 mg PO DAILY [facility] Last Admin: 05/01/21 08:30 Dose: 20 mg Documented by: Ferrous Sulfate (Ferrous Sulfate 325 Mg Tab) 325 mg PO DAILY [facility] Last Admin: 05/01/21 08:30 Dose: 325 mg Documented by: Gabapentin (Gabapentin 300 Mg Cap) 900 mg PO HS [facility] Last Admin: 05/01/21 21:11 Dose: 900 mg Documented by: Glipizide (Glipizide 5 Mg Tab) 5 mg PO BID [facility] Last Admin: 05/01/21 21:14 Dose: 5 mg Documented by: Insulin Aspart (Insulin Aspart (Novolog) 100 Unit/Ml Vial) 0 unit SQ [facility]; Protocol Last Admin: 05/01/21 21:14 Dose: 6 unit Documented by: Metoprolol Tartrate (Metoprolol Tartrate 50 Mg Tab) 50 mg PO TID [facility] Last Admin: 05/01/21 19:29 Dose: 50 mg Documented by: Multivitamins (Multivitamins, Thera 1 Each Tab) 1 each PO DAILY [facility] Last Admin: 05/01/21 08:30 Dose: 1 each Documented by: Patient's Own Enzalutamide [Xtandi ] 40 Mg Tablet 160 mg PO DAILY@1400 [facility] Last Admin: 05/01/21 14:32 Dose: 160 mg Documented by: Sodium Bicarbonate (Sodium Bicarbonate Tab 650 Mg Tab) 650 mg PO TID [facility] Last Admin: 05/01/21 21:11 Dose: 650 mg Documented by: Sodium Chloride (Sodium Chloride 0.9% Irrig 3,000 Ml Bag) 3,000 ml IRRIGATION CONTINUOUS [facility] Last Admin: 05/01/21 08:33 Dose: Not Given Documented by: Tamsulosin HCl (Tamsulosin 0.4 Mg Cap.Er.24h) 0.4 mg PO DAILY [facility] Last Admin: 05/01/21 08:30 Dose: 0.4 mg Documented by: Zolpidem Tartrate (Zolpidem 5 Mg Tab) 5 mg PO HS [facility] Last Admin: 05/01/21 21:11 Dose: 5 mg Documented by: Past medical history to include: Diabetes mellitus, hypertension, hyperlipidemia, osteoarthritis, prostate cancer, stroke and the right eye, gout Social history: . No history of smoking or alcohol. Retired Family history: Of diabetes, heart problems Physical examination: VITAL SIGNS: 99, 93, 18, 130/68, 93% room air GENERAL: laying in bed, awake, comfortable EYES: Pupils equal. Conjunctiva pale. NECK: JVD not raised; masses not palpable. HEART: First and second heart sounds are normal; no edema. LUNGS: Respiratory rate normal; clear to auscultation. ABDOMEN: Soft, nontender, liver spleen not palpable, no masses palpable. Haq catheter -less bloody urine PSYCH: Alert and oriented x3; mood and affect normal. MUSCULAR skeletal: Evidence of OA multiple joints INVESTIGATIONS, reviewed in the clinical context: 05/01/2051: White count 11.5 hemoglobin 7.7 platelets 315 potassium 4.4 BUN 45 crit 1.57 04/30/2021: Potassium 5.4 BUN 47 creatinine 2.19 04/29/2021: White count 12.1 hemoglobin 8.8 platelets 409 potassium 5.5 BUN 37 creatinine 1.8 Previous testing Rib biopsy results: Adenocarcinoma Computed tomography scan of the chest with contrast: Left pleural effusion. Left lower lobe infiltrate and atelectasis. Rounded 6.5 cm mass involving the left lateral drip with rib destruction. Similar smaller mass lesion involving the left fifth rib injury and 3 cm. With a fracture. 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 Calcified gallstones. Bilateral hydronephrosis and hydroureter. Assessment and plan: -Acute on chronic recurrent hematuria in a patient with known history of prostate cancer. Patient had radiation seeds placed in a 10 years ago. Also had bladder scraping done about a year ago. Biopsy has shown adenocarcinoma. Now presenting with an acute severe episode. Continues bladder irrigation. April 28: TURP was done by Dr. Chapman with some scraping of the bladder tumor. Patient to be discharged with a Haq. Possibility of nephrostomy/diverting urostomy down the road. -Acute blood loss anemia from hematuria: Slow to respond . Hemoglobin 7.7 Follow H&H -Acute kidney injury, obstructive uropathy. Creatinine is bumped up from 0.8- 1.8: DC Cozaar. IV fluids. Creatinine 1.57 -Bilateral hydronephrosis and hydroureter likely chronic from prostate cancer Follow with urology -Fracture of the left fifth and eighth rib with soft tissue mass, with biopsy positive for adenocarcinoma, metastatic For radiation treatment 10 days with radiation oncology. -Diabetes mellitus type 2 on oral hypoglycemic DC metformin. Glucotrol 5 mg daily -Peripheral neuropathy Neurontin 900 mg daily at bedtime -Essential hypertension Stop Cozaar because the renal function. -Hyperkalemia from renal failure and Cozaar: Bed to Cozaar discontinued. Kayexalate given -Chronic insomnia from medical conditions Ambien 5mg daily at bedtime Plan this patient to get radiation tomorrow morning. There go to the [facility]. Keep Haq catheter in. Discussions were made with oncology, Dr. pickens, case packer. Total time spent today about 50 minutes with over 25 minutes of discussion
[2021-05-02] MEDS: METOPROLOL TARTRATE 50 MG TAB PO SCH ×4 (00:15→20:56)
[2021-05-02 07:48] LABS: Glucose,Whole Blood 135 mg/dL (75-99)
[2021-05-02] MEDS: FAMOTIDINE 20 MG TAB PO SCH (08:53)
[2021-05-02] MEDS: MULTIVITAMINS, THERA 1 EACH TAB PO SCH (08:53)
[2021-05-02] MEDS: glipiZIDE 5 MG TAB PO SCH ×2 (08:53→20:55)
[2021-05-02] MEDS: amLODIPine 5 MG TAB PO SCH (08:53)
[2021-05-02] MEDS: FERROUS SULFATE 325 MG TAB PO SCH (08:53)
[2021-05-02] MEDS: TAMSULOSIN 0.4 MG CAP.ER.24H PO SCH (08:53)
[2021-05-02] MEDS: INSULIN ASPART (NovoLOG) 100 UNIT/ML VIAL SQ SCH ×4 (08:54→20:56)
[2021-05-02] MEDS: SODIUM BICARBONATE TAB 650 MG TAB PO SCH ×3 (08:54→20:56)
[2021-05-02] MEDS: SODIUM CHLORIDE 0.9% IRRIG 3,000 ML BAG IRRIGATION SCH (08:54)
[2021-05-02] MEDS: allopurinoL 100 MG TAB PO SCH ×2 (08:54→20:56)
[2021-05-02] MEDS: ASCORBIC ACID 500 MG TAB PO SCH (08:54)
[2021-05-02] MEDS ORDERED: ERGOCALCIFEROL 1,250 MCG (50,000 IU) CAPSULE PO SCH (09:00)
--- NOTE | 2021-05-02 10:43 | P.CRDCN ---
History of Present Illness Consult date: 05/02/21 History of present illness: HISTORY OF PRESENT ILLNESS: This is a 86-year-old male with a past medical history significant for prostate cancer cancer, hematuria, diabetes, peripheral neuropathy, and hypertension. 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 We have been asked to see the patient in consultation for uncontrolled atrial fibrillation. Patient examined at the bedside. Patient is admitted to the hospital secondary to hematuria due to his prostate cancer. Patient underwent cystoscopy, evacuation of clots, and transurethral resection of prostate on 04/28/2021. The patient is in atrial fibrillation this morning with a heart rate in the 120s. It is unclear if the patient has a history of atrial fibrillation. He denies chest pain or pressure. Denies shortness of breath. EKG on admission reveals SR with PACs. Repeat EKG pending. Laboratory data: WBC 11.5. Hemoglobin 7.7. Platelet count 315. Sodium 137. Potassium 4.4. BUN 45. Creatinine 1.57 Current home cardiac medications include amlodipine 5 mg daily REVIEW OF SYSTEMS: At the time of my exam: CONSTITUTIONAL: Denies fever or chills. HEENT: Denies blurred vision, vision changes, or eye pain. Denies hemoptysis CARDIOVASCULAR: Denies chest pain. Denies orthopnea. Denies PND. Denies palpitations RESPIRATORY: Denies shortness of breath. GASTROINTESTINAL: Denies abdominal pain. Denies nausea or vomiting. HEMATOLOGIC: Denies bleeding disorders. Reports hematuria. GENITOURINARY: Denies any blood in urine. SKIN: Denies pruitis. Denies rash. PHYSICAL EXAM: VITAL SIGNS: Reviewed. GENERAL: Well-developed in no acute distress. HEENT: Head is normocephalic. Pupils are equal, round. Sclerae anicteric. Mucous membranes of the mouth are moist. Neck supple. No JVD or thyromegaly LUNGS: Respirations even and unlabored. Lungs essentially clear to auscultation bilaterally. HEART: Tachycardic. Irregular rate and rhythm. S1 and S2 heard. ABDOMEN: Soft. Nondistended. Nontender. EXTREMITIES: Normal range of motion. No clubbing or cyanosis. Peripheral pulses intact. No lower extremity edema NEUROLOGIC: Awake and alert. Oriented x 3. ASSESSMENT: Hematuria, s/p cystoscopy, evacuation of clots, and transurethral resection of prostate on 04/28/2021 History of prostate cancer Atrial fibrillation with RVR versus sinus arrhythmia, appears to be new onset Diabetes Peripheral neuropathy Hypertension Acute blood loss anemia Acute kidney injury PLAN: Obtain 2-D echo to assess cardiac structure and function Check TSH Continue telemetry monitoring Decrease amlodipine to 2.5 mg daily Change metoprolol to 100 mg twice a day Anticoagulation is recommended for thromboembolic protection from a cardiac standpoint, however patient is currently anemic with hematuria. Will hold on anticoagulation at this time Further recommendations pending patient course Nurse practitioner note has been reviewed by physician. Signing provider agrees with the documented findings, assessment, and plan of care. Past Medical History Past Medical History: Cancer, Diabetes Mellitus, Hyperlipidemia, Hypertension, Osteoarthritis (OA), Prostate Disorder Additional Past Medical History / Comment(s): prostate cancer, STROKE BEHIND RT EYE,GOUT,DDD,RECENTLY TX FOR UTI History of Any Multi-Drug Resistant Organisms: None Reported Past Surgical History: Joint Replacement, Orthopedic Surgery Additional Past Surgical History / Comment(s): 02-05-16 TOTAL LT KNEE REPLACMENT, RT KNEE REPLACMENT, BRIELLE CATARACTS, PROSTE-SEED IMPLANTS,COLONOSCOPY/POLYPECTOMY(BENIGN), PRECANCEROUS SKIN LESIONS FROZEN OFF. Past Anesthesia/Blood Transfusion Reactions: Motion Sickness Past Psychological History: No Psychological Hx Reported Smoking Status: Never smoker Past Alcohol Use History: None Reported Past Drug Use History: None Reported - Past Family History Mother Family Medical History: Diabetes Mellitus Additional Family Medical History / Comment(s): HEART PROBLEMS Father Family Medical History: Diabetes Mellitus Medications and Allergies Home Medications Medication Instructions Recorded Confirmed Type Ergocalciferol [Vitamin D2 1,250 mcg PO Q14D 01/29/16 04/26/21 History (DRISDOL)] Tamsulosin [Flomax] 0.4 mg PO DAILY 01/29/16 04/26/21 History amLODIPine [Norvasc] 5 mg PO DAILY 09/19/17 04/26/21 History Allopurinol [Zyloprim] 100 mg PO BID 05/04/20 04/26/21 History Famotidine [Pepcid] 20 mg PO BID 05/04/20 04/26/21 History Gabapentin 900 mg PO HS 05/04/20 04/26/21 History Ascorbic Acid [Vitamin C] 1,000 mg PO DAILY 09/07/20 04/26/21 History Enzalutamide [Xtandi] 160 mg PO DAILY@1400 04/22/21 04/26/21 History Ferrous Sulfate [Iron (65 MG 325 mg PO DAILY 04/22/21 04/26/21 History Elemental)] Multivitamins, Thera [Multivitamin 1 tab PO DAILY 04/22/21 04/26/21 History (formulary)] Mupirocin 2% Oint [Bactroban 2% 1 applic TOPICAL BID PRN 04/22/21 04/26/21 History Oint] Triamcinolone 0.1% Cream [Kenalog 1 applic TOPICAL BID PRN 04/22/21 04/26/21 History 0.1% Cream] Sodium Bicarbonate Tab 650 mg PO TID #90 tab 05/01/21 Rx Zolpidem [Ambien] 5 mg PO HS #0 05/01/21 04/26/21 Rx glipiZIDE [Glucotrol] 5 mg PO BID #0 05/01/21 04/26/21 Rx Allergies Allergy/AdvReac Type Severity Reaction Status Date / Time adhesive tape AdvReac skin tear Verified 04/26/21 07:46 Physical Exam Vitals: Vital Signs Temp Pulse Resp BP Pulse Ox 05/02/21 05:00 99.5 F 92 16 122/72 93 L 05/01/21 21:15 95 05/01/21 20:04 97.9 F 125 H 19 136/78 05/01/21 19:55 95 19 05/01/21 18:38 150 H 18 147/74 94 L 05/01/21 13:00 114 H 125/78 Intake and Output 05/01/21 05/02/21 05/02/21 22:59 06:59 14:59 Output Total 1075 800 Balance -1075 -800 Output: Urine 1075 800 Other: Voiding Method Indwelling Catheter Indwelling Catheter Results 05/01/21 05:45 05/01/21 05:45 Current Medications Generic Name Dose Route Start Last Admin Trade Name Freq PRN Reason Stop Dose Admin Acetaminophen 650 mg 04/28/21 02:00 05/01/21 11:57 Acetaminophen Tab 325 Mg Tab PO 650 mg Q4HR PRN Administration Fever and/ or Pain Allopurinol 100 mg 04/26/21 21:00 05/02/21 08:54 Allopurinol 100 Mg Tab PO 100 mg BID [facility] Administration Amlodipine Besylate 2.5 mg 05/03/21 09:00 Amlodipine 2.5 Mg Tab PO DAILY [facility] Ascorbic Acid 1,000 mg 04/27/21 09:00 05/02/21 08:54 Ascorbic Acid 500 Mg Tab PO 1,000 mg DAILY [facility] Administration Ergocalciferol 1,250 mcg 05/02/21 09:00 05/02/21 08:53 Ergocalciferol 1,250 Mcg (50,000 Iu) Capsule PO 1,250 mcg Q14D [facility] Administration Famotidine 20 mg 04/30/21 09:00 05/02/21 08:53 Famotidine 20 Mg Tab PO 20 mg DAILY [facility] Administration Ferrous Sulfate 325 mg 04/26/21 09:00 05/02/21 08:53 Ferrous Sulfate 325 Mg Tab PO 325 mg DAILY [facility] Administration Gabapentin 900 mg 04/26/21 21:00 05/01/21 21:11 Gabapentin 300 Mg Cap PO 900 mg HS [facility] Administration Glipizide 5 mg 04/30/21 21:15 05/02/21 08:53 Glipizide 5 Mg Tab PO 5 mg BID [facility] Administration Insulin Aspart 0 unit 04/26/21 17:30 05/02/21 08:54 Insulin Aspart (Novolog) 100 Unit/Ml Vial SQ 1 unit ACHS [facility] Administration Protocol Metoprolol Tartrate 100 mg 05/02/21 09:15 Metoprolol Tartrate 50 Mg Tab PO BID [facility] Multivitamins 1 each 04/27/21 09:00 05/02/21 08:53 Multivitamins, Thera 1 Each Tab PO 1 each DAILY [facility] Administration Patient's Own 160 mg 04/27/21 14:00 05/01/21 14:32 Enzalutamide [Xtandi PO 160 mg ] 40 Mg Tablet DAILY@1400 [facility] Administration Sodium Bicarbonate 650 mg 04/30/21 22:00 05/02/21 08:54 Sodium Bicarbonate Tab 650 Mg Tab PO 650 mg TID [facility] Administration Sodium Chloride 3,000 ml 04/26/21 08:15 05/02/21 08:54 Sodium Chloride 0.9% Irrig 3,000 Ml Bag IRRIGATION Not Given CONTINUOUS [facility] Tamsulosin HCl 0.4 mg 04/26/21 09:00 05/02/21 08:53 Tamsulosin 0.4 Mg Cap.Er.24h PO 0.4 mg DAILY [facility] Administration Zolpidem Tartrate 5 mg 04/30/21 21:00 05/01/21 21:11 Zolpidem 5 Mg Tab PO 5 mg HS [facility] Administration Intake and Output 05/01/21 05/02/21 05/02/21 22:59 06:59 14:59 Output Total 1075 800 Balance -1075 -800 Output: Urine 1075 800 Other: Voiding Method Indwelling Catheter Indwelling Catheter 05/01/21 05:45 05/01/21 05:45
[2021-05-02 12:23] LABS: Glucose,Whole Blood 349 mg/dL (75-99)
[2021-05-02 13:17] VITALS: BMI 22.4
[2021-05-02] MEDS: ACETAMINOPHEN TAB 325 MG TAB PO PRN (13:49)
--- NOTE | 2021-05-02 14:45 | P.DS ---
Providers Date of admission: 04/26/21 03:43 Expected date of discharge: 05/02/21 Attending physician: Jose Daniel Robbins Consults: 04/26/21 04:16 Consult Physician Routine Consulting Provider: Fredy John Consult Reason/Comments: hematuria Do you want consulting provider notified?: Yes 04/29/21 14:19 Consult Physician Routine Consulting Provider: Michael Catherine Consult Reason/Comments: Hx prostate cancer, new rib lesion Do you want consulting provider notified?: Yes 04/30/21 17:14 Consult Physician Routine Consulting Provider: Pavel Ambrose Consult Reason/Comments: Palliaitive Radiation to Bone Do you want consulting provider notified?: Yes 05/01/21 18:31 Consult Physician Routine Consulting Provider: Fredrick Lay Consult Reason/Comments: uncontrolled Afib Do you want consulting provider notified?: Yes Primary care physician: Floyd Anne MD Hospital Course: Chief Complaint: Hematuria History of presenting complaint: This is a pleasant 86-year-old patient with follows with Dr. Floyd Anne. Chronic stable medical conditions include diabetes, hypertension, hyperlipidemia, osteoarthritis, gout. Patient was first diagnosed with prostate cancer about 8-10 years ago. And radiation seeds. Planted by Dr Degroot Patient did well. Patient would have intermittent bleeding every 3-4 months and about a year ago Dr. Overton from urology did scrape the bladder. Patient was admitted to the hospital from April 22 through April 25: With significant hematuria. Continuous bladder irrigation was carried out. Hematuria stopped. Patient seen by Dr. john. 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 Patient yet again as presented with hematuria. Continuous bladder irrigation has been started. April 28: Cystoscopy was done and prostate cancer has infiltrated into the bladder. Some scraping was carried out 04/29/2021: Having bladder irrigation. Some improvement. Hematuria still present. Tired. Being followed by urology. Oncology consulted. Care was discussed with the patient and . 04/30/2021: Urine has been clearing up. Continuous bladder irrigation is being scheduled back. Patient was seen by oncology. Not for systemic chemotherapy. They're considering palliative radiation. Patient does not have any pain. Oral intake about 50% 05/01/2021: Urine still got some blood in the same. Couple of blood clots were removed by the nurse only this morning. No chest pain. I spoke at length with Dr. abernathy from urology. Possibility of diverting urostomy/nephrostomy was discussed. He will address this with the family. Patient was seen by radiation oncology and Dr. Catherine. Decision has been made to proceed with radiation treatment. Because of patient's weakness needing assistance patient will go to the rehab with first treatment done tomorrow. Patient's was informed. Discussed with Dr. Catherine renal case manager Dr. abernathy. 05/02/2021: Urine has not cleared up. Denies any pain in the chest. Eating some. Patient going on for his first radiation treatment today. Then we'll be getting discharged to the ECF. Spoke to the bilingual social worker. Because patient is a 2 person assist in the late ambulance for transfer. Discussed with the patient. Discussion and discharge planning more than 35 minutes Consultation: Dr. Catherine from oncology Radiation oncology Dr. abernathy and partners from urology Past medical history to include: Diabetes mellitus, hypertension, hyperlipidemia, osteoarthritis, prostate cancer, stroke and the right eye, gout Social history: . No history of smoking or alcohol. Retired Family history: Of diabetes, heart problems Physical examination: VITAL SIGNS: 98.4, 84, 17, 116/67, 98% room air GENERAL: laying in bed, awake, comfortable EYES: Pupils equal. Conjunctiva pale. NECK: JVD not raised; masses not palpable. HEART: First and second heart sounds are normal; no edema. LUNGS: Respiratory rate normal; clear to auscultation. ABDOMEN: Soft, nontender, liver spleen not palpable, no masses palpable. Haq catheter -less bloody urine PSYCH: Alert and oriented x3; mood and affect normal. MUSCULAR skeletal: Evidence of OA multiple joints INVESTIGATIONS, reviewed in the clinical context: Coronavirus [PCR]: Not detected 05/01/2051: White count 11.5 hemoglobin 7.7 platelets 315 potassium 4.4 BUN 45 crit 1.57 04/30/2021: Potassium 5.4 BUN 47 creatinine 2.19 04/29/2021: White count 12.1 hemoglobin 8.8 platelets 409 potassium 5.5 BUN 37 creatinine 1.8 Previous testing Rib biopsy results: Adenocarcinoma Computed tomography scan of the chest with contrast: Left pleural effusion. Left lower lobe infiltrate and atelectasis. Rounded 6.5 cm mass involving the left lateral drip with rib destruction. Similar smaller mass lesion involving the left fifth rib injury and 3 cm. With a fracture. 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 Calcified gallstones. Bilateral hydronephrosis and hydroureter. Patient to follow-up with urology, radiation oncology, oncology. Assessment and plan: -Acute on chronic recurrent hematuria in a patient with known history of prostate cancer. had radiation seeds placed about 10 years ago. Rib Biopsy has shown adenocarcinoma. Now presenting with an acute severe episode. Prostate cancer has extended into the bladder wall. Continues bladder irrigation. April 28: TURP was done by Dr. Chapman with some scraping of the bladder tumor. Patient to be discharged with a Haq. Possibility of nephrostomy/diverting urostomy down the road. -Acute blood loss anemia from hematuria: Slow to respond . Hemoglobin 7.7 Follow H&H -Acute kidney injury, obstructive uropathy. Creatinine is bumped up from 0.8- 1.8: DC Cozaar. IV fluids. Creatinine 1.57 -Bilateral hydronephrosis and hydroureter likely chronic from prostate cancer Follow with urology -Fracture of the left fifth and eighth rib with soft tissue mass, with biopsy positive for adenocarcinoma, metastatic For radiation treatment 10 days with radiation oncology. -Diabetes mellitus type 2 on oral hypoglycemic DC metformin. Glucotrol 5 mg twice a day -Peripheral neuropathy Neurontin 600 mg daily at bedtime -Essential hypertension Stop Cozaar because the renal function. -Hyperkalemia from renal failure and Cozaar: Bed to Cozaar discontinued. Kayexalate given -Chronic insomnia from medical conditions Ambien 5mg daily at bedtime Disposition: [facility] Additionally: Patient be transported daily for radiation treatment. CBC, BMP: 3 days Plan - Discharge Summary New Discharge Prescriptions: New Sodium Bicarbonate Tab 650 mg PO TID #90 tab Metoprolol Tartrate [Lopressor] 100 mg PO BID tab Continue Ergocalciferol [Vitamin D2 (DRISDOL)] 1,250 mcg PO Q14D Tamsulosin [Flomax] 0.4 mg PO DAILY Famotidine [Pepcid] 20 mg PO BID Allopurinol [Zyloprim] 100 mg PO BID Ascorbic Acid [Vitamin C] 1,000 mg PO DAILY Multivitamins, Thera [Multivitamin (formulary)] 1 tab PO DAILY Enzalutamide [Xtandi] 160 mg PO DAILY@1400 Ferrous Sulfate [Iron (65 MG Elemental)] 325 mg PO DAILY Mupirocin 2% Oint [Bactroban 2% Oint] 1 applic TOPICAL BID PRN PRN Reason: ULCERS Triamcinolone 0.1% Cream [Kenalog 0.1% Cream] 1 applic TOPICAL BID PRN PRN Reason: Rash Changed Zolpidem [Ambien] 5 mg PO HS #0 glipiZIDE [Glucotrol] 5 mg PO BID #0 Gabapentin 600 mg PO HS #0 Discontinued amLODIPine [Norvasc] 5 mg PO DAILY metFORMIN HCL 500 mg PO DAILY Losartan [Cozaar] 50 mg PO DAILY metFORMIN HCL [Glucophage] 1,000 mg PO HS Discharge Medication List Ergocalciferol [Vitamin D2 (DRISDOL)] 1,250 mcg PO Q14D 01/29/16 [History] Tamsulosin [Flomax] 0.4 mg PO DAILY 01/29/16 [History] Allopurinol [Zyloprim] 100 mg PO BID 05/04/20 [History] Famotidine [Pepcid] 20 mg PO BID 05/04/20 [History] Ascorbic Acid [Vitamin C] 1,000 mg PO DAILY 09/07/20 [History] Enzalutamide [Xtandi] 160 mg PO DAILY@1400 04/22/21 [History] Ferrous Sulfate [Iron (65 MG Elemental)] 325 mg PO DAILY 04/22/21 [History] Multivitamins, Thera [Multivitamin (formulary)] 1 tab PO DAILY 04/22/21 [History] Mupirocin 2% Oint [Bactroban 2% Oint] 1 applic TOPICAL BID PRN 04/22/21 [History] Triamcinolone 0.1% Cream [Kenalog 0.1% Cream] 1 applic TOPICAL BID PRN 04/22/21 [History] Sodium Bicarbonate Tab 650 mg PO TID #90 tab 05/01/21 [Rx] Zolpidem [Ambien] 5 mg PO HS #0 05/01/21 [Rx] glipiZIDE [Glucotrol] 5 mg PO BID #0 05/01/21 [Rx] Gabapentin 600 mg PO HS #0 05/02/21 [Rx] Metoprolol Tartrate [Lopressor] 100 mg PO BID tab 05/02/21 [Rx] Follow up Appointment(s)/Referral(s): Michael Catherine MD [STAFF PHYSICIAN] - As Needed (Schedule as needed. ) Floyd Anne MD [Primary Care Provider] - As Needed (Schedule as needed. ) [facility] [NON-STAFF] - 1 Week Can Abernathy MD [STAFF PHYSICIAN] - As Needed (Schedule as needed. ) Pavel Ambrose MD [STAFF PHYSICIAN] - As Needed (Schedule as needed. )
--- NOTE | 2021-05-02 15:31 | ECHOF ---
Referral Reason:Lv function, afib MEASUREMENTS -------- HEIGHT: 172.7 cm WEIGHT: 66.7 kg BP: 122/72 RVIDd: 3.9 cm (< 3.3) IVSd: 1.2 cm (0.6 - 1.1) LVIDd: 4.1 cm (3.9 - 5.3) LVPWd: 1.3 cm (0.6 - 1.1) IVSs: 2.0 cm LVIDs: 2.6 cm LVPWs: 1.6 cm LA Diam: 3.4 cm (2.7 - 3.8) LAESV Index (A-L): 43.34 ml/m Ao Diam: 3.4 cm (2.0 - 3.7) AV Cusp: 2.2 cm (1.5 - 2.6) MV EXCURSION: 19.089 mm (> 18.000) MV EF SLOPE: 45 mm/s (70 - 150) EPSS: 1.0 cm MV E Juwan: 1.20 m/s MV DecT: 211 ms MV A Juwan: 1.06 m/s MV E/A Ratio: 1.14 RAP: 5.00 mmHg RVSP: 43.76 mmHg FINDINGS -------- This was a technically adequate study. The left ventricular size is normal. There is mild concentric left ventricular hypertrophy. Overa ll left ventricular systolic function is low-normal with, an EF between 50 - 55 %. The right ventricle is mild to moderately enlarged. LA is severely dilated >40 ml/m2 The right atrial size is normal. Interatrial and interventricular septum intact. There is moderate aortic valve sclerosis. Trace amount of aortic regurgitation. The mitral valve leaflets are mildly thickened. Moderate mitral annular calcification present. Mi ld mitral regurgitation is present. The tricuspid valve appears structurally normal. Mild tricuspid regurgitation present. There is m ild pulmonary hypertension. The right ventricular systolic pressure, as measured by Doppler, is 43. 76mmHg. Trace/mild (physiologic) pulmonic regurgitation. The aortic root size is normal. Normal inferior vena cava with normal inspiratory collapse consistent with estimated right atrial pre ssure of 5 mmHg. There is no pericardial effusion. CONCLUSIONS -------- 1. There is mild concentric left ventricular hypertrophy. 2. Overall left ventricular systolic function is low-normal with, an EF between 50 - 55 %. 3. The right ventricle is mild to moderately enlarged. 4. LA is severely dilated >40 ml/m2 5. There is moderate aortic valve sclerosis. 6. Trace amount of aortic regurgitation. 7. Moderate mitral annular calcification present. 8. Mild mitral regurgitation is present. 9. Mild tricuspid regurgitation present. 10. There is mild pulmonary hypertension. 11. Trace/mild (physiologic) pulmonic regurgitation. 12. There is no pericardial effusion. STITCHER STANDARD MACHINE: Radha Sanchez RDCS
--- NOTE | 2021-05-02 16:04 | P.CONS ---
History of Present Illness - Chief Complaint Medical debility - History of Present Illness Patient seen for medical debility, history of prostate cancer. Seen by Dr. Chapman who is known to patient. Patient recently developed bilateral hydronephrosis. Did undergo TURP for removal of clot. Seen by Dr. Catherine, oncology. Seen by cardiology for atrial fibrillation. Has started therapies. PT reports moderate assistance bed mobility and two-person maximal assistance for transfer and unable take one step only. OT reports moderate assistance for upper dressing and max assist for lower dressing and bathing and total assist for toileting. 2 person maximal assistance functional ability and transfer. Previous functional history as elicited from : 86-year-old right-handed white male who is lives in one floor home. Both are retired. does cooking, laundry, driving. reports the patient's activity was to get up in the morning, he breakfast, sitdown for couple hours and then back into bed for nap. Repeat the same for dinner. Gait with 4 wheeled walker more likely than roller walker or standard walker. PCP Dr. Floyd Anne. Denies tobacco or alcohol. Review of Systems Review of systems: ENT: Denies sneezes or discharge. Eyes: Denies discharge or photophobia. Cardiac: Denies chest pain or palpitation. Pulmonary: Denies cough or shortness of breath. Gastrointestinal: Denies nausea, emesis, constipation, diarrhea. Genitourinary: Prostate cancer. Musculoskeletal: Denies muscle or bone aches. Neurologic: Generalized weakness. Endocrine: Denies shakes or sweats. Oncology: Denies cancers. Dermatologic: Denies rash, itching, pruritus. ALLERGY/immunology: Denies sneezes, rashes. Past Medical History Past Medical History: Cancer, Diabetes Mellitus, Hyperlipidemia, Hypertension, Osteoarthritis (OA), Prostate Disorder Additional Past Medical History / Comment(s): prostate cancer, STROKE BEHIND RT EYE,GOUT,DDD,RECENTLY TX FOR UTI History of Any Multi-Drug Resistant Organisms: None Reported Past Surgical History: Joint Replacement, Orthopedic Surgery Additional Past Surgical History / Comment(s): 02-05-16 TOTAL LT KNEE REPLACMENT, RT KNEE REPLACMENT, BRIELLE CATARACTS, PROSTE-SEED IMPLANTS,COLONOSC OPY/POLYPECTOMY(BENIGN), PRECANCEROUS SKIN LESIONS FROZEN OFF. Past Anesthesia/Blood Transfusion Reactions: Motion Sickness Past Psychological History: No Psychological Hx Reported Smoking Status: Never smoker Past Alcohol Use History: None Reported Past Drug Use History: None Reported - Past Family History Mother Family Medical History: Diabetes Mellitus Additional Family Medical History / Comment(s): HEART PROBLEMS Father Family Medical History: Diabetes Mellitus Medications and Allergies Home Medications Medication Instructions Recorded Confirmed Type Ergocalciferol [Vitamin D2 1,250 mcg PO Q14D 01/29/16 04/26/21 History (DRISDOL)] Tamsulosin [Flomax] 0.4 mg PO DAILY 01/29/16 04/26/21 History Allopurinol [Zyloprim] 100 mg PO BID 05/04/20 04/26/21 History Famotidine [Pepcid] 20 mg PO BID 05/04/20 04/26/21 History Ascorbic Acid [Vitamin C] 1,000 mg PO DAILY 09/07/20 04/26/21 History Enzalutamide [Xtandi] 160 mg PO DAILY@1400 04/22/21 04/26/21 History Ferrous Sulfate [Iron (65 MG 325 mg PO DAILY 04/22/21 04/26/21 History Elemental)] Multivitamins, Thera [Multivitamin 1 tab PO DAILY 04/22/21 04/26/21 History (formulary)] Mupirocin 2% Oint [Bactroban 2% 1 applic TOPICAL BID PRN 04/22/21 04/26/21 History Oint] Triamcinolone 0.1% Cream [Kenalog 1 applic TOPICAL BID PRN 04/22/21 04/26/21 History 0.1% Cream] Sodium Bicarbonate Tab 650 mg PO TID #90 tab 05/01/21 Rx Zolpidem [Ambien] 5 mg PO HS #0 05/01/21 04/26/21 Rx glipiZIDE [Glucotrol] 5 mg PO BID #0 05/01/21 04/26/21 Rx Gabapentin 600 mg PO HS #0 05/02/21 04/26/21 Rx Metoprolol Tartrate [Lopressor] 100 mg PO BID tab 05/02/21 Rx Allergies Allergy/AdvReac Type Severity Reaction Status Date / Time adhesive tape AdvReac skin tear Verified 04/26/21 07:46 Physical Exam Vitals: Vital Signs Temp Pulse Resp BP Pulse Ox 05/02/21 12:28 98.4 F 84 17 116/67 98 05/02/21 05:00 99.5 F 92 16 122/72 93 L 05/01/21 21:15 95 05/01/21 20:04 97.9 F 125 H 19 136/78 05/01/21 19:55 95 19 05/01/21 18:38 150 H 18 147/74 94 L Intake and Output 05/02/21 05/02/21 05/02/21 06:59 14:59 22:59 Output Total 800 Balance -800 Output: Urine 800 Other: Voiding Method Indwelling Catheter Weight 67 kg - Constitutional General appearance: no acute distress - EENT Eyes: normal appearance ENT: hearing grossly normal - Neck Soft - Respiratory Breathing comfortably, chest symmetric. - Gastrointestinal General gastrointestinal: soft - Integumentary Atrophic. - Musculoskeletal Musculoskeletal: generalized weakness Results CBC & Chem 7: 05/01/21 05:45 05/01/21 05:45 Labs: Abnormal Lab Results - Last 24 Hours (Table) 05/01/21 05/01/21 05/02/21 Range/Units 17:38 20:21 07:46 POC Glucose (mg/dL) 236 H 328 H 135 H (75-99) mg/dL 05/02/21 Range/Units 12:12 POC Glucose (mg/dL) 349 H (75-99) mg/dL Assessment and Plan (1) Bone metastasis Current Visit: Yes Status: Acute Code(s): C79.51 - SECONDARY MALIGNANT NEOPLASM OF BONE SNOMED Code(s): 97182899 (2) Acute on chronic renal failure Current Visit: No Status: Acute Code(s): N17.9 - ACUTE KIDNEY FAILURE, UNSPECIFIED; N18.9 - CHRONIC KIDNEY DISEASE, UNSPECIFIED SNOMED Code(s): 724441639 Plan: Impression: 1. Medical debility. 2. Prostate cancer with metastases including bone. 3. Diabetes. 4. Hypertension. 5. Dyslipidemia. 6. Osteoarthritis. Comments and plan: At this time PT and OT are ongoing. Patient currently with significant endurance issues and would be unable to tolerate full inpatient rehab program. This was discussed with and she is in agreement. At this time patient will require 24/7 care.
[2021-05-02 17:37] LABS: Glucose,Whole Blood 140 mg/dL (75-99)
[2021-05-02 20:13] LABS: Glucose,Whole Blood 247 mg/dL (75-99)
[2021-05-02] MEDS: GABAPENTIN 300 MG CAP PO SCH (20:55)
[2021-05-02] MEDS: ZOLPIDEM 5 MG TAB PO SCH (20:56)
[2021-05-03 07:08] LABS: Glucose,Whole Blood 190 mg/dL (75-99)
[2021-05-03] MEDS ORDERED: amLODIPine 2.5 MG TAB PO SCH ×2 (09:00)
[2021-05-03] MEDS: INSULIN ASPART (NovoLOG) 100 UNIT/ML VIAL SQ SCH ×4 (10:00→20:53)
[2021-05-03] MEDS: MULTIVITAMINS, THERA 1 EACH TAB PO SCH (10:03)
[2021-05-03] MEDS: glipiZIDE 5 MG TAB PO SCH ×2 (10:03→20:53)
[2021-05-03] MEDS: ASCORBIC ACID 500 MG TAB PO SCH (10:03)
[2021-05-03] MEDS: SODIUM BICARBONATE TAB 650 MG TAB PO SCH ×3 (10:03→20:59)
[2021-05-03] MEDS: METOPROLOL TARTRATE 50 MG TAB PO SCH ×2 (10:03→20:59)
[2021-05-03] MEDS: TAMSULOSIN 0.4 MG CAP.ER.24H PO SCH (10:03)
[2021-05-03] MEDS: allopurinoL 100 MG TAB PO SCH ×2 (10:04→20:53)
[2021-05-03] MEDS: FAMOTIDINE 20 MG TAB PO SCH (10:04)
[2021-05-03] MEDS: FERROUS SULFATE 325 MG TAB PO SCH (10:04)
--- NOTE | 2021-05-03 11:21 | P.PN ---
Subjective Progress Note Date: 05/03/21 The patient had catheter problems last night. I suspect he had some clot in his bladder that finally started dissolve and plugged the catheter. The nursing staff ran bladder irrigation in the face of clot which distended his bladder. I had them change the catheter to a 20-[place]. There is old blood draining freely out of the catheter. Discussed with the nurse to irrigate the catheter is indicated. At this point time it does not appear to be any fresh bleeding. Hopefully the old blood will clear over the next 24 hours and we can remove the catheter. Objective - Vital Signs Vital signs: Vital Signs Temp 97.4 F L 05/03/21 05:00 Pulse 91 05/03/21 05:00 Resp 18 05/03/21 05:00 BP 135/71 05/03/21 05:00 Pulse Ox 95 05/03/21 05:00 Intake & Output 05/02/21 05/03/21 05/03/21 18:59 06:59 18:59 Output Total 600 925 10 Balance -600 -925 -10 Weight 67 kg Output: Urine 600 925 10 3-way Urethral 325 10 Other: Voiding Method Indwelling Catheter Indwelling Catheter - Labs CBC & Chem 7: 05/01/21 05:45 05/01/21 05:45 Labs: Abnormal Lab Results - Last 24 Hours (Table) 05/02/21 05/02/21 05/02/21 Range/Units 12:12 17:36 20:12 POC Glucose (mg/dL) 349 H 140 H 247 H (75-99) mg/dL 05/03/21 Range/Units 07:06 POC Glucose (mg/dL) 190 H (75-99) mg/dL
[2021-05-03 11:56] LABS: Glucose,Whole Blood 365 mg/dL (75-99)
--- NOTE | 2021-05-03 12:14 | P.PN ---
Subjective Progress Note Date: 05/03/21 This is a pleasant 86-year-old male with a past medical history significant for prostate cancer cancer, hematuria, diabetes, peripheral neuropathy, and hypertension. 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 Patient is admitted to the hospital secondary to hematuria due to his prostate cancer. Patient underwent cystoscopy, evacuation of clots, and transurethral resection of prostate on 04/28/2021.We have been asked to see the patient in consultation for uncontrolled atrial fibrillation. It is unclear if the patient has a history of atrial fibrillation. EKG on admission reveals SR with PACs. Laboratory data reveals WBC 11.5. Hemoglobin 7.7. Platelet count 315. Sodium 137. Potassium 4.4. BUN 45. Creatinine 1.57. He continues to have significant hematuria. He is currently in atrial fibrillation with heart rate in the 90s. He denies chest pain or pressure. He said no palpitations, dizziness or lightheadedness. Denies shortness of breath. Overall this morning he says he is feeling quite tired. He is currently on amlodipine 2.5 mg by mouth daily and metoprolol tartrate 100 mg by mouth twice a day. Not currently anticoagulated due to the anemia and significant hematuria. Cardiogram with Doppler study done yesterday showed low normal LV systolic function with ejec tion fraction between 50-55%, mild to moderately enlarged RV, severely dilated LA, mild MR, trace amount of AI, mild TR and mild pulmonary hypertension with an RVSP of 43.76 mmHg. Objective - Vital Signs Vital signs: Vital Signs Temp 99.2 F 05/03/21 11:24 Pulse 97 05/03/21 11:24 Resp 18 05/03/21 11:24 BP 123/63 05/03/21 11:24 Pulse Ox 99 05/03/21 11:24 Intake & Output 05/02/21 05/03/21 05/03/21 18:59 06:59 18:59 Output Total 600 925 10 Balance -600 -925 -10 Weight 67 kg Output: Urine 600 925 10 3-way Urethral 325 10 Other: Voiding Method Indwelling Catheter Indwelling Catheter - Exam PHYSICAL EXAMINATION: HEENT: Head is atraumatic, normocephalic. Pupils equal, round. Neck is supple. There is no elevated jugular venous pressure. HEART EXAMINATION: Heart sounds irregular rate and rhythm, S1 and S2 normal with a systolic murmur CHEST EXAMINATION: Lungs are clear to auscultation anteriorly. No chest wall tenderness is noted on palpation or with deep breathing. ABDOMEN: Soft, nontender. Bowel sounds are heard. No organomegaly noted. EXTREMITIES: 2+ peripheral pulses with no evidence of peripheral edema and no calf tenderness noted. NEUROLOGIC patient is awake, alert and oriented x3. . - Labs CBC & Chem 7: 05/01/21 05:45 05/01/21 05:45 Labs: Abnormal Lab Results - Last 24 Hours (Table) 05/02/21 05/02/21 05/02/21 Range/Units 12:12 17:36 20:12 POC Glucose (mg/dL) 349 H 140 H 247 H (75-99) mg/dL 05/03/21 05/03/21 Range/Units 07:06 11:54 POC Glucose (mg/dL) 190 H 365 H (75-99) mg/dL Assessment and Plan Assessment: Hematuria, s/p cystoscopy, evacuation of clots, and transurethral resection of prostate on 04/28/2021 History of prostate cancer Atrial fibrillation with RVR versus sinus arrhythmia, appears to be new onset Diabetes Peripheral neuropathy Hypertension Acute blood loss anemia Acute kidney injury Plan: From cardiology's perspective medications were reviewed and will continue the same at this time. I discussed in detail the rationale behind anticoagulation for thromboembolic protection from a cardiac standpoint and also discussed our rationale for holding off on initiation of anticoagulation at this time due to significant anemia and hematuria. He verbalizes understanding. We will continue to follow the patient and provide further recommendations accordingly. PYTHON DJANGO DEVELOPER note has been reviewed, I agree with a documented findings and plan of care. Patient was seen and examined.
--- NOTE | 2021-05-03 12:50 | P.PN ---
Subjective Progress Note Date: 05/03/21 The patient is lethargic with continued generalized weakness. His Haq catheter shows mostly old blood. Objective - Vital Signs Vital signs: Vital Signs Temp 99.2 F 05/03/21 11:24 Pulse 97 05/03/21 11:24 Resp 18 05/03/21 11:24 BP 123/63 05/03/21 11:24 Pulse Ox 99 05/03/21 11:24 Intake & Output 05/02/21 05/03/21 05/03/21 18:59 06:59 18:59 Output Total 600 925 10 Balance -600 -925 -10 Weight 67 kg Output: Urine 600 925 10 3-way Urethral 325 10 Other: Voiding Method Indwelling Catheter Indwelling Catheter - Constitutional General appearance: Present: no acute distress - EENT Eyes: Present: EOMI ENT: Present: hearing grossly normal, normal oropharynx - Respiratory Respiratory: bilateral: CTA - Cardiovascular Rhythm: regular Heart sounds: normal: S1, S2 - Gastrointestinal General gastrointestinal: Present: normal bowel sounds, soft - Integumentary Integumentary: Present: normal - Neurologic Neurologic: Present: CNII-XII intact - Musculoskeletal Musculoskeletal: Present: generalized weakness, strength equal bilaterally - Psychiatric Psychiatric: Present: A&O x's 3, appropriate affect - Labs CBC & Chem 7: 05/01/21 05:45 05/01/21 05:45 Labs: Abnormal Lab Results - Last 24 Hours (Table) 05/02/21 05/02/21 05/03/21 Range/Units 17:36 20:12 07:06 POC Glucose (mg/dL) 140 H 247 H 190 H (75-99) mg/dL 05/03/21 Range/Units 11:54 POC Glucose (mg/dL) 365 H (75-99) mg/dL Assessment and Plan (1) Prostate cancer Narrative/Plan: The patient has obvious progression of prostate cancer, biopsy proven, from both the chest wall mass, as well as a bladder mass. He is therefore progressing on GnRH agonist and ARB. - Patient's PSA is actually in the normal range at 0.3, indicating that his malignancy has now become poorly differentiated. - Treatment options were discussed in detail with the patient and his . At this time the plan is to order biomarker testing through the office. Patient will be assessed in about 2-3 weeks once the results are available. If there is a possibility of a targeted agent being used they will consider the same. Otherwise standard options for treatment would be chemotherapy. The patient however is a poor candidate for standard chemotherapy given his performance status and age. If chemotherapy is the only option it is possible that they will more likely consider comfort care. Current Visit: No Status: Chronic Priority: High Code(s): C61 - MALIGNANT NEOPLASM OF PROSTATE SNOMED Code(s): 786162110 (2) Anemia Narrative/Plan: Multifactorial, due to blood loss in the urine, AOCKD, and anemia of cancer. Continue to monitor and transfuse for hemoglobin less than 7 Current Visit: No Status: Acute Code(s): D64.9 - ANEMIA, UNSPECIFIED SNOMED Code(s): 773464119 Plan: Case was discussed in detail with addition oncology. The patient has started radiation for the chest wall mass. We also discussed the possibility of some palliative radiation to the bladder to reduce his problems with hematuria. - This was also discussed with the patient. While in addition to the bladder can cause hematuria itself due to cystitis, the chance of that happening are felt to be quite low, according to radiation oncology, with palliative doses that would normally be given to prevent bleeding from the bladder tumor. He will be assessed further for this by radiation oncology and he felt to be suitable for the same will receive treatment to that area also in addition to the chest wall.
[2021-05-03] MEDS: SODIUM CHLORIDE 0.9% IRRIG 3,000 ML BAG IRRIGATION SCH (13:43)
--- NOTE | 2021-05-03 14:02 | P.PN ---
Progress Note - Text Progress Note Date: 05/02/21 Chief Complaint: Hematuria History of presenting complaint: This is a pleasant 86-year-old patient with follows with Dr. Floyd Anne. Chronic stable medical conditions include diabetes, hypertension, hyperlipidemia, osteoarthritis, gout. Patient was first diagnosed with prostate cancer about 8-10 years ago. And radiation seeds. Planted by Dr Degroot Patient did well. Patient would have intermittent bleeding every 3-4 months and about a year ago Dr. Overton from urology did scrape the bladder. Patient was admitted to the hospital from April 22 through April 25: With significant hematuria. Continuous bladder irrigation was carried out. Hematuria stopped. Patient seen by Dr. goddard. 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 Patient yet again as presented with hematuria. Continuous bladder irrigation has been started. April 28: Cystoscopy was done and prostate cancer has infiltrated into the bladder. Some scraping was carried out 04/29/2021: Having bladder irrigation. Some improvement. Hematuria still present. Tired. Being followed by urology. Oncology consulted. Care was discussed with the patient and . 04/30/2021: Urine has been clearing up. Continuous bladder irrigation is being scheduled back. Patient was seen by oncology. Not for systemic chemotherapy. They're considering palliative radiation. Patient does not have any pain. Oral intake about 50% 05/01/2021: Urine still got some blood in the same. Couple of blood clots were removed by the nurse only this morning. No chest pain. I spoke at length with Dr. pickens from urology. Possibility of diverting urostomy/nephrostomy was dis cussed. He will address this with the family. Patient was seen by radiation oncology and Dr. Catherine. Decision has been made to proceed with radiation treatment. Because of patient's weakness needing assistance patient will go to the rehab with first treatment done tomorrow. Patient's was informed. Discussed with Dr. Catherine rn case manager Dr. pickens. 05/02/2021: Urine has not cleared up. Denies any pain in the chest. Eating some. Patient going on for his first radiation treatment today. Then we'll be getting discharged to the ECF. Spoke to the director social welfare. Because patient is a 2 person assist in the late ambulance for transfer. Discussed with the patient. Late in the evening hours, but the director social welfare that because of patient's chemo pill that urology wants to continue patient be not be accepted at rehab. Because of cost issues. Discharge was canceled. Patient also had uncontrolled A. fib. Cartilage was coming close to it. Started on Lopressor. Heart rate better controlled. Review of systems: Was done for constitutional, cardiovascular, GI, pulmonary. relevant finding as above Past medical history to include: Diabetes mellitus, hypertension, hyperlipidemia, osteoarthritis, prostate cancer, stroke and the right eye, gout Social history: . No history of smoking or alcohol. Retired Family history: Of diabetes, heart problems Physical examination: VITAL SIGNS: 99, 93, 18, 130/68, 93% room air GENERAL: laying in bed, awake, comfortable EYES: Pupils equal. Conjunctiva pale. NECK: JVD not raised; masses not palpable. HEART: First and second heart sounds are normal; no edema. LUNGS: Respiratory rate normal; clear to auscultation. ABDOMEN: Soft, nontender, liver spleen not palpable, no masses palpable. Haq catheter -less bloody urine PSYCH: Alert and oriented x3; mood and affect normal. MUSCULAR skeletal: Evidence of OA multiple joints INVESTIGATIONS, reviewed in the clinical context: Coronavirus [PCR]: Not detected 05/01/2051: White count 11.5 hemoglobin 7.7 platelets 315 potassium 4.4 BUN 45 crit 1.57 04/30/2021: Potassium 5.4 BUN 47 creatinine 2.19 04/29/2021: White count 12.1 hemoglobin 8.8 platelets 409 potassium 5.5 BUN 37 creatinine 1.8 Previous testing Rib biopsy results: Adenocarcinoma Computed tomography scan of the chest with contrast: Left pleural effusion. Left lower lobe infiltrate and atelectasis. Rounded 6.5 cm mass involving the left lateral drip with rib destruction. Similar smaller mass lesion involving the left fifth rib injury and 3 cm. With a fracture. 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 Calcified gallstones. Bilateral hydronephrosis and hydroureter. Patient to follow-up with urology, radiation oncology, oncology. Assessment and plan: -Acute on chronic recurrent hematuria in a patient with known history of prostate cancer. had radiation seeds placed about 10 years ago. Rib Biopsy has shown adenocarcinoma. Now presenting with an acute severe episode. Prostate cancer has extended into the bladder wall. Continues bladder irrigation. April 28: TURP was done by Dr. Chapman with some scraping of the bladder tumor. Possibility of nephrostomy/diverting urostomy down the road. Palliative radiation treatment -Acute blood loss anemia from hematuria: . Hemoglobin 7.7 Follow H&H -Acute kidney injury, obstructive uropathy. Creatinine is bumped up from 0.8- 1.8: DC Cozaar. IV fluids. Creatinine 1.57 -Bilateral hydronephrosis and hydroureter likely chronic from prostate cancer Follow with urology -Fracture of the left fifth and eighth rib with soft tissue mass, with biopsy positive for adenocarcinoma, metastatic For radiation treatment 10 days with radiation oncology. -Diabetes mellitus type 2 on oral hypoglycemic DC metformin. Glucotrol 5 mg twice a day -Peripheral neuropathy Neurontin 600 mg daily at bedtime -Essential hypertension Stop Cozaar because the renal function. -Hyperkalemia from renal failure and Cozaar: Bed to Cozaar discontinued. Kayexalate given -New onset of atrial fibrillation with rapid ventricular rate Cardiology consulted. Lopressor 50 mg twice a day. -Chronic insomnia from medical conditions Ambien 5mg daily at bedtime Patient atrial fibrillation rate better controlled later in the day. Lopressor 50 mg twice a day. Dose of amlodipine cutback. Because patient being on chemo pill ECF without excessive the patient. Total time spent today about 1 hour with over 30 minutes of discussion
--- NOTE | 2021-05-03 14:16 | P.PN ---
Progress Note - Text Progress Note Date: 05/03/21 Chief Complaint: Hematuria History of presenting complaint: This is a pleasant 86-year-old patient with follows with Dr. Floyd Anne. Chronic stable medical conditions include diabetes, hypertension, hyperlipidemia, osteoarthritis, gout. Patient was first diagnosed with prostate cancer about 8-10 years ago. And radiation seeds. Planted by Dr Degroot Patient did well. Patient would have intermittent bleeding every 3-4 months and about a year ago Dr. Overton from urology did scrape the bladder. Patient was admitted to the hospital from April 22 through April 25: With significant hematuria. Continuous bladder irrigation was carried out. Hematuria stopped. Patient seen by Dr. goddard. 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 Patient yet again as presented with hematuria. Continuous bladder irrigation has been started. April 28: Cystoscopy was done and prostate cancer has infiltrated into the bladder. Some scraping was carried out 04/29/2021: Having bladder irrigation. Some improvement. Hematuria still present. Tired. Being followed by urology. Oncology consulted. Care was discussed with the patient and . 04/30/2021: Urine has been clearing up. Continuous bladder irrigation is being scheduled back. Patient was seen by oncology. Not for systemic chemotherapy. They're considering palliative radiation. Patient does not have any pain. Oral intake about 50% 05/01/2021: Urine still got some blood in the same. Couple of blood clots were removed by the nurse only this morning. No chest pain. I spoke at length with Dr. pickens from urology. Possibility of diverting urostomy/nephrostomy was dis cussed. He will address this with the family. Patient was seen by radiation oncology and Dr. Catherine. Decision has been made to proceed with radiation treatment. Because of patient's weakness needing assistance patient will go to the rehab with first treatment done tomorrow. Patient's was informed. Discussed with Dr. Catherine human services case manager Dr. pickens. 05/02/2021: Urine has not cleared up. Denies any pain in the chest. Eating some. Patient going on for his first radiation treatment today. Then we'll be getting discharged to the ECF. Spoke to the social work faculty member. Because patient is a 2 person assist in the late ambulance for transfer. Discussed with the patient. Late in the evening hours, but the social work faculty member that because of patient's chemo pill that urology wants to continue patient be not be accepted at rehab. Because of cost issues. Discharge was canceled. Patient also had uncontrolled A. fib. Cardiology consulted Started on Lopressor. Heart rate better controlled. May 03: Laying in bed. Tired. Had some blood clots overnight. Oral intake fair. Discharge was held yesterday because chemo pill could not be continued at the [facility]. Discussed with Dr. Catherine from oncology. Says the medication not working better to stop the same. Patient received palliative treatment for hematuria Review of systems: Was done for constitutional, cardiovascular, GI, pulmonary. relevant finding as above Active Medications Acetaminophen (Acetaminophen Tab 325 Mg Tab) 650 mg PO Q4HR PRN PRN Reason: Fever and/ or Pain Last Admin: 05/02/21 13:49 Dose: 650 mg Documented by: Allopurinol (Allopurinol 100 Mg Tab) 100 mg PO BID [facility] Last Admin: 05/03/21 10:04 Dose: 100 mg Documented by: Ascorbic Acid (Ascorbic Acid 500 Mg Tab) 1,000 mg PO DAILY [facility] Last Admin: 05/03/21 10:03 Dose: 1,000 mg Documented by: Ergocalciferol (Ergocalciferol 1,250 Mcg (50,000 Iu) Capsule) 1,250 mcg PO Q14D [facility] Last Admin: 05/02/21 08:53 Dose: 1,250 mcg Documented by: Famotidine (Famotidine 20 Mg Tab) 20 mg PO DAILY [facility] Last Admin: 05/03/21 10:04 Dose: 20 mg Documented by: Ferrous Sulfate (Ferrous Sulfate 325 Mg Tab) 325 mg PO DAILY [facility] Last Admin: 05/03/21 10:04 Dose: 325 mg Documented by: Gabapentin (Gabapentin 300 Mg Cap) 900 mg PO HS [facility] Last Admin: 05/02/21 20:55 Dose: 900 mg Documented by: Glipizide (Glipizide 5 Mg Tab) 5 mg PO BID [facility] Last Admin: 05/03/21 10:03 Dose: 5 mg Documented by: Insulin Aspart (Insulin Aspart (Novolog) 100 Unit/Ml Vial) 0 unit SQ [facility]; Protocol Last Admin: 05/03/21 13:50 Dose: 6 unit Documented by: Metoprolol Tartrate (Metoprolol Tartrate 50 Mg Tab) 100 mg PO BID [facility] Last Admin: 05/03/21 10:03 Dose: 100 mg Documented by: Multivitamins (Multivitamins, Thera 1 Each Tab) 1 each PO DAILY [facility] Last Admin: 05/03/21 10:03 Dose: 1 each Documented by: Patient's Own Enzalutamide [Xtandi ] 40 Mg Tablet 160 mg PO DAILY@1400 [facility] Last Admin: 05/02/21 13:49 Dose: 160 mg Documented by: Sodium Bicarbonate (Sodium Bicarbonate Tab 650 Mg Tab) 650 mg PO TID [facility] Last Admin: 05/03/21 10:03 Dose: 650 mg Documented by: Sodium Chloride (Sodium Chloride 0.9% Irrig 3,000 Ml Bag) 3,000 ml IRRIGATION CONTINUOUS [facility] Last Admin: 05/03/21 13:43 Dose: Not Given Documented by: Tamsulosin HCl (Tamsulosin 0.4 Mg Cap.Er.24h) 0.4 mg PO DAILY [facility] Last Admin: 05/03/21 10:03 Dose: 0.4 mg Documented by: Zolpidem Tartrate (Zolpidem 5 Mg Tab) 5 mg PO HS [facility] Last Admin: 05/02/21 20:56 Dose: 5 mg Documented by: Past medical history to include: Diabetes mellitus, hypertension, hyperlipidemia, osteoarthritis, prostate cancer, stroke and the right eye, gout Social history: . No history of smoking or alcohol. Retired Family history: Of diabetes, heart problems Physical examination: VITAL SIGNS: 99, 93, 18, 113/60, 93% room air GENERAL: laying in bed, awake, comfortable EYES: Pupils equal. Conjunctiva pale. NECK: JVD not raised; masses not palpable. HEART: First and second heart sounds are normal; no edema. LUNGS: Respiratory rate normal; clear to auscultation. ABDOMEN: Soft, nontender, liver spleen not palpable, no masses palpable. Haq catheter -bloody urine PSYCH: Alert and oriented x3; mood and affect normal. MUSCULAR skeletal: Evidence of OA multiple joints INVESTIGATIONS, reviewed in the clinical context: Coronavirus [PCR]: Not detected 05/01/2051: White count 11.5 hemoglobin 7.7 platelets 315 potassium 4.4 BUN 45 crit 1.57 04/30/2021: Potassium 5.4 BUN 47 creatinine 2.19 04/29/2021: White count 12.1 hemoglobin 8.8 platelets 409 potassium 5.5 BUN 37 creatinine 1.8 Previous testing Rib biopsy results: Adenocarcinoma Computed tomography scan of the chest with contrast: Left pleural effusion. Left lower lobe infiltrate and atelectasis. Rounded 6.5 cm mass involving the left lateral drip with rib destruction. Similar smaller mass lesion involving the left fifth rib injury and 3 cm. With a fracture. 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 Calcified gallstones. Bilateral hydronephrosis and hydroureter. Patient to follow-up with urology, radiation oncology, oncology. Assessment and plan: -Acute on chronic recurrent hematuria in a patient with known history of prostate cancer. had radiation seeds placed about 10 years ago. Rib Biopsy has shown adenocarcinoma. Now presenting with an acute severe episode. Prostate cancer has extended into the bladder wall. Continues bladder irrigation. April 28: TURP was done by Dr. Chapman with some scraping of the bladder tumor. Possibility of nephrostomy/diverting urostomy down the road. Palliative radiation treatment -Acute blood loss anemia from hematuria: . Hemoglobin 7.7 Follow H&H -Acute kidney injury, obstructive uropathy. Creatinine is bumped up from 0.8- 1.8: DC Cozaar. IV fluids. Creatinine 1.57 -Bilateral hydronephrosis and hydroureter likely chronic from prostate cancer Follow with urology -Fracture of the left fifth and eighth rib with soft tissue mass, with biopsy positive for adenocarcinoma, metastatic For radiation treatment 10 days with radiation oncology. -Diabetes mellitus type 2 on oral hypoglycemic DC metformin. Glucotrol 5 mg twice a day -Peripheral neuropathy Neurontin 600 mg daily at bedtime -Essential hypertension Stop Cozaar because the renal function. -Hyperkalemia from renal failure and Cozaar: Bed to Cozaar discontinued. Kayexalate given -New onset of atrial fibrillation with rapid ventricular rate. Still uncontrolled Cardiology consulted. Lopressor 50 mg twice a day. -Chronic insomnia from medical conditions Ambien 5mg daily at bedtime Blood pressures running on the lower side. DC amlodipine. Lopressor can be increased. Patient was seen by Dr. Diop from [facility]. Will not qualify for rehab there
[2021-05-03 16:14] LABS: Glucose,Whole Blood 41 mg/dL (75-99)
[2021-05-03 16:30] LABS: Glucose,Whole Blood 52 mg/dL (75-99)
[2021-05-03 16:47] LABS: Glucose,Whole Blood 81 mg/dL (75-99)
[2021-05-03 19:21] LABS: Anisocytosis Slight; Basophils % (A) 0 %; Eosinophils % (A) 0 %; HCT 21.9 % (39.0-53.0); HGB 7.4 gm/dL (13.0-17.5); Hypochromasia Slight; Lymphocytes # (A) 0.3 k/uL (1.0-4.8); Lymphocytes % (A) 3 %; MCH 36.1 pg (25.0-35.0); MCHC 33.8 g/dL (31.0-37.0); MCV 106.7 fL (80.0-100.0); Macrocytosis Marked; Mean Platelet Volume 7.3; Monocytes # (A) 0.8 k/uL (0-1.0); Monocytes % (A) 8 %; Neutrophils # (A) 8.6 k/uL (1.3-7.7); Neutrophils % (A) 86 %; Platelet Count 311 k/uL (150-450); RBC 2.05 m/uL (4.30-5.90); RDW 18.2 % (11.5-15.5)
[2021-05-03 20:44] LABS: Glucose,Whole Blood 401 mg/dL (75-99)
[2021-05-03] MEDS: GABAPENTIN 300 MG CAP PO SCH (20:53)
[2021-05-03] MEDS: ZOLPIDEM 5 MG TAB PO SCH (20:53)
[2021-05-04 07:17] LABS: Glucose,Whole Blood 159 mg/dL (75-99)
[2021-05-04] MEDS: INSULIN ASPART (NovoLOG) 100 UNIT/ML VIAL SQ SCH ×4 (08:30→20:40)
[2021-05-04] MEDS: TAMSULOSIN 0.4 MG CAP.ER.24H PO SCH (08:38)
[2021-05-04] MEDS: ASCORBIC ACID 500 MG TAB PO SCH (08:38)
[2021-05-04] MEDS: allopurinoL 100 MG TAB PO SCH ×2 (08:38→20:41)
[2021-05-04] MEDS: MULTIVITAMINS, THERA 1 EACH TAB PO SCH (08:38)
[2021-05-04] MEDS: FERROUS SULFATE 325 MG TAB PO SCH (08:38)
[2021-05-04] MEDS: SODIUM BICARBONATE TAB 650 MG TAB PO SCH ×3 (08:38→22:04)
[2021-05-04] MEDS: FAMOTIDINE 20 MG TAB PO SCH (08:38)
[2021-05-04] MEDS: METOPROLOL TARTRATE 50 MG TAB PO SCH ×2 (08:38→20:41)
[2021-05-04] MEDS: glipiZIDE 5 MG TAB PO SCH ×2 (08:38→20:45)
[2021-05-04] MEDS: SODIUM CHLORIDE 0.9% IRRIG 3,000 ML BAG IRRIGATION SCH (09:51)
[2021-05-04 12:04] LABS: Glucose,Whole Blood 343 mg/dL (75-99)
--- NOTE | 2021-05-04 12:14 | P.PN ---
Subjective Progress Note Date: 05/04/21 The patient is in the hospital with gross hematuria. He has metastatic prostate carcinoma. He is on LHRH therapy an extended period did cystoscopy, fulguration and resection of bladder neck prostate tumor that was bleeding. The urine is finally clear and I will remove his catheter. We are asked whether the patient should continue with the Xtandi. His last PSA was 0.1 in January. I will repeat that. The decision on whether to continue with that medicine or something further will be made based on that. Objective - Vital Signs Vital signs: Vital Signs Temp 98.2 F 05/04/21 11:32 Pulse 84 05/04/21 11:32 Resp 16 05/04/21 11:32 BP 110/55 05/04/21 11:32 Pulse Ox 99 05/04/21 11:32 Intake & Output 05/03/21 05/04/21 05/04/21 18:59 06:59 18:59 Output Total 510 1200 Balance -510 -1200 Output: Urine 510 1200 3-way Urethral 10 Other: Voiding Method Indwelling Catheter Indwelling Catheter Indwelling Catheter # Bowel Movements 1 - Labs CBC & Chem 7: 05/03/21 18:52 05/01/21 05:45 Labs: Abnormal Lab Results - Last 24 Hours (Table) 05/03/21 05/03/21 05/03/21 Range/Units 16:12 16:28 18:52 RBC 2.05 L (4.30-5.90) m/uL Hgb 7.4 L (13.0-17.5) gm/dL Hct 21.9 L (39.0-53.0) % MCV 106.7 H (80.0-100.0) fL MCH 36.1 H (25.0-35.0) pg RDW 18.2 H (11.5-15.5) % Neutrophils # 8.6 H (1.3-7.7) k/uL Lymphocytes # 0.3 L (1.0-4.8) k/uL Macrocytosis Marked A POC Glucose (mg/dL) 41 L 52 L (75-99) mg/dL 05/03/21 05/04/21 05/04/21 Range/Units 20:41 07:10 11:35 RBC (4.30-5.90) m/uL Hgb (13.0-17.5) gm/dL Hct (39.0-53.0) % MCV (80.0-100.0) fL MCH (25.0-35.0) pg RDW (11.5-15.5) % Neutrophils # (1.3-7.7) k/uL Lymphocytes # (1.0-4.8) k/uL Macrocytosis POC Glucose (mg/dL) 401 H 159 H 343 H (75-99) mg/dL
--- NOTE | 2021-05-04 14:07 | P.PN ---
Subjective Progress Note Date: 05/04/21 This is a pleasant 86-year-old male with a past medical history significant for prostate cancer cancer, hematuria, diabetes, peripheral neuropathy, and hypertension. Patient does not follow with a rolled glass crosscutter. Patient is admitted to the hospital secondary to hematuria due to his prostate cancer. Patient underwent cystoscopy, evacuation of clots, and transurethral resection of prostate on 04/28/2021.We have been asked to see the patient in consultation for uncontrolled atrial fibrillation. It is unclear if the patient has a history of atrial fibrillation. EKG on admission reveals SR with PACs. Laboratory data reveals WBC 11.5. Hemoglobin 7.7. Platelet count 315. Sodium 137. Potassium 4.4. BUN 45. Creatinine 1.57. He continues to have significant hematuria. He is currently in atrial fibrillation with heart rate in the 90s. He denies chest pain or pressure. He said no palpitations, dizziness or lightheadedness. Denies shortness of breath. Overall this morning he says he is feeling quite tired. He is currently on amlodipine 2.5 mg by mouth daily and metoprolol tartrate 100 mg by mouth twice a day. Not currently anticoagulated due to the anemia and significant hematuria. Cardiogram with Doppler study done yesterday showed low normal LV systolic function with ejec tion fraction between 50-55%, mild to moderately enlarged RV, severely dilated LA, mild MR, trace amount of AI, mild TR and mild pulmonary hypertension with an RVSP of 43.76 mmHg. 05/04/2021 He was seen and examined this morning resting comfortably in bed. Continues to complain of significant fatigue. Hemoglobin remains low at 7.4. He is to have evidence of hematuria although appears to be somewhat improved compared to yesterday. Objective - Vital Signs Vital signs: Vital Signs Temp 98.2 F 05/04/21 11:32 Pulse 84 05/04/21 11:32 Resp 16 05/04/21 11:32 BP 110/55 05/04/21 11:32 Pulse Ox 99 05/04/21 11:32 Intake & Output 05/03/21 05/04/21 05/04/21 18:59 06:59 18:59 Output Total 510 1200 Balance -510 -1200 Output: Urine 510 1200 3-way Urethral 10 Other: Voiding Method Indwelling Catheter Indwelling Catheter Indwelling Catheter # Bowel Movements 1 - Exam PHYSICAL EXAMINATION: HEENT: Head is atraumatic, normocephalic. Pupils equal, round. Neck is supple. There is no elevated jugular venous pressure. HEART EXAMINATION: Heart sounds irregular rate and rhythm, S1 and S2 normal with a systolic murmur CHEST EXAMINATION: Lungs are clear to auscultation anteriorly. No chest wall tenderness is noted on palpation or with deep breathing. ABDOMEN: Soft, nontender. Bowel sounds are heard. No organomegaly noted. EXTREMITIES: 2+ peripheral pulses with no evidence of peripheral edema and no calf tenderness noted. NEUROLOGIC patient is awake, alert and oriented x3. . - Labs CBC & Chem 7: 05/03/21 18:52 05/01/21 05:45 Labs: Abnormal Lab Results - Last 24 Hours (Table) 05/03/21 05/03/21 05/03/21 Range/Units 16:12 16:28 18:52 RBC 2.05 L (4.30-5.90) m/uL Hgb 7.4 L (13.0-17.5) gm/dL Hct 21.9 L (39.0-53.0) % MCV 106.7 H (80.0-100.0) fL MCH 36.1 H (25.0-35.0) pg RDW 18.2 H (11.5-15.5) % Neutrophils # 8.6 H (1.3-7.7) k/uL Lymphocytes # 0.3 L (1.0-4.8) k/uL Macrocytosis Marked A POC Glucose (mg/dL) 41 L 52 L (75-99) mg/dL 05/03/21 05/04/21 05/04/21 Range/Units 20:41 07:10 11:35 RBC (4.30-5.90) m/uL Hgb (13.0-17.5) gm/dL Hct (39.0-53.0) % MCV (80.0-100.0) fL MCH (25.0-35.0) pg RDW (11.5-15.5) % Neutrophils # (1.3-7.7) k/uL Lymphocytes # (1.0-4.8) k/uL Macrocytosis POC Glucose (mg/dL) 401 H 159 H 343 H (75-99) mg/dL Assessment and Plan Assessment: Hematuria, s/p cystoscopy, evacuation of clots, and transurethral resection of prostate on 04/28/2021 History of prostate cancer Atrial fibrillation with RVR versus sinus arrhythmia, appears to be new onset Diabetes Peripheral neuropathy Hypertension Acute blood loss anemia Acute kidney injury Plan: From cardiology's perspective medications were reviewed and will continue the same at this time. Continue to hold anticoagulation at this time secondary to anemia and hematuria. We will continue to follow the patient and provide further recommendations accordingly. [employer] note has been reviewed, I agree with a documented findings and plan of care. Patient was seen and examined.
--- NOTE | 2021-05-04 14:23 | P.PN ---
Progress Note - Text Progress Note Date: 05/04/21 Chief Complaint: Hematuria History of presenting complaint: This is a pleasant 86-year-old patient with follows with Dr. Floyd Anne. Chronic stable medical conditions include diabetes, hypertension, hyperlipidemia, osteoarthritis, gout. Patient was first diagnosed with prostate cancer about 8-10 years ago. And radiation seeds. Planted by Dr Degroot Patient did well. Patient would have intermittent bleeding every 3-4 months and about a year ago Dr. Overton from urology did scrape the bladder. Patient was admitted to the hospital from April 22 through April 25: With significant hematuria. Continuous bladder irrigation was carried out. Hematuria stopped. Patient seen by Dr. goddard. 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 Patient yet again as presented with hematuria. Continuous bladder irrigation has been started. April 28: Cystoscopy was done and prostate cancer has infiltrated into the bladder. Some scraping was carried out 04/29/2021: Having bladder irrigation. Some improvement. Hematuria still present. Tired. Being followed by urology. Oncology consulted. Care was discussed with the patient and . 04/30/2021: Urine has been clearing up. Continuous bladder irrigation is being scheduled back. Patient was seen by oncology. Not for systemic chemotherapy. They're considering palliative radiation. Patient does not have any pain. Oral intake about 50% 05/01/2021: Urine still got some blood in the same. Couple of blood clots were removed by the nurse only this morning. No chest pain. I spoke at length with Dr. pickens from urology. Possibility of diverting urostomy/nephrostomy was dis cussed. He will address this with the family. Patient was seen by radiation oncology and Dr. Catherine. Decision has been made to proceed with radiation treatment. Because of patient's weakness needing assistance patient will go to the rehab with first treatment done tomorrow. Patient's was informed. Discussed with Dr. Catherine manager of case management Dr. pickens. 05/02/2021: Urine has not cleared up. Denies any pain in the chest. Eating some. Patient going on for his first radiation treatment today. Then we'll be getting discharged to the ECF. Spoke to the social sciences research scientist. Because patient is a 2 person assist in the late ambulance for transfer. Discussed with the patient. Late in the evening hours, but the social sciences research scientist that because of patient's chemo pill that urology wants to continue patient be not be accepted at rehab. Because of cost issues. Discharge was canceled. Patient also had uncontrolled A. fib. Cardiology consulted Started on Lopressor. Heart rate better controlled. May 03: Laying in bed. Tired. Had some blood clots overnight. Oral intake fair. Discharge was held yesterday because chemo pill could not be continued at the ECF. Discussed with Dr. Catherine from oncology. Says the medication not working better to stop the same. Patient received palliative treatment for hematuria May 04: Oral intake fair. Hematuria present. A bit tired. Spoke to Dr. goddard up with the dilemma off chemo pill not being, to the ECF. He suggested sulcate to hold off for a week given the conundrum currently present. Patient actually follows with Dr. pickens. We'll recheck out to him. I did also speak to the and updated her.. Review of systems: Was done for constitutional, cardiovascular, GI, pulmonary. relevant finding as above Active Medications Acetaminophen (Acetaminophen Tab 325 Mg Tab) 650 mg PO Q4HR PRN PRN Reason: Fever and/ or Pain Last Admin: 05/02/21 13:49 Dose: 650 mg Documented by: Allopurinol (Allopurinol 100 Mg Tab) 100 mg PO BID [facility] Last Admin: 05/04/21 08:38 Dose: 100 mg Documented by: Ascorbic Acid (Ascorbic Acid 500 Mg Tab) 1,000 mg PO DAILY [facility] Last Admin: 05/04/21 08:38 Dose: 1,000 mg Documented by: Ergocalciferol (Ergocalciferol 1,250 Mcg (50,000 Iu) Capsule) 1,250 mcg PO Q14D [facility] Last Admin: 05/02/21 08:53 Dose: 1,250 mcg Documented by: Famotidine (Famotidine 20 Mg Tab) 20 mg PO DAILY [facility] Last Admin: 05/04/21 08:38 Dose: 20 mg Documented by: Ferrous Sulfate (Ferrous Sulfate 325 Mg Tab) 325 mg PO DAILY [facility] Last Admin: 05/04/21 08:38 Dose: 325 mg Documented by: Gabapentin (Gabapentin 300 Mg Cap) 900 mg PO HS [facility] Last Admin: 05/03/21 20:53 Dose: 900 mg Documented by: Glipizide (Glipizide 5 Mg Tab) 5 mg PO BID [facility] Last Admin: 05/04/21 08:38 Dose: 5 mg Documented by: Insulin Aspart (Insulin Aspart (Novolog) 100 Unit/Ml Vial) 0 unit SQ [facility]; Protocol Last Admin: 05/04/21 13:51 Dose: 6 unit Documented by: Metoprolol Tartrate (Metoprolol Tartrate 50 Mg Tab) 100 mg PO BID [facility] Last Admin: 05/04/21 08:38 Dose: 100 mg Documented by: Multivitamins (Multivitamins, Thera 1 Each Tab) 1 each PO DAILY [facility] Last Admin: 05/04/21 08:38 Dose: 1 each Documented by: Patient's Own Enzalutamide [Xtandi ] 40 Mg Tablet 160 mg PO DAILY@1400 [facility] Last Admin: 05/04/21 13:55 Dose: 160 mg Documented by: Sodium Bicarbonate (Sodium Bicarbonate Tab 650 Mg Tab) 650 mg PO TID [facility] Last Admin: 05/04/21 08:38 Dose: 650 mg Documented by: Sodium Chloride (Sodium Chloride 0.9% Irrig 3,000 Ml Bag) 3,000 ml IRRIGATION CONTINUOUS [facility] Last Admin: 05/04/21 09:51 Dose: Not Given Documented by: Tamsulosin HCl (Tamsulosin 0.4 Mg Cap.Er.24h) 0.4 mg PO DAILY [facility] Last Admin: 05/04/21 08:38 Dose: 0.4 mg Documented by: Zolpidem Tartrate (Zolpidem 5 Mg Tab) 5 mg PO HS [facility] Last Admin: 05/03/21 20:53 Dose: 5 mg Documented by: Past medical history to include: Diabetes mellitus, hypertension, hyperlipidemia, osteoarthritis, prostate cancer, stroke and the right eye, gout Social history: . No history of smoking or alcohol. Retired Family history: Of diabetes, heart problems Physical examination: VITAL SIGNS: 98.2, 84, 16, 110/55, 99% room air GENERAL: laying in bed, awake, comfortable EYES: Pupils equal. Conjunctiva pale. NECK: JVD not raised; masses not palpable. HEART: First and second heart sounds are normal; no edema. LUNGS: Respiratory rate normal; clear to auscultation. ABDOMEN: Soft, nontender, liver spleen not palpable, no masses palpable. Haq catheter -bloody urine PSYCH: Alert and oriented x3; mood and affect normal. MUSCULAR skeletal: Evidence of OA multiple joints INVESTIGATIONS, reviewed in the clinical context: May 03: Hemoglobin 7.4 Coronavirus [PCR]: Not detected 05/01/2051: White count 11.5 hemoglobin 7.7 platelets 315 potassium 4.4 BUN 45 crit 1.57 04/30/2021: Potassium 5.4 BUN 47 creatinine 2.19 04/29/2021: White count 12.1 hemoglobin 8.8 platelets 409 potassium 5.5 BUN 37 creatinine 1.8 Previous testing Rib biopsy results: Adenocarcinoma Computed tomography scan of the chest with contrast: Left pleural effusion. Left lower lobe infiltrate and atelectasis. Rounded 6.5 cm mass involving the left lateral drip with rib destruction. Similar smaller mass lesion involving the left fifth rib injury and 3 cm. With a fracture. 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 Calcified gallstones. Bilateral hydronephrosis and hydroureter. Patient to follow-up with urology, radiation oncology, oncology. Assessment and plan: -Acute on chronic recurrent hematuria in a patient with known history of prostate cancer. had radiation seeds placed about 10 years ago. Rib Biopsy has shown adenocarcinoma. Now presenting with an acute severe episode. Prostate cancer has extended into the bladder wall. Continues bladder irrigation. April 28: TURP was done by Dr. Chapman with some scraping of the bladder tumor. Possibility of nephrostomy/diverting urostomy down the road. Palliative radiation treatment -Acute blood loss anemia from hematuria: . Hemoglobin 7.4 Follow H&H -Acute kidney injury, obstructive uropathy. Creatinine is bumped up from 0.8- 1.8: DC Cozaar. IV fluids. Creatinine 1.57 -Bilateral hydronephrosis and hydroureter likely chronic from prostate cancer Follow with urology -Fracture of the left fifth and eighth rib with soft tissue mass, with biopsy positive for adenocarcinoma, metastatic For radiation treatment 10 days with radiation oncology. -Diabetes mellitus type 2 on oral hypoglycemic DC metformin. Glucotrol 5 mg twice a day -Peripheral neuropathy Neurontin 600 mg daily at bedtime -Essential hypertension Stop Cozaar because the renal function. -Hyperkalemia from renal failure and Cozaar: Bed to Cozaar discontinued. Kayexalate given -New onset of atrial fibrillation with rapid ventricular rate. Still uncontrolled Cardiology consulted. Lopressor 100 mg twice a day. -Chronic insomnia from medical conditions Ambien 5mg daily at bedtime Continue current medication treatment plan. We will recheck Dr. pickens. Hopefully patient can be discharged after holding his chemo pill for a week. Total time spent today about 45 minutes with over 25 minutes of discussion.
[2021-05-04 16:55] LABS: Glucose,Whole Blood 103 mg/dL (75-99)
[2021-05-04] MEDS: REPAGLINIDE 1 MG TAB PO SCH (18:20)
[2021-05-04 20:16] LABS: Glucose,Whole Blood 179 mg/dL (75-99)
[2021-05-04] MEDS: GABAPENTIN 300 MG CAP PO SCH (20:41)
[2021-05-04] MEDS: ZOLPIDEM 5 MG TAB PO SCH (20:41)
[2021-05-05 06:57] LABS: Glucose,Whole Blood 150 mg/dL (75-99)
[2021-05-05 07:15] LABS: Anisocytosis Slight; Basophils # (A) 0.1 k/uL (0-0.2); Basophils % (A) 1 %; Eosinophils # (A) 0.2 k/uL (0-0.7); Eosinophils % (A) 2 %; HGB 7.6 gm/dL (13.0-17.5); Hypochromasia Moderate; Lymphocytes # (A) 0.6 k/uL (1.0-4.8); Lymphocytes % (A) 6 %; MCH 34.3 pg (25.0-35.0); MCHC 31.6 g/dL (31.0-37.0); MCV 108.6 fL (80.0-100.0); Macrocytosis Marked; Mean Platelet Volume 7.8; Monocytes # (A) 0.7 k/uL (0-1.0); Monocytes % (A) 7 %; Neutrophils # (A) 8.2 k/uL (1.3-7.7); Neutrophils % (A) 83 %; Platelet Count 345 k/uL (150-450); RBC 2.21 m/uL (4.30-5.90); RDW 17.6 % (11.5-15.5); WBC 9.9 k/uL (3.8-10.6)
[2021-05-05] MEDS: FERROUS SULFATE 325 MG TAB PO SCH (07:41)
[2021-05-05] MEDS: TAMSULOSIN 0.4 MG CAP.ER.24H PO SCH (07:41)
[2021-05-05] MEDS: SODIUM BICARBONATE TAB 650 MG TAB PO SCH (07:41)
[2021-05-05] MEDS: MULTIVITAMINS, THERA 1 EACH TAB PO SCH (07:41)
[2021-05-05] MEDS: SODIUM CHLORIDE 0.9% IRRIG 3,000 ML BAG IRRIGATION SCH (07:41)
[2021-05-05] MEDS: FAMOTIDINE 20 MG TAB PO SCH (07:42)
[2021-05-05] MEDS: allopurinoL 100 MG TAB PO SCH (07:42)
[2021-05-05] MEDS: METOPROLOL TARTRATE 50 MG TAB PO SCH (07:42)
[2021-05-05] MEDS: ASCORBIC ACID 500 MG TAB PO SCH (07:42)
[2021-05-05] MEDS: REPAGLINIDE 1 MG TAB PO SCH ×2 (07:43→12:35)
[2021-05-05] MEDS: glipiZIDE 5 MG TAB PO SCH (07:44)
[2021-05-05] MEDS: INSULIN ASPART (NovoLOG) 100 UNIT/ML VIAL SQ SCH ×2 (09:51→12:35)
--- NOTE | 2021-05-05 10:47 | P.PN ---
Subjective Progress Note Date: 05/05/21 HISTORY OF PRESENT ILLNESS: This is a 86-year-old male with a past medical history significant for prostate cancer cancer, hematuria, diabetes, peripheral neuropathy, and hypertension. Patient does not follow with a vacuum caster. We have been asked to see the patient in consultation for uncontrolled atrial fibrillation. Patient examined at the bedside. Patient is admitted to the hospital secondary to hematuria due to his prostate cancer. Patient underwent cystoscopy, evacuation of clots, and transurethral resection of prostate on 04/28/2021. The patient is in atrial fibrillation this morning with a heart rate in the 120s. It is unclear if the patient has a history of atrial fibrillation. He denies chest pain or pressure. Denies shortness of breath. EKG on admission reveals SR with PACs. Repeat EKG pending. Laboratory data: WBC 11.5. Hemoglobin 7.7. Platelet count 315. Sodium 137. Potassium 4.4. BUN 45. Creatinine 1.57 Current home cardiac medications include amlodipine 5 mg daily 05/04/2021 He was seen and examined this morning resting comfortably in bed. Continues to complain of significant fatigue. Hemoglobin remains low at 7.4. He is to have evidence of hematuria although appears to be somewhat improved compared to yesterday. 05/05/2021 Patient examined this morning at the bedside. Patient denies chest pain or pressure. Denies shortness of breath. Heart rate remains controlled. Blood pressure 144/69. PHYSICAL EXAM: VITAL SIGNS: Reviewed. GENERAL: Well-developed in no acute distress. HEENT: Head is normocephalic. Pupils are equal, round. Sclerae anicteric. Mucous membranes of the mouth are moist. Neck supple. No JVD or thyromegaly LUNGS: Respirations even and unlabored. Lungs essentially clear to auscultation bilaterally. HEART: Irregular rate and rhythm. S1 and S2 heard. ABDOMEN: Soft. Nondistended. Nontender. EXTREMITIES: Normal range of motion. No clubbing or cyanosis. Peripheral pulses intact. No lower extremity edema NEUROLOGIC: Awake and alert. Oriented x 3. ASSESSMENT: Hematuria, s/p cystoscopy, evacuation of clots, and transurethral resection of prostate on 04/28/2021 History of prostate cancer Atrial fibrillation with RVR versus sinus arrhythmia, appears to be new onset Diabetes Peripheral neuropathy Hypertension Acute blood loss anemia Acute kidney injury PLAN: Continue current cardiac medications No anticoagulation due to hematuria and anemia Stable from a cardiac standpoint We will sign off. Please reconsult if needed Nurse practitioner note has been reviewed by physician. Signing provider agrees with the documented findings, assessment, and plan of care. Objective - Vital Signs Vital signs: Vital Signs Temp 98.8 F 05/05/21 04:45 Pulse 64 05/05/21 04:45 Resp 20 05/05/21 04:45 BP 144/69 05/05/21 04:45 Pulse Ox 95 05/05/21 04:45 Intake & Output 05/04/21 05/05/21 05/05/21 18:59 06:59 18:59 Intake Total 390 Balance 390 Intake: Oral 390 Other: Voiding Method Indwelling Catheter Diaper Incontinent # Voids 1 4 # Bowel Movements 1 - Labs CBC & Chem 7: 05/05/21 06:33 05/01/21 05:45 Labs: Abnormal Lab Results - Last 24 Hours (Table) 05/04/21 05/04/21 05/04/21 Range/Units 11:35 16:54 20:14 RBC (4.30-5.90) m/uL Hgb (13.0-17.5) gm/dL Hct (39.0-53.0) % MCV (80.0-100.0) fL RDW (11.5-15.5) % Neutrophils # (1.3-7.7) k/uL Lymphocytes # (1.0-4.8) k/uL Macrocytosis POC Glucose (mg/dL) 343 H 103 H 179 H (75-99) mg/dL 05/05/21 05/05/21 Range/Units 06:33 06:55 RBC 2.21 L (4.30-5.90) m/uL Hgb 7.6 L (13.0-17.5) gm/dL Hct 24.0 L (39.0-53.0) % MCV 108.6 H (80.0-100.0) fL RDW 17.6 H (11.5-15.5) % Neutrophils # 8.2 H (1.3-7.7) k/uL Lymphocytes # 0.6 L (1.0-4.8) k/uL Macrocytosis Marked A POC Glucose (mg/dL) 150 H (75-99) mg/dL
[2021-05-05] MEDS: ACETAMINOPHEN TAB 325 MG TAB PO PRN (10:52)
[2021-05-05 12:27] LABS: Glucose,Whole Blood 365 mg/dL (75-99)
[2021-05-05 12:27] LABS: Glucose,Whole Blood 360 mg/dL (75-99)
[2021-05-05 12:46] VITALS: BP 144/67; PULSE 77; RESP 17; TEMP 98.4
--- NOTE | 2021-05-05 14:06 | P.DS ---
Providers Date of admission: 04/26/21 03:43 Expected date of discharge: 05/05/21 Attending physician: Jose Daniel Robbins Consults: 04/26/21 04:16 Consult Physician Routine Consulting Provider: Fredy John Consult Reason/Comments: hematuria Do you want consulting provider notified?: Yes 04/29/21 14:19 Consult Physician Routine Consulting Provider: Michael Catherine Consult Reason/Comments: Hx prostate cancer, new rib lesion Do you want consulting provider notified?: Yes 04/30/21 17:14 Consult Physician Routine Consulting Provider: Pavel Ambrose Consult Reason/Comments: Palliaitive Radiation to Bone Do you want consulting provider notified?: Yes 05/02/21 15:02 Consult Physician Routine Consulting Provider: Oscar Diop Consult Reason/Comments: possilbe Inpatient Rehab Do you want consulting provider notified?: Yes Primary care physician: Floyd Anne MD Hospital Course: Chief Complaint: Hematuria History of presenting complaint: This is a pleasant 86-year-old patient with follows with Dr. Floyd Anne. Chronic stable medical conditions include diabetes, hypertension, hyperlipidemia, osteoarthritis, gout. Patient was first diagnosed with prostate cancer about 8-10 years ago. And radiation seeds. Planted by Dr Degroot Patient did well. Patient would have intermittent bleeding every 3-4 months and about a year ago Dr. Overton from urology did scrape the bladder. Patient was admitted to the hospital from April 22 through April 25: With significant hematuria. Continuous bladder irrigation was carried out. Hematuri a stopped. Patient seen by Dr. john. 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 Patient yet again as presented with hematuria. Continuous bladder irrigation has been started. April 28: Cystoscopy was done and prostate cancer has infiltrated into the bladder. Some scraping was carried out 04/29/2021: Having bladder irrigation. Some improvement. Hematuria still p resent. Tired. Being followed by urology. Oncology consulted. Care was discussed with the patient and . 04/30/2021: Urine has been clearing up. Continuous bladder irrigation is being scheduled back. Patient was seen by oncology. Not for systemic chemotherapy. They're considering palliative radiation. Patient does not have any pain. Oral intake about 50% 05/01/2021: Urine still got some blood in the same. Couple of blood clots were removed by the nurse only this morning. No chest pain. I spoke at length with Dr. abernathy from urology. Possibility of diverting urostomy/nephrostomy was discussed. He will address this with the family. Patient was seen by radiation oncology and Dr. Catherine. Decision has been made to proceed with radiation treatment. Because of patient's weakness needing assistance patient will go to the rehab with first treatment done tomorrow. Patient's was informed. Discussed with Dr. Catherine director of casework department Dr. abernathy. 05/02/2021: Urine has not cleared up. Denies any pain in the chest. Eating some. Patient going on for his first radiation treatment today. Then we'll be getting discharged to the ECF. Spoke to the social insurance adviser. Because patient is a 2 person assist in the late ambulance for transfer. Discussed with the patient. Late in the evening hours, but the social insurance adviser that because of patient's chemo pill that urology wants to continue patient be not be accepted at rehab. Because of cost issues. Discharge was canceled. Patient also had uncontrolled A. fib. Cardiology consulted Started on Lopressor. Heart rate better controlled. May 03: Laying in bed. Tired. Had some blood clots overnight. Oral intake fair. Discharge was held yesterday because chemo pill could not be continued at the ECF. Discussed with Dr. Catherine from oncology. Says the medication not working better to stop the same. Patient received palliative treatment for hematuria May 04: Oral intake fair. Hematuria present. A bit tired. Spoke to Dr. john up with the dilemma off chemo pill not being, to the ECF. He suggested sulcate to hold off for a week given the conundrum currently present. Patient actually follows with Dr. abernathy. We'll recheck out to him. I did also speak to the and updated her.. May 05: Today laying down for rib radiation. Some pain is present. Haq catheter was discontinued yesterday. Relevant to leak clear urine today. Spoke with Dr. Ambrose from radiation oncology. Patient to return from ECF tomorrow for bladder palliative radiation treatment for bleeding. An continuous course for palliative treatment for rib metastasis. Also spoke to patient's questions answered. Spoke to the social insurance adviser Sabrina. Patient's Xtandi, will not be prescribed getting patient stated the rehab. Discussion and discharge planning more than 35 minutes Past medical history to include: Diabetes mellitus, hypertension, hyperlipidemia, osteoarthritis, prostate cancer, stroke and the right eye, gout Social history: . No history of smoking or alcohol. Retired Family history: Of diabetes, heart problems Physical examination: VITAL SIGNS: 98.2, 84, 16, 110/55, 99% room air GENERAL: laying in bed, awake, comfortable EYES: Pupils equal. Conjunctiva pale. NECK: JVD not raised; masses not palpable. HEART: First and second heart sounds are normal; no edema. LUNGS: Respiratory rate normal; clear to auscultation. ABDOMEN: Soft, nontender, liver spleen not palpable, no masses palpable. Haq catheter -bloody urine PSYCH: Alert and oriented x3; mood and affect normal. MUSCULAR skeletal: Evidence of OA multiple joints INVESTIGATIONS, reviewed in the clinical context: May 03: Hemoglobin 7.4 Coronavirus [PCR]: Not detected 05/01/2051: White count 11.5 hemoglobin 7.7 platelets 315 potassium 4.4 BUN 45 crit 1.57 04/30/2021: Potassium 5.4 BUN 47 creatinine 2.19 04/29/2021: White count 12.1 hemoglobin 8.8 platelets 409 potassium 5.5 BUN 37 creatinine 1.8 Previous testing Rib biopsy results: Adenocarcinoma Computed tomography scan of the chest with contrast: Left pleural effusion. Left lower lobe infiltrate and atelectasis. Rounded 6.5 cm mass involving the left lateral drip with rib destruction. Similar smaller mass lesion involving the left fifth rib injury and 3 cm. With a fracture. 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 Calcified gallstones. Bilateral hydronephrosis and hydroureter. Patient to follow-up with urology, radiation oncology, oncology. Assessment and plan: -Acute on chronic recurrent hematuria in a patient with known history of prostate cancer. had radiation seeds placed about 10 years ago. Rib Biopsy has shown adenocarcinoma. Now presenting with an acute severe episode. Prostate cancer has extended into the bladder wall. Continues bladder irrigation. April 28: TURP was done by Dr. Chapman with evacuation of clots. Palliative radiation treatment, to the bladder to be started as outpatient -Acute blood loss anemia from hematuria: . Hemoglobin 7.6 Follow H&H -Acute kidney injury, obstructive uropathy. Creatinine is bumped up from 0.8- 1.8: DC Cozaar. IV fluids. Creatinine 1.57 -Bilateral hydronephrosis and hydroureter likely chronic from prostate cancer Follow with urology -Fracture of the left fifth and eighth rib with soft tissue mass, with biopsy positive for adenocarcinoma, metastatic For radiation treatment 10 days with radiation oncology. -Diabetes mellitus type 2 on oral hypoglycemic DC metformin. Glucotrol 5 mg twice a day -Peripheral neuropathy Neurontin 600 mg daily at bedtime -Essential hypertension Stop Cozaar because the renal function. -Hyperkalemia from renal failure and Cozaar: Bed to Cozaar discontinued. Kayexalate given -New onset of atrial fibrillation with rapid ventricular rate. Controlled Cardiology. No anticoagulation because of recurrent hematuria Lopressor 100 mg twice a day. -Chronic insomnia from medical conditions Ambien 5mg daily at bedtime Disposition: F/[facility] - Discharge Summary New Discharge Prescriptions: New Sodium Bicarbonate Tab 650 mg PO TID #90 tab Metoprolol Tartrate [Lopressor] 100 mg PO BID tab Repaglinide [Prandin] 2 mg PO AC-TID tab Continue Ergocalciferol [Vitamin D2 (DRISDOL)] 1,250 mcg PO Q14D Tamsulosin [Flomax] 0.4 mg PO DAILY Famotidine [Pepcid] 20 mg PO BID Allopurinol [Zyloprim] 100 mg PO BID Ascorbic Acid [Vitamin C] 1,000 mg PO DAILY Multivitamins, Thera [Multivitamin (formulary)] 1 tab PO DAILY Ferrous Sulfate [Iron (65 MG Elemental)] 325 mg PO DAILY Mupirocin 2% Oint [Bactroban 2% Oint] 1 applic TOPICAL BID PRN PRN Reason: ULCERS Triamcinolone 0.1% Cream [Kenalog 0.1% Cream] 1 applic TOPICAL BID PRN PRN Reason: Rash Changed Zolpidem [Ambien] 5 mg PO HS #0 glipiZIDE [Glucotrol] 5 mg PO BID #0 Gabapentin 600 mg PO HS #0 Discontinued amLODIPine [Norvasc] 5 mg PO DAILY metFORMIN HCL 500 mg PO DAILY Losartan [Cozaar] 50 mg PO DAILY Enzalutamide [Xtandi] 160 mg PO DAILY@1400 metFORMIN HCL [Glucophage] 1,000 mg PO HS Discharge Medication List Ergocalciferol [Vitamin D2 (DRISDOL)] 1,250 mcg PO Q14D 01/29/16 [History] Tamsulosin [Flomax] 0.4 mg PO DAILY 01/29/16 [History] Allopurinol [Zyloprim] 100 mg PO BID 05/04/20 [History] Famotidine [Pepcid] 20 mg PO BID 05/04/20 [History] Ascorbic Acid [Vitamin C] 1,000 mg PO DAILY 09/07/20 [History] Ferrous Sulfate [Iron (65 MG Elemental)] 325 mg PO DAILY 04/22/21 [History] Multivitamins, Thera [Multivitamin (formulary)] 1 tab PO DAILY 04/22/21 [History] Mupirocin 2% Oint [Bactroban 2% Oint] 1 applic TOPICAL BID PRN 04/22/21 [History] Triamcinolone 0.1% Cream [Kenalog 0.1% Cream] 1 applic TOPICAL BID PRN 04/22/21 [History] Sodium Bicarbonate Tab 650 mg PO TID #90 tab 05/01/21 [Rx] Zolpidem [Ambien] 5 mg PO HS #0 05/01/21 [Rx] glipiZIDE [Glucotrol] 5 mg PO BID #0 05/01/21 [Rx] Gabapentin 600 mg PO HS #0 05/02/21 [Rx] Metoprolol Tartrate [Lopressor] 100 mg PO BID tab 05/02/21 [Rx] Repaglinide [Prandin] 2 mg PO AC-TID tab 05/05/21 [Rx] Follow up Appointment(s)/Referral(s): Michael Catherine MD [STAFF PHYSICIAN] - As Needed (Schedule as needed. ) Floyd Anne MD [Primary Care Provider] - As Needed (Schedule as needed. ) [facility] [NON-STAFF] - 1 Week Can Abernathy MD [STAFF PHYSICIAN] - As Needed (Schedule as needed. ) Pavel Ambrose MD [STAFF PHYSICIAN] - As Needed (Schedule as needed. )
== END 2021-05-05 15:57 | DRG 713 ==
LOC: 5NMEDONC 03:43
PROVIDERS: ADMIT Hospitalist; ATTEND Hospitalist
PROC: 0VB08ZZ Excision of Prostate, Via Natural or Artificial Opening Endoscopic (ICD-10-PCS; principal; 2021-04-28 08:30)
PROC: 0TCB8ZZ Extirpation of Matter from Bladder, Via Natural or Artificial Opening Endoscopic (ICD-10-PCS; 2021-04-28 08:30)
DX: C61 Malignant neoplasm of prostate (principal); C79.51 Secondary malignant neoplasm of bone; D62 Acute posthemorrhagic anemia; N02.9 Recurrent and persistent hematuria with unspecified morphologic changes; N13.30 Unspecified hydronephrosis; N17.9 Acute kidney failure, unspecified; M84.48XA Pathological fracture, other site, initial encounter for fracture; D63.0 Anemia in neoplastic disease; D63.1 Anemia in chronic kidney disease; E11.22 Type 2 diabetes mellitus with diabetic chronic kidney disease; E11.42 Type 2 diabetes mellitus with diabetic polyneuropathy; E78.5 Hyperlipidemia, unspecified; E87.5 Hyperkalemia; F51.04 Psychophysiologic insomnia; M10.9 Gout, unspecified; M19.90 Unspecified osteoarthritis, unspecified site; Z20.822 Contact with and (suspected) exposure to COVID-19; N18.9 Chronic kidney disease, unspecified; I48.91 Unspecified atrial fibrillation; I51.7 Cardiomegaly; I12.9 Hypertensive chronic kidney disease with stage 1 through stage 4 chronic kidney disease, or unspecified chronic kidney disease; Z86.73 Personal history of transient ischemic attack (TIA), and cerebral infarction without residual deficits; Z79.84 Long term (current) use of oral hypoglycemic drugs; Z79.899 Other long term (current) drug therapy; Z83.3 Family history of diabetes mellitus; R22.2 Localized swelling, mass and lump, trunk
CPT/HCPCS: 77290; 77295; 77300; 77332; 77334; 77387; 77412; 80048; 80053; 84153; 84443; 85025; 87635; 88305; 93005; 93306